=== PATIENT | female | born 1960 | race Caucasian/White ===

== ENCOUNTER → 2025-04-02 13:24 | Outpatient (BNVA) | payer BC, SELFPAY | PROVIDERS: PCP Physician Assistant Medical; Visit Provider Physician Assistant Surgical ==

== ENCOUNTER 2025-04-22 08:21 | Outpatient (AMB) | payer BC, SELFPAY ==
--- OUTSIDE RECORDS SUMMARY | 2025-04-22 08:26 | XMS_ITS | Patient Health Record ---
Author Organization [facility] Address [address] [facility] [address] [place] [address] Care Team Providers Care Lead Software Tester Name Role Phone Belkys Armando Primary Care Provider Unavailabl e Allergies Allergen (clinical drug ingredient) Drug/Non Drug Allergy documented on EMR Reaction Allergy Type Onset Date Status crab allergenic extract Crab (uncoded) Unknown Allergy Active Reason For Referral No Information Medications Medication SIG (Take, Route, Frequency, Duration) Notes Start Date End Date Status Irbesartan 300 MG 1 tablet Orally Once a day Active Vitamin D (Ergocalciferol) 5 0 MCG (1999) 1 capsule Orally Once a day Active Fish Oil 1000 MG 1 capsule Orally Onc e a day Active Pravastatin Sodium 20 MG 1 tablet Orally Once a day Active buPROPion HCl ER (XL) 150 MG 1 tablet in the morning Orally Once a day Active hydroCHLOROthiazide 25 MG 1 tablet in th e morning Orally Once a day Active metFORMIN HCl ER 500 MG 1 tablet with ev ening meal Orally Once a day Active Problems Problem Type SNOMED Code ICD Code Onset Dates Problem Status W/U Status Risk Notes Problem [id number] Hallux valgus (acquired), left foot (M20.12) Active confirmed Plan Of Treatment Pending Test Test Name Order Date X ray : Foot, left 3v 06/28/2021 Insurance Providers Payer Name Payer Address Payer Phone Subscriber Number Group Number Insured Name Patient Relationship to Insured Coverage Start Date Coverage End Date [employer] [facility] [address] [place] [phone] [id number] Lina Lynch Self - patient is the insured Medical (General) History Medical History History ICD Code Hyperlipidemia Hypertension Pre diabetes Vitamin D deficiency Morbid obesity Hyperlipidemia Essential (primary) hypertension Depression, unspecified depression type Abnormal LFT's Parasthesia Surgical History Surgery Date(Month/Year) Section meniscus repair (Left)
--- NOTE | 2025-04-22 12:42 | MHC.OFFVISWM ---
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 Allergies No Known Allergies Allergy (Verified 04/22/25 12:42) Medication List - Last Reconciled 04/22/25 by Melquiades Dewitt MD amlodipine 5 mg PO DAILY aspirin 81 mg PO DAILY irbesartan 300 mg PO DAILY metformin 1,000 mg PO DAILY metoprolol tartrate 50 mg PO BID pantoprazole 40 mg PO DAILY pravastatin 80 mg PO DAILY semaglutide (Ozempic) 1 mg subcut QWEEK HPI 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: Details: Start time: 12.31pm, End time: 1.31pm ?I spent 55 minutes speaking with the patient on the phone plus an additional 5 minutes reviewing and updating records for a total of 60 minutes HPI Comments Details: Previous weight loss efforts: Cindi Melton, Nutrisystem, WW, Hypnosis Wakes up: 6am, Sleeps: 9.30pm Breakfast: skips Lunch: 11.30am (left over from dinner) Dinner: 5pm (meat, vegetables, starch) Snacks: 3pm (popcorn), rarely at night Exercise: none Beverages: Coffee: none, tea: rarely, soda: none, juice: none, ETOH: 1/month PFSH Medical History (Updated 04/22/25 @ 13:12 by Melquiades Dewitt MD) Non-insulin dependent type 2 diabetes mellitus DJD (degenerative joint disease) GERD (gastroesophageal reflux disease) Hyperlipidemia Sleep apnea treated with continuous positive airway pressure (CPAP) Hypertension BMI 30.0-30.9,adult Obesity Surgical History (Updated 04/02/25 @ 15:04 by Skylar Diallo CMA) Hx of section History of lateral meniscus repair of right knee History of lateral meniscus repair of left knee Hx of colonoscopy Family History (Updated 04/02/25 @ 13:53 by Skylar Diallo CMA) Mother Breast cancer Diabetes Heart problem Hypertension Father Heart problem Melanoma Diabetes Hypertension Son Gout Daughter No problems noted. Daughter Thyroid condition Social History (Updated 04/02/25 @ 13:53 by ERICA Steward Alcohol intake: current Alcohol intake frequency: holidays/special occasions only Patient Tobacco Use Status: Never used Tobacco Telehealth Telehealth Telehealth Platform: Telephone Location of provider rendering services: practice address Location of patient: address on file Patient Identification confirmed using: Name, : Yes Telehealth method: voice only Patient verbally consented to treatment: Yes Patient verbally consented to billing insurance company: Yes Patient informed of any privacy concerns related to visit: Yes Minutes spent on Phone/Video with Pt.: 60 Assessment & Plan Assessment & Plan (1) Obesity: Code(s): E66.9 - Obesity, unspecified Category: Medical Qualifiers: Obesity type: due to excess calories Obesity classification: adult class 2 (BMI 35 - 39.9) Serious obesity comorbidity presence: with serious comorbidity Body mass index: BMI 38.0-38.9 Qualified Code(s): E66.812 - Obesity, class 2; E66.01 - Morbid (severe) obesity due to excess calories; Z68.38 - Body mass index [BMI] 38.0-38.9, adult Plan: 1.? Plan for lap sleeve gastrectomy. If diaphragmatic or ventral hernias are present at time of surgery, these will be repaired laparoscopically as well. I emphasized the importance of close follow-up, adherence to instructions and good communication. The surgery does not replace the need to change your lifestlyle which is the cause of the obesity problem. The surgery provides the motivation to try again to change your lifestyle, it reduces the appetite and make the transition to a better lifestyle easier and doubles the amount of weight you would lose compared to doing the lifestyle change without the surgery. You will need to be on a liquid diet with protein shakes for 2 weeks before surgery to maximize weight loss and boost your nutritional status to recover better from surgery and also for the first two weeks after surgery to let the stomach heal before we introduce other foods. After the first 2 weeks we will introduce protein bars and soft foods like scrambled eggs, cottage cheese and yogurt and after the 6th week will introduce meat, fish and cooked vegetables in small amounts. Over time you should be able to eat everything in small amounts. Side effects like nausea, vomiting, heartburn or abdominal pain are not common in the practice unless you are not following in the practice. This operation requires lifetime commitment to following in our practice and communication with me. You will much less weight and experience side effects if you don?t communicate or not following in the practice. Complications are rare and in our practice is about 1/10 of the national average. However, you can develop bleeding that may require transfusion (hasn?t happened for year in the practice), you may from complications (we did not have any deaths in the practice) and infections. Infections are usually a result of breakdown in communication or not understanding or following directions correctly. They are difficult to treat, they can happen during the first 6 weeks, they may require to be in the hospital for weeks or even months, not being able to eat by mouth and you may have drains and surgeries to try and correct the issue. Other risks and complications include possible conversion to an open procedure, leaks, small bowel obstruction, blood clots, cardiac, or pulmonary complications, as rn long term care complications such as ulcers, insufficient weight loss and vitamin deficiencies. 2. You will receive a link of our software charmaine to generate an individualized nutritional and exercise plan specific for you. Please send me a screenshot of the plans you will generate Meal to include lean meat (beef, fish, pork, turkey, chicken), or palestinian yogurt, or egg whites, or beans with a salad with olive oil and fruits (berries, pears, apples, kiwi). Avoid salt, breads, potatoes, rice, pasta, desserts. ?3. If you choose shakes, each shake would be drunk slowly, like coffee in a period of 2 hours. ?4. If you choose bars, cut each bar in 4 pieces and eat each piece in 30min ?to make each bar last 2 hours. ?5. I emphasized the importance of measuring accurately the food portion and measure it when serving the food in plate ?6. The meal portions include a specific number of forks of meat and salad. You always eat the meat portion but you can replace up to half of salad/vegetables portion with rice, potatoes or pasta, or a fruit ?if you like. The less you do it the better weight loss will be. ?7. One full-size fork is what it can be scooped on the fork without falling aside and not what can be bit with the fork. Use regular forks like those you find in a typical restaurant. ?8.? Please buy the body composition scale we discussed and send me weight measurements as soon as possible and then once a week. Always include your diet and exercise plan. 9. The best choice would be to purchase a stationary bike, elliptical or treadmill at home that can track calories. You can create and exercise plan with the [employer] charmaine. ?10. Goal is to lose at least 1.5-2lbs per week ?11. Goal to lose 10% of your weight before surgery, which is about 22lbs. Ultimate weight goal: 196lbs before surgery 12. Please follow the diet plan exactly without any change. If you don't like something about the plan or you feel hungry you need to communicate with me so I can help you revise the plan. You should not change the plan yourself. 13. To be scheduled for EGD due to the history of GERD. The possibility of biopsies was discussed. Patient needs to avoid use of NSAIDs and aspirin for 1 week prior to EGD. You must be on liquids only the day before your endoscopy. Risks of perforation and bleeding was discussed with the patient. This will be an outpatient procedure with IV sedation. Orders: Orders Insulin Today E11.9 - Type 2 diabetes mellitus without complications, E66.9 - Obesity, unspecified, E78.5 - Hyperlipidemia, unspecified, I10 - Essential (primary) hypertension, K21.9 - Gastro-esophageal reflux disease without esophagitis, Z68.30 - Body mass index [BMI] 30.0-30.9, adult Hemoglobin A1c Today E11.9 - Type 2 diabetes mellitus without complications, E66.9 - Obesity, unspecified, E78.5 - Hyperlipidemia, unspecified, I10 - Essential (primary) hypertension, K21.9 - Gastro-esophageal reflux disease without esophagitis, Z68.30 - Body mass index [BMI] 30.0-30.9, adult Complete Blood Count Auto Diff Today E11.9 - Type 2 diabetes mellitus without complications, E66.9 - Obesity, unspecified, E78.5 - Hyperlipidemia, unspecified, I10 - Essential (primary) hypertension, K21.9 - Gastro-esophageal reflux disease without esophagitis, Z68.30 - Body mass index [BMI] 30.0-30.9, adult Lipid Panel Today E11.9 - Type 2 diabetes mellitus without complications, E66.9 - Obesity, unspecified, E78.5 - Hyperlipidemia, unspecified, I10 - Essential (primary) hypertension, K21.9 - Gastro-esophageal reflux disease without esophagitis, Z68.30 - Body mass index [BMI] 30.0-30.9, adult Vitamin B12 and Folate Today E11.9 - Type 2 diabetes mellitus without complications, E66.9 - Obesity, unspecified, E78.5 - Hyperlipidemia, unspecified, I10 - Essential (primary) hypertension, K21.9 - Gastro-esophageal reflux disease without esophagitis, Z68.30 - Body mass index [BMI] 30.0-30.9, adult Zinc Today E11.9 - Type 2 diabetes mellitus without complications, E66.9 - Obesity, unspecified, E78.5 - Hyperlipidemia, unspecified, I10 - Essential (primary) hypertension, K21.9 - Gastro-esophageal reflux disease without esophagitis, Z68.30 - Body mass index [BMI] 30.0-30.9, adult C Reactive Protein Today E11.9 - Type 2 diabetes mellitus without complications, E66.9 - Obesity, unspecified, E78.5 - Hyperlipidemia, unspecified, I10 - Essential (primary) hypertension, K21.9 - Gastro-esophageal reflux disease without esophagitis, Z68.30 - Body mass index [BMI] 30.0-30.9, adult Vitamin B1 Today E11.9 - Type 2 diabetes mellitus without complications, E66.9 - Obesity, unspecified, E78.5 - Hyperlipidemia, unspecified, I10 - Essential (primary) hypertension, K21.9 - Gastro-esophageal reflux disease without esophagitis, Z68.30 - Body mass index [BMI] 30.0-30.9, adult Vitamin A Today E11.9 - Type 2 diabetes mellitus without complications, E66.9 - Obesity, unspecified, E78.5 - Hyperlipidemia, unspecified, I10 - Essential (primary) hypertension, K21.9 - Gastro-esophageal reflux disease without esophagitis, Z68.30 - Body mass index [BMI] 30.0-30.9, adult TSH reflex Free T4 Today E11.9 - Type 2 diabetes mellitus without complications, E66.9 - Obesity, unspecified, E78.5 - Hyperlipidemia, unspecified, I10 - Essential (primary) hypertension, K21.9 - Gastro-esophageal reflux disease without esophagitis, Z68.30 - Body mass index [BMI] 30.0-30.9, adult Vitamin D 25-OH Total Today E11.9 - Type 2 diabetes mellitus without complications, E66.9 - Obesity, unspecified, E78.5 - Hyperlipidemia, unspecified, I10 - Essential (primary) hypertension, K21.9 - Gastro-esophageal reflux disease without esophagitis, Z68.30 - Body mass index [BMI] 30.0-30.9, adult ECG 12 lead EKG Today E11.9 - Type 2 diabetes mellitus without complications, E66.9 - Obesity, unspecified, E78.5 - Hyperlipidemia, unspecified, I10 - Essential (primary) hypertension, K21.9 - Gastro-esophageal reflux disease without esophagitis, Z68.30 - Body mass index [BMI] 30.0-30.9, adult H Pylori Breath Test Today E11.9 - Type 2 diabetes mellitus without complications, E66.9 - Obesity, unspecified, E78.5 - Hyperlipidemia, unspecified, I10 - Essential (primary) hypertension, K21.9 - Gastro-esophageal reflux disease without esophagitis, Z68.30 - Body mass index [BMI] 30.0-30.9, adult IRON PROFILE Today E11.9 - Type 2 diabetes mellitus without complications, E66.9 - Obesity, unspecified, E78.5 - Hyperlipidemia, unspecified, I10 - Essential (primary) hypertension, K21.9 - Gastro-esophageal reflux disease without esophagitis, Z68.30 - Body mass index [BMI] 30.0-30.9, adult Comprehensive Met. Panel Today E11.9 - Type 2 diabetes mellitus without complications, E66.9 - Obesity, unspecified, E78.5 - Hyperlipidemia, unspecified, I10 - Essential (primary) hypertension, K21.9 - Gastro-esophageal reflux disease without esophagitis, Z68.30 - Body mass index [BMI] 30.0-30.9, adult Ferritin Today E11.9 - Type 2 diabetes mellitus without complications, E66.9 - Obesity, unspecified, E78.5 - Hyperlipidemia, unspecified, I10 - Essential (primary) hypertension, K21.9 - Gastro-esophageal reflux disease without esophagitis, Z68.30 - Body mass index [BMI] 30.0-30.9, adult US abdomen comp w elastography Today E11.9 - Type 2 diabetes mellitus without complications, E66.9 - Obesity, unspecified, E78.5 - Hyperlipidemia, unspecified, I10 - Essential (primary) hypertension, K21.9 - Gastro-esophageal reflux disease without esophagitis, Z68.30 - Body mass index [BMI] 30.0-30.9, adult XR chest 2V Today E11.9 - Type 2 diabetes mellitus without complications, E66.9 - Obesity, unspecified, E78.5 - Hyperlipidemia, unspecified, I10 - Essential (primary) hypertension, K21.9 - Gastro-esophageal reflux disease without esophagitis, Z68.30 - Body mass index [BMI] 30.0-30.9, adult FL upper GI w air Today E11.9 - Type 2 diabetes mellitus without complications, E66.9 - Obesity, unspecified, E78.5 - Hyperlipidemia, unspecified, I10 - Essential (primary) hypertension, K21.9 - Gastro-esophageal reflux disease without esophagitis, Z68.30 - Body mass index [BMI] 30.0-30.9, adult Referrals Behavioral Health Referral E11.9 - Type 2 diabetes mellitus without complications, E66.9 - Obesity, unspecified, E78.5 - Hyperlipidemia, unspecified, I10 - Essential (primary) hypertension, K21.9 - Gastro-esophageal reflux disease without esophagitis, Z68.30 - Body mass index [BMI] 30.0-30.9, adult Nutrition/Dietitian Referral E11.9 - Type 2 diabetes mellitus without complications, E66.9 - Obesity, unspecified, E78.5 - Hyperlipidemia, unspecified, I10 - Essential (primary) hypertension, K21.9 - Gastro-esophageal reflux disease without esophagitis, Z68.30 - Body mass index [BMI] 30.0-30.9, adult
[2025-04-22 12:50] VITALS: BMI 38.3
== END 2025-04-22 13:32 | disposition home or self-care (01) ==
LOC: HO.HBS 08:21
PROVIDERS: PCP Physician Assistant Medical; Visit Provider Surgery
DX: E66.812 Obesity, class 2 (principal); E66.01 Morbid (severe) obesity due to excess calories; Z68.38 Body mass index [BMI] 38.0-38.9, adult
CPT/HCPCS: 99205

== ENCOUNTER → 2025-04-22 08:21 | Outpatient (BNVA) | payer BC, SELFPAY | PROVIDERS: PCP Physician Assistant Medical; Visit Provider Surgery ==

== ENCOUNTER 2025-05-01 10:43 | Outpatient (REF) | payer BC, SELFPAY ==
--- NOTE | ~2025-05-01 | XR_ITS ---
EXAMINATION: XR CHEST CLINICAL INFORMATION: E66.9 - Obesity, unspecified COMPARISON: None available. TECHNIQUE: 2 views of the chest were obtained. FINDINGS: The cardiac, hilar, and mediastinal contours are normal. The lungs are clear bilaterally. There is no pneumothorax or pleural effusion. There is no focal osseous or soft tissue abnormality. XR/XR chest 2V IMPRESSION: No active pulmonary disease. Electronically signed by: Luca Cash MD 05/01/2025 12:03 PM EDT
--- NOTE | 2025-05-01 10:54 | ECG_ITS ---
Test Reason : obs Blood Pressure : */* mmHG Vent. Rate : 76 BPM Atrial Rate : 76 BPM P-R Int : 174 ms QRS Dur : 82 ms QT Int : 384 ms P-R-T Axes : 9 -19 -3 degrees QTcB Int : 432 ms Normal sinus rhythm Normal ECG No previous ECGs available Referred By: Melquiades Dewitt Electronically Signed By: BRAD TEE MD
[2025-05-01 11:04] LABS: MANUAL DIFF FLAG NO
--- OUTSIDE RECORDS SUMMARY | 2025-05-01 11:47 | XMS_ITS | Patient Health Record ---
Author Organization [facility] Address [address] [facility] [address] [place] [address] Care Team Providers Care Fisher Spear Name Role Phone Belkys Armando Primary Care [...] Problem Status W/U Status Risk Notes Problem [id number] Hallux valgus (acquired), left foot (M20.12) Active confirmed Plan Of Treatment Pending Test Test Name Order Date X ray : Foot, left 3v 06/28/2021 Insurance Providers Payer Name Payer Address Payer Phone Subscriber Number Group Number Insured Name Patient Relationship to Insured Coverage Start Date Coverage End Date [employer] [facility] [address] [place] [address] [phone] [id number] Lina Lynch Self - patient is the insured Medical (General) History Medical History History ICD Code Hyperlipidemia Hypertension Pre diabetes Vitamin D deficiency Morbid obesity Hyperlipidemia Essential (primary) hypertension Depression, unspecified depression type Abnormal LFT's Parasthesia Surgical History Surgery Date(Month/Year) Section meniscus repair (Left)
[2025-05-01 12:23] LABS: Basophils Absolute Auto 0.1 X10*3/uL (0.0-0.2); Basophils Percent Auto 1.7 % (0-2); Eosinophils Absolute Auto 0.3 X10*3/uL (0.0-0.4); Eosinophils Percent Auto 4.3 % (0-4); Hematocrit 45.8 % (37.0-47.0); Hemoglobin 14.6 g/dl (12.0-16.0); Imm Gran Abs Auto 0.01 X10*3/uL (0.00-0.03); Imm Gran Pct Auto 0.2 % (0.0-0.4); Lymphocytes Absolute Auto 2.5 X10*3/uL (1.2-4.9); Lymphocytes Percent Auto 38.6 % (20-40); Mean Corpuscular HGB Conc 31.9 g/dl (31.0-35.0); Mean Corpuscular Hemoglobin 27.5 pg (27.0-33.0); Mean Corpuscular Volume 86.3 fL (80.0-98.0); Mean Platelet Volume 10.3 fL (9.4-12.3); Monocytes Absolute Auto 0.6 X10*3/uL (0.1-1.2); Monocytes Percent Auto 9.7 % (2-11); Neutrophils Percent Auto 45.5 % (45-73); Platelet Count 278 X10*3/uL (160-400); Red Blood Count 5.31 X10*6/uL (4.20-5.50); Red Cell Distribution Width 13.9 % (11.0-16.0); White Blood Count 6.5 X10*3/uL (4.8-10.8)
[2025-05-01 12:27] LABS: Estimated Average Glucose 123 mg/dL; Hemoglobin A1c % 5.9 % (<6.0); Total Hemoglobin (HGBA1C) 3862.8168 umol/L
[2025-05-01 13:10] LABS: Alanine Aminotransferase 61 U/L (0-31); Albumin Level 4.6 g/dL (3.5-5.0); Alkaline Phosphatase 95 U/L (39-117); Anion Gap 14 (12-20); Aspartate Amino Transferase 37 U/L (5-31); Bilirubin Total 0.6 mg/dL (0.0-1.0); Blood Urea Nitrogen 15 mg/dL (9-16); C Reactive Protein 0.13 mg/dL (< or = 0.50); Calcium 10.7 mg/dL (8.4-10.2); Carbon Dioxide 26 mmol/L (22-29); Chloride 107 mmol/L (96-108); Cholesterol 191 mg/dL (<200); Estimated Glomerular Filt Rate > 60; Glucose Random 97 mg/dL (60-115); HDL Cholesterol 63 mg/dL (>40); Iron 64 mcg/dL (30-160); LDL Cholesterol Calculated 92 mg/dL (<100); Percent Iron Saturation 20 % (15-50); Potassium 4.5 mmol/L (3.3-5.1); Sodium 142 mmol/L (135-145); Total Iron Binding Capacity 326 mcg/dL (228-428); Total Protein 7.3 g/dL (6.5-8.0); Triglycerides 180 mg/dL (<150); Unsaturated Iron Binding 262 ug/dL
[2025-05-01 13:17] LABS: Ferritin 25 ng/mL (10-250); Insulin 26 uU/mL (2-29); TSH reflex Free T4 1.78 uIU/mL (0.32-4.0); Vitamin D 25-OH Total 48.3 ng/mL (>30)
[2025-05-01 13:25] LABS: Folate 7.3 ng/mL (> or = 4.0); Vitamin B12 483 pg/mL (200-900)
[2025-05-04 21:58] LABS: Zinc 81 mcg/dL (60-130)
[2025-05-06 16:29] LABS: Vitamin A 73 mcg/dL (38-98)
[2025-05-07 06:13] LABS: Vitamin B1 8 nmol/L (8-30)
== END 2025-05-01 10:44 | disposition home or self-care (01) ==
LOC: HO.XRAY 10:43
PROVIDERS: PCP Physician Assistant Medical; Visit Provider Surgery
DX: E66.9 Obesity, unspecified (principal); Z68.30 Body mass index [BMI] 30.0-30.9, adult; E11.9 Type 2 diabetes mellitus without complications; E78.5 Hyperlipidemia, unspecified; K21.9 Gastro-esophageal reflux disease without esophagitis; I10 Essential (primary) hypertension
CPT/HCPCS: 36415; 71046; 80053; 80061; 82306; 82607; 82728; 82746; 83036; 83525; 83540; 84425; 84443; 84590; 84630; 85025; 86140; 93005

== ENCOUNTER → 2025-05-01 10:54 | Outpatient (BNV) | payer BC, SELFPAY | PROVIDERS: PCP Physician Assistant Medical; Visit Provider Internal Medicine Cardiovascular Disease | DX: Z13.6 Encounter for screening for cardiovascular disorders (principal) | CPT/HCPCS: 93010 ==

== ENCOUNTER → 2025-05-01 11:08 | Outpatient (BNV) | payer BC, SELFPAY | PROVIDERS: PCP Physician Assistant Medical; Visit Provider Radiology Diagnostic Radiology | DX: E66.9 Obesity, unspecified (principal) | CPT/HCPCS: 71046 ==

== ENCOUNTER 2025-05-18 11:11 | Outpatient (AMB) | payer BC, SELFPAY ==
--- NOTE | 2025-05-18 11:00 | A.OFFWM_ITS ---
Intake Intake Visit Reasons: TV BH Intake Allergies No Known Allergies Allergy (Verified 04/22/25 12:42) PFSH Medical History (Updated 04/22/25 @ 13:12 by Melquiades Dewitt MD) Non-insulin dependent type 2 diabetes mellitus DJD (degenerative joint disease) GERD (gastroesophageal reflux disease) Hyperlipidemia Sleep apnea treated with continuous positive airway pressure (CPAP) Hypertension BMI 30.0-30.9,adult Obesity Surgical History (Updated 04/02/25 @ 15:04 by Skylar Diallo CMA) Hx of section History of lateral meniscus repair of right knee History of lateral meniscus repair of left knee Hx of colonoscopy Family History (Updated 04/02/25 @ 13:53 by Skylar Diallo CMA) Mother Breast cancer Diabetes Heart problem Hypertension Father Heart problem Melanoma Diabetes Hypertension Son Gout Daughter No problems noted. Daughter Thyroid condition Social History (Updated 04/02/25 @ 13:53 by Skylar Diallo CMA) Alcohol intake: current Alcohol intake frequency: holidays/special occasions only Patient Tobacco Use Status: Never used Tobacco Behavioral Health Assessment Weight Management Therapy Therapy Notes Details The patient is a 64-year-old self-referred female presenting for an initial visit to begin a behavioral health assessment as part of the pre- operative evaluation for a surgical weight loss program. Presenting Concerns Referral Source WMP Provider. PT meet with Dr. Clarke for the fist time on 04/22/25 Reason for referral Completion of behavioral health assessment as part of process for weight-loss surgery. Precipitating Event Obesity. Initial weight 216Lbs. Living Situation Current Living Situation Own At risk of losing current housing? No Satisfied with current living situation? Yes Comments PT lives alone with her cat. Food/Weight/Diet Expectations of change Initial goal to lose 10% of your weight before surgery, which is about 22lbs. Ultimate weight goal: 196lbs before surgery PT started the program on 04/22/2025 at 216Lbs, and most Patient goals are 140Lbs PT is implementing the following: Current meal plan: Exercise plan: History/Relationship with food Example of meals before starting the program: Breakfast: Lunch: Dinner: Snacks: Drinks/Liquids: History/Relationship with weight In the last 10 years, the patient's Lowest weight was and highest History/Relationship with dieting Doing Ozempic since November. Social History Family history and relationship PT is , for 27 years. She has 3 adult children and 2 grandkids. Parents . She has 2 older brothers and a youngest sister. PT reports good family dynamics. 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 Developmental history and status None, currently WNL. Social support Children, small group of friends. 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 Yazidism/Spirituality Mormonism. Cultural/Ethnic information White/. Legal Involvement and History Current or historical involvement with the legal system? None reported. Education Highest grade completed Masters degree in Education. Preferred learning style Written and Visual Currently enrolled in educational program? No Interested in further educational program? No Educational Interests/Skills Education. 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 ) Wants help to find employment? No Meaningful activities Read, audiobooks, get together with friends, TV, cook. Financial Situation Describe current financial situation Comfortable Financial assistance? None Service Service? No Mental Health and Addiction Treatment Current/Past substance abuse? No Comments Alcohol: 1x month. 1-2 drinks. Cigarettes/Tobacco: None. Cannabis/Edibles: None. Current/Past addictive behavior concerns? No Psychiatric history The patient has engaged in counseling intermittently since her divorce. She is currently seen on a monthly basis by therapist Jacki Jasen, with whom she has been working for approximately 8?9 years. Her treatment focus is on managing symptoms related to Unspecified Depressive Disorder. The patient reports experiencing occasional episodes of depressive symptoms lasting a few days, but describes them as manageable. She denies any history of psychiatric hospitalization or mental health crises. She also denies any current or past suicidal ideation (SI), suicide attempts (SA), self-harm behaviors, or risk of harm to others. Medical and Physical Health Summary Additional Medical History not covered in history Pre-diabetes. Sexual History concerns None reported. Physical exam in the last year? Yes (May 04/2025.) Pain Screening Current pain? No Pain in the last few months? Yes Comments Knee Medications Is the patient compliant with medications? Yes Does the patient have Kramer Guardian in place? No Does the patient use complimentary health approaches? Yes (Therapeutic massages every 6 weeks. ) Trauma/Abuse History History of trauma? No Questionnaires PHQ-9 Over the last 2 weeks, how often have you been bothered by any of the following problems? 1. Little interest or pleasure in doing things: not at all 2. Feeling down, depressed, or hopeless: not at all 3. Trouble falling or staying asleep, or sleeping too much: nearly every day 4. Feeling tired or having little energy: several days 5. Poor appetite or overeating: more than half the days 6. Feeling bad about yourself - or that you are a failure or have let yourself or your family down: several days 7. Trouble concentrating on things, such as reading the newspaper or watching television: not at all 8. Moving or speaking so slowly that other people could have noticed. Or the opposite - being so fidgety or restless that you have been moving around a lot more than usual: not at all 9. Thoughts that you would be better off or of hurting yourself in some way: not at all Total score: 7 Depression Screening Interpretation: Positive (From new PT pack. New one will be administered at next visit. ) Depression Screening Follow-up: Existing condition and In treatment Depression Screening Done: Yes Source: Developed by Drs. Ascencion Finney, Coby Antunez, Jay Landeros and colleagues, with an educational gissel from [employer]. Binge Eating Scale Group 1 A. I don't feel self-conscious about my wt. or body size when I'm with others. B. I feel concerned about how I look to others, but it normally does not make me fell disappointed with myself C. I do get self-conscious about my appearance and wt. which makes me feel disappointed in myself. D. I feel very self-conscious about my wt. and frequently I feel intense shame and disgust for myself. I try to avoid social contacts because of my self- consciousness. Response Group 1: C Group 2 A. I don't have any difficulty eating slowly in the proper manner. B. Although I seem to gobble down foods, I don't end up feeling stuffed because of eating to much. C. At times, I tend to eat quickly and then, I feel uncomfortably full afterwards. D. I have the habit of bolting down my food, without really chewing it. When this happens I usually feel uncomfortably stuffed because I've eaten to much. Response Group 2: A Group 3 A. I feel capable to control my eating urges when I want to. B. I feel like I have failed to control my eating more than the average person. C. I feel utterly helpless when it comes to feeling in control of my eating urges. D. Because I feel so helpless about controlling my eating I have become very desperate about trying to get control. Response Group 3: B Group 4 A. I don't have the habit of eating when I'm bored. B. I sometimes eat when I'm bored, but often I'm able to get busy and get my mind off food. C. I have a regular habit of eating when I'm bored, but occasionally, I can use some other activity to get my mind off eating. D. I have a strong habit of eating when I'm bored. Nothing seems to help me breath the habit. Response Group 4: C Group 5 A. I'm usually physically hungry when I eat something. B. Occasionally, I eat something on impulse even though I really am not hungry. C. I have the regular habit of eating foods, that I might not really enjoy, to satisfy a hungry feeling even though physically, I don't need the food. D. Although I'm not physically hungry, I get a hungry feeling in my mouth that only seems to be satisfied when I eat a food, like sandwich, that fills my mouth. Sometimes, when I eat the food to satisfy my mouth hunger, I then spit the food out so I won't gain weight. Response Group 5: B Group 6 A. I don't feel any guilt or self-hate after I overeat. B. After I overeat, occasionally I feel guilt or self-hate. C. Almost all the time I experience strong guilt or self-hate after I overeat. Response Group 6: C Group 7 A. I don't lose total control of my eating when dieting even after periods when I overeat. B. Sometimes when I eat a forbidden food on a diet, I feel like I blew it and eat even more. C. Frequently, I have the habit of saying to myself, I've blown it now, why not go all the way, when I overeat on a diet. When that happens I eat more. D. I have a regular habit of starting a strict diets for myself but I break the diets by going on an eating binge. My life seems to be either a feast or famine. Response Group 7: B Group 8 A. I rarely eat so much food that I feel uncomfortably stuffed afterwards. B. Usually about once a month, I each such a quantity of food, I end up feeling very stuffed. C. I have regular periods during the month when I eat large amounts of food, either at mealtime or at snacks. D. I eat so much food that I regularly feel quite uncomfortable after eating and sometimes a bit nauseous. Response Group 8: B Group 9 A. My level of calorie intake does not go up very high or go down very low on a regular basis. B. Sometimes after I overeat, I will try to reduce my caloric intake to almost nothing to compensate for the excess calories I've eaten. C. I have a regular habit of overeating during the night. It seems that my routine is not to be hungry in the morning but overeat in the evening. D. In my adult years, I have had week-long periods where I practically starve myself. This follows periods when I overeat. It seems I live a life of either feast or famine. Response Group 9: C Group 10 A. I usually am able to stop eating when I want to. I know when enough is enough. B. Every so often, I experience a compulsion to eat which I can't seem to control. C. Frequently, I experience strong urges to eat which I seem unable to control, but at other times I can control my eating urges. D. I feel incapable of controlling urges to eat. I have a fear of not being able to stop eating voluntarily. Response Group 10: C Group 11 A. I don't have any problem stopping eating when I feel full. B. I usually can stop eating when I feel full but occasionally overeat leaving me feeling uncomfortably stuffed. C. I have a problem stopping eating once I start and usually I feel uncomfortably stuffed after I eat a meal. D. Because I have a problem not being able to stop eating when I want, I sometimes have to induce vomiting to relieve my stuffed feeling. Response Group 11: B Group 12 A. I seem to eat just as much when I'm with others, Family social gatherings as when I'm by myself. B. Sometimes, when I'm with other persons, I don't eat as much as I want to eat because I'm self-conscious about my eating. C. Frequently, I eat only a small amount of food when others are present, because I'm very embarrassed about my eating. D. I feel so ashamed about overeating that I pick times to overeat when I know no one will see me. I feel like a closet eater. Response Group 12: D Group 13 A. I eat three meals a day with only an occasional between meal snack. B. I eat 3 meals a day, but I also normally snack between meals. C. When I am snacking heavily, I get in the habit of skipping regular meals. D. There are regular periods when I seem to be continually eating, with no planned meals. Response Group 13: C Group 14 A. I don't think much about trying to control unwanted eating urges. B. At least some of the time, I feel my thoughts are pre-occupied with trying to control my eating urges. C. I feel that frequently I spend much time thinking about how much I ate or about trying not to eat anymore. D. It seems to me that most of my waking hours are pre-occupied by thoughts about eating or not eating. I feel like I'm constantly struggling not to eat. Response Group 14: B Group 15 A. I don't think about food a great deal. B. I have strong craving for food but they last only for brief periods of time. C. I have days when I can't seem to think about anything else but food. D. Most of my days seem to be pre-occupied with thoughts about food. I feel like I live to eat. Response Group 15: B Group 16 A. I usually know whether or not I'm physically hungry. I take the right portion of food to satisfy me. B. Occasionally, I feel uncertain about knowing whether or not I'm physically hungry. A these times it's hard to know how much food I should take to satisfy me. C. Even though I might know how many calories I should eat, I don't have any idea what is a normal amount of food for me. Response Group 16: B Binge Eating Score: 23 Score less than 17 Minimal Risk Score between 18-26 Moderate Risk Score between 27-46 High Risk Assessment & Plan Assessment & Plan (1) Depression, unspecified: Code(s): F32.A - Depression, unspecified Qualifiers: Depression Type: unspecified Qualified Code(s): F32.A - Depression, unspecified (2) Pre-bariatric surgery psychological evaluation: Code(s): Z71.89 - Other specified counseling Plan The patient was not cleared today as the assessment was not completed. The patient will return in 2-4 weeks to continue the evaluation. Next appointment: 06/08/25 at 8am Telehealth. Telehealth Telehealth [facility] Location of provider rendering services: other (Home office. [place], [place]) Location of patient: address on file Patient Identification confirmed using: Name, : Yes Telehealth method: voice only Patient verbally consented to treatment: Yes Patient verbally consented to billing insurance company: Yes Patient informed of any privacy concerns related to visit: Yes Minutes spent on Phone/Video with Pt.: 55 Coding Level of Care Code New Pt Tele Psy Diag Gregg ([id number]) Patient Type New Diagnoses Depression, unspecified depression type F32.A Depression Type: unspecified Pre-bariatric surgery psychological evaluation Z71.89 Time Spent (min) 55
--- OUTSIDE RECORDS SUMMARY | 2025-05-18 12:03 | XMS_ITS | Patient Health Record ---
Author Organization [facility] Address [address] [place] [address] Care Team Providers Care Data Entry Specialist Name Role Phone Belkys Armando Primary Care [...] Problem Status W/U Status Risk Notes Problem [id number] Hallux valgus (acquired), left foot (M20.12) Active confirmed Plan Of Treatment Pending Test Test Name Order Date X ray : Foot, left 3v 06/28/2021 Insurance Providers Payer Name Payer Address Payer Phone Subscriber Number Group Number Insured Name Patient Relationship to Insured Coverage Start Date Coverage End Date [employer] [facility] [address] [place] [phone] [id number] Lina Lynch Self - patient is the insured Medical (General) History Medical History History ICD Code Hyperlipidemia Hypertension Pre diabetes Vitamin D deficiency Morbid obesity Hyperlipidemia Essential (primary) hypertension Depression, unspecified depression type Abnormal LFT's Parasthesia Surgical History Surgery Date(Month/Year) Section meniscus repair (Left)
== END 2025-05-18 12:08 | disposition home or self-care (01) ==
LOC: HO.HBST 11:11
PROVIDERS: PCP Physician Assistant Medical; Visit Provider Counselor Mental Health
DX: F32.A Depression, unspecified (principal); Z71.89 Other specified counseling
CPT/HCPCS: 90791

== ENCOUNTER 2025-05-19 08:20 | Outpatient (REF) | payer BC, SELFPAY ==
--- NOTE | ~2025-05-19 | US_ITS ---
EXAMINATION: US ABDOMEN COMPLETE WITH LIVER ELASTOGRAPHY HISTORY: E66.9 - Obesity, unspecified TECHNIQUE: Real-time grayscale ultrasound imaging of the abdomen was performed and images were reviewed. COMPARISON: There are no prior studies available for comparison. FINDINGS: Liver: The right lobe of the liver measures 16.0 cm in size. The left lobe of the liver measures 9.6 cm in size. The liver demonstrates increased echotexture, consistent with steatosis. No focal mass or intrahepatic biliary ductal dilatation is identified. There is normal hepatopedal flow in the portal vein. Ultrasound elastography of the liver was performed with 10 separate measurements of the liver parenchyma with the patient in the supine position. Measurements were obtained approximately 2 cm below Willem's capsule and perpendicular to the capsule. The median shear wave velocity is 1.31 m/s. The interquartile range/median (IQR/median) is 0.09. Gallbladder and biliary tree: The gallbladder is unremarkable, without evidence of calculi, wall thickening, or pericholecystic fluid. There is no sonographic Comer sign. The common bile duct is normal in caliber measuring 3 mm. Kidneys: The right kidney measures 10.4 cm in length. The left kidney measures 10.1 cm in length. The kidneys are unremarkable, without evidence of masses, hydronephrosis, or calculi. Pancreas: The pancreas is obscured by bowel gas. Spleen: The spleen is normal in size and contour, measuring 8.2 cm in length. Abdominal aorta and inferior vena cava: The visualized portions of the abdominal aorta and inferior vena cava are normal in caliber. There is no free fluid in the abdomen. US/US abdomen comp w elastography IMPRESSION: Hepatic steatosis. The pancreas is not well visualized. The median shear wave velocity in the liver is 1.31 m/s, corresponding to a median liver stiffness of 5.26 kPa. The IQR/median value is 0.09. This is indicative of a quality data set. Findings are indicative of a low elastography value which rules out advanced chronic liver disease in asymptomatic patients. REFERENCE: Society of [employer]iologists in Ultrasound Liver Stiffness Thresholds (2019): LIVER STIFFNESS THRESHOLDS: *Shear wave velocity less than 1.3 m/s (Liver Stiffness equal or less than 5 kPa): High probability of being normal. *Shear wave velocity less than 1.7 m/s (Liver Stiffness less than 9 kPa): In the absence of other known clinical signs, rules out compensated advanced chronic liver disease. *Shear wave velocity between 1.7-2.1 m/s (Liver Stiffness 9-13 kPa): Suggestive of compensated advanced chronic liver disease but need further test for confirmation. *Shear wave velocity between 2.1-2.4 m/s (Liver Stiffness 13-17 kPa): Rules in compensated advanced chronic liver disease. *Shear wave velocity greater than 2.4 m/s (Liver Stiffness over 17 kPa): Suggestive of clinically significant portal hypertension. QUALITY OF DATA SET: SIGNIFICANT CHANGE FROM PRIOR EXAM: Significant change if liver stiffness measurement is 10% or greater from prior exam. OTHER CONSIDERATIONS: The stage of liver fibrosis may be overestimated in the setting of acute hepatitis, liver inflammation, elevated liver function tests, hepatic vascular congestion, obstructive cholestasis, non-fasting state, and infiltrative diseases such as amyloidosis and lymphoma. In some patients with NAFLD, the liver stiffness thresholds for compensated advanced chronic liver disease may be lower. In causes other than viral hepatitis and NAFLD, liver stiffness thresholds are not well established. Electronically signed by: Ascencion Lee MD 05/19/2025 09:10 AM EDT
--- OUTSIDE RECORDS SUMMARY | 2025-05-19 08:24 | XMS_ITS | Clinical Summary ---
Author Organization [facility] Address [address] [place] [address] Care Team Providers Care Program Manufacturing Leader Name Role Phone Unavailable Primary Care Provider Unavailabl e Social History Tobacco Use Types Packs/Day Years Used Date Smoking Tobacco: Never Assessed Sex and Gender Information Value Date Recorded Sex Assigned at Not on file Gender Identity Not on file Sexual Orientation Not on file Job Start Date Occupation Industry Not on file Not on file Not on file Plan of Treatment Health Maintenance Due Date Last Done Comments Hepatitis C Screening 1961 COVID-19 Vaccine (#1) 05/08/1962 Depression Screening 1973 Preventative Health Evaluation 1979 DTap / Tdap / Td (1 - Tdap) 1980 Cervical Cancer Screening (P ap Smear) 1982 Colon Cancer Screening (Colonoscopy) 2006 Breast Cancer Screening (Mammogram) 2011 Shingrix-Zoster Vaccine (1 of 2) 2011 Influenza Vaccine (Season Ended) 2025 RSV Adult > 60+ Yrs or Pregn ant (1 - 1-dose 75+ series) 2036 Hepatitis B Vaccines Aged Out No long er eligible based on patient's age to complete this topic Pneumococcal Vaccine Aged Out No long er eligible based on patient's age to complete this topic RSV Ped < 20 months Aged Out No longe r eligible based on patient's age to complete this topic
--- OUTSIDE RECORDS SUMMARY | 2025-05-19 08:24 | XMS_ITS | Clinical Summary ---
Author Organization [facility] Address [address] [place] [address] Phone Care Team Providers Care Automotive Customer Experience Advisor Name Role Phone Belkys Armando MD Primary Care Provider [phone] Allergies Active Allergy Reactions Criticality Noted Date Comments Crab 10/10/2024 Lisinopril Cough High 11/17/2009 Other Reaction(s): UNKNOWN Moxifloxacin Nausea And Vomiting 01/04/2010 Shellfish Derived 06/21/2016 Other Reaction(s): Rash/Dermatitis Medications metFORMIN (GLUCOPHAGE) 500 mg tablet Take 2 tablets (1,000 mg total) by mouth 1 (one) time each day. 0 Active irbesartan (AVAPRO) 300 mg tablet Take 1 tablet (300 mg total) by mouth 1 (one) time each day. 9 Active omega 8-znj-pkv-fish oil (Fish OiL) 1,200 (144-216) mg capsule Take 1,200 mg by mouth daily. 9 Active cholecalcifero l (VITAMIN D-3) 50 mcg (2,000 unit) capsule Take 2,000 Units by mouth daily. 3 Active pravastatin (PRAVACHOL) 80 mg tablet TAKE 1 TABLET BY MOUTH EVERY DAY 90 tablet 3 5 Active metoprolol tartrate (LOPRESSOR) 50 mg tablet Take 1 tablet (50 mg total) by mouth 2 (two) times a day. Active aspirin 81 mg EC tabletIndicati ons:Other chest pain Take 1 tablet (81 mg total) by mouth 1 (one) time each day. 90 each 3 5 12/02/19 26 Active semaglutide (OZEMPIC) 0.25 mg or 0.5 mg(2 mg/1.5 mL) injection pen Inject 0.25 mg under the skin every 7 (seven) days. Active pantoprazole (PROTONIX) 40 mg EC tablet Take 1 tablet (40 mg total) by mouth 1 (one) time each day before breakfast. Do not crush, chew, or split. Active amLODIPine (NORVASC) 5 mg tablet TAKE 1 TABLET BY MOUTH EVERY DAY 90 tablet 3 5 Active amLODIPine (NORVASC) 5 mg tablet Take 1 tablet (5 mg total) by mouth 1 (one) time each day. 4 05/13/20 25 Discontinued Active Problems Problem Noted Date Diagnosed Date Aortic stenosis 12/22/2020 Overview (10/10/2024): Last Assessment & Plan: The patient has a history of aortic valve stenosis. Chronic, she is asymptomatic from a cardiac standpoint. Echocardiogram done in December 2022 showed normal LVEF and mild aortic valve stenosis. Will continue monitoring of her aortic valve stenosis with a new echocardiogram to be done in 3 years (or sooner if she develops any symptoms concerning for the worsening valvular disease). Assessment & Plan (12/02/2024 8:39 AM EST): The patient has a history of aortic valve stenosis. Her last echocardiogram in 2022 showed evidence of mild aortic valve stenosis. Nevertheless, on today's visit, the patient is complaining of symptoms of chest discomfort. Given that the patient is now reporting symptoms, we will need to proceed with a follow-up echocardiogram to rule out the presence of worsening aortic valve stenosis as the cause of the patient's symptoms. As such, we will order a transthoracic echocardiogram. Orders: Transthoracic echocardiogram (TTE) complete with PRN contrast, bubble, strain, and 3D order panel; Future perflutren lipid microsphere (DEFINITY) 1.3 mL in sodium chloride 0.9% 8.7 mL injection Other chest pain 12/22/2020 Overview (10/10/2024): Last Assessment & Plan: Patient was recently in the ER with chest pain. Ruled out for ACS. We will arrange for outpatient stress test. Assessment & Plan (12/02/2024 8:44 AM EST): The patient came for evaluation due to episodes of chest pain. The description of the symptoms is consistent with atypical chest pain. The patient has the following risk factors for coronary artery disease: Hypertension, hyperlipidemia, obesity, and prediabetes. Given the patient's age, gender, description of the symptoms, and risk factors for CAD, the patient has an intermediate risk for coronary artery disease. As such, will order a stress test for evaluation of the patient's chest pain. In the meantime, the patient will continue her current therapy with amlodipine and metoprolol. She will also continue her statin therapy with pravastatin. The patient will be started on aspirin 81 mg orally daily. I have instructed the patient to avoid any strenuous physical activities until we are able to complete the necessary testing. During today's visit, we reviewed the warning signs that should prompt an urgent medical evaluation. Specifically, we discussed that the patient should go to the hospital if she develops any chest discomfort at rest lasting for more than 20 minutes or worsening chest discomfort with exertion. Orders: aspirin 81 mg EC tablet; Take 1 tablet (81 mg total) by mouth 1 (one) time each day. Transthoracic echocardiogram (TTE) complete with PRN contrast, bubble, strain, and 3D order panel; Future perflutren lipid microsphere (DEFINITY) 1.3 mL in sodium chloride 0.9% 8.7 mL injection Stress echocardiogram (TTE) exercise with PRN contrast, bubble, strain, and 3D order panel; Future perflutren lipid microsphere (DEFINITY) 1.3 mL in sodium chloride 0.9% 8.7 mL injection Asthma 01/02/2019 Depression 01/02/2019 Hyperlipidemia 01/02/2019 Overview (10/10/2024): Last Assessment & Plan: The patient has a history of hyperlipidemia. The patient is currently on pravastatin 40 mg orally daily. Given her coronary artery calcifications noted on her coronary artery calcium scoring test done in 2019, her LDL target should be 70 or below. We will order a new lipid panel to evaluate the patient's current lipid control and determine if any adjustment are needed in the lipid lowering therapy. Assessment & Plan (12/02/2024 8:39 AM EST): The patient has a history of hyperlipidemia. The patient is currently on pravastatin 80 mg orally daily. Given her history of coronary artery calcifications, her LDL should be 70 or below. As such, we will order a new lipid panel to evaluate the patient's current lipid control and determine if any adjustment are needed in the lipid lowering therapy. Orders: Comprehensive metabolic panel; Future Lipid panel; Future Hypertension 06/25/2018 Overview (10/10/2024): Last Assessment & Plan: The patient has a history of arterial hypertension. The patient's blood pressure today was noted to be well controlled. We'll continue the current antihypertensive medication regimen. Assessment & Plan (12/02/2024 8:39 AM EST): The patient has a history of arterial hypertension. The patient's blood pressure today was noted to be well controlled. We'll continue the current antihypertensive medication regimen. Orders: ECG 12 lead Impaired fasting glucose 12/27/2017 Loss of memory 06/21/2015 Herpes simplex 10/15/2013 Encounters Date Type Department Care Team Description 03/06/2025 7:40 AM EDT Office Visit [facility] [address] [place] [address] Federica Saez NP Hyperlipidemia, unspecified hyperlipidemia type (Primary Dx) from Last 3 Months Immunizations Name Administration Dates Next Due Tdap Tetanus diptheria acell ular pertussis (Boostrix; Adacel) 7yo and older 05/13/2010 Surgical History Surgery Date Site/Laterality Comments OTHER SURGICAL HISTORY PROCEDURE: HISTORICAL D&C OTHER SURGICAL HISTORY PROCEDURE: AR PUNCTURE ASPIRATION CYST OF BREAST OTHER SURGICAL HISTORY PROCEDURE: AR ENDOMETRIAL BX W/WO ENDOCERVIX BX W/O DILAT SPX SECTION PROCEDURE: HISTORICAL DELIVERY KNEE ARTHROSCOPY Left PROCEDURE: AR ARTHROSCOPY AID TX SPINE&/FX KNEE W/O FIXJ; COMMENT: meniscal tear Medical History Medical History Date Comments Carotid bruit 05/30/2011 DX:Carotid bruit Herpes simplex 10/15/2013 DX:Herpes simple x Hypertension 06/25/2018 DX:Hypertension Impaired fasting glucose 12/27/2017 DX:Impa ired fasting glucose Loss of memory 06/21/2015 DX:Loss of memor y Family History Medical History Relation Name Comments Hypertension Brother 1 Dementia Father cad, DM, HTN Lung cancer Maternal Grandfather Colon cancer Maternal Grandmother Diabetes Mother breast cancer, spinal tumor Coronary artery disease Paternal Grandfather Relation Name Status Comments Brother 1 Alive Brother 2 Alive Father Maternal Grandfather Maternal Grandmother Mother Alive Paternal Grandfather Paternal Grandmother Sister Alive Social History Tobacco Use Types Packs/Day Years Used Date Smoking Tobacco: Never Smokeless Tobacco: Never Alcohol Use Standard Drinks/Week Comments Yes 0 (1 standard drink = 0.6 oz pur e alcohol) occ Comments Unknown Sex and Gender Information Value Date Recorded Sex Assigned at Female 10/09/2024 12:43 PM EST Legal Sex Female 7:10 AM EST Gender Identity Female 10/09/2024 12:43 PM EST Sexual Orientation Not on file Obstetrics History Last Filed Vital Signs Vital Sign Reading Time Taken Comments Blood Pressure 128/80 03/06/2025 7:45 AM EDT Pulse 74 03/06/2025 7:45 AM EDT Temperature - - Respiratory Rate - - Oxygen Saturation 96% 03/06/2025 7:45 AM EDT Inhaled Oxygen Concentration - - Weight 98.4 kg (217 lb) 03/06/2025 7:45 AM EDT Height 161.3 cm (5' 3.5 ) 03/06/2025 7:45 AM EDT Body Mass Index 37.84 03/06/2025 7:45 AM EDT Plan of Treatment Upcoming Encounters Date Type Department Care Team (Late st Contact Info) Description 06/09/2025 9:00 AM EDT Office Visit [facility] - [place] [address] [place] [address] Robbie Joyce MD [address] [place] [address] Health Maintenance Due Date Last Done Comments Breast Cancer Screening 1960 Pneumococcal Vaccine: 50+ Years (1 of 2 - PCV) 1980 Pneumococcal Vaccine: Pediatrics (0 to 5 Years) and At-Risk Patients (6 to 64 Years) (1 of 2 - PCV) 1980 Cervical Cancer Screening: P ap Smear 02/07/2020 02/06/2017 DTaP,Tdap,and Td Vaccines (2 - Td or Tdap) 05/13/2020 05/13/2010 RSV Immunization Adult Patients (1 - Risk 60-74 years 1-dose series) 2021 Depression Screening 10/28/2022 HIV Screening 10/28/2022 Hepatitis C Screening 10/28/2022 Social Influencers of Health Screening 10/28/2022 Colorectal Cancer Screening: Colonoscopy 05/14/2023 05/14/2013 COVID-19 Vaccine (3 - 2023-2 5 season) 2024 05/16/2022, 09/16/2021 Influenza Vaccine (#1) 2025 Hypertension/CHF/CAD Annual BMP Blood Test 01/26/2026 01/26/2025, 05/05/2019 Cholesterol Screening (Lipid Panel) 04/27/2030 04/27/2025, 01/26/2025, 07/03/2019 Zoster Vaccines Completed 06/07/2024, 04/04/2024 HIB Vaccines Aged Out No longer eligi ble based on patient's age to complete this topic HPV Vaccines Aged Out No longer eligi ble based on patient's age to complete this topic Hepatitis A Vaccines Aged Out No long er eligible based on patient's age to complete this topic Hepatitis B Vaccines Aged Out No long er eligible based on patient's age to complete this topic IPV Vaccines Aged Out No longer eligi ble based on patient's age to complete this topic MMR Vaccines Aged Out No longer eligi ble based on patient's age to complete this topic Meningococcal ACWY Vaccine Aged Out N o longer eligible based on patient's age to complete this topic Meningococcal B Vaccine Aged Out No l onger eligible based on patient's age to complete this topic RSV Immunization Patients Under 20 months Aged Out No longer eligible b ased on patient's age to complete this topic Varicella Vaccines Aged Out No longer eligible based on patient's age to complete this topic Procedures Procedure Name Priority Date/Time Associated Diagnosis Comments LIPID PANEL Routine 04/27/2025 7:41 AM EDT Hyperlipidemia, unspecified hyperlipidemia type COMPREHENSIVE METABOLIC PANEL Routine 01/26/2025 7:30 AM EDT Pure hypercholesterolemia HM PAP SMEAR Routine 02/06/2017 HM COLONOSCOPY Routine 05/14/2013 from Last 3 Months or Most Recently Relevant to Health Maintenance Results * (ABNORMAL) Lipid panel (04/27/2025 7:41 AM EDT) Cholesterol Total 175 100 - 199 mg/dL [facility] Triglycerides 170(H) 0 - 149 mg/dL [facility] HDL Cholesterol 66 >39 mg/dL [facility] VLDL Cholesterol Calculated 29 5 - 40 mg/dL [facility] LDL Chol Calc (NIH) 80 0 - 99 mg/dL [facility] 1 Blood Venous blood specimen / Unknown 04/27/2025 7:41 AM EDT 04/27/2025 Narrative [facility] 1 - 04/28/2025 1:06 AM EDT Performed at: 01 - [facility] [address] [id number] Metal Drill Operator: Kyung Butcher MD, Phone: [phone] us Federica Saez TRUCK RENTAL SERVICE ATTENDANT LAB BLOOD ORDERABLES Final Res ult [facility] * (ABNORMAL) Comprehensive metabolic panel (01/26/2025 7:30 AM EDT) Glucose 111(H) 70 - 99 mg/dL [facility] Blood Urea Nitrogen (BUN) 13 8 - 27 mg/dL [facility] Creatinine 0.83 0.57 - 1.00 mg/dL [facility] 1 eGFR 79 >59 mL/min/1. 73 [facility] 1 BUN/Creatinine Ratio 16 12 - 28 [facility] 1 Sodium 142 134 - 144 mmol/L [facility] 1 Potassium 4.2 3.5 - 5.2 mmol/L [facility] 1 Chloride 107(H) 96 - 106 mmol/L [facility] 1 Carbon Dioxide 23 20 - 29 mmol/L [facility] 1 Calcium 10.4(H) 8.7 - 10.3 mg/dL [facility] Protein Total 6.3 6.0 - 8.5 g/dL [facility] 1 Albumin 4.0 3.9 - 4.9 g/dL [facility] 1 Globulin Total 2.3 1.5 - 4.5 g/dL [facility] 1 Bilirubin Total <0.2 0.0 - 1.2 mg/dL [facility] 1 Alkaline Phosphatase 92 44 - 121 IU/L [facility] 1 Aspartate aminotransferase (AST) 21 0 - 40 IU/L [facility] 1 Alanine Aminotransferase (ALT) 33(H) 0 - 32 IU/L [facility] 1 Blood Venous blood specimen / Unknown 01/26/2025 7:30 AM EDT 01/26/2025 Narrative [facility] 1 - 01/27/2025 1:06 AM EDT Performed at: 01 - [facility] [address] [id number] Metal Drill Operator: Kyung Butcher MD, Phone: [phone] Nadeem Allred MD LAB BLOOD ORDERABLES F inal Result [facility] * Pap Smear (02/06/2017) Pap smear abstracted, no interpretation Historical Provider HEALTH MAINTENANCE Final Result * Colonoscopy (05/14/2013) Colonoscopy abstracted, no interpretation Anatomical Region Laterality Modality Other Historical Provider HEALTH MAINTENANCE Final Result from Last 3 Months or Most Recently Relevant to Health Maintenance Insurance [facility] Care Teams Automotive Customer Experience Advisor Relationship Specialty Start Date End Date Belkys Armando MD [address] [place] [address] PCP - General Internal Medicine 12/02/24
--- OUTSIDE RECORDS SUMMARY | 2025-05-19 08:24 | XMS_ITS | Patient Health Record ---
Author Organization [facility] Address [address] [place] [address] Care Team Providers Care Statistical Consultant Name Role Phone Belkys Armando Primary Care [...] Problem Status W/U Status Risk Notes Problem [id number] Hallux valgus (acquired), left foot (M20.12) Active confirmed Plan Of Treatment Pending Test Test Name Order Date X ray : Foot, left 3v 06/28/2021 Insurance Providers Payer Name Payer Address Payer Phone Subscriber Number Group Number Insured Name Patient Relationship to Insured Coverage Start Date Coverage End Date [employer] [facility] [address] [place] [address] [phone] [id number] Lina Lynch Self - patient is the insured Medical (General) History Medical History History ICD Code Hyperlipidemia Hypertension Pre diabetes Vitamin D deficiency Morbid obesity Hyperlipidemia Essential (primary) hypertension Depression, unspecified depression type Abnormal LFT's Parasthesia Surgical History Surgery Date(Month/Year) Section meniscus repair (Left)
--- OUTSIDE RECORDS SUMMARY | 2025-05-19 08:25 | XMS_ITS ---
Author Name [facility] Organization Unknown History of Medication Use Medication Directions Dispensed Refills Start Date End Date Status Ozempic 1 mg/dose (4 mg/3 mL) subcutaneous pen injector Inject 1 mg every week by subcutaneous route as directed. 5 active Ozempic 0.25 mg or 0.5 mg (2 mg/3 mL) subcutaneous pen injector Inject 0.25mg once weekly by subcutaneous route for the first 4 wks only, then increase to 0.5mg weekly and continue this dose until followup 5 active albuterol sulfate HFA 90 mcg/actuation aerosol inhaler INHALE 2 PUFFS EVERY 6 HOURS NEEDED 12/06/19 25 completed clonidine HCl 0.1 mg tablet TAKE 1 TABLET BY MOUTH EVERY DAY FOR 30 DAYS 12/06/19 25 completed hydrochlorothiazide 25 mg tablet TAKE 1 AND 1/2 TAB BY MOUTH ONCE A DAY 30 DAY(S) 12/06/19 25 completed Mounjaro 2.5 mg/0.5 mL subcutaneous pen injector INJECT 2.5 SUBCUTANEOUS WEEKLY 12/06/19 25 completed Ozempic 2 mg/dose (8 mg/3 mL) subcutaneous pen injector INJECT 2MG INTO SKIN ONCE A WEEK DIRECTED 12/06/19 25 completed Paxlovid 300 mg (150 mg x 2)-100 mg tablets in a dose pack TAKE 3 TABLETS BY MOUTH TWICE A DAY FOR 5 DAYS 12/06/19 25 completed tramadol 50 mg tablet TAKE 1 TABLET BY MOUTH THREE TIMES A DAY NEEDED FOR SEVERE PAIN FOR 8 DAYS 12/06/19 25 completed hydrochlorothiazide 12.5 mg tablet TAKE 1 TABLET BY MOUTH EVERY DAY WITH 25MG TAB 11/07/20 24 completed Ozempic 0.25 mg or 0.5 mg (2 mg/3 mL) subcutaneous pen injector active Ozempic 1 mg/dose (4 mg/3 mL) subcutaneous pen injector active acyclovir 400 mg tablet TAKE 1 TABLET BY MOUTH 3 TIMES A DAY FOR 7 DAYS active amlodipine 5 mg tablet TAKE 1 TABLET BY MOUTH EVERY DAY active aspirin 81 mg tablet,delayed release TAKE 1 TABLET BY MOUTH 1 TIME EACH DAY. active furosemide 20 mg tablet TAKE 1 TABLET ORALLY ONCE A DAY NEEDED EDEMA 30 DAYS active irbesartan 300 mg tablet TAKE 1 TABLET B Y MOUTH EVERY DAY active metformin ER 500 mg tablet,extended release 24 hr TAKE 2 TABLETS BY MOUTH EVERY DAY active metoprolol tartrate 50 mg tablet TAKE 1 TABLET BY MOUTH TWICE A DAY WITH FOOD FOR 30 DAYS active omeprazole 20 mg capsule,delayed release TAKE 1 CAPSULE BY MOUTH EVERY DAY 30 MINUTES BEFORE MORNING MEAL active pantoprazole 40 mg tablet,delayed release TAKE 1 TABLET 1/2 TO 1 HOUR BEFORE MORNING MEAL ORALLY ONCE A DAY 30 DAYS active pravastatin 80 mg tablet TAKE 1 TABLET B Y MOUTH EVERY DAY active Allergies Allergen Reaction Severity Comment Documented Date Source Statu s CRAB [facility] LISINOPRIL COUGH [facility] MOXIFLOXACIN NAUSEA [facility] Problems Problem Status Onset Date Problem Type Date of Resolution Source Obstructive sleep apnea of adult active 2024-12-06 ProblemAct [facility] Essential hypertension active 2024-12-06 ProblemAct [facility] Prediabetes active 2024-12-06 ProblemAct [facility] Obesity active 2024-11-01 ProblemAct [facility] Endocrine/metabolic screening active 2024-10-19 ProblemAct [facility] Abnormal renal function active 2024-12-06 ProblemAct [facility] Mixed hyperlipidemia active 2024-12-06 ProblemAct [facility] Heel pain active 2023-01-09 ProblemAct [facility] Plantar fasciitis active 2023-01-09 ProblemAct [facility] Tendinitis / enthesopathy LEFT FOOT, capsulitis, periostitis active 2024-06-17 EncounterDiagnosisAct E[facility] Plantar Flexed Metatarsal - Metatarsalgia, LEFT foot active 2024-06-17 EncounterDiagnosisAct [facility] Achilles tendinitis, left leg active 2023-06-28 ProblemAct [facility] Heel pain active 2023-06-28 ProblemAct [facility] Hammer toe active 2024-06-17 ProblemAct [facility] Achilles tendinitis, right leg active 2023-07-12 ProblemAct [facility] Equinus - Short Achilles tendon, LEFT active 2023-01-09 ProblemAct [facility] Hallux rigidus, left foot active 2024-06-17 EncounterDiagnosisAct [facility] Other hammer toe(s) (acquired), left foot active 2024-06-17 ProblemAct [facility] Hallux valgus, left foot active 2024-06-17 EncounterDiagnosisAct [facility] Calcaneal spur, right foot active 2023-06-28 ProblemAct [facility] Encounters Encounter Type Encounter Reason Primary Diagnosis Location Date Ambulatory [facility] 03/06/2025 Ambulatory [facility] 03/01/2025 Ambulatory [facility] 11/03/2024 Ambulatory [facility] 10/30/2024 Ambulatory [facility] 09/16/2024 Care Team Organization Name Specialty Phone Email Start Date End [facility] [id number] [facility]ica [facility] 10/31/2024 [facility] 10/31/2024 [facility] the [facility] Control Administrator ([facility] 10/03/2024 [facility]/20/2023 [facility]
--- OUTSIDE RECORDS SUMMARY | 2025-05-19 08:25 | XMS_ITS | Patient Health Record ---
Author Organization [facility] [address] Address [address] [place] [address] Care Team Providers Care Field Services Director Name Role Phone ROSS ARIAS Unavailable [phone] Allergies Allergen (clinical drug ingredient) Drug/Non Drug Allergy documented on EMR Reaction Allergy Type Onset Date Status crab allergenic extract crab (uncoded) Hypercalcemia Allergy Active hydrochlorothiazide Hydrochlorothiazide stomach upset Drug Allergy Active Results Component Value Reference Range Notes Urinalysis, Complete-[id number] Reviewed date:05/11/2025 08:05:49 AM Interpretation: Performing Lab:M[facility] Mendez[address], Phone - [phone], Director - Adam Notes/Report: Specific Benton 1.028 1.005-1.030 pH 5.5 5.0-7.5 Urine-Color Yellow Yellow Appearance Clear Clear WBC Esterase Negative Negative Protein Trace Negative/Trace Glucose Negative Negative Ketones Negative Negative Occult Blood Negative Negative Bilirubin Negative Negative Urobilinogen,Semi-Qn 1.0 0.2-1.0 mg/dL Nitrite, Urine Negative Negative Microscopic Examination Micr oscopic follows if indicated. Microscopic Examination See below: Micr oscopic was indicated and was performed. WBC 0-5 0 - 5 /hpf RBC 0-2 0 - 2 /hpf Epithelial Cells (non renal) 0-10 0 - 10 /hpf Casts None seen None seen /lpf Bacteria None seen None seen/Few CBC With Differential/Platel et-[id number] Reviewed date:05/11/2025 08:05:49 AM Interpretation: Performing Lab:[facility], [address] [facility], Phone - [phone], Director - Adam Notes/Report: WBC 5.3 3.4-10.8 x10E3/uL RBC 5.19 3.77-5.28 x10E6/uL Hemoglobin 14.7 11.1-15.9 g/dL Hematocrit 46.2 34.0-46.6 % MCV 89 79-97 fL MCH 28.3 26.6-33.0 pg MCHC 31.8 31.5-35.7 g/dL RDW 14.0 11.7-15.4 % Platelets 266 150-450 x10E3/uL Neutrophils 46 Not Estab. % Lymphs 39 Not Estab. % Monocytes 8 Not Estab. % Eos 5 Not Estab. % Basos 2 Not Estab. % Neutrophils (Absolute) 2.4 1.4-7.0 x10E3/uL Lymphs (Absolute) 2.1 0.7-3.1 x10E3/uL Monocytes(Absolute) 0.4 0.1-0.9 x10E3/uL Eos (Absolute) 0.3 0.0-0.4 x10E3/uL Baso (Absolute) 0.1 0.0-0.2 x10E3/uL Immature Granulocytes 0 Not Estab. % Immature Grans (Abs) 0.0 0.0-0.1 x10E3/uL Vitamin D, 68-[id number] Reviewed date:05/11/2025 08:05:49 AM Interpretation: Performing Lab:[facility], [address] [place] [address], [place], Phone - [phone], Director - Adam Notes/Report: Vitamin D, 25-Hydroxy 38.1 30.0-100.0 ng/mL Vitamin D deficiency has been defined by the [place] of Medicine and an Endocrine Society practice guideline as a level of serum 25-OH vitamin D less than 20 ng/mL (1,2). The Endocrine Society went on to further define vitamin D insufficiency as a level between 21 and 29 ng/mL (2). 1. IOM ([place] of Medicine). 2010. Dietary reference intakes for calcium and D. [place]: The National Academies Press. 2. Les MF, Romeo [place], Aranza FALLON, et al. Evaluation, treatment, and prevention of vitamin D deficiency: an Endocrine Society clinical practice guideline. JCEM. 2010; 96):1911-30. Lipid Panel-[id number] Reviewed date:05/11/2025 08:05:44 AM Interpretation: Performing Lab:M[facility] Mendez, [facility], Phone - [phone], Director - MDAuroradry Notes/Report: Cholesterol, Total 178 100-199 mg/dL Triglycerides 172 0-149 mg/dL HDL Cholesterol 63 >39 mg/dL VLDL Cholesterol Trino 29 5-40 mg/dL LDL Chol Calc (NIH) 86 0-99 mg/dL Comp. Metabolic Panel (14)-3 Reviewed date:05/11/2025 08:05:49 AM Interpretation: Performing Lab:Mak Mendez, [facility], Phone - [phone], Director - Adam Notes/Report: Glucose 105 70-99 mg/dL BUN 17 8-27 mg/dL Creatinine 0.99 0.57-1.00 mg/dL eGFR 64 >59 mL/min/1.73 BUN/Creatinine Ratio 17 12-28 Sodium 139 134-144 mmol/L Potassium 4.7 3.5-5.2 mmol/L Chloride 102 96-106 mmol/L Carbon Dioxide, Total 20 20-29 mmol/L Calcium 10.7 8.7-10.3 mg/dL Protein, Total 6.9 6.0-8.5 g/dL Albumin 4.2 3.9-4.9 g/dL Globulin, Total 2.7 1.5-4.5 g/dL Bilirubin, Total 0.3 0.0-1.2 mg/dL Alkaline Phosphatase 101 44-121 IU/L AST (SGOT) 33 0-40 IU/L ALT (SGPT) 44 0-32 IU/L TSH+T3+Free T4+T3 Free Reviewed date:05/11/2025 08:05:49 AM Interpretation: Performing Lab:Mak Mendez, [facility], [place], Phone - [phone], Director - Jeny Notes/Report: TSH-ICMA 2.9 Reference Range: Non- Adult 0.450-4.500 First Trimester 0.100-4.000 Second Trimester 0.200-4.000 Third Trimester 0.300-4.500 Triiodothyronine (T-3), Serum 97 Reference Range: Adults: 55 - 170 Free T-3 3.3 Reference Range: >=20y: 2.0 - 4.4 Free T4 by Dialysis/Frame Maker 1.2 This test was developed and its performance characteristics determined by [employer]. It has not been cleared or approved by the Food and Drug Administration. Reference Range: Pubertal Children and Adults: 0.8 - 1.7 Vitamin [id number] Reviewed date:05/11/2025 08:05:49 AM Interpretation: Performing Lab:[facility] [place], [address] [place] [address], Phone - [phone], Director - Jeny Notes/Report: Vitamin B12 612 532-6403 pg/mL Comp. Metabolic Panel (14)-3 [id number] Reviewed date:08/04/2024 07:54:35 AM Interpretation: Performing Lab:[facility] [place], [address] [place] [address], Phone - [phone], Director - Jeny Notes/Report: Glucose 115 70-99 mg/dL BUN 21 8-27 mg/dL Creatinine 0.91 0.57-1.00 mg/dL eGFR 71 >59 mL/min/1.73 BUN/Creatinine Ratio 23 12-28 Sodium 141 134-144 mmol/L Potassium 4.3 3.5-5.2 mmol/L Chloride 102 96-106 mmol/L Carbon Dioxide, Total 25 20-29 mmol/L Calcium 11.3 8.7-10.3 mg/dL Protein, Total 6.8 6.0-8.5 g/dL Albumin 4.2 3.9-4.9 g/dL Globulin, Total 2.6 1.5-4.5 g/dL Bilirubin, Total 0.3 0.0-1.2 mg/dL Alkaline Phosphatase 80 44-121 IU/L AST (SGOT) 21 0-40 IU/L ALT (SGPT) 28 0-32 IU/L CBC With Differential/Platel et-[id number] Reviewed date:08/04/2024 07:54:35 AM Interpretation: Performing Lab:[facility], [address] [facility], [place], Phone - [phone], Director - Jeny Notes/Report: WBC 6.4 3.4-10.8 x10E3/uL RBC 4.70 3.77-5.28 x10E6/uL Hemoglobin 13.9 11.1-15.9 g/dL Hematocrit 43.6 34.0-46.6 % MCV 93 79-97 fL MCH 29.6 26.6-33.0 pg MCHC 31.9 31.5-35.7 g/dL RDW 13.4 11.7-15.4 % Platelets 283 150-450 x10E3/uL Neutrophils 44 Not Estab. % Lymphs 40 Not Estab. % Monocytes 10 Not Estab. % Eos 4 Not Estab. % Basos 2 Not Estab. % Neutrophils (Absolute) 2.8 1.4-7.0 x10E3/uL Lymphs (Absolute) 2.6 0.7-3.1 x10E3/uL Monocytes(Absolute) 0.6 0.1-0.9 x10E3/uL Eos (Absolute) 0.3 0.0-0.4 x10E3/uL Baso (Absolute) 0.1 0.0-0.2 x10E3/uL Immature Granulocytes 0 Not Estab. % Immature Grans (Abs) 0.0 0.0-0.1 x10E3/uL Hemoglobin [id number] Reviewed date:08/04/2024 07:54:35 AM Interpretation: Performing Lab:[facility] Mendez, [address] [facility], Phone - [phone], Director - Adam Notes/Report: Hemoglobin A1c 6.2 4.8-5.6 % . Prediabetes: 5.7 - 6.4 Diabetes: >6.4 Glycemic control for adults with diabetes: <7.0 Comp. Metabolic Panel (14)-3 [id number] Reviewed date:09/19/2024 08:00:14 AM Interpretation: Performing Lab:[facility], [address] [facility], Phone - [phone], Director - MDJodry Notes/Report: Glucose 106 70-99 mg/dL BUN 25 8-27 mg/dL Creatinine 1.03 0.57-1.00 mg/dL eGFR 61 >59 mL/min/1.73 BUN/Creatinine Ratio 24 12-28 Sodium 138 134-144 mmol/L Potassium 4.3 3.5-5.2 mmol/L Chloride 96 96-106 mmol/L Carbon Dioxide, Total 20 20-29 mmol/L Calcium 10.8 8.7-10.3 mg/dL Verified by repeat analysis Protein, Total 7.2 6.0-8.5 g/dL Albumin 4.4 3.9-4.9 g/dL Globulin, Total 2.8 1.5-4.5 g/dL Bilirubin, Total 0.4 0.0-1.2 mg/dL Alkaline Phosphatase 83 44-121 IU/L AST (SGOT) 21 0-40 IU/L ALT (SGPT) 26 0-32 IU/L Comp. Metabolic Panel (14)-3 Reviewed date:01/27/2025 08:03:11 AM Interpretation: Performing Lab:[facility] Mendez, [address] [facility], Phone - [phone], Director - MDdry Notes/Report: Glucose 108 70-99 mg/dL BUN 14 8-27 mg/dL Creatinine 0.87 0.57-1.00 mg/dL eGFR 75 >59 mL/min/1.73 BUN/Creatinine Ratio 16 12-28 Sodium 141 134-144 mmol/L Potassium 4.1 3.5-5.2 mmol/L Chloride 106 96-106 mmol/L Carbon Dioxide, Total 22 20-29 mmol/L Calcium 10.3 8.7-10.3 mg/dL Protein, Total 6.6 6.0-8.5 g/dL Albumin 4.2 3.9-4.9 g/dL Globulin, Total 2.4 1.5-4.5 g/dL Bilirubin, Total <0.2 0.0-1.2 mg/dL Alkaline Phosphatase 92 44-121 IU/L AST (SGOT) 18 0-40 IU/L ALT (SGPT) 30 0-32 IU/L CBC With Differential/Platel et-[id number] Reviewed date:01/27/2025 08:03:11 AM Interpretation: Performing Lab:[facility] Mendez, [address] [facility], [place], Phone - [phone], Director - MDJodry Notes/Report: WBC 6.3 3.4-10.8 x10E3/uL RBC 4.89 3.77-5.28 x10E6/uL Hemoglobin 14.1 11.1-15.9 g/dL Hematocrit 42.6 34.0-46.6 % MCV 87 79-97 fL MCH 28.8 26.6-33.0 pg MCHC 33.1 31.5-35.7 g/dL RDW 13.0 11.7-15.4 % Platelets 295 150-450 x10E3/uL Neutrophils 46 Not Estab. % Lymphs 38 Not Estab. % Monocytes 8 Not Estab. % Eos 6 Not Estab. % Basos 2 Not Estab. % Neutrophils (Absolute) 2.9 1.4-7.0 x10E3/uL Lymphs (Absolute) 2.4 0.7-3.1 x10E3/uL Monocytes(Absolute) 0.5 0.1-0.9 x10E3/uL Eos (Absolute) 0.4 0.0-0.4 x10E3/uL Baso (Absolute) 0.1 0.0-0.2 x10E3/uL Immature Granulocytes 0 Not Estab. % Immature Grans (Abs) 0.0 0.0-0.1 x10E3/uL Hemoglobin [id number] Reviewed date:01/27/2025 08:01:53 AM Interpretation: Performing Lab:[facility] [place], [address] [place] [address], Phone - [phone], Director - Adam Notes/Report: Hemoglobin A1c 6.2 4.8-5.6 % . Prediabetes: 5.7 - 6.4 Diabetes: >6.4 Glycemic control for adults with diabetes: <7.0 Reason For Referral Diagnosis 1 Hypercalcemia (E83.5 2) Referral Organization [facility] [address] Referring Provider First Name ROSS Referring Provider Last Name JUANA Referring Provider Speciality Internal edicine Referred Provider Specialty Endocrinolog y General Notes Leann Ortega 2023 08:53:41 AM > [facility] out [facility] Redena 12/01/2024 04:12:27 PM > The patient was seen on 10/27/2024 Referral Priority Routine Reason partial tear in glut eus and rt hamstring and left hip labral tear Diagnosis 1 Hip pain, left (M25. 552) Diagnosis 2 Gluteal tendinitis, left hip (M76.02) Referral Organization [facility] [address] Referring Provider First Name ROSS Referring Provider Last Name JUANA Referring Provider Speciality Internal edicine Referred Provider Specialty Orthopedic S urgery Clinical Notes damon navarro 1 12/28/2023 09:59:37 AM >faxed mri's and paper to Alecia francis Earl Adam 10/28/2024 11:12:41 AM > [facility] [phone]. Refaxedmelanie krystal 11/04/2024 03:03:46 PM >seen 10/29/24 marco antonio tarango -notes scanned in Referral Priority Routine Reason evaluate and treat lars fair Diagnosis [address] [facility] (Z98.84) Referral Organization [facility] [address] Referring Provider First Name ROSS Referring Provider Last Name JUANA Referring Provider Speciality Internal M edicine Referred Provider Specialty General Surg sharri General Notes Morales Kenny 03/12 10:50:25 AM > referral sent to [facility] surgery, p. [phone], f. [phone] Clinical Notes Jose Uribe 12/2024 04:06:20 PM > [phone] Redena 04/20/2025 04:06:24 PM > Scheduled for 04/22 at 1 pm. Pt aware Referral Priority Routine Medications Medication SIG (Take, Route, Frequency, Duration) Notes Start Date End Date Status Metoprolol Tartrate 50 MG TAKE 1 TABLET BY MOUTH TWICE A DAY WITH FOOD FOR 30 DAYS; Duration: 90 Active Pravastatin Sodium 80 MG 1 tablet Orally Once a day Active Fish Oil 1000 MG 1 capsule Orally Onc e a day Active amLODIPine Besylate 5 MG 1 tablet Orally Once a day Active Vitamin D 50 MCG (1999 UT) 1 tablet Orally Once a day Active Irbesartan 300 MG TAKE 1 TABLET BY SAMANTHA TH EVERY DAY; Duration: 90 days Active Pantoprazole Sodium 40 MG TAKE 1 TABLET 1/2 TO 1 HOUR BEFORE MORNING MEAL ORALLY ONCE A DAY 30 DAYS; Duration: 90 Active Ozempic (1 MG/DOSE) 4 MG/3ML as directed Subcutaneous Act juan antonio Nystatin 227124 UNIT/GM 1 application Ex ternally Twice a day; Duration: 10 days 03/12/2025 Active Albuterol Sulfate HFA 108 (90 Base) MCG/ACT 2 puff as needed Inhalation every 6 hrs; Duration: 30 days Active Metoprolol Succinate ER 50 MG 1 tablet Orally Once a day; Duration: 90 days 05/04/2025 Active metFORMIN HCl ER 500 MG TAKE 2 TABLETS B Y MOUTH EVERY DAY; Duration: 90 Active Ozempic (2 MG/DOSE) 8 MG/3ML 2 mg Subcutaneous weekly; Duration: 30 days Active Immunizations Vaccine Route Administration Date Status Comme nts DTaP IM Intramuscular 04/10/2022 Administered Moderna Covid-19 Vaccine Unknown 09/16/2021 Administere d Zoster Unknown 06/07/2024 Administered Social History Tobacco Use: Social History Observation Description Date Details (start date - stop date) Never Smoker NA - NA Tobacco Use/Smoking Question Answer Notes Are you a 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 keyboarding teacher keyboarding teacher keyboarding teacher Tob: 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 Tob: nonsmoker 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 Tob: nonsmoker 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 Tob: nonsmoker 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 Tob: nonsmoker 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 Tob: nonsmoker 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 Tob: nonsmoker 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 keyboarding teacher Tob: 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 Tob: nonsmoker 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 Tob: nonsmoker 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 Tob: nonsmoker 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 Tob: nonsmoker 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 Problems Problem Type SNOMED Code ICD Code Onset Dates Problem Status W/U Status Risk Notes Problem Hypothyroidism (06259887) Hypothyroidism, unspecified (E03.9) Active confirmed Problem Vitamin D deficiency (68817131) Vitamin D deficiency, unspecified (E55.9) Active confirmed Problem Hyperlipidemia (86015250) Hyperlipidemia, unspecified (E78.5) Active confirmed Problem Hypercalcemia (35120789) Hypercalcemia (E83.52) Active confirmed Problem Nystagmus (038284) Other forms of nystagmus (H55.09) Active confirmed Problem Essential hypertension (39267471) Essential (primary) hypertension (I10) Active confirmed Problem Screening for malignant neoplasm of breast (059133748) Encounter for screening mammogram for malignant neoplasm of breast (Z12.31) Active confirmed Problem Screening for osteoporosis (732869953) Encounter for screening for osteoporosis (Z13.820) Active confirmed Problem History of bariatric surgical procedure (418375973) Bariatric surgery status (Z98.84) Active confirmed Problem Prediabetes (726725803) Prediabetes (R73.03) Active confirmed Problem Morbid obesity (345192761) Morbid obesity (E66.01) Active confirmed Problem Acquired hypothyroidism (856726817) Acquired hypothyroidism (E03.9) Active confirmed Problem Depressive disorder (disorder) (65431473) Depression, unspecified depression type (F32.9) Active confirmed Problem Annual health maintenance examination (97795397) Annual physical exam (Z00.00) Active confirmed Problem Vitamin D deficiency (13445659) Vitamin D deficiency (E55.9) Active confirmed Problem Body mass index 40+ - morbidly obese (270445453) Body mass index (BMI) 50.0-59.9, adult (Z68.43) Active confirmed Problem Hypertension (65612231) Uncontrolled hypertension (I10) Active confirmed Problem Type II diabetes mellitus without complication (884230728) Type 2 diabetes mellitus without complication, unspecified whether fdc insulin use (E11.9) Active confirmed Problem Vitamin B>12< deficiency anaemia (94861641) Anemia due to vitamin B12 deficiency, 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) Active confirmed Problem Essential hypertension (71806709) Elevated blood pressure reading in office with white coat syndrome, with diagnosis of hypertension (I10) Active confirmed Problem Frequent headache (finding) (965146034) Frequent headaches (R51.9) Active confirmed Problem Double vision (53188884) Double vision (H53.2) Active confirmed Problem Hyperlipidemia (21672935) 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) Active confirmed Problem Abnormal metabolic state due to diabetes mellitus (512708083) Abnormal metabolic state due to diabetes mellitus (E11.9) Active confirmed Problem Arthralgia of the pelvic region and thigh (031069469) Hip pain, unspecified laterality (M25.559) Active confirmed Vital Signs Heart Rate 79 /min 05/04/2025 Oximetry 96 % 05/04/2025 Blood pressure diastolic 86 mm Hg 05/04/2025 Height 52 in 05/04/2025 Blood pressure systolic 126 mm Hg 05/04/2025 Weight 213.6 lbs 05/04/2025 BMI 55.53 kg/m2 05/04/2025 Encounters Encounter Location Date Provider Diagnosis [facility] [address] [place] [address] 08/08/2024 ROSS ARIAS Morbid obesity E66.0 1 ; Type 2 diabetes mellitus without complication, unspecified whether fdc insulin use E11.9 ; Body mass index (BMI) 50.0-59.9, adult Z68.43 ; Essential (primary) hypertension I10 and Hypercalcemia E83.52 [facility] [address] [place] [address] 09/11/2024 ROSS ARIAS Type 2 diabetes claudette itus without complication, unspecified whether terminal carman insulin use E11.9 ; COVID-19 U07.1 ; Uncontrolled hypertension I10 ; Morbid obesity E66.01 ; Body mass index (BMI) 50.0-59.9, adult Z68.43 and Hypercalcemia E83.52 [facility] [address] [place] [address] 09/26/2024 ROSS ARIAS Type 2 diabetes claudette itus without complication, unspecified whether terminal carman insulin use E11.9 ; Hypercalcemia E83.52 ; Uncontrolled hypertension I10 ; Morbid obesity E66.01 ; Body mass index (BMI) 50.0-59.9, adult Z68.43 ; Right hip pain M25.551 ; Frequent headaches R51.9 and Other forms of nystagmus H55.09 [facility] [address] [place] [address] 10/13/2024 ROSS ARIAS Hip pain, left M25.5 52 ; Hip pain, right M25.551 ; Hypercalcemia E83.52 ; Type 2 diabetes mellitus without complication, unspecified whether terminal carman insulin use E11.9 ; Morbid obesity E66.01 ; Body mass index (BMI) 50.0-59.9, adult Z68.43 ; Essential (primary) hypertension I10 and Cough R05.9 [facility] [address] [place] [address] 12/11/2024 ROSS ARIAS Type 2 diabetes claudette itus without complication, unspecified whether terminal carman insulin use E11.9 ; Hypercalcemia E83.52 ; Uncontrolled hypertension I10 ; Morbid obesity E66.01 ; Body mass index (BMI) 50.0-59.9, adult Z68.43 ; Right hip pain M25.551 ; Frequent headaches R51.9 and Other forms of nystagmus H55.[address] [facility] [address] [place], [place] 03/12/2025 ROSS ARIAS Type 2 diabetes claudette itus without complication, unspecified whether fdc insulin use E11.9 ; Hypercalcemia E83.52 ; Uncontrolled hypertension I10 ; Morbid obesity E66.01 ; Body mass index (BMI) 50.0-59.9, adult Z68.43 ; Right hip pain M25.551 ; Frequent headaches R51.9 and Other forms of nystagmus H55.[address] [address] [place], [place] 05/04/2025 ROSS ARIAS Prediabetes R73.03 ; Annual physical exam Z00.00 ; Morbid obesity E66.01 ; Body mass index (BMI) 50.0-59.9, adult Z68.43 ; Essential (primary) hypertension I10 ; Type 2 diabetes mellitus without complication, unspecified whether fdc insulin use E11.9 and Hypercalcemia E83.[address] [address] [place], [place] 07/03/[address] ORSS JUANA [facility] [address] [place], [place] 09/08/2024 ROSS JUANA [facility] [address] [address] 09/11/20[address] ROSS JUANA [facility] [address] [place], [place] 09/11/2024 ROSS JUANA [facility] [address] 09/15/2024 ROSS JUANA [facility] [address] [place] [address] 10/03/2024 ROSS JUANA [facility] [address] [place], [place] 10/13/2024 ROSS JUANA Hip pain, unspecifie d laterality M25.559 [facility] [address] [place] [address] 10/24/2024 ROSS JUANA [facility] [address] [place] [address] 10/27/2024 ROSS JUANA [facility] [address] [place] [address] 10/27/20[address] ROSS JUANA [facility] [address] [place] [address] 10/27/2024 ROSS JUANA [facility] [address] [place] [address] 12/11/2024 ROSS JUANA [facility] [address] [place] [address] 02/20/[address] ROSS JUANA [facility] [address] [place] [address] 05/04/2025 ROSS JUANA [facility] [address] [place] [address] 06/17/2024 ROSS JUANA [facility] [address] [place] [address] 06/19/2024 ROSS JUANA [facility] [address] [place] [address] 07/24/2024 ROSS JUANA [facility] [address] [place] [address] 08/09/2024 ROSS JUANA [facility] [address] [place] [address] 09/02/2024 ROSS FLORESA Assessments Encounter Date Diagnosis (ICD Code) Assessment Notes Treatment Notes Treatment Clinical Notes Section Notes 08/08/2024 Morbid obesity (ICD-10 - E66.01) 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 # HTN: Currently on Irbesartan 300 mg (max dose), HCTZ . Was started on Amlodipine last visit, and increased from 5 to 10 mg. BP readings improved with SBP in 130's. Pt reports ankle edema. Will continue Irbesartan 300 mg po daily,. We will change hydrochlorothiazide from 37.5 mg down to 25 mg given her elevated calcium. Add Lasix 20 mg daily as needed leg swelling. Will keep amlodipine 5 mg p.o. daily #Morbid obesity: Highest weight 230 pounds, lose weight 130 pounds, goal weight for now is 150 pounds. - Will request for Balta #Dizziness: orthostatic blood pressures taken, patient advised to increase fluid intake. Will consider reducing thiazide if she continues to be symptomatic. #Urinary retention: patient advised to increase fluid intake and reassess in one month. Should she continue to be symptomatic, a post void bladder scan will be ordered. #Hyperglycemia: Metformin will be increased to 1000mg Qhs. # Hypercalcemia. Recheck PTH Patient seen and examined. Comprehensive discussion was done on the following. 1. Nutrition: It is important to follow a healthy diet based on lots of vegetables and legumes and good fat. Avoid processed food and processed carbohydrates. Learn to prepare your own meals. Learn to read labels and avoid high fructose corn syrup, processed chemicals added to increase shelf life and preprepared meals. Avoid fast foods. Learn to eat slowly and plan meals for a week. Try to count calories and be mindful off daily calorie intake. Get into the habit of keeping an eye on your weight by using an appropriate scale. Learn to log exercise and discussed fitness Apps like [facility] which can help keep log off calories taken versus calories burned. Local food should be preferred. Discussed Dirty Dozen Versus Clean Fifteen. Discussed healthy supplements like fish oil, Tumeric, Curcumin, Melatonin, Resveratrol, Probiotics, Vitamin-D, Alpha-Lipoic acid, Vitamin-D and coconut oil. 2. It is important to exercise regularly. Is a good habit to walk at least 30-45 minutes a day. Gentle weightlifting with standard precautions to protect the back. Finding activity like cycling or hiking and get into the habit of engaging in it. Stretching before and after the exercises important. It is also important to contact me if there are any problems like shortness of breath, chest pain, back pain and joint or muscle pain associated with the exercise. 3. Discussed age appropriate screening guidelines. Colonoscopy needs to start at age 50 with stool for occult blood as appropriate. There is a new test that can test for genetic abnormalities in the stool sample. This would not replace a colonoscopy but could be used as a screening tool for patients who do not want a colonoscopy. We discussed the importance of early detection of colon cancer. 4. Discussed current guidelines with respect to breast examination, mammogram and pap smear for early detection of breast and cervical cancer. Patient advised to follow up with these appointments. 5. Discussed safe driving and no use of smart phone while driving 6. Age-appropriate immunizations were discussed. A tetanus booster is needed every 10 years. Flu vaccine is recommended every year just before the start of the flu season. Shingles vaccine is recommended after age 50 but not all insurances cover it.Pneumonia vaccine is given after age 65 unless there are certain comorbidities for which it is started earlier. 7. Diagnostic labs were discussed. These could include CBC CMP and lipids with fasting blood glucose and insulin levels. Vitamin D and hemoglobin A1c testing might be appropriate. Case discussed with collaborating physician Gaye Armando who reviewed the assessment and plan. Chart, medications, labs, vital signs reviewed. Dictation was accomplished with the use of [employer] voice recognition software, prone to medical misidentifications and grammatical errors. This is unintentional and the practitioner does try to identify and correct these, but some could still be present. Please do not hesitate to contact practitioner for clarification. All quetsions answered to patients satisfaction. Patient verbalized understanding of diagnosis and treatments explained. To call sooner prior to next visit it any questions/concerns arise. Total time spent was 30 minutes with greater than 50% being face to face counselling. 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 # HTN: Currently on Irbesartan 300 mg (max dose), HCTZ . Was started on Amlodipine last visit, and increased from 5 to 10 mg. BP readings improved with SBP in 130's. Pt reports ankle edema. Will continue Irbesartan 300 mg po daily,. We will change hydrochlorothiazide from 37.5 mg down to 25 mg given her elevated calcium. Add Lasix 20 mg daily as needed leg swelling. Will keep amlodipine 5 mg p.o. daily #Morbid obesity: Highest weight 230 pounds, lose weight 130 pounds, goal weight for now is 150 pounds. - Will request for Mounmaninderro #Dizziness: orthostatic blood pressures taken, patient advised to increase fluid intake. Will consider reducing thiazide if she continues to be symptomatic. #Urinary retention: patient advised to increase fluid intake and reassess in one month. Should she continue to be symptomatic, a post void bladder scan will be ordered. #Hyperglycemia: Metformin will be increased to 1000mg Qhs. # Hypercalcemia. Recheck PTH Patient seen and examined. Comprehensive discussion was done on the following. 1. Nutrition: It is important to follow a healthy diet based on lots of vegetables and legumes and good fat. Avoid processed food and processed carbohydrates. Learn to prepare your own meals. Learn to read labels and avoid high fructose corn syrup, processed chemicals added to increase shelf life and preprepared meals. Avoid fast foods. Learn to eat slowly and plan meals for a week. Try to count calories and be mindful off daily calorie intake. Get into the habit of keeping an eye on your weight by using an appropriate scale. Learn to log exercise and discussed fitness Apps like [facility] which can help keep log off calories taken versus calories burned. Local food should be preferred. Discussed Dirty Dozen Versus Clean Fifteen. Discussed healthy supplements like fish oil, Tumeric, Curcumin, Melatonin, Resveratrol, Probiotics, Vitamin-D, Alpha-Lipoic acid, Vitamin-D and coconut oil. 2. It is important to exercise regularly. Is a good habit to walk at least 30-45 minutes a day. Gentle weightlifting with standard precautions to protect the back. Finding activity like cycling or hiking and get into the habit of engaging in it. Stretching before and after the exercises important. It is also important to contact me if there are any problems like shortness of breath, chest pain, back pain and joint or muscle pain associated with the exercise. 3. Discussed age appropriate screening guidelines. Colonoscopy needs to start at age 50 with stool for occult blood as appropriate. There is a new test that can test for genetic abnormalities in the stool sample. This would not replace a colonoscopy but could be used as a screening tool for patients who do not want a colonoscopy. We discussed the importance of early detection of colon cancer. 4. Discussed current guidelines with respect to breast examination, mammogram and pap smear for early detection of breast and cervical cancer. Patient advised to follow up with these appointments. 5. Discussed safe driving and no use of smart phone while driving 6. Age-appropriate immunizations were discussed. A tetanus booster is needed every 10 years. Flu vaccine is recommended every year just before the start of the flu season. Shingles vaccine is recommended after age 50 but not all insurances cover it.Pneumonia vaccine is given after age 65 unless there are certain comorbidities for which it is started earlier. 7. Diagnostic labs were discussed. These could include CBC CMP and lipids with fasting blood glucose and insulin levels. Vitamin D and hemoglobin A1c testing might be appropriate. Case discussed with collaborating physician Gyae Armando who reviewed the assessment and plan. Chart, medications, labs, vital signs reviewed. Dictation was accomplished with the use of [employer] voice recognition software, prone to medical misidentifications and grammatical errors. This is unintentional and the practitioner does try to identify and correct these, but some could still be present. Please do not hesitate to contact practitioner for clarification. All quetsions answered to patients satisfaction. Patient verbalized understanding of diagnosis and treatments explained. To call sooner prior to next visit it any questions/concerns arise. Total time spent was 30 minutes with greater than 50% being face to face counselling. 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 #COVID positive. Out of the window of Paxlovid. # HTN: Currently on Irbesartan 300 mg (max dose), HCTZ 25 mg po daily. Continue Amlodipine 10 mg po daily, will start Clonidine 0.1 mg daily. Likely due to COVID. Will continue Irbesartan 300 mg po daily,. We will change hydrochlorothiazide from 37.5 mg down to 25 mg given her elevated calcium. Add Lasix 20 mg daily as needed leg swelling. Will keep amlodipine 5 mg p.o. daily #Morbid obesity: Highest weight 230 pounds, lose weight 130 pounds, goal weight for now is 150 pounds. - Will request for Mounjaro #Dizziness: orthostatic blood pressures taken, patient advised to increase fluid intake. Will consider reducing thiazide if she continues to be symptomatic. #Urinary retention: patient advised to increase fluid intake and reassess in one month. Should she continue to be symptomatic, a post void bladder scan will be ordered. #Hyperglycemia: Metformin will be increased to 1000mg Qhs. # Hypercalcemia. Recheck PTH Case discussed with collaborating physician Gaye Armando who reviewed the assessment and plan. Chart, medications, labs, vital signs reviewed. Dictation was accomplished with the use of [employer] voice recognition software, prone to medical misidentifications and grammatical errors. This is unintentional and the practitioner does try to identify and correct these, but some could still be present. Please do not hesitate to contact practitioner for clarification. All quetsions answered to patients satisfaction. Patient verbalized understanding of diagnosis and treatments explained. To call sooner prior to next visit it any questions/concerns arise. Total time spent was 30 minutes with greater than 50% being face to face counselling. 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 #COVID positive. Out of the window of Paxlovid. # HTN: Currently on Irbesartan 300 mg (max dose), HCTZ 25 mg po daily. Continue Amlodipine 10 mg po daily, will start Clonidine 0.1 mg daily. Likely due to COVID. Will continue Irbesartan 300 mg po daily,. We will change hydrochlorothiazide from 37.5 mg down to 25 mg given her elevated calcium. Add Lasix 20 mg daily as needed leg swelling. Will keep amlodipine 5 mg p.o. daily #Morbid obesity: Highest weight 230 pounds, lose weight 130 pounds, goal weight for now is 150 pounds. - Will request for Mounjaro #Dizziness: orthostatic blood pressures taken, patient advised to increase fluid intake. Will consider reducing thiazide if she continues to be symptomatic. #Urinary retention: patient advised to increase fluid intake and reassess in one month. Should she continue to be symptomatic, a post void bladder scan will be ordered. #Hyperglycemia: Metformin will be increased to 1000mg Qhs. # Hypercalcemia. Recheck PTH Case discussed with collaborating physician Gaye Armando who reviewed the assessment and plan. Chart, medications, labs, vital signs reviewed. Dictation was accomplished with the use of [employer] voice recognition software, prone to medical misidentifications and grammatical errors. This is unintentional and the practitioner does try to identify and correct these, but some could still be present. Please do not hesitate to contact practitioner for clarification. All quetsions answered to patients satisfaction. Patient verbalized understanding of diagnosis and treatments explained. To call sooner prior to next visit it any questions/concerns arise. Total time spent was 30 minutes with greater than 50% being face to face counselling. 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 # HTN: Currently on Irbesartan 300 mg (max dose), HCTZ 37.55 mg po daily. Continue Amlodipine 5 mg po daily. # Hypercalcemia: Refer to endocrinology. Did not significantly improve with discontinuation of HCTZ. PTH WNL #Morbid obesity: Highest weight 230 pounds, lose weight 130 pounds, goal weight for now is 150 pounds. - Will request for Mounjaro # Nystagmus: Brain CT w/o contrast w/o intracranial pathology # R hip pain. R hip x-ray. PRN NSAIDs- encouraged to favor APAP due to elevated BP #Hyperglycemia: Metformin will be increased to 1000mg Qhs. Case discussed with collaborating physician Bharati Armando who reviewed the assessment and plan. Chart, medications, labs, vital signs reviewed. Dictation was accomplished with the use of [employer] voice recognition software, prone to medical misidentifications and grammatical errors. This is unintentional and the practitioner does try to identify and correct these, but some could still be present. Please do not hesitate to contact practitioner for clarification. All quetsions answered to patients satisfaction. Patient verbalized understanding of diagnosis and treatments explained. To call sooner prior to next visit it any questions/concerns arise. Total time spent was 30 minutes with greater than 50% being face to face counselling. 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 # HTN: Currently on Irbesartan 300 mg (max dose), HCTZ 37.55 mg po daily. Continue Amlodipine 5 mg po daily. # Hypercalcemia: Refer to endocrinology. Did not significantly improve with discontinuation of HCTZ. PTH WNL #Morbid obesity: Highest weight 230 pounds, lose weight 130 pounds, goal weight for now is 150 pounds. - Will request for Mounjaro # Nystagmus: Brain CT w/o contrast w/o intracranial pathology # R hip pain. R hip x-ray. PRN NSAIDs- encouraged to favor APAP due to elevated BP #Hyperglycemia: Metformin will be increased to 1000mg Qhs. Case discussed with collaborating physician Bharati Armando who reviewed the assessment and plan. Chart, medications, labs, vital signs reviewed. Dictation was accomplished with the use of [employer] voice recognition software, prone to medical misidentifications and grammatical errors. This is unintentional and the practitioner does try to identify and correct these, but some could still be present. Please do not hesitate to contact practitioner for clarification. All quetsions answered to patients satisfaction. Patient verbalized understanding of diagnosis and treatments explained. To call sooner prior to next visit it any questions/concerns arise. Total time spent was 30 minutes with greater than 50% being face to face counselling. 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 # HTN: Currently on Irbesartan 300 mg (max dose), HCTZ 37.55 mg po daily. Continue Amlodipine 5 mg po daily. # Hypercalcemia: Refer to endocrinology. Did not significantly improve with discontinuation of HCTZ. PTH WNL. Has appt Oct 27. #Morbid obesity: Highest weight 230 pounds, lose weight 130 pounds, goal weight for now is 150 pounds. - Will request for Mounjaro # Nystagmus: Brain CT w/o contrast w/o intracranial pathology- # R hip pain. R hip x-ray normal. Now complaining of L hip pain. will send to PT. MRI of bilateral hip w/o contrast willbe ordered #Hyperglycemia: Metformin will be increased to 1000mg Qhs. Total time spent with patient was 40 minutes with over half being face to face time. Case discussed with collaborating physician Gaye Armando who reviewed the assessment and plan. Chart, medications, labs, vital signs reviewed. Dictation was accomplished with the use of [employer] voice recognition software, prone to medical misidentifications and grammatical errors. This is unintentional and the practitioner does try to identify and correct these, but some could still be present. Please do not hesitate to contact practitioner for clarification. All quetsions answered to patients satisfaction. Patient verbalized understanding of diagnosis and treatments explained. To call sooner prior to next visit it any questions/concerns arise. Total time spent was 30 minutes with greater than 50% being face to face counselling. 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 # HTN: Currently on Irbesartan 300 mg (max dose), HCTZ 37.55 mg po daily. Continue Amlodipine 5 mg po daily. # Hypercalcemia: Refer to endocrinology. Did not significantly improve with discontinuation of HCTZ. PTH WNL. Has appt Oct 27. #Morbid obesity: Highest weight 230 pounds, lose weight 130 pounds, goal weight for now is 150 pounds. - Will request for Mounjaro # Nystagmus: Brain CT w/o contrast w/o intracranial pathology- # R hip pain. R hip x-ray normal. Now complaining of L hip pain. will send to PT. MRI of bilateral hip w/o contrast willbe ordered #Hyperglycemia: Metformin will be increased to 1000mg Qhs. Total time spent with patient was 40 minutes with over half being face to face time. Case discussed with collaborating physician Gaye Armando who reviewed the assessment and plan. Chart, medications, labs, vital signs reviewed. Dictation was accomplished with the use of [employer] voice recognition software, prone to medical misidentifications and grammatical errors. This is unintentional and the practitioner does try to identify and correct these, but some could still be present. Please do not hesitate to contact practitioner for clarification. All quetsions answered to patients satisfaction. Patient verbalized understanding of diagnosis and treatments explained. To call sooner prior to next visit it any questions/concerns arise. Total time spent was 30 minutes with greater than 50% being face to face counselling. 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 # HTN: Currently on Irbesartan 300 mg (max dose), HCTZ 37.55 mg po daily. Continue Amlodipine 5 mg po daily. # Hypercalcemia:Folowed by endocrinology. Doing 24 hour urine test #Morbid obesity: Highest weight 230 pounds, lose weight 130 pounds, goal weight for now is 150 pounds. - Will request for Mounjaro # Nystagmus: Brain CT w/o contrast w/o intracranial pathology # R hip pain. Followed by [facility] #Hyperglycemia: Metformin will be increased to 1000mg Qhs. Case discussed with collaborating physician Bharati Armando who reviewed the assessment and plan. Chart, medications, labs, vital signs reviewed. Dictation was accomplished with the use of [employer] voice recognition software, prone to medical misidentifications and grammatical errors. This is unintentional and the practitioner does try to identify and correct these, but some could still be present. Please do not hesitate to contact practitioner for clarification. All quetsions answered to patients satisfaction. Patient verbalized understanding of diagnosis and treatments explained. To call sooner prior to next visit it any questions/concerns arise. Total time spent was 30 minutes with greater than 50% being face to face counselling. 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 # HTN: Currently on Irbesartan 300 mg (max dose), HCTZ 37.55 mg po daily. Continue Amlodipine 5 mg po daily. # Hypercalcemia:Folowed by endocrinology. Doing 24 hour urine test #Morbid obesity: Highest weight 230 pounds, lose weight 130 pounds, goal weight for now is 150 pounds. - Will request for Mounjaro # Nystagmus: Brain CT w/o contrast w/o intracranial pathology # R hip pain. Followed by [facility] #Hyperglycemia: Metformin will be increased to 1000mg Qhs. Case discussed with collaborating physician Bharati Armando who reviewed the assessment and plan. Chart, medications, labs, vital signs reviewed. Dictation was accomplished with the use of [employer] voice recognition software, prone to medical misidentifications and grammatical errors. This is unintentional and the practitioner does try to identify and correct these, but some could still be present. Please do not hesitate to contact practitioner for clarification. All quetsions answered to patients satisfaction. Patient verbalized understanding of diagnosis and treatments explained. To call sooner prior to next visit it any questions/concerns arise. Total time spent was 30 minutes with greater than 50% being face to face counselling. 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 # HTN: Currently on Irbesartan 300 mg (max dose). Continue Amlodipine 5 mg po daily. # Hypercalcemia:Folowed by endocrinology. Doing 24 hour urine test, to be repeated. Calcium high normal. #Morbid obesity: Highest weight 230 pounds, lose weight 130 pounds, goal weight for now is 150 pounds. Refer to bariatric surgery # Nystagmus: Brain CT w/o contrast w/o intracranial pathology #Hyperglycemia: Metformin will be increased to 1000mg Qhs. Case discussed with collaborating physician Bharati Armando who reviewed the assessment and plan. Chart, medications, labs, vital signs reviewed. Dictation was accomplished with the use of [employer] voice recognition software, prone to medical misidentifications and grammatical errors. This is unintentional and the practitioner does try to identify and correct these, but some could still be present. Please do not hesitate to contact practitioner for clarification. All quetsions answered to patients satisfaction. Patient verbalized understanding of diagnosis and treatments explained. To call sooner prior to next visit it any questions/concerns arise. Total time spent was 30 minutes with greater than 50% being face to face counselling. 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 # HTN: Currently on Irbesartan 300 mg (max dose). Continue Amlodipine 5 mg po daily. # Hypercalcemia:Folowed by endocrinology. Doing 24 hour urine test, to be repeated. Calcium high normal. #Morbid obesity: Highest weight 230 pounds, lose weight 130 pounds, goal weight for now is 150 pounds. Refer to bariatric surgery # Nystagmus: Brain CT w/o contrast w/o intracranial pathology #Hyperglycemia: Metformin will be increased to 1000mg Qhs. Case discussed with collaborating physician Bharati Armando who reviewed the assessment and plan. Chart, medications, labs, vital signs reviewed. Dictation was accomplished with the use of [employer] voice recognition software, prone to medical misidentifications and grammatical errors. This is unintentional and the practitioner does try to identify and correct these, but some could still be present. Please do not hesitate to contact practitioner for clarification. All quetsions answered to patients satisfaction. Patient verbalized understanding of diagnosis and treatments explained. To call sooner prior to next visit it any questions/concerns arise. Total time spent was 30 minutes with greater than 50% being face to face counselling. 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 # HTN: Currently on Irbesartan 300 mg (max dose Was started on Amlodipine last visit, and increased from 5 to 10 mg. BP readings improved with SBP in 130's. Pt reports ankle edema. Will continue Irbesartan 300 mg po daily, Amloidpine 5 mg po daily. #Morbid obesity:Currently going through [facility] for weight loss medication. Patient is also undergoing bariatric surgery evaluation through [facility] # Hypercalcemia Followed by endocrinology Patient seen and examined. Comprehensive discussion was done on the following. 1. Nutrition: It is important to follow a healthy diet based on lots of vegetables and legumes and good fat. Avoid processed food and processed carbohydrates. Learn to prepare your own meals. Learn to read labels and avoid high fructose corn syrup, processed chemicals added to increase shelf life and preprepared meals. Avoid fast foods. Learn to eat slowly and plan meals for a week. Try to count calories and be mindful off daily calorie intake. Get into the habit of keeping an eye on your weight by using an appropriate scale. Learn to log exercise and discussed fitness Apps like [facility] which can help keep log off calories taken versus calories burned. Local food should be preferred. Discussed [employer]. Discussed healthy supplements like fish oil, Tumeric, Curcumin, Melatonin, Resveratrol, Probiotics, Vitamin-D, Alpha-Lipoic acid, Vitamin-D and coconut oil. 2. It is important to exercise regularly. Is a good habit to walk at least 30-45 minutes a day. Gentle weightlifting with standard precautions to protect the back. Finding activity like cycling or hiking and get into the habit of engaging in it. Stretching before and after the exercises important. It is also important to contact me if there are any problems like shortness of breath, chest pain, back pain and joint or muscle pain associated with the exercise. 3. Discussed age appropriate screening guidelines. Colonoscopy needs to start at age 50 with stool for occult blood as appropriate. There is a new test that can test for genetic abnormalities in the stool sample. This would not replace a colonoscopy but could be used as a screening tool for patients who do not want a colonoscopy. We discussed the importance of early detection of colon cancer. 4. Discussed current guidelines with respect to breast examination, mammogram and pap smear for early detection of breast and cervical cancer. Patient advised to follow up with these appointments. 5. Discussed safe driving and no use of smart phone while driving 6. Age-appropriate immunizations were discussed. A tetanus booster is needed every 10 years. Flu vaccine is recommended every year just before the start of the flu season. Shingles vaccine is recommended after age 50 but not all insurances cover it.Pneumonia vaccine is given after age 65 unless there are certain comorbidities for which it is started earlier. 7. Diagnostic labs were discussed. These could include CBC CMP and lipids with fasting blood glucose and insulin levels. Vitamin D and hemoglobin A1c testing might be appropriate. Case discussed with collaborating physician Bharati Armando who reviewed the assessment and plan. Chart, medications, labs, vital signs reviewed. Dictation was accomplished with the use of [employer] voice recognition software, prone to medical misidentifications and grammatical errors. This is unintentional and the practitioner does try to identify and correct these, but some could still be present. Please do not hesitate to contact practitioner for clarification. All quetsions answered to patients satisfaction. Patient verbalized understanding of diagnosis and treatments explained. To call sooner prior to next visit it any questions/concerns arise. Total time spent was 30 minutes with greater than 50% being face to face counselling. 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 # HTN: Currently on Irbesartan 300 mg (max dose Was started on Amlodipine last visit, and increased from 5 to 10 mg. BP readings improved with SBP in 130's. Pt reports ankle edema. Will continue Irbesartan 300 mg po daily, Amloidpine 5 mg po daily. #Morbid obesity:Currently going through [facility] for weight loss medication. Patient is also undergoing bariatric surgery evaluation through [facility] # Hypercalcemia Followed by endocrinology Patient seen and examined. Comprehensive discussion was done on the following. 1. Nutrition: It is important to follow a healthy diet based on lots of vegetables and legumes and good fat. Avoid processed food and processed carbohydrates. Learn to prepare your own meals. Learn to read labels and avoid high fructose corn syrup, processed chemicals added to increase shelf life and preprepared meals. Avoid fast foods. Learn to eat slowly and plan meals for a week. Try to count calories and be mindful off daily calorie intake. Get into the habit of keeping an eye on your weight by using an appropriate scale. Learn to log exercise and discussed fitness Apps like [facility] which can help keep log off calories taken versus calories burned. Local food should be preferred. Discussed Dirty Dozen Vers[employer] Clean Fifteen. Discussed healthy supplements like fish oil, Tumeric, Curcumin, Melatonin, Resveratrol, Probiotics, Vitamin-D, Alpha-Lipoic acid, Vitamin-D and coconut oil. 2. It is important to exercise regularly. Is a good habit to walk at least 30-45 minutes a day. Gentle weightlifting with standard precautions to protect the back. Finding activity like cycling or hiking and get into the habit of engaging in it. Stretching before and after the exercises important. It is also important to contact me if there are any problems like shortness of breath, chest pain, back pain and joint or muscle pain associated with the exercise. 3. Discussed age appropriate screening guidelines. Colonoscopy needs to start at age 50 with stool for occult blood as appropriate. There is a new test that can test for genetic abnormalities in the stool sample. This would not replace a colonoscopy but could be used as a screening tool for patients who do not want a colonoscopy. We discussed the importance of early detection of colon cancer. 4. Discussed current guidelines with respect to breast examination, mammogram and pap smear for early detection of breast and cervical cancer. Patient advised to follow up with these appointments. 5. Discussed safe driving and no use of smart phone while driving 6. Age-appropriate immunizations were discussed. A tetanus booster is needed every 10 years. Flu vaccine is recommended every year just before the start of the flu season. Shingles vaccine is recommended after age 50 but not all insurances cover it.Pneumonia vaccine is given after age 65 unless there are certain comorbidities for which it is started earlier. 7. Diagnostic labs were discussed. These could include CBC CMP and lipids with fasting blood glucose and insulin levels. Vitamin D and hemoglobin A1c testing might be appropriate. Case discussed with collaborating physician Bharati Armando who reviewed the assessment and plan. Chart, medications, labs, vital signs reviewed. Dictation was accomplished with the use of [employer] voice recognition software, prone to medical misidentifications and grammatical errors. This is unintentional and the practitioner does try to identify and correct these, but some could still be present. Please do not hesitate to contact practitioner for clarification. All quetsions answered to patients satisfaction. Patient verbalized understanding of diagnosis and treatments explained. To call sooner prior to next visit it any questions/concerns arise. Total time spent was 30 minutes with greater than 50% being face to face counselling. 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 # HTN: Currently on Irbesartan 300 mg (max dose Was started on Amlodipine last visit, and increased from 5 to 10 mg. BP readings improved with SBP in 130's. Pt reports ankle edema. Will continue Irbesartan 300 mg po daily, Amloidpine 5 mg po daily. #Morbid obesity:Currently going through [facility] for weight loss medication. Patient is also undergoing bariatric surgery evaluation through [facility] # Hypercalcemia Followed by endocrinology Patient seen and examined. Comprehensive discussion was done on the following. 1. Nutrition: It is important to follow a healthy diet based on lots of vegetables and legumes and good fat. Avoid processed food and processed carbohydrates. Learn to prepare your own meals. Learn to read labels and avoid high fructose corn syrup, processed chemicals added to increase shelf life and preprepared meals. Avoid fast foods. Learn to eat slowly and plan meals for a week. Try to count calories and be mindful off daily calorie intake. Get into the habit of keeping an eye on your weight by using an appropriate scale. Learn to log exercise and discussed fitness Apps like [employer] which can help keep log off calories taken versus calories burned. Local food should be preferred. Discussed Dirty Dozen Versus Clean Fifteen. Discussed healthy supplements like fish oil, Tumeric, Curcumin, Melatonin, Resveratrol, Probiotics, Vitamin-D, Alpha-Lipoic acid, Vitamin-D and coconut oil. 2. It is important to exercise regularly. Is a good habit to walk at least 30-45 minutes a day. Gentle weightlifting with standard precautions to protect the back. Finding activity like cycling or hiking and get into the habit of engaging in it. Stretching before and after the exercises important. It is also important to contact me if there are any problems like shortness of breath, chest pain, back pain and joint or muscle pain associated with the exercise. 3. Discussed age appropriate screening guidelines. Colonoscopy needs to start at age 50 with stool for occult blood as appropriate. There is a new test that can test for genetic abnormalities in the stool sample. This would not replace a colonoscopy but could be used as a screening tool for patients who do not want a colonoscopy. We discussed the importance of early detection of colon cancer. 4. Discussed current guidelines with respect to breast examination, mammogram and pap smear for early detection of breast and cervical cancer. Patient advised to follow up with these appointments. 5. Discussed safe driving and no use of smart phone while driving 6. Age-appropriate immunizations were discussed. A tetanus booster is needed every 10 years. Flu vaccine is recommended every year just before the start of the flu season. Shingles vaccine is recommended after age 50 but not all insurances cover it.Pneumonia vaccine is given after age 65 unless there are certain comorbidities for which it is started earlier. 7. Diagnostic labs were discussed. These could include CBC CMP and lipids with fasting blood glucose and insulin levels. Vitamin D and hemoglobin A1c testing might be appropriate. Case discussed with collaborating physician Bharati Armando who reviewed the assessment and plan. Chart, medications, labs, vital signs reviewed. Dictation was accomplished with the use of [employer] voice recognition software, prone to medical misidentifications and grammatical errors. This is unintentional and the practitioner does try to identify and correct these, but some could still be present. Please do not hesitate to contact practitioner for clarification. All quetsions answered to patients satisfaction. Patient verbalized understanding of diagnosis and treatments explained. To call sooner prior to next visit it any questions/concerns arise. Total time spent was 30 minutes with greater than 50% being face to face counselling. 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 # HTN: Currently on Irbesartan 300 mg (max dose). Continue Amlodipine 5 mg po daily. # Hypercalcemia:Folowed by endocrinology. Doing 24 hour urine test, to be repeated. Calcium high normal. #Morbid obesity: Highest weight 230 pounds, lose weight 130 pounds, goal weight for now is 150 pounds. Refer to bariatric surgery # Nystagmus: Brain CT w/o contrast w/o intracranial pathology #Hyperglycemia: Metformin will be increased to 1000mg Qhs. Case discussed with collaborating physician Bharati Armando who reviewed the assessment and plan. Chart, medications, labs, vital signs reviewed. Dictation was accomplished with the use of [employer] voice recognition software, prone to medical misidentifications and grammatical errors. This is unintentional and the practitioner does try to identify and correct these, but some could still be present. Please do not hesitate to contact practitioner for clarification. All quetsions answered to patients satisfaction. Patient verbalized understanding of diagnosis and treatments explained. To call sooner prior to next visit it any questions/concerns arise. Total time spent was 30 minutes with greater than 50% being face to face counselling. 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 # HTN: Currently on Irbesartan 300 mg (max dose), HCTZ 37.55 mg po daily. Continue Amlodipine 5 mg po daily. # Hypercalcemia:Folowed by endocrinology. Doing 24 hour urine test #Morbid obesity: Highest weight 230 pounds, lose weight 130 pounds, goal weight for now is 150 pounds. - Will request for Mounjaro # Nystagmus: Brain CT w/o contrast w/o intracranial pathology # R hip pain. Followed by [facility] #Hyperglycemia: Metformin will be increased to 1000mg Qhs. Case discussed with collaborating physician Bharati Armando who reviewed the assessment and plan. Chart, medications, labs, vital signs reviewed. Dictation was accomplished with the use of [employer] voice recognition software, prone to medical misidentifications and grammatical errors. This is unintentional and the practitioner does try to identify and correct these, but some could still be present. Please do not hesitate to contact practitioner for clarification. All quetsions answered to patients satisfaction. Patient verbalized understanding of diagnosis and treatments explained. To call sooner prior to next visit it any questions/concerns arise. Total time spent was 30 minutes with greater than 50% being face to face counselling. 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 # HTN: Currently on Irbesartan 300 mg (max dose), HCTZ 37.55 mg po daily. Continue Amlodipine 5 mg po daily. # Hypercalcemia: Refer to endocrinology. Did not significantly improve with discontinuation of HCTZ. PTH WNL. Has appt Oct 27. #Morbid obesity: Highest weight 230 pounds, lose weight 130 pounds, goal weight for now is 150 pounds. - Will request for Congro # Nystagmus: Brain CT w/o contrast w/o intracranial pathology- # R hip pain. R hip x-ray normal. Now complaining of L hip pain. will send to PT. MRI of bilateral hip w/o contrast willbe ordered #Hyperglycemia: Metformin will be increased to 1000mg Qhs. Total time spent with patient was 40 minutes with over half being face to face time. Case discussed with collaborating physician Gaye Armando who reviewed the assessment and plan. Chart, medications, labs, vital signs reviewed. Dictation was accomplished with the use of [employer] voice recognition software, prone to medical misidentifications and grammatical errors. This is unintentional and the practitioner does try to identify and correct these, but some could still be present. Please do not hesitate to contact practitioner for clarification. All quetsions answered to patients satisfaction. Patient verbalized understanding of diagnosis and treatments explained. To call sooner prior to next visit it any questions/concerns arise. Total time spent was 30 minutes with greater than 50% being face to face counselling. 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 # HTN: Currently on Irbesartan 300 mg (max dose), HCTZ 37.55 mg po daily. Continue Amlodipine 5 mg po daily. # Hypercalcemia: Refer to endocrinology. Did not significantly improve with discontinuation of HCTZ. PTH WNL #Morbid obesity: Highest weight 230 pounds, lose weight 130 pounds, goal weight for now is 150 pounds. - Will request for Mounjaro # Nystagmus: Brain CT w/o contrast w/o intracranial pathology # R hip pain. R hip x-ray. PRN NSAIDs- encouraged to favor APAP due to elevated BP #Hyperglycemia: Metformin will be increased to 1000mg Qhs. Case discussed with collaborating physician Bharati Armando who reviewed the assessment and plan. Chart, medications, labs, vital signs reviewed. Dictation was accomplished with the use of [employer] voice recognition software, prone to medical misidentifications and grammatical errors. This is unintentional and the practitioner does try to identify and correct these, but some could still be present. Please do not hesitate to contact practitioner for clarification. All quetsions answered to patients satisfaction. Patient verbalized understanding of diagnosis and treatments explained. To call sooner prior to next visit it any questions/concerns arise. Total time spent was 30 minutes with greater than 50% being face to face counselling. 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 # HTN: Currently on Irbesartan 300 mg (max dose), HCTZ . Was started on Amlodipine last visit, and increased from 5 to 10 mg. BP readings improved with SBP in 130's. Pt reports ankle edema. Will continue Irbesartan 300 mg po daily,. We will change hydrochlorothiazide from 37.5 mg down to 25 mg given her elevated calcium. Add Lasix 20 mg daily as needed leg swelling. Will keep amlodipine 5 mg p.o. daily #Morbid obesity: Highest weight 230 pounds, lose weight 130 pounds, goal weight for now is 150 pounds. - Will request for Mounjaro #Dizziness: orthostatic blood pressures taken, patient advised to increase fluid intake. Will consider reducing thiazide if she continues to be symptomatic. #Urinary retention: patient advised to increase fluid intake and reassess in one month. Should she continue to be symptomatic, a post void bladder scan will be ordered. #Hyperglycemia: Metformin will be increased to 1000mg Qhs. # Hypercalcemia. Recheck PTH Patient seen and examined. Comprehensive discussion was done on the following. 1. Nutrition: It is important to follow a healthy diet based on lots of vegetables and legumes and good fat. Avoid processed food and processed carbohydrates. Learn to prepare your own meals. Learn to read labels and avoid high fructose corn syrup, processed chemicals added to increase shelf life and preprepared meals. Avoid fast foods. Learn to eat slowly and plan meals for a week. Try to count calories and be mindful off daily calorie intake. Get into the habit of keeping an eye on your weight by using an appropriate scale. Learn to log exercise and discussed fitness Apps like [facility] which can help keep log off calories taken versus calories burned. Local food should be preferred. Discussed Dirty Dozen Versus Clean Fifteen. Discussed healthy supplements like fish oil, Tumeric, Curcumin, Melatonin, Resveratrol, Probiotics, Vitamin-D, Alpha-Lipoic acid, Vitamin-D and coconut oil. 2. It is important to exercise regularly. Is a good habit to walk at least 30-45 minutes a day. Gentle weightlifting with standard precautions to protect the back. Finding activity like cycling or hiking and get into the habit of engaging in it. Stretching before and after the exercises important. It is also important to contact me if there are any problems like shortness of breath, chest pain, back pain and joint or muscle pain associated with the exercise. 3. Discussed age appropriate screening guidelines. Colonoscopy needs to start at age 50 with stool for occult blood as appropriate. There is a new test that can test for genetic abnormalities in the stool sample. This would not replace a colonoscopy but could be used as a screening tool for patients who do not want a colonoscopy. We discussed the importance of early detection of colon cancer. 4. Discussed current guidelines with respect to breast examination, mammogram and pap smear for early detection of breast and cervical cancer. Patient advised to follow up with these appointments. 5. Discussed safe driving and no use of smart phone while driving 6. Age-appropriate immunizations were discussed. A tetanus booster is needed every 10 years. Flu vaccine is recommended every year just before the start of the flu season. Shingles vaccine is recommended after age 50 but not all insurances cover it.Pneumonia vaccine is given after age 65 unless there are certain comorbidities for which it is started earlier. 7. Diagnostic labs were discussed. These could include CBC CMP and lipids with fasting blood glucose and insulin levels. Vitamin D and hemoglobin A1c testing might be appropriate. Case discussed with collaborating physician Gaye Armando who reviewed the assessment and plan. Chart, medications, labs, vital signs reviewed. Dictation was accomplished with the use of [employer] voice recognition software, prone to medical misidentifications and grammatical errors. This is unintentional and the practitioner does try to identify and correct these, but some could still be present. Please do not hesitate to contact practitioner for clarification. All quetsions answered to patients satisfaction. Patient verbalized understanding of diagnosis and treatments explained. To call sooner prior to next visit it any questions/concerns arise. Total time spent was 30 minutes with greater than 50% being face to face counselling. 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 #COVID positive. Out of the window of Paxlovid. # HTN: Currently on Irbesartan 300 mg (max dose), HCTZ 25 mg po daily. Continue Amlodipine 10 mg po daily, will start Clonidine 0.1 mg daily. Likely due to COVID. Will continue Irbesartan 300 mg po daily,. We will change hydrochlorothiazide from 37.5 mg down to 25 mg given her elevated calcium. Add Lasix 20 mg daily as needed leg swelling. Will keep amlodipine 5 mg p.o. daily #Morbid obesity: Highest weight 230 pounds, lose weight 130 pounds, goal weight for now is 150 pounds. - Will request for Mounjaro #Dizziness: orthostatic blood pressures taken, patient advised to increase fluid intake. Will consider reducing thiazide if she continues to be symptomatic. #Urinary retention: patient advised to increase fluid intake and reassess in one month. Should she continue to be symptomatic, a post void bladder scan will be ordered. #Hyperglycemia: Metformin will be increased to 1000mg Qhs. # Hypercalcemia. Recheck PTH Case discussed with collaborating physician Gaye Armando who reviewed the assessment and plan. Chart, medications, labs, vital signs reviewed. Dictation was accomplished with the use of [employer] voice recognition software, prone to medical misidentifications and grammatical errors. This is unintentional and the practitioner does try to identify and correct these, but some could still be present. Please do not hesitate to contact practitioner for clarification. All quetsions answered to patients satisfaction. Patient verbalized understanding of diagnosis and treatments explained. To call sooner prior to next visit it any questions/concerns arise. Total time spent was 30 minutes with greater than 50% being face to face counselling. 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 # HTN: Currently on Irbesartan 300 mg (max dose), HCTZ . Was started on Amlodipine last visit, and increased from 5 to 10 mg. BP readings improved with SBP in 130's. Pt reports ankle edema. Will continue Irbesartan 300 mg po daily,. We will change hydrochlorothiazide from 37.5 mg down to 25 mg given her elevated calcium. Add Lasix 20 mg daily as needed leg swelling. Will keep amlodipine 5 mg p.o. daily #Morbid obesity: Highest weight 230 pounds, lose weight 130 pounds, goal weight for now is 150 pounds. - Will request for [employer]maninderro #Dizziness: orthostatic blood pressures taken, patient advised to increase fluid intake. Will consider reducing thiazide if she continues to be symptomatic. #Urinary retention: patient advised to increase fluid intake and reassess in one month. Should she continue to be symptomatic, a post void bladder scan will be ordered. #Hyperglycemia: Metformin will be increased to 1000mg Qhs. # Hypercalcemia. Recheck PTH Patient seen and examined. Comprehensive discussion was done on the following. 1. Nutrition: It is important to follow a healthy diet based on lots of vegetables and legumes and good fat. Avoid processed food and processed carbohydrates. Learn to prepare your own meals. Learn to read labels and avoid high fructose corn syrup, processed chemicals added to increase shelf life and preprepared meals. Avoid fast foods. Learn to eat slowly and plan meals for a week. Try to count calories and be mindful off daily calorie intake. Get into the habit of keeping an eye on your weight by using an appropriate scale. Learn to log exercise and discussed fitness Apps like [facility] which can help keep log off calories taken versus calories burned. Local food should be preferred. Discussed Dirty Dozen Versus Clean Fifteen. Discussed healthy supplements like fish oil, Tumeric, Curcumin, Melatonin, Resveratrol, Probiotics, Vitamin-D, Alpha-Lipoic acid, Vitamin-D and coconut oil. 2. It is important to exercise regularly. Is a good habit to walk at least 30-45 minutes a day. Gentle weightlifting with standard precautions to protect the back. Finding activity like cycling or hiking and get into the habit of engaging in it. Stretching before and after the exercises important. It is also important to contact me if there are any problems like shortness of breath, chest pain, back pain and joint or muscle pain associated with the exercise. 3. Discussed age appropriate screening guidelines. Colonoscopy needs to start at age 50 with stool for occult blood as appropriate. There is a new test that can test for genetic abnormalities in the stool sample. This would not replace a colonoscopy but could be used as a screening tool for patients who do not want a colonoscopy. We discussed the importance of early detection of colon cancer. 4. Discussed current guidelines with respect to breast examination, mammogram and pap smear for early detection of breast and cervical cancer. Patient advised to follow up with these appointments. 5. Discussed safe driving and no use of smart phone while driving 6. Age-appropriate immunizations were discussed. A tetanus booster is needed every 10 years. Flu vaccine is recommended every year just before the start of the flu season. Shingles vaccine is recommended after age 50 but not all insurances cover it.Pneumonia vaccine is given after age 65 unless there are certain comorbidities for which it is started earlier. 7. Diagnostic labs were discussed. These could include CBC CMP and lipids with fasting blood glucose and insulin levels. Vitamin D and hemoglobin A1c testing might be appropriate. Case discussed with collaborating physician Gaey Armando who reviewed the assessment and plan. Chart, medications, labs, vital signs reviewed. Dictation was accomplished with the use of [employer] voice recognition software, prone to medical misidentifications and grammatical errors. This is unintentional and the practitioner does try to identify and correct these, but some could still be present. Please do not hesitate to contact practitioner for clarification. All quetsions answered to patients satisfaction. Patient verbalized understanding of diagnosis and treatments explained. To call sooner prior to next visit it any questions/concerns arise. Total time spent was 30 minutes with greater than 50% being face to face counselling. 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 #COVID positive. Out of the window of Paxlovid. # HTN: Currently on Irbesartan 300 mg (max dose), HCTZ 25 mg po daily. Continue Amlodipine 10 mg po daily, will start Clonidine 0.1 mg daily. Likely due to COVID. Will continue Irbesartan 300 mg po daily,. We will change hydrochlorothiazide from 37.5 mg down to 25 mg given her elevated calcium. Add Lasix 20 mg daily as needed leg swelling. Will keep amlodipine 5 mg p.o. daily #Morbid obesity: Highest weight 230 pounds, lose weight 130 pounds, goal weight for now is 150 pounds. - Will request for Mounjaro #Dizziness: orthostatic blood pressures taken, patient advised to increase fluid intake. Will consider reducing thiazide if she continues to be symptomatic. #Urinary retention: patient advised to increase fluid intake and reassess in one month. Should she continue to be symptomatic, a post void bladder scan will be ordered. #Hyperglycemia: Metformin will be increased to 1000mg Qhs. # Hypercalcemia. Recheck PTH Case discussed with collaborating physician Gaye Armando who reviewed the assessment and plan. Chart, medications, labs, vital signs reviewed. Dictation was accomplished with the use of [employer] voice recognition software, prone to medical misidentifications and grammatical errors. This is unintentional and the practitioner does try to identify and correct these, but some could still be present. Please do not hesitate to contact practitioner for clarification. All quetsions answered to patients satisfaction. Patient verbalized understanding of diagnosis and treatments explained. To call sooner prior to next visit it any questions/concerns arise. Total time spent was 30 minutes with greater than 50% being face to face counselling. 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 # HTN: Currently on Irbesartan 300 mg (max dose), HCTZ 37.55 mg po daily. Continue Amlodipine 5 mg po daily. # Hypercalcemia: Refer to endocrinology. Did not significantly improve with discontinuation of HCTZ. PTH WNL #Morbid obesity: Highest weight 230 pounds, lose weight 130 pounds, goal weight for now is 150 pounds. - Will request for Mounjaro # Nystagmus: Brain CT w/o contrast w/o intracranial pathology # R hip pain. R hip x-ray. PRN NSAIDs- encouraged to favor APAP due to elevated BP #Hyperglycemia: Metformin will be increased to 1000mg Qhs. Case discussed with collaborating physician Bharati Armando who reviewed the assessment and plan. Chart, medications, labs, vital signs reviewed. Dictation was accomplished with the use of [employer] voice recognition software, prone to medical misidentifications and grammatical errors. This is unintentional and the practitioner does try to identify and correct these, but some could still be present. Please do not hesitate to contact practitioner for clarification. All quetsions answered to patients satisfaction. Patient verbalized understanding of diagnosis and treatments explained. To call sooner prior to next visit it any questions/concerns arise. Total time spent was 30 minutes with greater than 50% being face to face counselling. 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 # HTN: Currently on Irbesartan 300 mg (max dose), HCTZ 37.55 mg po daily. Continue Amlodipine 5 mg po daily. # Hypercalcemia: Refer to endocrinology. Did not significantly improve with discontinuation of HCTZ. PTH WNL. Has appt Oct 27. #Morbid obesity: Highest weight 230 pounds, lose weight 130 pounds, goal weight for now is 150 pounds. - Will request for Mounjaro # Nystagmus: Brain CT w/o contrast w/o intracranial pathology- # R hip pain. R hip x-ray normal. Now complaining of L hip pain. will send to PT. MRI of bilateral hip w/o contrast willbe ordered #Hyperglycemia: Metformin will be increased to 1000mg Qhs. Total time spent with patient was 40 minutes with over half being face to face time. Case discussed with collaborating physician Gaye Armando who reviewed the assessment and plan. Chart, medications, labs, vital signs reviewed. Dictation was accomplished with the use of [employer] voice recognition software, prone to medical misidentifications and grammatical errors. This is unintentional and the practitioner does try to identify and correct these, but some could still be present. Please do not hesitate to contact practitioner for clarification. All quetsions answered to patients satisfaction. Patient verbalized understanding of diagnosis and treatments explained. To call sooner prior to next visit it any questions/concerns arise. Total time spent was 30 minutes with greater than 50% being face to face counselling. 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 # HTN: Currently on Irbesartan 300 mg (max dose). Continue Amlodipine 5 mg po daily. # Hypercalcemia:Folowed by endocrinology. Doing 24 hour urine test, to be repeated. Calcium high normal. #Morbid obesity: Highest weight 230 pounds, lose weight 130 pounds, goal weight for now is 150 pounds. Refer to bariatric surgery # Nystagmus: Brain CT w/o contrast w/o intracranial pathology #Hyperglycemia: Metformin will be increased to 1000mg Qhs. Case discussed with collaborating physician Bharati Armando who reviewed the assessment and plan. Chart, medications, labs, vital signs reviewed. Dictation was accomplished with the use of [employer] voice recognition software, prone to medical misidentifications and grammatical errors. This is unintentional and the practitioner does try to identify and correct these, but some could still be present. Please do not hesitate to contact practitioner for clarification. All quetsions answered to patients satisfaction. Patient verbalized understanding of diagnosis and treatments explained. To call sooner prior to next visit it any questions/concerns arise. Total time spent was 30 minutes with greater than 50% being face to face counselling. 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 # HTN: Currently on Irbesartan 300 mg (max dose), HCTZ 37.55 mg po daily. Continue Amlodipine 5 mg po daily. # Hypercalcemia:Folowed by endocrinology. Doing 24 hour urine test #Morbid obesity: Highest weight 230 pounds, lose weight 130 pounds, goal weight for now is 150 pounds. - Will request for Balta # Nystagmus: Brain CT w/o contrast w/o intracranial pathology # R hip pain. Followed by [facility] #Hyperglycemia: Metformin will be increased to 1000mg Qhs. Case discussed with collaborating physician Bharati Armando who reviewed the assessment and plan. Chart, medications, labs, vital signs reviewed. Dictation was accomplished with the use of [employer] voice recognition software, prone to medical misidentifications and grammatical errors. This is unintentional and the practitioner does try to identify and correct these, but some could still be present. Please do not hesitate to contact practitioner for clarification. All quetsions answered to patients satisfaction. Patient verbalized understanding of diagnosis and treatments explained. To call sooner prior to next visit it any questions/concerns arise. Total time spent was 30 minutes with greater than 50% being face to face counselling. 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 # HTN: Currently on Irbesartan 300 mg (max dose Was started on Amlodipine last visit, and increased from 5 to 10 mg. BP readings improved with SBP in 130's. Pt reports ankle edema. Will continue Irbesartan 300 mg po daily, Amloidpine 5 mg po daily. #Morbid obesity:Currently going through [facility] for weight loss medication. Patient is also undergoing bariatric surgery evaluation through [facility] # Hypercalcemia Followed by endocrinology Patient seen and examined. Comprehensive discussion was done on the following. 1. Nutrition: It is important to follow a healthy diet based on lots of vegetables and legumes and good fat. Avoid processed food and processed carbohydrates. Learn to prepare your own meals. Learn to read labels and avoid high fructose corn syrup, processed chemicals added to increase shelf life and preprepared meals. Avoid fast foods. Learn to eat slowly and plan meals for a week. Try to count calories and be mindful off daily calorie intake. Get into the habit of keeping an eye on your weight by using an appropriate scale. Learn to log exercise and discussed fitness Apps like [employer] which can help keep log off calories taken versus calories burned. Local food should be preferred. Discussed Dirty Dozen Versus Clean Fifteen. Discussed healthy supplements like fish oil, Tumeric, Curcumin, Melatonin, Resveratrol, Probiotics, Vitamin-D, Alpha-Lipoic acid, Vitamin-D and coconut oil. 2. It is important to exercise regularly. Is a good habit to walk at least 30-45 minutes a day. Gentle weightlifting with standard precautions to protect the back. Finding activity like cycling or hiking and get into the habit of engaging in it. Stretching before and after the exercises important. It is also important to contact me if there are any problems like shortness of breath, chest pain, back pain and joint or muscle pain associated with the exercise. 3. Discussed age appropriate screening guidelines. Colonoscopy needs to start at age 50 with stool for occult blood as appropriate. There is a new test that can test for genetic abnormalities in the stool sample. This would not replace a colonoscopy but could be used as a screening tool for patients who do not want a colonoscopy. We discussed the importance of early detection of colon cancer. 4. Discussed current guidelines with respect to breast examination, mammogram and pap smear for early detection of breast and cervical cancer. Patient advised to follow up with these appointments. 5. Discussed safe driving and no use of smart phone while driving 6. Age-appropriate immunizations were discussed. A tetanus booster is needed every 10 years. Flu vaccine is recommended every year just before the start of the flu season. Shingles vaccine is recommended after age 50 but not all insurances cover it.Pneumonia vaccine is given after age 65 unless there are certain comorbidities for which it is started earlier. 7. Diagnostic labs were discussed. These could include CBC CMP and lipids with fasting blood glucose and insulin levels. Vitamin D and hemoglobin A1c testing might be appropriate. Case discussed with collaborating physician Bharati Armando who reviewed the assessment and plan. Chart, medications, labs, vital signs reviewed. Dictation was accomplished with the use of [employer] voice recognition software, prone to medical misidentifications and grammatical errors. This is unintentional and the practitioner does try to identify and correct these, but some could still be present. Please do not hesitate to contact practitioner for clarification. All quetsions answered to patients satisfaction. Patient verbalized understanding of diagnosis and treatments explained. To call sooner prior to next visit it any questions/concerns arise. Total time spent was 30 minutes with greater than 50% being face to face counselling. 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 # HTN: Currently on Irbesartan 300 mg (max dose Was started on Amlodipine last visit, and increased from 5 to 10 mg. BP readings improved with SBP in 130's. Pt reports ankle edema. Will continue Irbesartan 300 mg po daily, Amloidpine 5 mg po daily. #Morbid obesity:Currently going through [employer] for weight loss medication. Patient is also undergoing bariatric surgery evaluation through [facility] # Hypercalcemia Followed by endocrinology Patient seen and examined. Comprehensive discussion was done on the following. 1. Nutrition: It is important to follow a healthy diet based on lots of vegetables and legumes and good fat. Avoid processed food and processed carbohydrates. Learn to prepare your own meals. Learn to read labels and avoid high fructose corn syrup, processed chemicals added to increase shelf life and preprepared meals. Avoid fast foods. Learn to eat slowly and plan meals for a week. Try to count calories and be mindful off daily calorie intake. Get into the habit of keeping an eye on your weight by using an appropriate scale. Learn to log exercise and discussed fitness Apps like [facility] which can help keep log off calories taken versus calories burned. Local food should be preferred. Discussed Dirty Dozen Versus Clean Fifteen. Discussed healthy supplements like fish oil, Tumeric, Curcumin, Melatonin, Resveratrol, Probiotics, Vitamin-D, Alpha-Lipoic acid, Vitamin-D and coconut oil. 2. It is important to exercise regularly. Is a good habit to walk at least 30-45 minutes a day. Gentle weightlifting with standard precautions to protect the back. Finding activity like cycling or hiking and get into the habit of engaging in it. Stretching before and after the exercises important. It is also important to contact me if there are any problems like shortness of breath, chest pain, back pain and joint or muscle pain associated with the exercise. 3. Discussed age appropriate screening guidelines. Colonoscopy needs to start at age 50 with stool for occult blood as appropriate. There is a new test that can test for genetic abnormalities in the stool sample. This would not replace a colonoscopy but could be used as a screening tool for patients who do not want a colonoscopy. We discussed the importance of early detection of colon cancer. 4. Discussed current guidelines with respect to breast examination, mammogram and pap smear for early detection of breast and cervical cancer. Patient advised to follow up with these appointments. 5. Discussed safe driving and no use of smart phone while driving 6. Age-appropriate immunizations were discussed. A tetanus booster is needed every 10 years. Flu vaccine is recommended every year just before the start of the flu season. Shingles vaccine is recommended after age 50 but not all insurances cover it.Pneumonia vaccine is given after age 65 unless there are certain comorbidities for which it is started earlier. 7. Diagnostic labs were discussed. These could include CBC CMP and lipids with fasting blood glucose and insulin levels. Vitamin D and hemoglobin A1c testing might be appropriate. Case discussed with collaborating physician Bharati Armando who reviewed the assessment and plan. Chart, medications, labs, vital signs reviewed. Dictation was accomplished with the use of [employer] voice recognition software, prone to medical misidentifications and grammatical errors. This is unintentional and the practitioner does try to identify and correct these, but some could still be present. Please do not hesitate to contact practitioner for clarification. All quetsions answered to patients satisfaction. Patient verbalized understanding of diagnosis and treatments explained. To call sooner prior to next visit it any questions/concerns arise. Total time spent was 30 minutes with greater than 50% being face to face counselling. 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 # HTN: Currently on Irbesartan 300 mg (max dose), HCTZ 37.55 mg po daily. Continue Amlodipine 5 mg po daily. # Hypercalcemia: Refer to endocrinology. Did not significantly improve with discontinuation of HCTZ. PTH WNL. Has appt Oct 27. #Morbid obesity: Highest weight 230 pounds, lose weight 130 pounds, goal weight for now is 150 pounds. - Will request for Mounjaro # Nystagmus: Brain CT w/o contrast w/o intracranial pathology- # R hip pain. R hip x-ray normal. Now complaining of L hip pain. will send to PT. MRI of bilateral hip w/o contrast willbe ordered #Hyperglycemia: Metformin will be increased to 1000mg Qhs. Total time spent with patient was 40 minutes with over half being face to face time. Case discussed with collaborating physician Gaye Armando who reviewed the assessment and plan. Chart, medications, labs, vital signs reviewed. Dictation was accomplished with the use of [employer] voice recognition software, prone to medical misidentifications and grammatical errors. This is unintentional and the practitioner does try to identify and correct these, but some could still be present. Please do not hesitate to contact practitioner for clarification. All quetsions answered to patients satisfaction. Patient verbalized understanding of diagnosis and treatments explained. To call sooner prior to next visit it any questions/concerns arise. Total time spent was 30 minutes with greater than 50% being face to face counselling. 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 # HTN: Currently on Irbesartan 300 mg (max dose), HCTZ 37.55 mg po daily. Continue Amlodipine 5 mg po daily. # Hypercalcemia:Folowed by endocrinology. Doing 24 hour urine test #Morbid obesity: Highest weight 230 pounds, lose weight 130 pounds, goal weight for now is 150 pounds. - Will request for Mounjaro # Nystagmus: Brain CT w/o contrast w/o intracranial pathology # R hip pain. Followed by [facility] #Hyperglycemia: Metformin will be increased to 1000mg Qhs. Case discussed with collaborating physician Bharati Armando who reviewed the assessment and plan. Chart, medications, labs, vital signs reviewed. Dictation was accomplished with the use of [employer] voice recognition software, prone to medical misidentifications and grammatical errors. This is unintentional and the practitioner does try to identify and correct these, but some could still be present. Please do not hesitate to contact practitioner for clarification. All quetsions answered to patients satisfaction. Patient verbalized understanding of diagnosis and treatments explained. To call sooner prior to next visit it any questions/concerns arise. Total time spent was 30 minutes with greater than 50% being face to face counselling. 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 # HTN: Currently on Irbesartan 300 mg (max dose). Continue Amlodipine 5 mg po daily. # Hypercalcemia:Folowed by endocrinology. Doing 24 hour urine test, to be repeated. Calcium high normal. #Morbid obesity: Highest weight 230 pounds, lose weight 130 pounds, goal weight for now is 150 pounds. Refer to bariatric surgery # Nystagmus: Brain CT w/o contrast w/o intracranial pathology #Hyperglycemia: Metformin will be increased to 1000mg Qhs. Case discussed with collaborating physician Bharati Armando who reviewed the assessment and plan. Chart, medications, labs, vital signs reviewed. Dictation was accomplished with the use of [employer] voice recognition software, prone to medical misidentifications and grammatical errors. This is unintentional and the practitioner does try to identify and correct these, but some could still be present. Please do not hesitate to contact practitioner for clarification. All quetsions answered to patients satisfaction. Patient verbalized understanding of diagnosis and treatments explained. To call sooner prior to next visit it any questions/concerns arise. Total time spent was 30 minutes with greater than 50% being face to face counselling. 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 # HTN: Currently on Irbesartan 300 mg (max dose), HCTZ 37.55 mg po daily. Continue Amlodipine 5 mg po daily. # Hypercalcemia: Refer to endocrinology. Did not significantly improve with discontinuation of HCTZ. PTH WNL #Morbid obesity: Highest weight 230 pounds, lose weight 130 pounds, goal weight for now is 150 pounds. - Will request for Mounjaro # Nystagmus: Brain CT w/o contrast w/o intracranial pathology # R hip pain. R hip x-ray. PRN NSAIDs- encouraged to favor APAP due to elevated BP #Hyperglycemia: Metformin will be increased to 1000mg Qhs. Case discussed with collaborating physician Bharati Armando who reviewed the assessment and plan. Chart, medications, labs, vital signs reviewed. Dictation was accomplished with the use of [employer] voice recognition software, prone to medical misidentifications and grammatical errors. This is unintentional and the practitioner does try to identify and correct these, but some could still be present. Please do not hesitate to contact practitioner for clarification. All quetsions answered to patients satisfaction. Patient verbalized understanding of diagnosis and treatments explained. To call sooner prior to next visit it any questions/concerns arise. Total time spent was 30 minutes with greater than 50% being face to face counselling. 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 #COVID positive. Out of the window of Paxlovid. # HTN: Currently on Irbesartan 300 mg (max dose), HCTZ 25 mg po daily. Continue Amlodipine 10 mg po daily, will start Clonidine 0.1 mg daily. Likely due to COVID. Will continue Irbesartan 300 mg po daily,. We will change hydrochlorothiazide from 37.5 mg down to 25 mg given her elevated calcium. Add Lasix 20 mg daily as needed leg swelling. Will keep amlodipine 5 mg p.o. daily #Morbid obesity: Highest weight 230 pounds, lose weight 130 pounds, goal weight for now is 150 pounds. - Will request for Mounjaro #Dizziness: orthostatic blood pressures taken, patient advised to increase fluid intake. Will consider reducing thiazide if she continues to be symptomatic. #Urinary retention: patient advised to increase fluid intake and reassess in one month. Should she continue to be symptomatic, a post void bladder scan will be ordered. #Hyperglycemia: Metformin will be increased to 1000mg Qhs. # Hypercalcemia. Recheck PTH Case discussed with collaborating physician Gaye Armando who reviewed the assessment and plan. Chart, medications, labs, vital signs reviewed. Dictation was accomplished with the use of [employer] voice recognition software, prone to medical misidentifications and grammatical errors. This is unintentional and the practitioner does try to identify and correct these, but some could still be present. Please do not hesitate to contact practitioner for clarification. All quetsions answered to patients satisfaction. Patient verbalized understanding of diagnosis and treatments explained. To call sooner prior to next visit it any questions/concerns arise. Total time spent was 30 minutes with greater than 50% being face to face counselling. 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 # HTN: Currently on Irbesartan 300 mg (max dose), HCTZ . Was started on Amlodipine last visit, and increased from 5 to 10 mg. BP readings improved with SBP in 130's. Pt reports ankle edema. Will continue Irbesartan 300 mg po daily,. We will change hydrochlorothiazide from 37.5 mg down to 25 mg given her elevated calcium. Add Lasix 20 mg daily as needed leg swelling. Will keep amlodipine 5 mg p.o. daily #Morbid obesity: Highest weight 230 pounds, lose weight 130 pounds, goal weight for now is 150 pounds. - Will request for Mounjaro #Dizziness: orthostatic blood pressures taken, patient advised to increase fluid intake. Will consider reducing thiazide if she continues to be symptomatic. #Urinary retention: patient advised to increase fluid intake and reassess in one month. Should she continue to be symptomatic, a post void bladder scan will be ordered. #Hyperglycemia: Metformin will be increased to 1000mg Qhs. # Hypercalcemia. Recheck PTH Patient seen and examined. Comprehensive discussion was done on the following. 1. Nutrition: It is important to follow a healthy diet based on lots of vegetables and legumes and good fat. Avoid processed food and processed carbohydrates. Learn to prepare your own meals. Learn to read labels and avoid high fructose corn syrup, processed chemicals added to increase shelf life and preprepared meals. Avoid fast foods. Learn to eat slowly and plan meals for a week. Try to count calories and be mindful off daily calorie intake. Get into the habit of keeping an eye on your weight by using an appropriate scale. Learn to log exercise and discussed fitness Apps like [facility] which can help keep log off calories taken versus calories burned. Local food should be preferred. Discussed Dirty Dozen Versus Clean Fifteen. Discussed healthy supplements like fish oil, Tumeric, Curcumin, Melatonin, Resveratrol, Probiotics, Vitamin-D, Alpha-Lipoic acid, Vitamin-D and coconut oil. 2. It is important to exercise regularly. Is a good habit to walk at least 30-45 minutes a day. Gentle weightlifting with standard precautions to protect the back. Finding activity like cycling or hiking and get into the habit of engaging in it. Stretching before and after the exercises important. It is also important to contact me if there are any problems like shortness of breath, chest pain, back pain and joint or muscle pain associated with the exercise. 3. Discussed age appropriate screening guidelines. Colonoscopy needs to start at age 50 with stool for occult blood as appropriate. There is a new test that can test for genetic abnormalities in the stool sample. This would not replace a colonoscopy but could be used as a screening tool for patients who do not want a colonoscopy. We discussed the importance of early detection of colon cancer. 4. Discussed current guidelines with respect to breast examination, mammogram and pap smear for early detection of breast and cervical cancer. Patient advised to follow up with these appointments. 5. Discussed safe driving and no use of smart phone while driving 6. Age-appropriate immunizations were discussed. A tetanus booster is needed every 10 years. Flu vaccine is recommended every year just before the start of the flu season. Shingles vaccine is recommended after age 50 but not all insurances cover it.Pneumonia vaccine is given after age 65 unless there are certain comorbidities for which it is started earlier. 7. Diagnostic labs were discussed. These could include CBC CMP and lipids with fasting blood glucose and insulin levels. Vitamin D and hemoglobin A1c testing might be appropriate. Case discussed with collaborating physician Gaye Armando who reviewed the assessment and plan. Chart, medications, labs, vital signs reviewed. Dictation was accomplished with the use of [employer] voice recognition software, prone to medical misidentifications and grammatical errors. This is unintentional and the practitioner does try to identify and correct these, but some could still be present. Please do not hesitate to contact practitioner for clarification. All quetsions answered to patients satisfaction. Patient verbalized understanding of diagnosis and treatments explained. To call sooner prior to next visit it any questions/concerns arise. Total time spent was 30 minutes with greater than 50% being face to face counselling. 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 #COVID positive. Out of the window of Paxlovid. # HTN: Currently on Irbesartan 300 mg (max dose), HCTZ 25 mg po daily. Continue Amlodipine 10 mg po daily, will start Clonidine 0.1 mg daily. Likely due to COVID. Will continue Irbesartan 300 mg po daily,. We will change hydrochlorothiazide from 37.5 mg down to 25 mg given her elevated calcium. Add Lasix 20 mg daily as needed leg swelling. Will keep amlodipine 5 mg p.o. daily #Morbid obesity: Highest weight 230 pounds, lose weight 130 pounds, goal weight for now is 150 pounds. - Will request for Mounjaro #Dizziness: orthostatic blood pressures taken, patient advised to increase fluid intake. Will consider reducing thiazide if she continues to be symptomatic. #Urinary retention: patient advised to increase fluid intake and reassess in one month. Should she continue to be symptomatic, a post void bladder scan will be ordered. #Hyperglycemia: Metformin will be increased to 1000mg Qhs. # Hypercalcemia. Recheck PTH Case discussed with collaborating physician Gaye Armando who reviewed the assessment and plan. Chart, medications, labs, vital signs reviewed. Dictation was accomplished with the use of [employer] voice recognition software, prone to medical misidentifications and grammatical errors. This is unintentional and the practitioner does try to identify and correct these, but some could still be present. Please do not hesitate to contact practitioner for clarification. All quetsions answered to patients satisfaction. Patient verbalized understanding of diagnosis and treatments explained. To call sooner prior to next visit it any questions/concerns arise. Total time spent was 30 minutes with greater than 50% being face to face counselling. 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 # HTN: Currently on Irbesartan 300 mg (max dose), HCTZ 37.55 mg po daily. Continue Amlodipine 5 mg po daily. # Hypercalcemia: Refer to endocrinology. Did not significantly improve with discontinuation of HCTZ. PTH WNL #Morbid obesity: Highest weight 230 pounds, lose weight 130 pounds, goal weight for now is 150 pounds. - Will request for Mounjaro # Nystagmus: Brain CT w/o contrast w/o intracranial pathology # R hip pain. R hip x-ray. PRN NSAIDs- encouraged to favor APAP due to elevated BP #Hyperglycemia: Metformin will be increased to 1000mg Qhs. Case discussed with collaborating physician Bharati Armando who reviewed the assessment and plan. Chart, medications, labs, vital signs reviewed. Dictation was accomplished with the use of [employer] voice recognition software, prone to medical misidentifications and grammatical errors. This is unintentional and the practitioner does try to identify and correct these, but some could still be present. Please do not hesitate to contact practitioner for clarification. All quetsions answered to patients satisfaction. Patient verbalized understanding of diagnosis and treatments explained. To call sooner prior to next visit it any questions/concerns arise. Total time spent was 30 minutes with greater than 50% being face to face counselling. 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 # HTN: Currently on Irbesartan 300 mg (max dose), HCTZ 37.55 mg po daily. Continue Amlodipine 5 mg po daily. # Hypercalcemia: Refer to endocrinology. Did not significantly improve with discontinuation of HCTZ. PTH WNL. Has appt Oct 27. #Morbid obesity: Highest weight 230 pounds, lose weight 130 pounds, goal weight for now is 150 pounds. - Will request for Mounjaro # Nystagmus: Brain CT w/o contrast w/o intracranial pathology- # R hip pain. R hip x-ray normal. Now complaining of L hip pain. will send to PT. MRI of bilateral hip w/o contrast willbe ordered #Hyperglycemia: Metformin will be increased to 1000mg Qhs. Total time spent with patient was 40 minutes with over half being face to face time. Case discussed with collaborating physician Gaye Armando who reviewed the assessment and plan. Chart, medications, labs, vital signs reviewed. Dictation was accomplished with the use of [employer] voice recognition software, prone to medical misidentifications and grammatical errors. This is unintentional and the practitioner does try to identify and correct these, but some could still be present. Please do not hesitate to contact practitioner for clarification. All quetsions answered to patients satisfaction. Patient verbalized understanding of diagnosis and treatments explained. To call sooner prior to next visit it any questions/concerns arise. Total time spent was 30 minutes with greater than 50% being face to face counselling. 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 # HTN: Currently on Irbesartan 300 mg (max dose). Continue Amlodipine 5 mg po daily. # Hypercalcemia:Folowed by endocrinology. Doing 24 hour urine test, to be repeated. Calcium high normal. #Morbid obesity: Highest weight 230 pounds, lose weight 130 pounds, goal weight for now is 150 pounds. Refer to bariatric surgery # Nystagmus: Brain CT w/o contrast w/o intracranial pathology #Hyperglycemia: Metformin will be increased to 1000mg Qhs. Case discussed with collaborating physician Bharati Armando who reviewed the assessment and plan. Chart, medications, labs, vital signs reviewed. Dictation was accomplished with the use of [employer] voice recognition software, prone to medical misidentifications and grammatical errors. This is unintentional and the practitioner does try to identify and correct these, but some could still be present. Please do not hesitate to contact practitioner for clarification. All quetsions answered to patients satisfaction. Patient verbalized understanding of diagnosis and treatments explained. To call sooner prior to next visit it any questions/concerns arise. Total time spent was 30 minutes with greater than 50% being face to face counselling. 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 # HTN: Currently on Irbesartan 300 mg (max dose), HCTZ 37.55 mg po daily. Continue Amlodipine 5 mg po daily. # Hypercalcemia:Folowed by endocrinology. Doing 24 hour urine test #Morbid obesity: Highest weight 230 pounds, lose weight 130 pounds, goal weight for now is 150 pounds. - Will request for Mounjaro # Nystagmus: Brain CT w/o contrast w/o intracranial pathology # R hip pain. Followed by [facility] #Hyperglycemia: Metformin will be increased to 1000mg Qhs. Case discussed with collaborating physician Bharati Armando who reviewed the assessment and plan. Chart, medications, labs, vital signs reviewed. Dictation was accomplished with the use of [employer] voice recognition software, prone to medical misidentifications and grammatical errors. This is unintentional and the practitioner does try to identify and correct these, but some could still be present. Please do not hesitate to contact practitioner for clarification. All quetsions answered to patients satisfaction. Patient verbalized understanding of diagnosis and treatments explained. To call sooner prior to next visit it any questions/concerns arise. Total time spent was 30 minutes with greater than 50% being face to face counselling. 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 # HTN: Currently on Irbesartan 300 mg (max dose Was started on Amlodipine last visit, and increased from 5 to 10 mg. BP readings improved with SBP in 130's. Pt reports ankle edema. Will continue Irbesartan 300 mg po daily, Amloidpine 5 mg po daily. #Morbid obesity:Currently going through [facility] for weight loss medication. Patient is also undergoing bariatric surgery evaluation through [facility] # Hypercalcemia Followed by endocrinology Patient seen and examined. Comprehensive discussion was done on the following. 1. Nutrition: It is important to follow a healthy diet based on lots of vegetables and legumes and good fat. Avoid processed food and processed carbohydrates. Learn to prepare your own meals. Learn to read labels and avoid high fructose corn syrup, processed chemicals added to increase shelf life and preprepared meals. Avoid fast foods. Learn to eat slowly and plan meals for a week. Try to count calories and be mindful off daily calorie intake. Get into the habit of keeping an eye on your weight by using an appropriate scale. Learn to log exercise and discussed fitness Apps like [facility] which can help keep log off calories taken versus calories burned. Local food should be preferred. Discussed [employer]zen Versus [employer] Fifteen. Discussed healthy supplements like fish oil, Tumeric, Curcumin, Melatonin, Resveratrol, Probiotics, Vitamin-D, Alpha-Lipoic acid, Vitamin-D and coconut oil. 2. It is important to exercise regularly. Is a good habit to walk at least 30-45 minutes a day. Gentle weightlifting with standard precautions to protect the back. Finding activity like cycling or hiking and get into the habit of engaging in it. Stretching before and after the exercises important. It is also important to contact me if there are any problems like shortness of breath, chest pain, back pain and joint or muscle pain associated with the exercise. 3. Discussed age appropriate screening guidelines. Colonoscopy needs to start at age 50 with stool for occult blood as appropriate. There is a new test that can test for genetic abnormalities in the stool sample. This would not replace a colonoscopy but could be used as a screening tool for patients who do not want a colonoscopy. We discussed the importance of early detection of colon cancer. 4. Discussed current guidelines with respect to breast examination, mammogram and pap smear for early detection of breast and cervical cancer. Patient advised to follow up with these appointments. 5. Discussed safe driving and no use of smart phone while driving 6. Age-appropriate immunizations were discussed. A tetanus booster is needed every 10 years. Flu vaccine is recommended every year just before the start of the flu season. Shingles vaccine is recommended after age 50 but not all insurances cover it.Pneumonia vaccine is given after age 65 unless there are certain comorbidities for which it is started earlier. 7. Diagnostic labs were discussed. These could include CBC CMP and lipids with fasting blood glucose and insulin levels. Vitamin D and hemoglobin A1c testing might be appropriate. Case discussed with collaborating physician Bharati Armando who reviewed the assessment and plan. Chart, medications, labs, vital signs reviewed. Dictation was accomplished with the use of [employer] voice recognition software, prone to medical misidentifications and grammatical errors. This is unintentional and the practitioner does try to identify and correct these, but some could still be present. Please do not hesitate to contact practitioner for clarification. All quetsions answered to patients satisfaction. Patient verbalized understanding of diagnosis and treatments explained. To call sooner prior to next visit it any questions/concerns arise. Total time spent was 30 minutes with greater than 50% being face to face counselling. 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 # HTN: Currently on Irbesartan 300 mg (max dose), HCTZ 37.55 mg po daily. Continue Amlodipine 5 mg po daily. # Hypercalcemia:Folowed by endocrinology. Doing 24 hour urine test #Morbid obesity: Highest weight 230 pounds, lose weight 130 pounds, goal weight for now is 150 pounds. - Will request for Mounjaro # Nystagmus: Brain CT w/o contrast w/o intracranial pathology # R hip pain. Followed by [facility] #Hyperglycemia: Metformin will be increased to 1000mg Qhs. Case discussed with collaborating physician Bharati Armando who reviewed the assessment and plan. Chart, medications, labs, vital signs reviewed. Dictation was accomplished with the use of [employer] voice recognition software, prone to medical misidentifications and grammatical errors. This is unintentional and the practitioner does try to identify and correct these, but some could still be present. Please do not hesitate to contact practitioner for clarification. All quetsions answered to patients satisfaction. Patient verbalized understanding of diagnosis and treatments explained. To call sooner prior to next visit it any questions/concerns arise. Total time spent was 30 minutes with greater than 50% being face to face counselling. 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 # HTN: Currently on Irbesartan 300 mg (max dose). Continue Amlodipine 5 mg po daily. # Hypercalcemia:Folowed by endocrinology. Doing 24 hour urine test, to be repeated. Calcium high normal. #Morbid obesity: Highest weight 230 pounds, lose weight 130 pounds, goal weight for now is 150 pounds. Refer to bariatric surgery # Nystagmus: Brain CT w/o contrast w/o intracranial pathology #Hyperglycemia: Metformin will be increased to 1000mg Qhs. Case discussed with collaborating physician Bharati Armando who reviewed the assessment and plan. Chart, medications, labs, vital signs reviewed. Dictation was accomplished with the use of [employer] voice recognition software, prone to medical misidentifications and grammatical errors. This is unintentional and the practitioner does try to identify and correct these, but some could still be present. Please do not hesitate to contact practitioner for clarification. All quetsions answered to patients satisfaction. Patient verbalized understanding of diagnosis and treatments explained. To call sooner prior to next visit it any questions/concerns arise. Total time spent was 30 minutes with greater than 50% being face to face counselling. 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 # HTN: Currently on Irbesartan 300 mg (max dose Was started on Amlodipine last visit, and increased from 5 to 10 mg. BP readings improved with SBP in 130's. Pt reports ankle edema. Will continue Irbesartan 300 mg po daily, Amloidpine 5 mg po daily. #Morbid obesity:Currently going through [facility] for weight loss medication. Patient is also undergoing bariatric surgery evaluation through [facility] # Hypercalcemia Followed by endocrinology Patient seen and examined. Comprehensive discussion was done on the following. 1. Nutrition: It is important to follow a healthy diet based on lots of vegetables and legumes and good fat. Avoid processed food and processed carbohydrates. Learn to prepare your own meals. Learn to read labels and avoid high fructose corn syrup, processed chemicals added to increase shelf life and preprepared meals. Avoid fast foods. Learn to eat slowly and plan meals for a week. Try to count calories and be mindful off daily calorie intake. Get into the habit of keeping an eye on your weight by using an appropriate scale. Learn to log exercise and discussed fitness Apps like [facility] which can help keep log off calories taken versus calories burned. Local food should be preferred. Discussed [employer] Versus [employer]. Discussed healthy supplements like fish oil, Tumeric, Curcumin, Melatonin, Resveratrol, Probiotics, Vitamin-D, Alpha-Lipoic acid, Vitamin-D and coconut oil. 2. It is important to exercise regularly. Is a good habit to walk at least 30-45 minutes a day. Gentle weightlifting with standard precautions to protect the back. Finding activity like cycling or hiking and get into the habit of engaging in it. Stretching before and after the exercises important. It is also important to contact me if there are any problems like shortness of breath, chest pain, back pain and joint or muscle pain associated with the exercise. 3. Discussed age appropriate screening guidelines. Colonoscopy needs to start at age 50 with stool for occult blood as appropriate. There is a new test that can test for genetic abnormalities in the stool sample. This would not replace a colonoscopy but could be used as a screening tool for patients who do not want a colonoscopy. We discussed the importance of early detection of colon cancer. 4. Discussed current guidelines with respect to breast examination, mammogram and pap smear for early detection of breast and cervical cancer. Patient advised to follow up with these appointments. 5. Discussed safe driving and no use of smart phone while driving 6. Age-appropriate immunizations were discussed. A tetanus booster is needed every 10 years. Flu vaccine is recommended every year just before the start of the flu season. Shingles vaccine is recommended after age 50 but not all insurances cover it.Pneumonia vaccine is given after age 65 unless there are certain comorbidities for which it is started earlier. 7. Diagnostic labs were discussed. These could include CBC CMP and lipids with fasting blood glucose and insulin levels. Vitamin D and hemoglobin A1c testing might be appropriate. Case discussed with collaborating physician Bharati Armando who reviewed the assessment and plan. Chart, medications, labs, vital signs reviewed. Dictation was accomplished with the use of [employer] voice recognition software, prone to medical misidentifications and grammatical errors. This is unintentional and the practitioner does try to identify and correct these, but some could still be present. Please do not hesitate to contact practitioner for clarification. All quetsions answered to patients satisfaction. Patient verbalized understanding of diagnosis and treatments explained. To call sooner prior to next visit it any questions/concerns arise. Total time spent was 30 minutes with greater than 50% being face to face counselling. 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 # HTN: Currently on Irbesartan 300 mg (max dose), HCTZ 37.55 mg po daily. Continue Amlodipine 5 mg po daily. # Hypercalcemia: Refer to endocrinology. Did not significantly improve with discontinuation of HCTZ. PTH WNL. Has appt Oct 27. #Morbid obesity: Highest weight 230 pounds, lose weight 130 pounds, goal weight for now is 150 pounds. - Will request for Mounjaro # Nystagmus: Brain CT w/o contrast w/o intracranial pathology- # R hip pain. R hip x-ray normal. Now complaining of L hip pain. will send to PT. MRI of bilateral hip w/o contrast willbe ordered #Hyperglycemia: Metformin will be increased to 1000mg Qhs. Total time spent with patient was 40 minutes with over half being face to face time. Case discussed with collaborating physician Gaye Armando who reviewed the assessment and plan. Chart, medications, labs, vital signs reviewed. Dictation was accomplished with the use of [employer] voice recognition software, prone to medical misidentifications and grammatical errors. This is unintentional and the practitioner does try to identify and correct these, but some could still be present. Please do not hesitate to contact practitioner for clarification. All quetsions answered to patients satisfaction. Patient verbalized understanding of diagnosis and treatments explained. To call sooner prior to next visit it any questions/concerns arise. Total time spent was 30 minutes with greater than 50% being face to face counselling. 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 # HTN: Currently on Irbesartan 300 mg (max dose), HCTZ 37.55 mg po daily. Continue Amlodipine 5 mg po daily. # Hypercalcemia: Refer to endocrinology. Did not significantly improve with discontinuation of HCTZ. PTH WNL #Morbid obesity: Highest weight 230 pounds, lose weight 130 pounds, goal weight for now is 150 pounds. - Will request for Mounjaro # Nystagmus: Brain CT w/o contrast w/o intracranial pathology # R hip pain. R hip x-ray. PRN NSAIDs- encouraged to favor APAP due to elevated BP #Hyperglycemia: Metformin will be increased to 1000mg Qhs. Case discussed with collaborating physician Bharati Armando who reviewed the assessment and plan. Chart, medications, labs, vital signs reviewed. Dictation was accomplished with the use of [employer] voice recognition software, prone to medical misidentifications and grammatical errors. This is unintentional and the practitioner does try to identify and correct these, but some could still be present. Please do not hesitate to contact practitioner for clarification. All quetsions answered to patients satisfaction. Patient verbalized understanding of diagnosis and treatments explained. To call sooner prior to next visit it any questions/concerns arise. Total time spent was 30 minutes with greater than 50% being face to face counselling. 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 # HTN: Currently on Irbesartan 300 mg (max dose), HCTZ 37.55 mg po daily. Continue Amlodipine 5 mg po daily. # Hypercalcemia: Refer to endocrinology. Did not significantly improve with discontinuation of HCTZ. PTH WNL. Has appt Oct 27. #Morbid obesity: Highest weight 230 pounds, lose weight 130 pounds, goal weight for now is 150 pounds. - Will request for Mounjaro # Nystagmus: Brain CT w/o contrast w/o intracranial pathology- # R hip pain. R hip x-ray normal. Now complaining of L hip pain. will send to PT. MRI of bilateral hip w/o contrast willbe ordered #Hyperglycemia: Metformin will be increased to 1000mg Qhs. Total time spent with patient was 40 minutes with over half being face to face time. Case discussed with collaborating physician Gaye Armando who reviewed the assessment and plan. Chart, medications, labs, vital signs reviewed. Dictation was accomplished with the use of [employer] voice recognition software, prone to medical misidentifications and grammatical errors. This is unintentional and the practitioner does try to identify and correct these, but some could still be present. Please do not hesitate to contact practitioner for clarification. All quetsions answered to patients satisfaction. Patient verbalized understanding of diagnosis and treatments explained. To call sooner prior to next visit it any questions/concerns arise. Total time spent was 30 minutes with greater than 50% being face to face counselling. 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 # HTN: Currently on Irbesartan 300 mg (max dose), HCTZ 37.55 mg po daily. Continue Amlodipine 5 mg po daily. # Hypercalcemia: Refer to endocrinology. Did not significantly improve with discontinuation of HCTZ. PTH WNL #Morbid obesity: Highest weight 230 pounds, lose weight 130 pounds, goal weight for now is 150 pounds. - Will request for Mounjaro # Nystagmus: Brain CT w/o contrast w/o intracranial pathology # R hip pain. R hip x-ray. PRN NSAIDs- encouraged to favor APAP due to elevated BP #Hyperglycemia: Metformin will be increased to 1000mg Qhs. Case discussed with collaborating physician Bharati Armando who reviewed the assessment and plan. Chart, medications, labs, vital signs reviewed. Dictation was accomplished with the use of [employer] voice recognition software, prone to medical misidentifications and grammatical errors. This is unintentional and the practitioner does try to identify and correct these, but some could still be present. Please do not hesitate to contact practitioner for clarification. All quetsions answered to patients satisfaction. Patient verbalized understanding of diagnosis and treatments explained. To call sooner prior to next visit it any questions/concerns arise. Total time spent was 30 minutes with greater than 50% being face to face counselling. 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 # HTN: Currently on Irbesartan 300 mg (max dose). Continue Amlodipine 5 mg po daily. # Hypercalcemia:Folowed by endocrinology. Doing 24 hour urine test, to be repeated. Calcium high normal. #Morbid obesity: Highest weight 230 pounds, lose weight 130 pounds, goal weight for now is 150 pounds. Refer to bariatric surgery # Nystagmus: Brain CT w/o contrast w/o intracranial pathology #Hyperglycemia: Metformin will be increased to 1000mg Qhs. Case discussed with collaborating physician Bharati Armando who reviewed the assessment and plan. Chart, medications, labs, vital signs reviewed. Dictation was accomplished with the use of [employer] voice recognition software, prone to medical misidentifications and grammatical errors. This is unintentional and the practitioner does try to identify and correct these, but some could still be present. Please do not hesitate to contact practitioner for clarification. All quetsions answered to patients satisfaction. Patient verbalized understanding of diagnosis and treatments explained. To call sooner prior to next visit it any questions/concerns arise. Total time spent was 30 minutes with greater than 50% being face to face counselling. 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 # HTN: Currently on Irbesartan 300 mg (max dose), HCTZ 37.55 mg po daily. Continue Amlodipine 5 mg po daily. # Hypercalcemia:Folowed by endocrinology. Doing 24 hour urine test #Morbid obesity: Highest weight 230 pounds, lose weight 130 pounds, goal weight for now is 150 pounds. - Will request for Mounjaro # Nystagmus: Brain CT w/o contrast w/o intracranial pathology # R hip pain. Followed by [facility] #Hyperglycemia: Metformin will be increased to 1000mg Qhs. Case discussed with collaborating physician Bharati Armando who reviewed the assessment and plan. Chart, medications, labs, vital signs reviewed. Dictation was accomplished with the use of [employer] voice recognition software, prone to medical misidentifications and grammatical errors. This is unintentional and the practitioner does try to identify and correct these, but some could still be present. Please do not hesitate to contact practitioner for clarification. All quetsions answered to patients satisfaction. Patient verbalized understanding of diagnosis and treatments explained. To call sooner prior to next visit it any questions/concerns arise. Total time spent was 30 minutes with greater than 50% being face to face counselling. Plan Of Treatment Pending Test Test Name Order Date Mammogram 05/24/2023 X ray : Spines, lumbar 2 views 5 AST (SGOT) 02/16/2021 Hemoglobin A1c 02/16/2021 Vitamin B12 02/16/2021 Urine Cytology 11/01/2022 MAMMOGRAM, SCREENING 05/04/2023 Bone Density 05/04/2023 Bone Density 05/24/2023 EKG 11/01/2022 25OH VITAMIN D 09/14/2022 CBC (COMPLETE BLOOD COUNT) 09/14/2022 COMPREHENSIVE METABOLIC PANEL 09/14/2022 HEMOGLOBIN A1C 09/14/2022 LIPID PANEL 09/14/2022 T3, FREE 09/14/2022 T4, TOTAL 09/14/2022 TSH 09/14/2022 URINALYSIS, COMPLETE 09/14/2022 Parathyroid Hormone (PTH) Intact 023 MRI Hip w/o Contrast bilat 10/13/2024 XR Hip 2+ Views RT 09/26/2024 XR Hip 2+ Views bilat 06/28/2020 XR L-Spine 4+ Views 06/28/2020 LIPID PANEL, STANDARD 04/10/2022 LIPID PANEL, STANDARD 03/12/2025 LIPID PANEL, STANDARD 06/14/2023 LIPID PANEL, STANDARD 01/17/2022 COMPREHENSIVE METABOLIC PANEL 01/17/2022 COMPREHENSIVE METABOLIC PANEL 06/14/2023 COMPREHENSIVE METABOLIC PANEL 03/12/2025 COMPREHENSIVE METABOLIC PANEL 12/11/2024 COMPREHENSIVE METABOLIC PANEL 08/08/2024 COMPREHENSIVE METABOLIC PANEL 05/02/2024 COMPREHENSIVE METABOLIC PANEL 04/10/2022 COMPREHENSIVE METABOLIC PANEL 01/09/2023 ALT 02/16/2021 CBC (INCLUDES DIFF/PLT) 01/09/2023 CBC (INCLUDES DIFF/PLT) 05/02/2024 CBC (INCLUDES DIFF/PLT) 12/11/2024 CBC (INCLUDES DIFF/PLT) 03/12/2025 CBC (INCLUDES DIFF/PLT) 06/14/2023 CBC (INCLUDES DIFF/PLT) 01/17/2022 URINALYSIS, COMPLETE 06/14/2023 URINALYSIS, COMPLETE 03/12/2025 URINALYSIS, COMPLETE 01/09/2023 HEMOGLOBIN A1c 01/09/2023 HEMOGLOBIN A1c 05/02/2024 HEMOGLOBIN A1c 04/10/2022 HEMOGLOBIN A1c 01/17/2022 HEMOGLOBIN A1c 12/11/2024 HEMOGLOBIN A1c 06/14/2023 VITAMIN B12 03/12/2025 TSH 06/14/2023 VITAMIN D,25-OH,TOTAL,IA 06/14/2023 VITAMIN D,25-OH,TOTAL,IA 03/12/2025 VITAMIN D,25-OH,TOTAL,IA 01/17/2022 CT Brain WO 09/26/2024 TSH+T3+Free T4+T3 Free 03/12/2025 Next Appt Details Provider Name:ROSS JUANA, 08/04/2025 08:00:00 AM, [address], [place], [address], Insurance Providers Payer Name Payer Address Payer Phone Subscriber Number Group Number Insured Name Patient Relationship to Insured Coverage Start Date Coverage End Date [employer] [facility] [address] [place] [address] [phone] [id number] COURTNEY HILARIO Self - patient is the insured Medications Administered Medication Instructions Date of Administration Dosage Notes [facility] B12 INJECTION 07/11/2021 lot # [id number] Semaglutide 04/15/2024 1 Medical (General) History Medical History History ICD Code Essential (primary) hypertension I10 Hyperlipidemia, unspecified E78.5 Prediabetes R73.03 Vitamin D deficiency E55.9 Depression, unspecified F32.A Obesity (BMI 30-39.9) E66.9 Aortic valve disease I35.9 CRYSTAL (obstructive sleep apnea) G47.33 Aortic stenosis, moderate I35.0 Surgical History Surgery Date(Month/Year) section L knee meniscus surgery 09/26/2022
--- OUTSIDE RECORDS SUMMARY | 2025-05-19 08:25 | XMS_ITS | Data Portability ---
Author Organization [facility] Address [address] [place] [phone] Care Team Providers Care Clinical Lab Scientist Name Role Phone JUANAROSS Coleman Primary Care Provider Assessment Encounter Date Assessment Date Assessment LastModified by Organization Details LastModified Time 02/23/2025 02/23/2025 Assessment: Patient with history of class 3 Obesity, High blood pressure, High cholesterol, Sleep apnea, obstructive presents for nutritional counseling and weight management Nutrition Intervention: Patient was recommended a low glycemic, heart healthy, calorie controlled eating style focusing on minimally processed foods with adequate protein, fiber, and nutrient intake. Resources provided: [employer] Education and Counseling: Reviewed considerations for managing ozempic medication including appetite, meal structure, prioritizing protein and fiber, and side effect management. Continue to follow renal function per MD Continue to take precautions to avoid allergens Reviewed components of balanced meals Slow down eating, stop when full, chew food well Food order: eat protein first at meals low GI eating pattern: limit refined carbs/added sugars heart healthy eating pattern: limit saturated fats, excessive sodium Adequate hydration and fiber for GI function as tolerated Establish regular eating pattern, avoid skipping meals Mindful eating pattern to support positive behavior change Plan/Goals: 1. Use [employer] resources 2. Eat protein first at meals 3. Adequate hydration/fiber as tolerated 4. Establish consistent eating pattern, avoid skipping meals Follow up: SoCT makenzie Total Time Spent on the date of the encounter: 30 minutes which includes visit preparation time, time reviewing and independently interpreting results, aray-ip-azti time with the patient, counseling/educat ing the patient/family members/caregiver s,, care coordination, documenting clinical information in the electronic medical record, following up on referrals/results and communicating with related healthcare professionals as needed. elaine Not available 02/23/2025 17:29:22 Plan of Treatment Reminders Order Date Submit Date Provider Last Modified By Organization Details Last Modified Time Details Appointments None recorded. Lab BMP, serum or plasma 2024 [facility], [address], [place], [address], 00:04:45 Referral None recorded. Procedures None recorded. Surgeries None recorded. Imaging None recorded. Medication Orders Ozempic 1 mg/dose (4 mg/3 mL) subcutaneou s pen injector 2024 [id number], [address] [place] [address], [address], 19:41:49 Ozempic 0.25 mg or 0.5 mg (2 mg/3 mL) subcutaneou s pen injector 2024 025 [id number], [address] [place] [address], [address], 19:54:35 Patient TargetsNo targets recorded. Patient Instructions Encounter Date Encounter Id Patient Instructions Last Modified By Organization Details Last Modified Time 12/06/2024 [id number] Latrell Mills, [facility] . Here are some takeaways from our visit - --> Once you get the Ozempic, start by taking 0.25mg once weekly. And you may stay on that dose as long as you are losing 0.5-1lbs/wk but after 4 wks you may increase if needed to 0.5mg --> Remember to eat small portions, eat slowly, stop eating before you feel full, and avoid alcohol while taking Ozempic to prevent side effects. Visit [email or web address] to view the video on how to use the pen for your injections. Let's recheck your kidney function - lab order sent to [facility] -->check out Mer[employer] for anti-inflammatory diet info --> -->Consider starting each day with a high protein breakfast, drinking 64oz of water throughout your day, and eating the protein and veggies first in your meals and saving carbs/starches for last --> We recommend gradually increasing your activity as tolerated to 150mins/wk and focusing on strength based activity 2 days/wk. -->Please check your weight once weekly -->Message me here with any questions/concerns . Let's plan a video followup in [address] Saqib Nunez General information Diet: -RD referral - appointment scheduled -Low GI diet-Limit highly processed/sugary foods/improve quality of foods (whole foods) -Shift calories to earlier in the day -[employer] Patient Nathaniel dietary related learning courses and articles Exercise: -Exercise as tolerated -Resistance training - resistance bands are a great starting option -[employer] Patient Nathaniel exercise related learning courses and articles Sleep Hygiene: -Setting a goal for at least 7 to 8 hours of sleep time per day. -Avoid engaging in any activity that requires sustained mental alertness while in bed. -Maintaining a regular bedtime and wake-up time -Avoid excessive naps during the daytime -Minimizing environmental noise, bright lights (phones/TV/electro sukumar devices), and extremes temperatures -Avoid alcohol, caffeinated beverages, and nicotine products for at least 6 hours prior to bedtime. -Avoid strenuous exercise and large meals for at least 4 hours prior to bedtime. Follow up: -Weigh yourself at least once weekly and log in [employer] Patient Nathaniel -Check blood pressure and heart rate and log in [employer] Patient Nathaniel before your next provider visit [email or web address] Not available 12/06/2024 08:46:30 02/23/2025 [id number] Latrell Mills It was great to speak with you today! Here are some reminders from our session today: Education and Counseling: Reviewed considerations for managing ozempic medication including appetite, meal structure, prioritizing protein and fiber, and side effect management. Continue to follow renal function per MD Continue to take precautions to avoid allergens Reviewed components of balanced meals Slow down eating, stop when full, chew food well Food order: eat protein first at meals low GI eating pattern: limit refined carbs/added sugars heart healthy eating pattern: limit saturated fats, excessive sodium Adequate hydration and fiber for GI function as tolerated Establish regular eating pattern, avoid skipping meals Mindful eating pattern to support positive behavior change Plan/Goals: 1. Use [employer] 2. Eat protein first at meals 3. Adequate hydration/fiber as tolerated 4. Establish consistent eating pattern, avoid skipping meals Please feel free to reach out with any questions, Emmanuelle Childress MS RD [facility] elaine Not available 02/23/2025 17:30:21 03/13/2025 [id number] Latrell Mills, It was great seeing you again at [facility] . Here are some takeaways from our visit - --> increase Ozempic to 1 mg weekly. Please message me in 6 weeks with an update so we can change the dose if needed. --> Remember to eat small portions, eat slowly, stop eating before you feel full, and avoid alcohol while taking Ozempic to prevent side effects. continue the metformin -->check out Meridium for anti-inflammatory diet info --> -->Consider starting each day with a high protein breakfast, drinking 64oz of water throughout your day, and eating the protein and veggies first in your meals and saving carbs/starches for last --> We recommend gradually increasing your activity as tolerated to 150mins/wk and focusing on strength based activity 2 days/wk. -->Please check your weight once weekly -->Message me here with any questions/concerns . Let's plan a video followup in [address] Saqib Nunez General information Diet: -RD referral - appointment scheduled -Low GI diet-Limit highly processed/sugary foods/improve quality of foods (whole foods) -Shift calories to earlier in the day -[employer] Patient Nathaniel dietary related learning courses and articles Exercise: -Exercise as tolerated -Resistance training - resistance bands are a great starting option -[employer] Patient Nathaniel exercise related learning courses and articles Sleep Hygiene: -Setting a goal for at least 7 to 8 hours of sleep time per day. -Avoid engaging in any activity that requires sustained mental alertness while in bed. -Maintaining a regular bedtime and wake-up time -Avoid excessive naps during the daytime -Minimizing environmental noise, bright lights (phones/TV/electro sukumar devices), and extremes temperatures -Avoid alcohol, caffeinated beverages, and nicotine products for at least 6 hours prior to bedtime. -Avoid strenuous exercise and large meals for at least 4 hours prior to bedtime. Follow up: -Weigh yourself at least once weekly and log in [employer] Patient Nathaniel -Check blood pressure and heart rate and log in [employer] Patient Nathaniel before your next provider visit [email or web address] Not available 03/13/2025 19:54:28 Reason for Referral None Reported. Results Created Date Observation Date Name Description Value Unit Range Abnormal Flag Note LastModifiedBy Organization Detail LastModifiedTime 01/02/2001/03/2025 BASIC METAB OLIC PANEL glucose 88 mg/dL 65-99 normal Fasti ng refer ence inter jose Not Available [facility] [address], [place], [address], 01/03/2025 00:04:45 01/02/2001/03/2025 BASIC METAB OLIC PANEL urea nitrogen (BUN) 20 mg/dL 7-25 normal Not Available [facility] [address], [place], [address], 01/03/2025 00:04:45 01/02/2001/03/2025 BASIC METAB OLIC PANEL creatinine 0.76 mg/dL 0.50-1 .05 normal Not Available [facility] [address], [place], [address], 01/03/2025 00:04:45 01/02/2001/03/2025 BASIC METAB OLIC PANEL eGFR 88 mL/mi n/1.7 3m2 > or = 60 normal Not Available [facility] [address], [place], [address], 01/03/2025 00:04:45 01/02/2001/03/2025 BASIC METAB OLIC PANEL BUN/creatini ne ratio SEE NOTE: (calc ) 6-22 Not Repor duane: BUN and Creat inine are withi n refer ence range . Not Available [facility] [address], [place], [address], 01/03/2025 00:04:45 01/02/20 25 01/03/2025 BASIC METAB OLIC PANEL sodium 140 mmol/ L 135-14 [address] [facility] [address], [address], 01/03/2025 00:04:45 01/02/2001/03/2025 BASIC METAB OLIC PANEL potassium 4.5 mmol/ L 3.5-5. 3 normal Not Available [facility] [address], [place], [address], 01/03/2025 00:04:45 01/02/2001/03/2025 BASIC METAB OLIC PANEL chloride 104 mmol/ L 98-110 normal Not Available [facility] [address], [place], [address], 01/03/2025 00:04:45 01/02/2001/03/2025 BASIC METAB OLIC PANEL carbon dioxide 30 mmol/ L 20-32 normal Not Available [facility] [address], [place], [address], 01/03/2025 00:04:45 01/02/2001/03/2025 BASIC METAB OLIC PANEL calcium 10.2 mg/dL 8.6-10 .4 normal Not Available [facility] [address], [address], 01/03/2025 00:04:45 Result Notes None recorded. Problems Name Problem SNOMED Code Status Onset Date Resolution Date Notes Provider Name and Address Organization Details Recorded Time Endocrine/m etabolic screening Active 2023 Lissette mendosa [facility] - [facility] 4 15:00:33 Obesity 347333367 Active 2023 Ifeoma mendosa [facility] - [facility] 4 14:26:13 Prediabetes 443841224 Active 2024 PREETI ALCALA MD [address] [facility],[address], [place], [address], [facility] [employer] [facility]. - [facility] 08:30:51 Abnormal renal function 59390486 Active 2024 PREETI ALCALA MD [address] [facility],[address], [place], [address], [facility] [employer] [facility]. - [facility] 08:35:27 Essential hypertensio n 97860337 Active 2024 PREETI ALCALA MD [address] [facility],[address], [place], [address], [facility] [employer] [facility] [facility]. - [facility] 08:46:52 Mixed hyperlipide minerva 781348767 Active 2024 PREETI ALCALA MD [address] [place] [address],[address], [place], [address], [facility] [employer] [facility]. - [facility] 08:46:57 Obstructive sleep apnea of adult 2659672796973 Active 2024 PREETI ALCALA MD [address] [place] [address],[address], [place], [address], [facility] [employer] [facility]. - [facility] 08:47:03 Problem Notes None recorded. Procedures Surgical History Date Name Laterality Status Provider Name and Address Organization Details Recorded Time section completed [facility] - [facility] 11/28/2024 15:56:37 Knee arthroscopy/snyder rgery completed [facility] 11/28/2024 15:56:49 Imaging Results None recorded. Procedure Notes None recorded. Medical Equipment None Reported. Allergies Allergen ID Allergen Name Allergen Category Reaction Reaction Severity Criticality Documentation Date Start Date Code Code System Note Provider Name and Address Organization Details Recorded Time 9772 crab allergeni c extract food Not available Not available Not available 11/28/2024 76601 0 RxNorm [facility] [employer]. - [facility] 15:55:57 9773 lisinopri l medicatio n cough Not available high 11/28/2024 48178 RxNorm Kris Randall [facility]. - [facility] 15:56:04 9774 moxifloxa italo medicatio n nausea Not available Not available 11/28/2024 81312 2 RxNorm Kris Randall [facility]. - [facility] 15:56:13 9775 shellfish derived food,medi cation Not available Not available Not available 11/28/2024 [id number] UNK Kris Randall [facility]. - [facility] 15:56:22 Medications Name Sig Start Date Stop Date Status Note LastModified by Organization Details LastModified Time clonidine HCl 0.1 mg tablet TAKE 1 TABLET BY MOUTH EVERY DAY FOR 30 DAYS 12/06 completed Not Available Not Available Not Available amlodipine 5 mg tablet TAKE 1 TABLET BY MOUTH EVERY DAY active Not Available Not Available No t Available acyclovir 400 mg tablet TAKE 1 TABLET BY MOUTH 3 TIMES A DAY FOR 7 DAYS active Not Available Not Available No t Available aspirin 81 mg tablet,chance yed release TAKE 1 TABLET BY MOUTH 1 TIME EACH DAY. active Not Available Not Available No t Available tramadol 50 mg tablet TAKE 1 TABLET BY MOUTH THREE TIMES A DAY NEEDED FOR SEVERE PAIN FOR 8 DAYS 12/06 completed Not Available Not Available Not Available pravastatin 80 mg tablet TAKE 1 TABLET BY MOUTH EVERY DAY active Not Available Not Available No t Available pantoprazol e 40 mg tablet,chance yed release TAKE 1 TABLET 1/2 TO 1 HOUR BEFORE MORNING MEAL ORALLY ONCE A DAY 30 DAYS 90 active Not Available Not Available No t Available metoprolol tartrate 50 mg tablet TAKE 1 TABLET BY MOUTH TWICE A DAY WITH FOOD FOR 30 DAYS active Not Available Not Available No t Available omeprazole 20 mg capsule,del ayed release TAKE 1 CAPSULE BY MOUTH EVERY DAY 30 MINUTES BEFORE MORNING MEAL active Not Available Not Available No t Available hydrochloro thiazide 25 mg tablet TAKE 1 AND 1/2 TAB BY MOUTH ONCE A DAY 30 DAY(S) 12/06 completed Not Available Not Available Not Available furosemide 20 mg tablet TAKE 1 TABLET ORALLY ONCE A DAY NEEDED EDEMA 30 DAYS active Not Available Not Available No t Available nystatin 100,000 unit/gram topical powder APPLY 1 APPLICATI ON EXTERNALL Y TWICE A DAY FOR 10 DAYS active Not Available Not Available No t Available albuterol sulfate HFA 90 mcg/actuati on aerosol inhaler INHALE 2 PUFFS EVERY 6 HOURS NEEDED 12/06 completed Not Available Not Available Not Available metformin ER 500 mg tablet,exte nded release 24 hr TAKE 2 TABLETS BY MOUTH EVERY DAY active Not Available Not Available No t Available irbesartan 300 mg tablet TAKE 1 TABLET BY MOUTH EVERY DAY active Not Available Not Available No t Available hydrochloro thiazide 12.5 mg tablet TAKE 1 TABLET BY MOUTH EVERY DAY WITH 25MG TAB 11/07 completed Not Available Not Available Not Available Ozempic 1 mg/dose (4 mg/3 mL) subcutaneou s pen injector INJECT 1 MG SUBCUTANE OUSLY WEEKLY DIRECTED active Not Available Not Available No t Available Paxlovid 300 mg (150 mg x 2)-100 mg tablets in a dose pack TAKE 3 TABLETS BY MOUTH TWICE A DAY FOR 5 DAYS 12/06 completed Not Available Not Available Not Available Ozempic 2 mg/dose (8 mg/3 mL) subcutaneou s pen injector INJECT 2MG INTO SKIN ONCE A WEEK DIRECTED 12/06 completed Not Available Not Available Not Available Mounjaro 2.5 mg/0.5 mL subcutaneou s pen injector INJECT 2.5 SUBCUTANE OUS WEEKLY 12/06 completed Not Available Not Available Not Available Ozempic 0.25 mg or 0.5 mg (2 mg/3 mL) subcutaneou s pen injector PLEASE SEE ATTACHED FOR DETAILED DIRECTION S 03/13 completed Not Available Not Available Not Available Vitals Date Recorded Body height Body mass index (BMI) Body weight Provider Name and Address Organization Details Last Updated DateTime 12/06/2024 160.02 cm 36.3 kg/m2 54747.44 g PREETI ALCALA MD [address] [place] [address],[address], [place], [address], [facility]. - [facility] 12/06/2024 08:02:19 Date Recorded Heart rate Body height Systolic blood pressure Diastolic blood pressure Provider Name and Address Organization Details Last Updated DateTime 12/14/2024 72 /min 162.56 cm 111 mm[Hg] 62 mm[Hg] Not Available [facility] 12/14/2024 11:03:22 Date Recorded Body weight Body height Provider Name and Address Organization Details Last Updated DateTime 12/15/2024 68481.624035 4 g 162.56 cm Not Available [facility] 12/15/2024 06:58:24 Date Recorded Heart rate Body height Heart rate Body height Systolic blood pressure Diastolic blood pressure Systolic blood pressure Diastolic blood pressure Provider Name and Address Organization Details Last Updated DateTime 73 /min 162.56 cm 73 /min 162.56 cm 156 mm[Hg] 82 mm[Hg] 142 mm[Hg] 88 mm[Hg] Not Available [facility] 14:53:21 Date Recorded Body weight Body height Body weight Body height Provider Name and Address Organization Details Last Updated DateTime 12/22/2024 61308.965 1314 g 162.56 cm 97385.749 5892 g 162.56 cm Not Available [facility] 12/22/2024 08:08:24 Date Recorded Heart rate Body height Systolic blood pressure Diastolic blood pressure Provider Name and Address Organization Details Last Updated DateTime 12/28/2024 82 /min 162.56 cm 149 mm[Hg] 81 mm[Hg] Not Available [facility] 12/28/2024 17:18:19 Date Recorded Body weight Body height Provider Name and Address Organization Details Last Updated DateTime 12/29/2024 81019.987882 3 g 162.56 cm Not Available [facility] 12/29/2024 06:48:23 Date Recorded Body weight Body height Provider Name and Address Organization Details Last Updated DateTime 01/07/2025 60417.925352 1 g 162.56 cm Not Available [facility] 01/07/2025 06:28:31 Date Recorded Body weight Body height Provider Name and Address Organization Details Last Updated DateTime 01/26/2025 96721.820206 1 g 162.56 cm Not Available [facility] 01/26/2025 06:58:29 Date Recorded Body weight Body height Provider Name and Address Organization Details Last Updated DateTime 02/02/2025 83311.335215 g 162.56 cm Not Available [facility] 02/02/2025 07:08:21 Date Recorded Body weight Body height Provider Name and Address Organization Details Last Updated DateTime 02/05/2025 18869.482719 2 g 162.56 cm Not Available [facility] 02/05/2025 07:38:24 Date Recorded Body weight Body height Provider Name and Address Organization Details Last Updated DateTime 02/09/2025 46736.737581 1 g 162.56 cm Not Available [facility] 02/09/2025 06:54:00 Date Recorded Body weight Body height Provider Name and Address Organization Details Last Updated DateTime 02/17/2025 98598.416725 1 g 162.56 cm Not Available [facility] 02/17/2025 06:28:29 Date Recorded Body height Body mass index (BMI) Body weight Provider Name and Address Organization Details Last Updated DateTime 02/23/2025 162.56 cm 36.8 kg/m2 [address]99.[address] [place] [address], [address], [facility] [place] [facility] 02/23/2025 17:03:02 Date Recorded Body weight Body height Provider Name and Address Organization Details Last Updated DateTime 02/23/2025 43016.555800 9 g 162.56 cm Not Available [facility] 02/23/2025 06:33:20 Date Recorded Body weight Provider Name an d Address Organization Details Last Updated DateTime 03/01/2025 13290.47652 g Not Available [facility] 03/01/2025 08:06:50 Date Recorded Body weight Provider Name an d Address Organization Details Last Updated DateTime 03/10/2025 36465.02534 g Not Available [facility] 03/10/2025 06:28:14 Date Recorded Body height Body mass index (BMI) Body weight Provider Name and Address Organization Details Last Updated DateTime 03/13/2025 162.56 cm 37.2 kg/m2 84533.19 g PREETI ALCALA MD [address] [place] [address],[address] [place] [address], [place], [address], [place] [facility] [place] [facility] 03/13/2025 19:26:39 Date Recorded Body weight Provider Name an d Address Organization Details Last Updated DateTime 03/13/2025 68376.096 g Not Available [facility] 03/13/2025 19:26:14 Date Recorded Body weight Provider Name an d Address Organization Details Last Updated DateTime 03/16/2025 09896.3476 g Not Available [facility] 03/16/2025 06:47:40 Date Recorded Body weight Provider Name an d Address Organization Details Last Updated DateTime 03/23/2025 15112.90491 g Not Available [facility] 03/23/2025 06:51:15 Date Recorded Body weight Provider Name an d Address Organization Details Last Updated DateTime 03/31/2025 13596.83625 g Not Available [facility] 03/31/2025 06:22:26 Date Recorded Body weight Provider Name an d Address Organization Details Last Updated DateTime 04/06/2025 45204.76144 g Not Available [facility] 04/06/2025 06:26:28 Date Recorded Body weight Provider Name an d Address Organization Details Last Updated DateTime 04/13/2025 25207.70556 g Not Available [facility] 04/13/2025 08:33:17 Date Recorded Body weight Provider Name an d Address Organization Details Last Updated DateTime 04/20/2025 56629.87506 g Not Available [facility] 04/20/2025 06:52:58 Date Recorded Body weight Provider Name an d Address Organization Details Last Updated DateTime 04/27/2025 26980.6104 g Not Available [facility] 04/27/2025 06:27:20 Date Recorded Body weight Provider Name an d Address Organization Details Last Updated DateTime 05/01/2025 06924.29 g Not Available [facility] 05/01/2025 09:21:19 Date Recorded Body weight Provider Name an d Address Organization Details Last Updated DateTime 05/04/2025 18288.3776 g Not Available [facility] 05/04/2025 09:42:31 Date Recorded Body weight Provider Name an d Address Organization Details Last Updated DateTime 05/17/2025 29107.3588 g Not Available [facility] 05/17/2025 08:18:18 Date Recorded Body weight Provider Name an d Address Organization Details Last Updated DateTime 05/18/2025 84299.21358 g Not Available [facility] 05/18/2025 05:32:18 Social History Question Answer Notes LastModified by Organizat ion Details LastModified Time Tobacco Smoking Status Never Smoker Kris Randall [facility] [facility] [place] [facility] 11/28/2024 15:57:31 What Is Your Relationship Status? Information not available 11/28/2024 Sex: Female Functional Status None recorded. Mental Status None recorded. Family History Relationship Description Onset Age of this Age Resolved Age Notes LastModified by Organization Details LastModified Time Brother Hypertensive disorder 1 [email or web address] Not available 2024 15:57:05 Father Dementia Not availabl e 11/28/2024 15:57:12 Mother Diabetes mellitus [email or web address] Not available 2024 15:57:19 Medical History Condition Response Other Y Metabolic Syndrome/Insulin Resistance Y Obstructive Sleep Apnea Y High Cholesterol Y Hypertension Y Gynecological HistoryNo gynecological history recorded. Obstetrics History GPAL:G 0 P 0 0 0 0 Past Encounters Encounter ID Performer Location Encounter Start Date Encounter Closed Date Diagnosis/Indication Diagnosis SNOMED-CT Code Diagnosis ICD10 Code Diagnosis Note [id number] PREETI ALCALA MD [address] [address] 12/06/2024 08:01:43 12/12/2024 04:03:52 Prediabetes 832474880 R73.03 candidate for Ozempic given BMI and other dxs. Was successful with Ozempic previously . GLP1 approved Abnormal r enal function 49655166 R94.4 BUN creat elevated on previous labs. ? better now off HCTZ - will recheck BMP Obesity 993935156 Z68.41 Class III now II Obesity: medically complex with the following comorbidit ies (preDM, CRYSTAL, HTN, HLD, ) --Reviewed basic physiology of weight regulation --Low GI diet, protein breakfast, food order --Exercise as tolerated CV and resistance training --Utilize Evolve --RD referral --Support groups --Track weight weekly online --Shift calories to earlier in the day --Reviewed medication s associated with weight gain, counseled on alternativ es to be discussed with matti g provide --AOM selection discussed dosing and common side effects --Future: increasing dose of AOM/altern ative AOMs --previous ly tried AOMs and reason for discontinu ation Total time spent on the date of the encounter = 60 minutes, which includes visit preparatio n time, time reviewing and independen tly interpreti ng results, face-to-fa ce time with the patient, counseling /educating patient/fa bassam members/ca regivers, ordering medication s/tests/pr ocedures, care coordinati on, sheryl ashley clinical informatio n in the electronic medical record, following up on referrals/ results and communicat ing with related healthcare profession als as needed. Essential hypertension 62305209 I10 continue followup with pcp and cardio Mixed hyperlipidemia 267 404649 E78.2 on pravastati n. continue followup with pcp and cardio Obstructiv e sleep apnea of adult [id number] 103 G47.33 continues with cpap [id number] Emmanuelle Childress RD [address] [address] 02/23/2025 15:59:05 02/26/2025 04:01:09 Prediabetes 363304774 R73.03 Mixed hyperlipidemia 267 409006 E78.2 Essential hypertension 19446497 I10 Obesity 231104520 E66.9 Abnormal r enal function 79425283 R94.4 [id number] PREETI ALCALA MD [address]. [address] [address] 03/13/2025 19:24:04 03/19/2025 03:59:50 Prediabetes 856370281 R73.03 on Ozempic and metformin. Plan to increase Ozempic to 1 mg . continue metformin 500mg 2 tabs daily. Abnormal r enal function 08588410 R94.4 BUN creat elevated on previous labs. improved in Dec off HCTZ Obesity 857119503 Z68.41 E66.9 Class III now II Obesity: medically complex with the following comorbidit ies (preDM, CRYSTAL, HTN, HLD, )--Reviewe d basic physiology of weight regulation --Low GI diet, protein breakfast, food order--Exe rcise as tolerated CV and resistance training-- Utilize Evolve--RD referral-- Support groups--Tr ack weight weekly online--Sh ift calories to earlier in the day--Revie wed medication s associated with weight gain, counseled on alternativ es to be discussed with matti ashley provide--A OM selection discussed dosing and common side effects--F uture: increasing dose of AOM/altern ative AOMs--prev iously tried AOMs and reason for discontinu ation Total time spent on the date of the encounter = 30 minutes, which includes visit preparatio n time, time reviewing and independen tly interpreti ng results, face-to-fa ce time with the patient, counseling /educating patient/fa bassam members/ca regivers, ordering medication s/tests/pr ocedures, care coordinati on, sheryl ashley clinical informatio n in the electronic medical record, following up on referrals/ results and communicat ing with related healthcare profession als as needed. Essential hypertension 50100775 I10 continue followup with pcp and cardio Mixed hyperlipidemia 267 533217 E78.2 on pravastati n. continue followup with pcp and cardio Obstructiv e sleep apnea of adult 1297578210 103 G47.33 continues with cpap Health Concerns Section Related Observation LastModified by Organization Detai ls LastModified Time None Recorded Concern Status LastModified by Organization Details LastModified Time None Recorded Advance Directives Directive None Recorded Payers Insurance Date Sequence Insurance Name Policy Number Policy Chao Covered Member ID Chao Member ID Guarantor Name 03/06/2025 [facility] [id number] Lina Lynch [id number] Lina Lynch Notes Date Note Type Note Provider Name and Address Organization Details Recorded Time 2024 text/h tml 64 yr old Female with class 3 Obesity, High blood pressure, High cholesterol, Sleep apnea, obstructive presents for evaluation. I have confirmed that the patient is physically located in the [facility] Synchronous telemedicine service rendered via a real-time interactive audio and video communications system Referred By coworkerPCP:SUBSPECIALIST(S): chain builder loom control, patient access for CRYSTAL , line servicer for high calciumVITALSHeight: 5'4 Weight:Highest weight/BMI: 236.0 lbs, BMI 40.5, 2020Baseline weight/BMI: 205.0 lbs, BMI 35.2Lowest adult weight/BMI: 130.0 lbs, BMI 22.3, 1985Last weight/BMI: 205.0 lbs, BMI 35.2Total weight loss (Highest - Last): -31.0 lbs / -13.1%Total weight loss (Baseline - Last): 0.0 lbs / 0.0%Last Blood Pressure: Insufficient Number of ReadingsAverage Blood pressure: Insufficient Number of ReadingsLast Pulse: Insufficient Number of ReadingsAverage Pulse: Insufficient Number of ReadingsWEIGHT HISTORYWeight gain coincided with: Children, depressedCurrent lifestyle factors: StressfulMotivation for weight loss: Improve health, Recommended by a health professional, Increase mobility, To look or feel betterChallenges: Always regain lost weightPrevious diets:Previous anti-obesity medications: Ozempic 2 mg x 1 year 2022 - 2023 then insurance stopped covering 218 to 186 . also tried Mounjaro not effective 2.5 mg . On metformin currentlyPrevious bariatric surgeries/procedures/devices: none DIETARY RECALL (Last 3 logs)--Food Logged on -- Beverages:water - around 60 ozAlcohol: rareDrinks with Sugar:Drinks with Artificial sweeteners:Other calorie-containing drinks:EATING BEHAVIORHistory of Eating Disorder: NoBinge Eating: SometimesExcessive appetite: SometimesGrazing: SometimesCravings: SometimesTrigger for Overeating: Yes - Depression, Stress, Boredom, Happiness, AnxietyPercentage of Daily Calories consumed after dinnertime: 0-25%Weekly Restaurant/Take out Meals: too many 4-5 local restaurantsDietary Strategies that are appealing: Low carbohydrateFood sensitivities/restrictions: crab - red rash, vomiting , diarrhea. OK with other shellfishFoods/Drinks consumed regularly: Candy, Sweets, Processed/packaged foodMiddle of the night eating: noPHYSICAL ACTIVITYAverage daily steps: 2-5,000Activity Level: Lightly active (e.g., some light activity in daily life)Type of Activity:Duration and frequency/week:TRACKER INFO:SLEEPHours of sleep per night: 6OSA Dx: Yes x 5-6 yearsIs it adequately treated?: uses cpapSnoring:Witnessed Apnea:Treating sleep apnea adequately: YesDaytime Sleepiness:Medications to help with sleep:STOP-BANG score:Insomnia: YesPSYCHDepression: NoAnxiety: No PAST MEDICAL/SURGICAL HISTORYWeight Classification: class 3 obesityConfirmed insulin resistance diagnosis: Yes; preDM x 5-6 years No history of kidney stones, pancreatitis or active gallbladder disease or seizures Cancer types: no Other diagnoses:High blood pressure,High cholesterol,Sleep apnea, obstructive Surgeries: Csecs, meniscus x 2 , lumpectomySOCIAL HISTORYOccupation: kindergarten teacherMarital Status: single3 children - live nearbys a catAlcohol: NoNicotine/Tobacco: No FAMILY HISTORYOverweight/Obesity: all do including children T2DM, prediabetes, insulin resistance, PCOS: Yes Mom DM, CHF, breast CADad DM ,3 siblings - obesity MEN2 or MTC: noMEDICATIONSMedications:- Irbesartan- Metformin HClmetoprolol 50 mg bid- amlodipine besylate- PRAVASTATIN SODIUMfurosemide prnomeprazole daily Supplements: fish oil, vit D , probioticALLERGIES crab, lisinopril, moxifloxacin LABS/IMAGINGLabs Reviewed (date) Oct. 6.2BUN 34, Creat 1.06 eGFR 59. (stable from previous labs)Trig 180 PREETI ALCALA MD [address] [place] [address],[address], [place], [address] , [facility] [place] [place] [facility] 21:48:45 2024 text/h tml 4.7.25 Nutrition [id number] min NPV Patient presents for weight management nutritional counseling as part of [place] HIPAA compliant synchronous video visit I have confirmed that the patient is physically located in the [facility] [place] Synchronous telemedicine service rendered via a real-time interactive audio and video communications system VitalsHeight: 5'4 Weight: 214.67Highest weight/BMI: 236.0 lbs, BMI 40.5, 2019Baseline weight/BMI: 205.0 lbs, BMI 35.2Lowest adult weight/BMI: 130.0 lbs, BMI 22.3, 1985Last weight/BMI: 215.3 lbs, BMI 37.0Total weight loss (Highest - Last): -20.7 lbs / -8.8%Total weight loss (Baseline - Last): +10.3 lbs / +5%Last Blood Pressure: 135/80; Recorded on 01/05; DeviceAverage Blood pressure: 146/82; Range: 111-170/62-93; Dates: 12/12 - 01/05Last Pulse: 76; Recorded on 01/05; DeviceAverage Pulse: 75; Range: 72-82; Dates: 12/12 - 01/05 WEIGHT HISTORYWeight gain coincided with: Children, depressedCurrent lifestyle factors: StressfulMotivation for weight loss: Improve health, Recommended by a health professional, Increase mobility, To look or feel betterChallenges: Always regain lost weightPrevious diets:Previous anti-obesity medications: UnavailablePrevious bariatric surgeries/procedures/devices:Procedure:Yea r:High weight before:Low weight after:History of Eating Disorder: no goal: 150 Medical History:abnormal renal function --> reports monitoring per MD,endocrine/metabolic screeningessential hypertensionmixed hyperlipidemiaobesityobstructive sleep apnea of adultprediabetes Surgeries: Csecs, meniscus x 2 , lumpectomy Confirm AOM and dose:ozempic 0.5mg weeklyConfirm Frequency/Consistency: taking as prescribedS/e: tolerated well Appetite: managedCravings: managed Other Medications/Supplements:acycloviramlodipin easpirinfurosemideirbesartanmetformin --> (through PCP)metoprolol tartrateomeprazolepantoprazolepravastatin Labs:12.13.24 labsgluc 104BUN 34crea 1.06EGFR 59na/k wnlinsulin 27.9A1c 6.2 2.14.25 labsgluc 88, egfr 88, na/k wnl, BUN 20 GI:regular BMChewing/Swallowing: normal Allergies:allergy to shellfish/crab (vomiting, rash)Sensitivities: nonePreferences: none Lifestyle:Stress: -Sleep: -Cooking/restaurants/food access: varies Behavior ChangeSuccesses: looks for protein at mealsAreas needing improvement: consistency with eating patternBarriers: - Nutrition Intake b: skips or protein shake +pb or radha wrapl: leftovers (protein, veg, carb)d: protein, veggie, rice or homemade pizza usually eats 2x per day Water: 60-90ozCaffeine: randall teaAlcohol: rarely Physical Activity:none Emmanuelle Childress, RD [address] [place] [address],[address], [place], [address] [place] [address] [facility] [place] [facility] 17:32:01 2024 text/h tml 64 yr old Female with Class III now II Obesity: medically complex with the following comorbidities (preDM, CRYSTAL, HTN, HLD, ) Follow up visit 03/13/2025 I have confirmed that the [facility] rendered via a real-time interactive audio and video communications system Highest:236.0 [id number]:213.0 [id number]:216.9 lbs, Source:Current BMI:37.2 kg/m2Last BP:135 / 80Weight Change:+3.9lbs / 1.82 % on Ozempic 0.5mg weekly without much changemetformin 500mg 2 tabs at suppertimeInitial visit:Referred By coworkerPCP:SUBSPECIALIST(S): chain builder loom control, patient access for CRYSTAL , line servicer for high calciumVITALSHeight: 5'4 Weight:Highest weight/BMI: 236.0 lbs, BMI 40.5, 2020Baseline weight/BMI: 205.0 lbs, BMI 35.2Lowest adult weight/BMI: 130.0 lbs, BMI 22.3, 1985Last weight/BMI: 205.0 lbs, BMI 35.2Total weight loss (Highest - Last): -31.0 lbs / -13.1%Total weight loss (Baseline - Last): 0.0 lbs / 0.0%Last Blood Pressure: Insufficient Number of ReadingsAverage Blood pressure: Insufficient Number of ReadingsLast Pulse: Insufficient Number of ReadingsAverage Pulse: Insufficient Number of ReadingsWEIGHT HISTORYWeight gain coincided with: Children, depressedCurrent lifestyle factors: StressfulMotivation for weight loss: Improve health, Recommended by a health professional, Increase mobility, To look or feel betterChallenges: Always regain lost weight Previous anti-obesity medications: Ozempic 2 mg x 1 year 2022 - 2023 then insurance stopped covering 218 to 186 . also tried Mounjaro not effective 2.5 mg . On metformin currently Previous bariatric surgeries/procedures/devices: none DIETARY RECALL (Last 3 logs)--Food Logged on -- Beverages:water - around 60 ozAlcohol: rareDrinks with Sugar:Drinks with Artificial sweeteners:Other calorie-containing drinks:EATING BEHAVIORHistory of Eating Disorder: NoBinge Eating: SometimesExcessive appetite: SometimesGrazing: SometimesCravings: SometimesTrigger for Overeating: Yes - Depression, Stress, Boredom, Happiness, AnxietyPercentage of Daily Calories consumed after dinnertime: 0-25%Weekly Restaurant/Take out Meals: too many 4-5 local restaurantsDietary Strategies that are appealing: Low carbohydrateFood sensitivities/restrictions: crab - red rash, vomiting , diarrhea. OK with other shellfishFoods/Drinks consumed regularly: Candy, Sweets, Processed/packaged foodMiddle of the night eating: noPHYSICAL ACTIVITYAverage daily steps: 2-5,000Activity Level: Lightly active (e.g., some light activity in daily life)Type of Activity:Duration and frequency/week:TRACKER INFO:SLEEPHours of sleep per night: 6OSA Dx: Yes x 5-6 yearsIs it adequately treated?: uses cpapSnoring:Witnessed Apnea:Treating sleep apnea adequately: YesDaytime Sleepiness:Medications to help with sleep:STOP-BANG score:Insomnia: YesPSYCHDepression: NoAnxiety: No PAST MEDICAL/SURGICAL HISTORYWeight Classification: class 3 obesityConfirmed insulin resistance diagnosis: Yes; preDM x 5-6 years No history of kidney stones, pancreatitis or active gallbladder disease or seizures Cancer types: no Other diagnoses:High blood pressure,High cholesterol,Sleep apnea, obstructive Surgeries: Csecs, meniscus x 2 , lumpectomySOCIAL HISTORYOccupation: kindergarten teacherMarital Status: single3 [facility] a catAlcohol: NoNicotine/Tobacco: No FAMILY HISTORYOverweight/Obesity: all do including children T2DM, prediabetes, insulin resistance, PCOS: Yes Mom DM, CHF, breast CADad DM ,3 siblings - obesity MEN2 or MTC: noMEDICATIONSMedications:- Irbesartan- Metformin HClmetoprolol 50 mg bid- amlodipine besylate- PRAVASTATIN SODIUMfurosemide prnomeprazole daily Supplements: fish oil, vit D , probioticALLERGIES crab, lisinopril, moxifloxacin LABS/IMAGINGLabs Reviewed (date) Oct. 6.2BUN 34, Creat 1.06 eGFR 59. (stable from previous labs)Trig 180 PREETI ALCALA MD [address] [place] [address],[address] [facility], [place], [address] , [facility]. [facility] [place] [facility] 5 19:55:31 OBGyn Episode No OBEpisode recorded.
== END 2025-05-19 08:21 | disposition home or self-care (01) ==
LOC: HO.US 08:20
PROVIDERS: PCP Physician Assistant Medical; Visit Provider Surgery
DX: E66.9 Obesity, unspecified (principal); Z68.30 Body mass index [BMI] 30.0-30.9, adult; E11.9 Type 2 diabetes mellitus without complications; E78.5 Hyperlipidemia, unspecified; I10 Essential (primary) hypertension; K21.9 Gastro-esophageal reflux disease without esophagitis
CPT/HCPCS: 76700; 76981

== ENCOUNTER → 2025-05-19 08:22 | Outpatient (BNV) | payer BC, SELFPAY | PROVIDERS: PCP Physician Assistant Medical; Visit Provider Radiology Diagnostic Radiology | DX: K76.0 Fatty (change of) liver, not elsewhere classified (principal) | CPT/HCPCS: 76700; 76981 ==

== ENCOUNTER 2025-05-19 13:22 | Day surgery (SDC) | payer BC, SELFPAY ==
--- OUTSIDE RECORDS SUMMARY | 2025-05-07 15:31 | XMS_ITS | Patient Health Record ---
Author Organization [facility] Address [address] [facility] [address] [place] [address] Care Team Providers Care Feed Adviser Name Role Phone Belkys Armando Primary Care [...] Problem Status W/U Status Risk Notes Problem [id number] Hallux valgus (acquired), left foot (M20.12) Active confirmed Plan Of Treatment Pending Test Test Name Order Date X ray : Foot, left 3v 06/28/2021 Insurance Providers Payer Name Payer Address Payer Phone Subscriber Number Group Number Insured Name Patient Relationship to Insured Coverage Start Date Coverage End Date [employer] and [employer] [facility] [address] [place] [address] [phone] [id number] Lina Lynch Self - patient is the insured Medical (General) History Medical History History ICD Code Hyperlipidemia Hypertension Pre diabetes Vitamin D deficiency Morbid obesity Hyperlipidemia Essential (primary) hypertension Depression, unspecified depression type Abnormal LFT's Parasthesia Surgical History Surgery Date(Month/Year) Section meniscus repair (Left)
[2025-05-19 13:39] VITALS: BP 139/84; PULSE 74; RESP 14; TEMP 36.7; O2SAT 95; BMI 36.1
[2025-05-19] MEDS: Lactated Ringers 1,000 ML 100 ML IVCONT (13:42)
--- NOTE | 2025-05-19 14:12 | HO.ANESPROP2 ---
Documented by User: Elba Morgan NP 05/18/25 10:32 HPI - Anesthesia Eval Consult details Narrative: 64yo F for Upper Endoscopy Anesthesia Pre-Procedure Meds Is the patient on any of the following meds?: GLP1/DPP4 PMFSH Active Problems Active Problems: All Active Problems Non-insulin dependent type 2 diabetes mellitus (Acute) DJD (degenerative joint disease) (Acute) GERD (gastroesophageal reflux disease) (Acute) Hyperlipidemia (Acute) Sleep apnea treated with continuous positive airway pressure (CPAP) (Acute) Hypertension (Acute) BMI 30.0-30.9,adult (Acute) Obesity (Acute) Past Medical History Medical History Non-insulin dependent type 2 diabetes mellitus DJD (degenerative joint disease) GERD (gastroesophageal reflux disease) Hyperlipidemia Sleep apnea treated with continuous positive airway pressure (CPAP) Hypertension BMI 30.0-30.9,adult Obesity Family History Family History (Updated 04/02/25 @ 13:53 by Skylar Diallo CMA) Mother Breast cancer Diabetes Heart problem Hypertension Father Heart problem Melanoma Diabetes Hypertension Son Gout Daughter No problems noted. Daughter Thyroid condition Surgical History Surgical History Hx of section History of lateral meniscus repair of right knee History of lateral meniscus repair of left knee Hx of colonoscopy Social History Social History (Updated 04/02/25 @ 13:53 by Skylar Diallo CMA) Are you a primary career resource technician to a significant other at home: No Do you presently have visiting nurse or other home services: No Alcohol intake: current Alcohol intake frequency: does not drink Patient Tobacco Use Status: Never used Tobacco Use of substances other than those prescribed or required for medical reasons: No Have you been hit, kicked, punched, or otherwise hurt by someone within the past year? If so, by whom?: No Are you DNR?: No Advance Directives: No Advance Directives Information Provided: Yes Patient : No Poor oral hygiene: No Meds Allergies Allergy/AdvReac Type Severity Reaction Status Date / Time No Known Allergies Allergy Verified 04/22/25 12:42 Home Medications ?Medication ?Instructions ?Recorded ?Confirmed ?Last Taken ?Type amlodipine 5 mg tablet 5 mg PO DAILY 04/02/25 05/19/25 05/19/25 History aspirin 81 mg tablet,delayed 81 mg PO DAILY 04/02/25 05/19/25 05/11/25 History release irbesartan 300 mg tablet 300 mg PO DAILY 04/02/25 05/19/25 05/19/25 History metformin 1,000 mg tablet 1,000 mg PO DAILY 04/02/25 04/22/25 Unknown History metoprolol tartrate 50 mg tablet 50 mg PO BID 04/02/25 05/19/25 05/19/25 History pantoprazole 40 mg tablet,delayed 40 mg PO DAILY 04/02/25 04/22/25 Unknown History release pravastatin 80 mg tablet 80 mg PO DAILY 04/02/25 04/22/25 Unknown History semaglutide 1 mg/dose (4 mg/3 mL) 1 mg subcut QWEEK 04/22/25 05/19/25 05/11/25 History subcutaneous pen injector (Ozempic) Exam Narrative Narrative: EKG 04/2025 Vent. Rate : 76 BPM Atrial Rate : 76 BPM P-R Int : 174 ms QRS Dur : 82 ms QT Int : 384 ms P-R-T Axes : 9 -19 -3 degrees QTcB Int : 432 ms Normal sinus rhythm Normal ECG No previous ECGs available Documented by User: Chhaya Caban DO 05/19/25 14:15 HPI - Anesthesia Eval Anesthesia Pre-Procedure Meds Is the patient on any of the following meds?: GLP1/DPP4 [facility] Past Medical History Medical History Non-insulin dependent type 2 diabetes mellitus DJD (degenerative joint disease) GERD (gastroesophageal reflux disease) Hyperlipidemia Sleep apnea treated with continuous positive airway pressure (CPAP) Hypertension BMI 30.0-30.9,adult Obesity Family History Family History (Updated 04/02/25 @ 13:53 by Skylar Diallo CMA) Mother Breast cancer Diabetes Heart problem Hypertension Father Heart problem Melanoma Diabetes Hypertension Son Gout Daughter No problems noted. Daughter Thyroid condition Family history of problems with anesthesia: No Surgical History Surgical History Hx of section History of lateral meniscus repair of right knee History of lateral meniscus repair of left knee Hx of colonoscopy History of Problems with Anesthesia: No Social History Social History (Updated 04/02/25 @ 13:53 by Skylar Diallo CMA) Are you a primary career resource technician to a significant other at home: No Do you presently have visiting nurse or other home services: No Alcohol intake: current Alcohol intake frequency: does not drink Patient Tobacco Use Status: Never used Tobacco Use of substances other than those prescribed or required for medical reasons: No Have you been hit, kicked, punched, or otherwise hurt by someone within the past year? If so, by whom?: No Are you DNR?: No Advance Directives: No Advance Directives Information Provided: Yes Patient : No Poor oral hygiene: No Meds Allergies Allergy/AdvReac Type Severity Reaction Status Date / Time No Known Allergies Allergy Verified 04/22/25 12:42 Home Medications ?Medication ?Instructions ?Recorded ?Confirmed ?Last Taken ?Type amlodipine 5 mg tablet 5 mg PO DAILY 04/02/25 05/19/25 05/19/25 History aspirin 81 mg tablet,delayed 81 mg PO DAILY 04/02/25 05/19/25 05/11/25 History release irbesartan 300 mg tablet 300 mg PO DAILY 04/02/25 05/19/25 05/19/25 History metformin 1,000 mg tablet 1,000 mg PO DAILY 04/02/25 04/22/25 Unknown History metoprolol tartrate 50 mg tablet 50 mg PO BID 04/02/25 05/19/25 05/19/25 History pantoprazole 40 mg tablet,delayed 40 mg PO DAILY 04/02/25 04/22/25 Unknown History release pravastatin 80 mg tablet 80 mg PO DAILY 04/02/25 04/22/25 Unknown History semaglutide 1 mg/dose (4 mg/3 mL) 1 mg subcut QWEEK 04/22/25 05/19/25 05/11/25 History subcutaneous pen injector (Ozempic) Exam Exam Date and Time: 05/19/25 1400 Height,Weight and Vital Signs: Height 5 ft 3.5 in Weight 94 kg Vital Signs Temperature 98.0 F 05/19/25 13:39 Pulse Rate 74 05/19/25 13:39 Respiratory Rate 14 05/19/25 13:39 Blood Pressure 139/84 05/19/25 13:39 Pulse Oximetry 95 05/19/25 13:39 Oxygen Delivery Method Room Air 05/19/25 13:39 Temperature 98.0 F 05/19/25 13:39 Pulse Rate 74 05/19/25 13:39 Respiratory Rate 14 05/19/25 13:39 Blood Pressure 139/84 05/19/25 13:39 Pulse Oximetry 95 05/19/25 13:39 Oxygen Delivery Method Room Air 05/19/25 13:39 Airway Mallampati Class: I TM Dist: <=3cm Neck ROM: Full Loose/Missing/Broken Teeth: No (patient denies any loose or broken teeth) Heart: S1S2 Lungs: CTAB Assessment and Plan Assessment Anesthesia Assessment: Anesthesia Plan Discussed and Chart Reviewed Final Anesthetic Review Family History of Problems with Anesthesia: No History of Problems with Anesthesia: No NPO: Yes ASA Class: II Final Preanesthetic Review: No Changes in Pt Med Stat, Meds/Allgs Chart Reviewed, Consent Obtained/Reviewed and Anes Risks/Benef Reviewed Patient Risk: Low Procedure Risk: Low Anesthetic Plan Anesthetic Plan: MAC: and Agree w/ Assess. and Plan Disposition: Standard PACU
--- NOTE | 2025-05-19 14:26 | MHC.SHP ---
Pre-Procedural Eval Section A - 24 Hr Update-Section A only Date of Service: 05/19/25 The patient is an INPATIENT: No The patient has been examined within 24 hours of the surgical procedure. The History & Physical has been completed within 30 days and I have reviewed it.: No Section B - Complete if H&P > 30 days Chief Complaint: Morbid (severe) obesity due to excess calories Details of Present Illness: GERD Relevant Family History (Specify if Yes): No Relevant Social History: None Present Medications: None Medical History: No relevant PMH History of Previous Operations: No relevant previous surgery Allergies: Allergies Allergy/AdvReac Type Severity Reaction Status Date / Time No Known Allergies Allergy Verified 04/22/25 12:42 Review of Systems Sugical H&P ROS: Negative: Constitution, Cardiovascular, Respiratory, Neurological, Psychiatric, Hem-Onc, Allergic/Immunologic, Gastrointestinal, Genitourinary, Musculoskeletal, Integumentary, Endocrine and Eyes/Ears/Nose/Throat Exam Surgical H&P Exam: Normal: HEENT, Normal: Heart, Normal: Lungs, Normal: Extremities, Normal: Abdomen, Normal: Skin and Normal: Neurological Plan Diagnosis/Plan: Unchanged (EGD to assess the etiology of GERD. Risks of bleeding and perforation were discussed wiht the patient.) I have reviewed the history and physical and performed a pertinent physical examination on my patient. No changes have occurred unless specified. Time Spent With Patient Time: Total time managing care of this patient today ____ minutes.
--- NOTE | 2025-05-19 14:30 | PM.OP ---
Brief Operative Note Date of Service: 05/19/25 Pre-op diagnosis: GERD Procedure: PROCEDURE DATE: 05/19/2025 PREOPERATIVE DIAGNOSIS: GERD POSTOPERATIVE DIAGNOSIS: ?Same as above. Normal endoscopy PROCEDURE: Ecsxpbir-qfgjxg-myjafshyjthh with biopsies Surgeon: Enrique Dewitt M.D.. Ph.D. Lodging House Keeper: None ? Anesthesia: IV sedation Estimated blood loss: ?Minimal FINDINGS AND PROCEDURE: ? OPERATIVE INDICATIONS: ?The patient is a 64 year old female known to me who is interested in bariatric surgery. The patient has GERD. Based on this information I recommended an upper endoscopy to evaluate the patient's symptoms. Risks and complications of the surgery were discussed with the patient in advance particularly the possibility of perforation or bleeding that may require surgical intervention. The patient understood the risks and was in agreement with the plan. ? PROCEDURE: After informed consent was obtained by the patient, the patient was ?transferred to the Operating Room and was placed in the supine position.? After successful induction of IV sedation, a mouth block was inserted and the patient was placed in the left lateral decubitus position. An upper endoscopy was performed next, the oropharynx and esophagus appeared within the normal limits. There was no hiatal hernia. The z-line was smooth. Two biopsies were obtained from the distal esophagus 2-3 cm proximal to the GE junction and two additional biopsies from the GE junction. The stomach was entered and it appeared to be of normal size. There was no gastritis. There was no stricture or ulcer. A biopsy was obtained from the gastric fundus and the antrum. No significant bleeding was noted from any of the biopsy sites. Retroflection of the scope confirmed a normal GE junction. The scope was then advanced into the duodenum which appeared to be normal as well. At that point the duodenum ?and the stomach were decompressed and the scope was withdrawn from the patient's mouth. The patient extubated and was transferred in stable condition to the Recovery Room for further care. I was present and performed all steps of the procedure. There were no residents to assist with this case. Carlos Dewitt M.D., Ph.D. Surgeon: Melquiades Dewitt MD Anesthesia: MAC Was an Lodging House Keeper used for this Procedure?: No Estimated blood loss (mL): 0 IV fluids (mL): 400 Urine output (mL): 0 (No Silva to record output) Pathology: other (1) antrum x1, 2) fundus x1, 3) GE junction x2, 4) distal esophagus x2) Condition: stable Disposition: PACU
[2025-05-19 14:50] VITALS: BP 105/61; PULSE 80; RESP 12; TEMP 36.8; O2SAT 95
[2025-05-19 15:05] VITALS: BP 132/80; PULSE 76; RESP 14; O2SAT 96
[2025-05-20 06:31] LABS: Glucose, Whole Blood 79 mg/dL (60-115)
== END 2025-05-19 16:27 | disposition home or self-care (01) ==
PROVIDERS: PCP Physician Assistant Medical; Visit Provider Surgery
PROC: 0DJ08ZZ Inspection of Upper Intestinal Tract, Via Natural or Artificial Opening Endoscopic (ICD-10-PCS; CPT 43235; principal; 2025-05-19 16:00)
DX: K21.9 Gastro-esophageal reflux disease without esophagitis (principal); E66.01 Morbid (severe) obesity due to excess calories; Z68.38 Body mass index [BMI] 38.0-38.9, adult; I10 Essential (primary) hypertension; E11.9 Type 2 diabetes mellitus without complications; E78.5 Hyperlipidemia, unspecified; G47.30 Sleep apnea, unspecified; Z79.82 Long term (current) use of aspirin; Z79.84 Long term (current) use of oral hypoglycemic drugs; Z79.85 Long-term (current) use of injectable non-insulin antidiabetic drugs; Z79.899 Other long term (current) drug therapy; Z99.89 Dependence on other enabling machines and devices; Z98.890 Other specified postprocedural states
CPT/HCPCS: 43239; 82947; 88305; 88313; 88342; J2003; J2704

== ENCOUNTER → 2025-05-19 13:22 | Outpatient (BNV) | payer BC, SELFPAY | PROVIDERS: PCP Physician Assistant Medical; Visit Provider Surgery | DX: K21.9 Gastro-esophageal reflux disease without esophagitis (principal) | CPT/HCPCS: 43239 ==

== ENCOUNTER 2025-06-08 08:14 | Outpatient (AMB) | payer BC, SELFPAY ==
--- NOTE | 2025-06-08 08:00 | MHC.WMTHER ---
Intake Intake Visit Reasons: TV BH F/U Allergies No Known Allergies Allergy (Verified 04/22/25 12:42) [facility] Medical History Non-insulin dependent type 2 diabetes mellitus DJD (degenerative joint disease) GERD (gastroesophageal reflux disease) Hyperlipidemia Sleep apnea treated with continuous positive airway pressure (CPAP) Hypertension BMI 30.0-30.9,adult Obesity Surgical History Hx of section History of lateral meniscus repair of right knee History of lateral meniscus repair of left knee Hx of colonoscopy Family History (Updated 04/02/25 @ 13:53 by Skylar Diallo CMA) Mother Breast cancer Diabetes Heart problem Hypertension Father Heart problem Melanoma Diabetes Hypertension Son Gout Daughter No problems noted. Daughter Thyroid condition Social History (Updated 04/02/25 @ 13:53 by Skylar Diallo CMA) Are you a primary pet care technician to a significant other at home: No Do you presently have visiting nurse or other home services: No Alcohol intake: current Alcohol intake frequency: does not drink Patient Tobacco Use Status: Never used Tobacco Behavioral Health Assessment Weight Management Therapy Therapy Notes Details The patient is a 64-year-old self-referred female presenting for a second behavioral health assessment as part of the pre-operative evaluation for a surgical weight loss program. She has participated in intermittent counseling since her divorce and is currently engaged in monthly therapy sessions with Jacki Aggarwal, a therapist she has been working with for approximately 8?9 years. The primary focus of treatment is symptom management related to Unspecified Depressive Disorder. The patient is not currently prescribed or taking any psychiatric medications. She reports experiencing occasional, short-lived episodes of depressive symptoms, typically lasting a few days, which she describes as manageable. She denies any history of psychiatric hospitalization, mental health crises, suicidal ideation (SI), suicide attempts (SA), self-injurious behavior, or risk of harm to herself or others. She also reports no history of substance use. There is no indication of stress-related or emotional eating behaviors at this time. Results from the Binge Eating Scale (BES) suggest a rkiznzdi-nq-tes risk for binge eating. PHQ-9 scores indicate no current depressive symptoms or concerns. Additionally, the mental status examination is within normal limits, with no evidence of impaired functioning. Impression: From a behavioral health perspective, the patient is considered psychiatrically stable and is cleared to proceed with the surgical weight loss program. Presenting Concerns Referral Source P Provider. PT meet with Dr. Clarke for the fist time on 04/22/25 Reason for referral Completion of behavioral health assessment as part of process for weight-loss surgery. Precipitating Event Obesity. Initial weight 216Lbs. Living Situation Current Living Situation Own At risk of losing current housing? No Satisfied with current living situation? Yes Comments PT lives alone with her cat. Food/Weight/Diet Expectations of change Initial goal to lose 10% of your weight before surgery, which is about 22lbs. Ultimate weight goal: 196lbs before surgery PT started the program on 04/22/2025 at 216Lbs, and most recent weight was 199Lbs as of 06/02/2025. Patient goals are 140Lbs PT is implementing the following: Current meal plan: Combination of shakes/bars, and 1 meal at day. Exercise plan: outdoor walks. Just got a stationary bike. scale: yes. Communication w/ provider: Tuesdays. History/Relationship with food PT reports food is her comfort place. Most activities are food centered. She was not as consistent with her eating, at times skipping meals. Not a late night eater, but would have big ortiongs or eat large amounts at dinner. Example of meals before starting the program: Breakfast: Skip Lunch: 11.30am (left over from dinner) Dinner: 5pm (meat, vegetables, starch) or takeout Snacks: 3pm (popcorn), candy rarely at night. Beverages: Coffee: none, tea: rarely, soda: none, juice: none, ETOH: 1/month. water: 60oz in a good week. History/Relationship with weight In she was around 113Lbs, but at some point she was close to 160Lbs, when she was battling with her weight. In the last 10 years, the patient's Lowest weight was 160Lbs. and highest 232Lbs History/Relationship with dieting Hypnosis -2011. went down to 150Lbs. Cindi Melton, Nutrisystem, WW. Doing Ozempic since November. Binge Eating Do you frequently eat large amounts of food in short periods of time, not feeling physically hungry? Yes Do you feel out of control when you eat a large amount of food in a short period of time? Yes Do you eat large amounts of food rapidly and typically alone? No Night Eating Do you wake up at least once during the night to eat? No If you wake up in the night, do you find that it is necessary to eat something in order to fall back asleep? No Do you have little or no appetite in the morning and feel very hungry in the evening, often overeating between dinner and when you go to bed? No Social History Family history and relationship PT is , for 27 years. She has 3 adult children and 2 grandkids. Parents . She has 2 older brothers and a youngest sister. PT reports good family dynamics. Parental/Familial coal unloader obligations None. Developmental history and status None, currently WNL. Social support Children, small group of friends. 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 Mu-Ism/Spirituality Jain. Cultural/Ethnic information White/. Legal Involvement and History Current or historical involvement with the legal system? None reported. Education Highest grade completed Masters degree in Education. Preferred learning style Written and Visual Currently enrolled in educational program? No Interested in further educational program? No Educational Interests/Skills Education. 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 ) Wants help to find employment? No Meaningful activities Read, audiobooks, get together with friends, TV, cook. Financial Situation Describe current financial situation Comfortable Financial assistance? None Service Service? No Mental Health and Addiction Treatment Current/Past substance abuse? No Comments Alcohol: 1x month. 1-2 drinks. Cigarettes/Tobacco: None. Cannabis/Edibles: None. Current/Past addictive behavior concerns? No Psychiatric history The patient has engaged in counseling intermittently since her divorce. She is currently seen on a monthly basis by therapist May Jasen, with whom she has been working for approximately 8?9 years. Her treatment focus is on managing symptoms related to Unspecified Depressive Disorder. The patient reports experiencing occasional episodes of depressive symptoms lasting a few days, but describes them as manageable. She denies any history of psychiatric hospitalization or mental health crises. She also denies any current or past suicidal ideation (SI), suicide attempts (SA), self-harm behaviors, or risk of harm to others. Medical and Physical Health Summary Additional Medical History not covered in history Pre-diabetes. Sexual History concerns None reported. Physical exam in the last year? Yes (May 04/2025.) Pain Screening Current pain? No Pain in the last few months? Yes Comments Knee pain Medications Is the patient compliant with medications? Yes Does the patient have Kramer Guardian in place? No Does the patient use complimentary health approaches? Yes (Therapeutic massages every 6 weeks. ) Trauma/Abuse History History of trauma? No Questionnaires PHQ-9 Over the last 2 weeks, how often have you been bothered by any of the following problems? 1. Little interest or pleasure in doing things: not at all 2. Feeling down, depressed, or hopeless: not at all 3. Trouble falling or staying asleep, or sleeping too much: several days (staying asleep) 4. Feeling tired or having little energy: several days (Due to dehydration and low blow pressure.) 5. Poor appetite or overeating: several days (Poor appetite) 6. Feeling bad about yourself - or that you are a failure or have let yourself or your family down: not at all 7. Trouble concentrating on things, such as reading the newspaper or watching television: not at all 8. Moving or speaking so slowly that other people could have noticed. Or the opposite - being so fidgety or restless that you have been moving around a lot more than usual: not at all 9. Thoughts that you would be better off or of hurting yourself in some way: not at all Total score: 3 Depression Screening Interpretation: Negative Depression Screening Done: Yes 96765 - PHQ-9 Billing: Yes Source: Developed by Drs. Ascencion Finney, Coby Antunez, Jay Landeros and colleagues, with an educational gissel from [employer]. Binge Eating Scale Group 1 A. I don't feel self-conscious about my wt. or body size when I'm with others. B. I feel concerned about how I look to others, but it normally does not make me fell disappointed with myself C. I do get self-conscious about my appearance and wt. which makes me feel disappointed in myself. D. I feel very self-conscious about my wt. and frequently I feel intense shame and disgust for myself. I try to avoid social contacts because of my self-consciousness. Response Group 1: C Group 2 A. I don't have any difficulty eating slowly in the proper manner. B. Although I seem to gobble down foods, I don't end up feeling stuffed because of eating to much. C. At times, I tend to eat quickly and then, I feel uncomfortably full afterwards. D. I have the habit of bolting down my food, without really chewing it. When this happens I usually feel uncomfortably stuffed because I've eaten to much. Response Group 2: A Group 3 A. I feel capable to control my eating urges when I want to. B. I feel like I have failed to control my eating more than the average person. C. I feel utterly helpless when it comes to feeling in control of my eating urges. D. Because I feel so helpless about controlling my eating I have become very desperate about trying to get control. Response Group 3: B Group 4 A. I don't have the habit of eating when I'm bored. B. I sometimes eat when I'm bored, but often I'm able to get busy and get my mind off food. C. I have a regular habit of eating when I'm bored, but occasionally, I can use some other activity to get my mind off eating. D. I have a strong habit of eating when I'm bored. Nothing seems to help me breath the habit. Response Group 4: C Group 5 A. I'm usually physically hungry when I eat something. B. Occasionally, I eat something on impulse even though I really am not hungry. C. I have the regular habit of eating foods, that I might not really enjoy, to satisfy a hungry feeling even though physically, I don't need the food. D. Although I'm not physically hungry, I get a hungry feeling in my mouth that only seems to be satisfied when I eat a food, like sandwich, that fills my mouth. Sometimes, when I eat the food to satisfy my mouth hunger, I then spit the food out so I won't gain weight. Response Group 5: B Group 6 A. I don't feel any guilt or self-hate after I overeat. B. After I overeat, occasionally I feel guilt or self-hate. C. Almost all the time I experience strong guilt or self-hate after I overeat. Response Group 6: C Group 7 A. I don't lose total control of my eating when dieting even after periods when I overeat. B. Sometimes when I eat a forbidden food on a diet, I feel like I blew it and eat even more. C. Frequently, I have the habit of saying to myself, I've blown it now, why not go all the way, when I overeat on a diet. When that happens I eat more. D. I have a regular habit of starting a strict diets for myself but I break the diets by going on an eating binge. My life seems to be either a feast or famine. Response Group 7: B Group 8 A. I rarely eat so much food that I feel uncomfortably stuffed afterwards. B. Usually about once a month, I each such a quantity of food, I end up feeling very stuffed. C. I have regular periods during the month when I eat large amounts of food, either at mealtime or at snacks. D. I eat so much food that I regularly feel quite uncomfortable after eating and sometimes a bit nauseous. Response Group 8: B Group 9 A. My level of calorie intake does not go up very high or go down very low on a regular basis. B. Sometimes after I overeat, I will try to reduce my caloric intake to almost nothing to compensate for the excess calories I've eaten. C. I have a regular habit of overeating during the night. It seems that my routine is not to be hungry in the morning but overeat in the evening. D. In my adult years, I have had week-long periods where I practically starve myself. This follows periods when I overeat. It seems I live a life of either feast or famine. Response Group 9: C Group 10 A. I usually am able to stop eating when I want to. I know when enough is enough. B. Every so often, I experience a compulsion to eat which I can't seem to control. C. Frequently, I experience strong urges to eat which I seem unable to control, but at other times I can control my eating urges. D. I feel incapable of controlling urges to eat. I have a fear of not being able to stop eating voluntarily. Response Group 10: C Group 11 A. I don't have any problem stopping eating when I feel full. B. I usually can stop eating when I feel full but occasionally overeat leaving me feeling uncomfortably stuffed. C. I have a problem stopping eating once I start and usually I feel uncomfortably stuffed after I eat a meal. D. Because I have a problem not being able to stop eating when I want, I sometimes have to induce vomiting to relieve my stuffed feeling. Response Group 11: B Group 12 A. I seem to eat just as much when I'm with others, Family social gatherings as when I'm by myself. B. Sometimes, when I'm with other persons, I don't eat as much as I want to eat because I'm self-conscious about my eating. C. Frequently, I eat only a small amount of food when others are present, because I'm very embarrassed about my eating. D. I feel so ashamed about overeating that I pick times to overeat when I know no one will see me. I feel like a closet eater. Response Group 12: D Group 13 A. I eat three meals a day with only an occasional between meal snack. B. I eat 3 meals a day, but I also normally snack between meals. C. When I am snacking heavily, I get in the habit of skipping regular meals. D. There are regular periods when I seem to be continually eating, with no planned meals. Response Group 13: C Group 14 A. I don't think much about trying to control unwanted eating urges. B. At least some of the time, I feel my thoughts are pre-occupied with trying to control my eating urges. C. I feel that frequently I spend much time thinking about how much I ate or about trying not to eat anymore. D. It seems to me that most of my waking hours are pre-occupied by thoughts about eating or not eating. I feel like I'm constantly struggling not to eat. Response Group 14: B Group 15 A. I don't think about food a great deal. B. I have strong craving for food but they last only for brief periods of time. C. I have days when I can't seem to think about anything else but food. D. Most of my days seem to be pre-occupied with thoughts about food. I feel like I live to eat. Response Group 15: B Group 16 A. I usually know whether or not I'm physically hungry. I take the right portion of food to satisfy me. B. Occasionally, I feel uncertain about knowing whether or not I'm physically hungry. A these times it's hard to know how much food I should take to satisfy me. C. Even though I might know how many calories I should eat, I don't have any idea what is a normal amount of food for me. Response Group 16: B Binge Eating Score: 23 Score less than 17 Minimal Risk Score between 18-26 Moderate Risk Score between 27-46 High Risk Assessment & Plan Assessment & Plan (1) Depression, unspecified: Code(s): F32.A - Depression, unspecified (2) Pre-bariatric surgery psychological evaluation: Code(s): Z71.89 - Other specified counseling Plan The patient has been cleared from a behavioral health standpoint and can be submitted for insurance approval when ready. A follow-up behavioral health visit will be scheduled 1?4 weeks postoperatively to assess psychological adjustment and screen for any concerns. Next appointment: 1-4 Weeks Post-op. Telehealth Telehealth Telehealth Platform: [facility] Location of provider rendering services: other (Home office. [place], [place]) Location of patient: address on file Patient Identification confirmed using: Name, : Yes Telehealth method: video Patient verbally consented to treatment: Yes Patient verbally consented to billing insurance company: Yes Patient informed of any privacy concerns related to visit: Yes Minutes spent on Phone/Video with Pt.: 55 Coding Level of Care Code Established Pt Tele Psytx >53 mins (51988) Patient Type Established Diagnoses Depression, unspecified F32.A Pre-bariatric surgery psychological evaluation Z71.89 Additional Codes PHQ-9 - 11669 - PHQ-9 Billing: Yes ([id number]) Time Spent (min) 55
--- OUTSIDE RECORDS SUMMARY | 2025-06-08 08:18 | XMS_ITS | Patient Health Record ---
Author Organization [facility] Address [address] [place] [address] Care Team Providers Care Lead Java Programmer Name Role Phone Belkys Armando Primary Care [...] Problem Status W/U Status Risk Notes Problem [id number] Hallux valgus (acquired), left foot (M20.12) Active confirmed Plan Of Treatment Pending Test Test Name Order Date X ray : Foot, left 3v 06/28/2021 Insurance Providers Payer Name Payer Address Payer Phone Subscriber Number Group Number Insured Name Patient Relationship to Insured Coverage Start Date Coverage End Date Social Media Simplified and [facility] [address] [place] [phone] [id number] Lina Lynch Self - patient is the insured Medical (General) History Medical History History ICD Code Hyperlipidemia Hypertension Pre diabetes Vitamin D deficiency Morbid obesity Hyperlipidemia Essential (primary) hypertension Depression, unspecified depression type Abnormal LFT's Parasthesia Surgical History Surgery Date(Month/Year) Section meniscus repair (Left)
--- OUTSIDE RECORDS SUMMARY | 2025-06-08 08:18 | XMS_ITS | Data Portability ---
Author Organization [facility] [employer] [facility], [facility] Address [address] [place] [id number] Care Team Providers Care Wash Driller Name Role Phone JUANAROSS Coleman Primary Care [...] protein, fiber, and nutrient intake. Resources provided: [employer] [facility] Education and Counseling: Reviewed considerations for [...] support positive behavior change Plan/Goals: 1. Use [employer] resources 2. Eat protein first at meals 3. Adequate hydration/fiber as tolerated 4. Establish consistent eating pattern, avoid skipping meals Follow up: SoCT makenzie Total Time Spent on the date of the encounter: 30 minutes which includes visit preparation time, time reviewing and independently interpreting results, ibzr-id-oxwy time with the patient, counseling/educat ing the [...] recorded. Lab BMP, serum or plasma 2024 [facility] [employer] [facility], [address], [place], [address], 00:04:45 Referral None recorded. Procedures None recorded. Surgeries None recorded. Imaging None recorded. Medication Orders Ozempic 1 mg/dose (4 mg/3 mL) subcutaneou s pen injector 2024 [id number], [address] [place] [address], [id number], 19:41:49 Ozempic 0.25 mg or 0.5 mg (2 mg/3 mL) subcutaneou s pen injector 2024 025 [id number], [address] [place] [address], [id number], 19:54:35 Patient TargetsNo targets recorded. Patient Instructions Encounter Date Encounter Id Patient Instructions Last Modified By Organization Details Last Modified Time 12/06/2024 [id number] Latrell Mills, [facility] . Here are some takeaways from our [...] taking Ozempic to prevent side effects. Visit [email or web address] to view the video on how to use the pen for your injections. Let's recheck your kidney function - lab order sent to [facility] -->check out Sympoz for anti-inflammatory diet info --> -->Consider starting [...] -Shift calories to earlier in the day -[employer] Patient Nathaniel dietary related learning courses and articles Exercise: -Exercise as tolerated -Resistance training - resistance bands are a great starting option -[employer] Patient Nathaniel exercise related learning courses and [...] at least once weekly and log in [employer] Patient Nathaniel -Check blood pressure and heart rate and log in [employer] Patient Nathaniel before your next provider visit [email or web address] Not available 12/06/2024 08:46:30 02/23/2025 [id number] Latrell Mills It was great to speak [...] support positive behavior change Plan/Goals: 1. Use [employer]Cable TV 2. Eat protein first at meals 3. Adequate hydration/fiber as tolerated 4. Establish consistent eating pattern, avoid skipping meals Please feel free to reach out with any questions, Emmanuelle Childress MS RD INVESTIGATIONS DIRECTOR [facility] elaine Not available 02/23/2025 17:30:21 03/13/2025 [id number] Latrell Mills, It was great seeing you again at [facility] . Here are some takeaways from our visit - --> increase Ozempic to 1 mg weekly. Please message me in 6 weeks with an update so we can change the dose if needed. --> Remember to eat small portions, eat slowly, stop eating before you feel full, and avoid alcohol while taking Ozempic to prevent side effects. continue the metformin -->check out Sympoz for anti-inflammatory diet info --> -->Consider starting [...] -Shift calories to earlier in the day -[employer] Patient Nathaniel dietary related learning courses and articles Exercise: -Exercise as tolerated -Resistance training - resistance bands are a great starting option -[employer] Patient Nathaniel exercise related learning courses and [...] at least once weekly and log in [employer] Patient Nathaniel -Check blood pressure and heart rate and log in [employer] Patient Nathaniel before your next provider visit [email or web address] Not available 03/13/2025 19:54:28 Reason for Referral None Reported. Results Created Date Observation Date Name Description Value Unit Range Abnormal Flag Note LastModifiedBy Organization Detail LastModifiedTime 01/02/2001/03/2025 BASIC METAB OLIC PANEL glucose 88 mg/dL 65-99 normal Fasti ng refer ence inter jose Not Available [employer] [facility] [address], [place], [address], 01/03/2025 00:04:45 01/02/2001/03/2025 BASIC METAB OLIC PANEL urea nitrogen (BUN) 20 mg/dL 7-25 normal Not Available [employer] ([employer] [address], [place], [address], 01/03/2025 00:04:45 01/02/2001/03/2025 BASIC METAB OLIC PANEL creatinine 0.76 mg/dL 0.50-1 .05 normal Not Available [employer] ([employer] [address], [place], [address], 01/03/2025 00:04:45 01/02/2001/03/2025 BASIC METAB OLIC PANEL eGFR 88 mL/mi n/1.7 3m2 > or = 60 normal Not Available [employer] ([employer] [address], [place], [address], 01/03/2025 00:04:45 01/02/2001/03/2025 BASIC METAB OLIC PANEL BUN/creatini ne ratio SEE NOTE: (calc ) 6-22 Not Repor duane: BUN and Creat inine are withi n refer ence range . Not Available [employer] ([employer] [address], [place], [address], 01/03/2025 00:04:45 0201/03/2025 BASIC METAB OLIC PANEL sodium 140 mmol/ L 135-14 6 normal Not Available [facility] [address], [address], 01/03/2025 00:04:45 01/02/2001/03/2025 BASIC METAB OLIC PANEL potassium 4.5 mmol/ L 3.5-5. 3 normal Not Available [facility] [address], [place], [address], 01/03/2025 00:04:45 01/02/2001/03/2025 BASIC METAB OLIC PANEL chloride 104 mmol/ L 98-110 normal Not Available [facility] [address], [place], [address], 01/03/2025 00:04:45 01/02/2001/03/2025 BASIC METAB OLIC PANEL carbon dioxide 30 mmol/ L 20-32 normal Not Available [facility] [address], [place], [address], 01/03/2025 00:04:45 01/02/2001/03/2025 BASIC METAB OLIC PANEL calcium 10.2 mg/dL 8.6-10 .4 normal Not Available [facility] [address], [address], 01/03/2025 00:04:45 Result Notes None recorded. Problems Name Problem SNOMED Code Status Onset Date Resolution Date Notes Provider Name and Address Organization Details Recorded Time Endocrine/m etabolic screening Active 2023 Lissette mendosa [facility] - [facility] 4 15:00:33 Obesity 445621974 Active 2023 Ifeoma mendosa [email or web address] - [facility] 4 14:26:13 Prediabetes 596267982 Active 2024 Meera [place]osa, [place] - [facility] - [facility] 5 08:30:51 Abnormal renal function 31623729 Active 2024 Meera Alcala [facility]. - [facility] 08:35:27 Essential hypertensio n 48691368 Active 2024 Meera Alcala [facility]. - [facility] 08:46:52 Mixed hyperlipide minerva 739538231 Active 2024 Meera Alcala [facility]. - [facility] 08:46:57 Obstructive sleep apnea of adult 6269899851571 Active 2024 Meera Alcala [facility]. - [facility] 08:47:03 Problem Notes None recorded. Procedures Surgical History Date Name Laterality Status Provider Name and Address Organization Details Recorded Time section completed [facility]. - [facility] 11/28/2024 15:56:37 Knee arthroscopy/snyder [facility]gery [facility] 11/28/2024 15:56:49 Imaging Results None recorded. Procedure Notes None recorded. Medical Equipment None Reported. Allergies Allergen ID Allergen Name Allergen Category Reaction Reaction Severity Criticality Documentation Date Start Date Code Code System Note Provider Name and Address Organization Details Recorded Time 9772 crab allergeni c extract food Not available Not available Not available 11/28/2024 88574 0 RxNorm Jabiereisha Hoskins [facility]. - [facility] 15:55:57 9773 lisinopri l medicatio n cough Not available high 11/28/2024 56938 RxNorm Jabiereisha Hoskins [place], [place] [facility] - [facility] 15:56:04 9774 moxifloxa italo medicatio n nausea Not available Not available 11/28/2024 14678 2 RxNorm Jabiereisha Tonia [place], [place] [facility] - [facility] 15:56:13 9775 shellfish derived food,medi cation Not available Not available Not available 11/28/2024 12640 UNK Kris Randall [facility]. [facility] 5 15:56:22 Medications Name Sig Start Date Stop [...] Updated DateTime 12/06/2024 160.02 cm 36.3 kg/m2 37777.44 g Meera Alcala [email or web address] - [facility] 12/06/2024 08:02:19 Date Recorded Heart rate Body height Systolic And Diastolic Provider Name and Address Organization Details Last Updated DateTime 12/14/2024 72 /min 162.56 cm 111/62 mm[Hg] Not Available [employer] [facility] [employer] 12/14/2024 11:03:22 Date Recorded Body weight Body height Provider Name and Address Organization Details Last Updated DateTime 12/15/2024 36073.184062 4 g 162.56 cm Not Available [employer] [facility] 12/15/2024 06:58:24 Date Recorded Heart rate Body height Heart rate Body height Systolic And Diastolic Systolic And Diastolic Provider Name and Address Organization Details Last Updated DateTime 73 /min 162.56 cm 73 /min 162.56 cm 156/82 mm[Hg] 142/88 mm[Hg] Not Available [employer] [facility] [employer] 14:53:21 Date Recorded Body weight Body height Body weight Body height Provider Name and Address Organization Details Last Updated DateTime 12/22/2024 99339.965 1314 g 162.56 cm 36803.749 5892 g 162.56 cm Not Available [employer] [facility] [employer] 12/22/2024 08:08:24 Date Recorded Heart rate Body height Systolic And Diastolic Provider Name and Address Organization Details Last Updated DateTime 12/28/2024 82 /min 162.56 cm 149/81 mm[Hg] Not Available [employer] [facility] [employer] 12/28/2024 17:18:19 Date Recorded Body weight Body height Provider Name and Address Organization Details Last Updated DateTime 12/29/2024 32487.861320 3 g 162.56 cm Not Available [employer] [facility] [employer] 12/29/2024 06:48:23 Date Recorded Body weight Body height Provider Name and Address Organization Details Last Updated DateTime 01/07/2025 75567.980636 1 g 162.56 cm Not Available [employer] [facility] [employer] 01/07/2025 06:28:31 Date Recorded Body weight Body height Provider Name and Address Organization Details Last Updated DateTime 01/26/2025 43240.018472 1 g 162.56 cm Not Available [employer] [facility] [employer] 01/26/2025 06:58:29 Date Recorded Body weight Body height Provider Name and Address Organization Details Last Updated DateTime 02/02/2025 71624.507034 g 162.56 cm Not Available [employer] [facility] [employer] 02/02/2025 07:08:21 Date Recorded Body weight Body height Provider Name and Address Organization Details Last Updated DateTime 02/05/2025 57744.664454 2 g 162.56 cm Not Available [employer] [facility] [employer] 02/05/2025 07:38:24 Date Recorded Body weight Body height Provider Name and Address Organization Details Last Updated DateTime 02/09/2025 38513.805413 1 g 162.56 cm Not Available [employer] [facility] [employer] 02/09/2025 06:54:00 Date Recorded Body weight Body height Provider Name and Address Organization Details Last Updated DateTime 02/17/2025 03791.256920 1 g 162.56 cm Not Available [employer] [facility] [employer] 02/17/2025 06:28:29 Date Recorded Body height Body mass index (BMI) Body weight Provider Name and Address Organization Details Last Updated DateTime 02/23/2025 162.56 cm 36.8 kg/m2 41776.67 g Emmanuelle Childress, [address], [place], [address], [facility] 02/23/2025 17:03:02 Date Recorded Body weight Body height Provider Name and Address Organization Details Last Updated DateTime 02/23/2025 74222.723781 9 g 162.56 cm Not Available [employer] [facility] [employer] 02/23/2025 06:33:20 Date Recorded Body weight Provider Name an d Address Organization Details Last Updated DateTime 03/01/2025 75049.06484 g Not Available [employer] 03/01/2025 08:06:50 Date Recorded Body weight Provider Name an d Address Organization Details Last Updated DateTime 03/10/2025 82973.31082 g Not Available [employer] 03/10/2025 06:28:14 Date Recorded Body height Body mass index (BMI) Body weight Provider Name and Address Organization Details Last Updated DateTime 03/13/2025 162.56 cm 37.2 kg/m2 34963.19 g Meear Alcala [facility] 03/13/2025 19:26:39 Date Recorded Body weight Provider Name an d Address Organization Details Last Updated DateTime 03/13/2025 11349.096 g Not Available [employer] 03/13/2025 19:26:14 Date Recorded Body weight Provider Name an d Address Organization Details Last Updated DateTime 03/16/2025 94741.3476 g Not Available [employer] 03/16/2025 06:47:40 Date Recorded Body weight Provider Name an d Address Organization Details Last Updated DateTime 03/23/2025 48556.12934 g Not Available [employer] 03/23/2025 06:51:15 Date Recorded Body weight Provider Name an d Address Organization Details Last Updated DateTime 03/31/2025 29012.38234 g Not Available [employer] 03/31/2025 06:22:26 Date Recorded Body weight Provider Name an d Address Organization Details Last Updated DateTime 04/06/2025 63228.45580 g Not Available [employer] 04/06/2025 06:26:28 Date Recorded Body weight Provider Name an d Address Organization Details Last Updated DateTime 04/13/2025 00525.86064 g Not Available [employer] 04/13/2025 08:33:17 Date Recorded Body weight Provider Name an d Address Organization Details Last Updated DateTime 04/20/2025 53679.80733 g Not Available [employer] 04/20/2025 06:52:58 Date Recorded Body weight Provider Name an d Address Organization Details Last Updated DateTime 04/27/2025 26517.6104 g Not Available [employer] 04/27/2025 06:27:20 Date Recorded Body weight Provider Name an d Address Organization Details Last Updated DateTime 05/01/2025 54508.29 g Not Available [employer] 05/01/2025 09:21:19 Date Recorded Body weight Provider Name an d Address Organization Details Last Updated DateTime 05/04/2025 26681.3776 g Not Available [employer] 05/04/2025 09:42:31 Date Recorded Body weight Provider Name an d Address Organization Details Last Updated DateTime 05/17/2025 28910.3588 g Not Available [employer] 05/17/2025 08:18:18 Date Recorded Body weight Provider Name an d Address Organization Details Last Updated DateTime 05/18/2025 11721.43007 g Not Available [employer] 05/18/2025 05:32:18 Date Recorded Body weight Provider Name an d Address Organization Details Last Updated DateTime 05/26/2025 65356.32677 g Not Available [employer] 05/26/2025 07:59:22 Date Recorded Heart rate Heart rate Heart rate Systolic And Diastolic Systolic And Diastolic Systolic And Diastolic Provider Name and Address Organization Details Last Updated DateTime 79 /min 77 /min 77 /min 98/67 mm[Hg] 92/62 mm[Hg] 132/79 mm[Hg] Not Available [employer] 15:49:16 Date Recorded Heart rate Systolic And Diastolic Provider Name and Address Organization Details Last Updated DateTime 05/28/2025 78 /min 105/78 mm[Hg] Not Available [employer] 05/28/2025 10:57:15 Date Recorded Heart rate Heart rate Systolic And Diastolic Systolic And Diastolic Provider Name and Address Organization Details Last Updated DateTime 05/31/2025 78 /min 77 /min 88/61 mm[Hg] 87/48 mm[Hg] Not Available [employer] 05/31/2025 10:43:22 Date Recorded Body weight Heart rate Heart rate Systolic And Diastolic Systolic And Diastolic Provider Name and Address Organization Details Last Updated DateTime 06/01/2025 95120.57 096 g 74 /min 75 /min 91/57 mm[Hg] 99/68 mm[Hg] Not Available [employer] 17:31:21 Date Recorded Heart rate Heart rate Systolic And Diastolic Systolic And Diastolic Provider Name and Address Organization Details Last Updated DateTime 06/02/2025 80 /min 86 /min 130/73 mm[Hg] 101/76 mm[Hg] Not Available [employer] 06/02/2025 14:22:04 Date Recorded Heart rate Heart rate Heart rate Systolic And Diastolic Systolic And Diastolic Systolic And Diastolic Provider Name and Address Organization Details Last Updated DateTime 77 /min 80 /min 81 /min 76/56 mm[Hg] 80/58 mm[Hg] 82/46 mm[Hg] Not Available [employer] 16:13:23 Date Recorded Heart rate Systolic And Diastolic Provider Name and Address Organization Details Last Updated DateTime 06/04/2025 74 /min 99/63 mm[Hg] Not Available [employer] 06/04/2025 19:23:15 Date Recorded Heart rate Systolic And Diastolic Provider Name and Address Organization Details Last Updated DateTime 06/05/2025 79 /min 106/71 mm[Hg] Not Available [employer] 06/05/2025 14:14:17 Date Recorded Heart rate Systolic And Diastolic Provider Name and Address Organization Details Last Updated DateTime 06/07/2025 74 /min 111/74 mm[Hg] Not Available [employer] 06/07/2025 10:57:14 Social History Question Answer Notes LastModified by Organizat ion Details LastModified Time Tobacco Smoking Status Never Smoker Kris Randall [facility] 11/28/2024 15:57:31 What Is Your Relationship [...] Response Other Y Metabolic Syndrome/Insulin Resistance Y Hypertension Y Obstructive Sleep Apnea Y High Cholesterol Y Gynecological HistoryNo gynecological history recorded. Obstetrics History GPAL:G 0 P 0 0 0 0 Past Encounters Encounter ID Performer Location Encounter Start Date Encounter Closed Date Diagnosis/Indication Diagnosis SNOMED-CT Code Diagnosis ICD10 Code Diagnosis Note [id number] MEERA ALCALA MD [address] [address] 12/06/2024 08:01:43 12/12/2024 04:03:52 Prediabetes 360921659 R73.03 candidate for Ozempic given BMI and other dxs. Was successful with Ozempic previously . GLP1 approved Abnormal r enal function 37101496 R94.4 BUN creat elevated on previous labs. ? better now off HCTZ - will recheck BMP Obesity 062839716 Z68.41 Class III now II Obesity: medically [...] es to be discussed with matti ashley provide --AOM selection discussed dosing and common [...] ordering medication s/tests/pr ocedures, care coordinati on, documentin g clinical informatio n in the electronic medical record, following up on referrals/ results and communicat ing with related healthcare profession als as needed. Essential hypertension 68350654 I10 continue followup with pcp and cardio Mixed hyperlipidemia 267 585281 E78.2 on pravastati n. continue followup with pcp and cardio Obstructiv e sleep apnea of adult 1298893459 103 G47.33 continues with cpap [id number] Emmanuelle Childress RD [address] [address] 02/23/2025 15:59:05 02/26/2025 04:01:09 Prediabetes 498044840 R73.03 Mixed hyperlipidemia 267 854602 E78.2 Essential hypertension 74492787 I10 Obesity 806932339 E66.9 Abnormal r enal function 20825726 R94.4 [id number] MEERA ALCALA MD [address]. [address] [address] 03/13/2025 19:24:04 03/19/2025 03:59:50 Prediabetes 540395221 R73.03 on Ozempic and metformin. Plan to increase Ozempic to 1 mg . continue metformin 500mg 2 tabs daily. Abnormal r enal function 43653683 R94.4 BUN creat elevated on previous labs. improved in Dec off HCTZ Obesity 138274490 Z68.41 E66.9 Class III now II Obesity: [...] medication s/tests/pr ocedures, care coordinati on, sheryl g clinical informatio n in the electronic medical record, following up on referrals/ results and communicat ing with related healthcare profession als as needed. Essential hypertension 52509497 I10 continue followup with pcp and cardio Mixed hyperlipidemia 267 890265 E78.2 on pravastati n. continue followup with pcp and cardio Obstructiv e sleep apnea of adult 1285446607 103 G47.33 continues with cpap Health Concerns Section Related Observation LastModified by Organization Detai ls LastModified Time None Recorded Concern Status LastModified by Organization Details LastModified Time None Recorded Advance Directives Directive None Recorded Payers Insurance Date Sequence Insurance Name Policy Number Policy Chao Covered Member ID Chao Member ID Guarantor Name 03/06/2025 [facility] [id number] H Lina Lynch [id number] Lina Lynch Notes Date Note Type Note Provider Name and Address Organization Details Recorded Time 2024 text/h tml 64 yr old Female with class 3 Obesity, High blood pressure, High cholesterol, Sleep apnea, obstructive presents for evaluation. I have confirmed that the patient is physically located in the 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 (stable from previous labs)Trig 180 Meera Alcala [facility] [place] 21:48:45 2024 text/h tml 4.7.25 Nutrition Pdjoopm81 min NPV Patient presents for weight management nutritional counseling as part of [email or web address] HIPAA compliant synchronous video visit I have confirmed that the patient is physically located in the [facility] [place] Synchronous telemedicine service rendered via a real-time [...] teaAlcohol: rarely Physical Activity:none Emmanuelle Childress, RD [address] [facility],[address], [place], [address], [facility] [place] 17:32:01 2024 text/h tml 64 yr old Female with Class III now II Obesity: medically complex with the following comorbidities (preDM, [employer], HTN, HLD, ) Follow up visit 03/13/2025 I have confirmed that the 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 (stable from previous labs)Trig [address] [facility], [facility] [place]. - [facility] 5 19:55:31 OBGyn Episode No OBEpisode recorded.
--- OUTSIDE RECORDS SUMMARY | 2025-06-08 08:18 | XMS_ITS | Clinical Summary ---
Author Organization [facility] Address [address] [place] [address] Care Team Providers Care Banjo Repair Person Name Role Phone Unavailable Primary Care Provider [...] Vaccine (1 of 2) 2011 Influenza Vaccine (#1) 2025 RSV Adult > 60+ Yrs or [...]
--- OUTSIDE RECORDS SUMMARY | 2025-06-08 08:19 | XMS_ITS | Patient Health Record ---
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 Metabolic Panel (14)-3 96010 Reviewed date:08/04/2024 07:54:35 AM Interpretation: Performing Lab:[facility], [address] [place] [address], [place], Phone - [phone], Director - Adam Notes/Report: Glucose 115 70-99 mg/dL BUN 21 [...] (SGPT) 28 0-32 IU/L CBC With Differential/Platel et-[id number] Reviewed date:08/04/2024 07:54:35 AM Interpretation: Performing Lab:[facility] Mendez, [address] [place] [address], Phone - [phone], Director - Jeny Notes/Report: WBC 6.4 3.4-10.8 [...] Immature Grans (Abs) 0.0 0.0-0.1 x10E3/uL Vitamin [id number] Reviewed date:05/11/2025 08:05:49 AM Interpretation: Performing Lab:[facility] [address] [place] [address], Phone - [phone], Director - Jodry Notes/Report: Vitamin B12 320 783-2294 pg/mL Hemoglobin [id number] Reviewed date:08/04/2024 07:54:35 AM Interpretation: Performing Lab:[facility] Mendez [address] [place] [address], Phone - [phone], Director - Jeny Notes/Report: Hemoglobin A1c 6.2 4.8-5.6 % . Prediabetes: 5.7 - 6.4 Diabetes: >6.4 Glycemic control for adults with diabetes: <7.0 Comp. Metabolic Panel (14)-3 17512 Reviewed date:01/27/2025 08:03:11 AM Interpretation: Performing Lab:Mak Mendez, [address] [facility], Phone - [phone], Director - Adam Notes/Report: Glucose 108 70-99 mg/dL BUN 14 [...] (SGPT) 30 0-32 IU/L CBC With Differential/Platel et-[id number] Reviewed date:01/27/2025 08:03:11 AM Interpretation: Performing Lab:Mak Mendez, [address] [facility], [place], Phone - [phone], Director - Adam Notes/Report: WBC 6.3 3.4-10.8 x10E3/uL RBC 4.89 [...] Immature Grans (Abs) 0.0 0.0-0.1 x10E3/uL Hemoglobin [id number] Reviewed date:01/27/2025 08:01:53 AM Interpretation: Performing Lab:[facility], [address] [place] [address], Phone - [phone], Director - Adam Notes/Report: Hemoglobin A1c 6.2 4.8-5.6 % . Prediabetes: 5.7 - 6.4 Diabetes: >6.4 Glycemic control for adults with diabetes: <7.0 TSH+T3+Free T4+T3 Free Reviewed date:05/11/2025 08:05:49 AM Interpretation: Performing Lab:[facility], [address] [place] [address], Phone - [phone], Director - Adam Notes/Report: TSH-ICMA 2.9 Reference Range: Non- Adult 0.450-4.500 First Trimester 0.100-4.000 Second Trimester 0.200-4.000 Third Trimester 0.300-4.500 Triiodothyronine (T-3), Serum 97 Reference Range: Adults: 55 - 170 Free T-3 3.3 Reference Range: >=20y: 2.0 - 4.4 Free T4 by Dialysis/Photo Retoucher 1.2 This test was developed and its performance characteristics determined by [facility]. It has not been cleared or approved by the Food and Drug Administration. Reference Range: Pubertal Children and Adults: 0.8 - 1.7 Comp. Metabolic Panel (14)-3 68231 Reviewed date:09/19/2024 08:00:14 AM Interpretation: Performing Lab:[facility], [address] [place] [address], [place], Phone - [phone], Director - Adam Notes/Report: Glucose 106 70-99 mg/dL BUN 25 [...] 0-32 IU/L Comp. Metabolic Panel (14)-3 Reviewed date:05/11/2025 08:05:49 AM Interpretation: Performing Lab:[facility], [facility] [employer] [facility], Phone - [phone], Director - Adam Notes/Report: Glucose 105 70-99 [...] 0-40 IU/L ALT (SGPT) 44 0-32 IU/L Lipid Panel-[id number] Reviewed date:05/11/2025 08:05:44 AM Interpretation: Performing Lab:[facility], [place], [place], Phone - [phone], Director - Adam Notes/Report: Cholesterol, Total 178 100-199 mg/dL Triglycerides 172 0-149 mg/dL HDL Cholesterol 63 >39 mg/dL VLDL Cholesterol Trino 29 5-40 mg/dL LDL Chol Calc ([facility]) 86 0-99 mg/dL Vitamin D, 25-Uzrfvqt-[id number] Reviewed date:05/11/2025 08:05:49 AM Interpretation: Performing Lab:[facility], [address] [facility], Phone - [phone], Director - Adam Notes/Report: Vitamin D, 25-Hydroxy 38.1 30.0-100.0 ng/mL Vitamin D deficiency has been defined by the [place] [employer] and an Endocrine Society practice guideline as a level of serum 25-OH vitamin D less than 20 ng/mL (1,2). The Endocrine Society went on to further define vitamin D insufficiency as a level between 21 and 29 ng/mL (2). 1. IOM ([place] [employer]). 2010. Dietary reference intakes for calcium and D. [place]: The National Academies Press. 2. Les MF, Romeo [place], Aranza FALLON, et al. Evaluation, treatment, and prevention of vitamin D deficiency: an Endocrine Society clinical practice guideline. JCEM. 2010; 96(7):1911-30. CBC With Differential/Platel et-[id number] Reviewed date:05/11/2025 08:05:49 AM Interpretation: Performing Lab:[facility] [place], [address] [facility], [place], Phone - [phone], Director - Adam Notes/Report: WBC 5.3 3.4-10.8 [...] % Immature Grans (Abs) 0.0 0.0-0.1 x10E3/uL Urinalysis, Complete-[id number] Reviewed date:05/11/2025 08:05:49 AM Interpretation: Performing Lab:[facility] [place], [address] [place] [address], [place], Phone - [phone], Director - Adam Notes/Report: Specific [place] 1.028 1.005-1.030 pH 5.5 5.0-7.5 Urine-Color Yellow [...] seen /lpf Bacteria None seen None seen/Few Reason For Referral Diagnosis 1 Hypercalcemia (E83.5 2) Referral Organization [facility] Referring Provider First Name ROSS Referring Provider Last Name JUANA Referring Provider Speciality Internal edicine Referred Provider Specialty Endocrinolog y General Notes Leann Ortega 2023 08:53:41 AM > filled out form and [facility] Redena 12/01/2024 04:12:27 PM > The patient was seen on 10/27/2024 Referral Priority Routine Reason partial tear in glut eus and rt hamstring and left hip labral tear Diagnosis 1 Hip pain, left (M25. 552) Diagnosis 2 Gluteal tendinitis, left hip (M76.02) Referral Organization [facility] Referring Provider First Name ROSS Referring Provider Last Name JUANA Referring Provider Speciality Internal edicine Referred Provider Specialty Orthopedic S urgery Clinical Notes damon navarro 1 12/28/2023 09:59:37 AM >faxed mri's and paper to Alecia francis Earl Adam 10/28/2024 11:12:41 AM > [facility] [phone]. Refaxedmelanie krystal 11/04/2024 03:03:46 PM >seen 10/29/24 marco antonio tarango -notes scanned in Referral Priority Routine Reason evaluate and treat lars fair Diagnosis [address] at (Z98.84) Referral Organization [facility] [address] Referring Provider First Name ROSS Referring Provider Last Name JUANA Referring Provider Speciality Internal M edicine Referred Provider Specialty General Surg sharri General Notes Morales Kenny 03/12 10:50:25 AM > referral sent to [facility], p. [phone], f. [phone] Clinical Notes Jose Uribe 12/2024 04:06:20 PM > [phone] Redena 04/20/2025 04:06:24 PM > Scheduled for 04/22 at 1 pm. Pt aware Referral Priority Routine Medications Medication SIG (Take, Route, Frequency, Duration) Notes Start Date End Date Status Fish Oil 1000 MG 1 capsule Orally Onc e a day Active Albuterol Sulfate HFA 108 (90 Base) MCG/ACT 2 puff as needed Inhalation every 6 hrs; Duration: 30 days Active amLODIPine Besylate 5 MG 1 tablet Orally Once a day Active Nystatin 281255 UNIT/GM 1 application Ex ternally Twice a day; Duration: 10 days 03/12/2025 Active Pantoprazole Sodium 40 MG TAKE 1 TABLET 1/2 TO 1 HOUR BEFORE MORNING MEAL ORALLY ONCE A DAY 30 DAYS; Duration: 90 Active metFORMIN HCl ER 500 MG TAKE 2 TABLETS B Y MOUTH EVERY DAY; Duration: 90 Active Metoprolol Succinate ER 50 MG 1 tablet Orally Once a day; Duration: 90 days 05/04/2025 Active Pravastatin Sodium 80 MG 1 tablet Orally Once a day Active Potassium Chloride Nova ER 20 MEQ Oral; Duration: 7 Days Activ e Ozempic (1 MG/DOSE) 4 MG/3ML as directed Subcutaneous Act juan antonio Magnesium Oxide 400 MG Oral; Duration: 7 Days Active Irbesartan 300 MG TAKE 1 TABLET BY SAMANTHA TH EVERY DAY; Duration: 90 days Active Vitamin D 50 MCG (1999) 1 tablet Orally Once a day Active Immunizations Vaccine Route Administration Date Status Comme nts DTaP IM Intramuscular 04/10/2022 Administered Moderna Covid-19 Vaccine Unknown 09/16/2021 Administere d Zoster Unknown 06/07/2024 Administered Social History Tobacco Use: Social History Observation Description Date Details (start date - stop date) Never Smoker NA - NA Tobacco Use/Smoking Question Answer Notes Are you a 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: nonsmoker 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: 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 Tob: 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 ETOH: 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 Tob: nonsmoker ETOH: 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 Tob: nonsmoker ETOH: 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 Tob: nonsmoker ETOH: 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 Tob: nonsmoker ETOH: 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 Tob: 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 ETOH: 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 Tob: nonsmoker ETOH: 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 Tob: nonsmoker ETOH: 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 Tob: nonsmoker ETOH: 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 Tob: nonsmoker ETOH: 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 Tob: nonsmoker ETOH: 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 Tob: 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 ETOH: 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 Tob: nonsmoker ETOH: 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 Problems Problem Type SNOMED Code ICD Code Onset Dates Problem Status W/U Status Risk Notes Problem Hypothyroidism (12002628) Hypothyroidism, unspecified (E03.9) Active confirmed Problem Vitamin D deficiency (41591682) Vitamin D deficiency, unspecified (E55.9) Active confirmed Problem Hyperlipidemia (03838098) Hyperlipidemia, unspecified (E78.5) Active confirmed Problem Hypomagnesemia (312568484) Hypomagnesemia (E83.42) Active confirmed Problem Hypercalcemia (54638814) Hypercalcemia (E83.52) Active confirmed Problem Nystagmus (385294) Other forms of nystagmus (H55.09) Active confirmed Problem Essential hypertension (42986899) Essential (primary) hypertension (I10) Active confirmed Problem Abnormal blood pressure (41980809) Encounter for examination of blood pressure with abnormal findings (Z01.31) Active confirmed Problem Screening for malignant neoplasm of breast (243197685) Encounter for screening mammogram for malignant neoplasm of breast (Z12.31) Active confirmed Problem Screening for osteoporosis (166786860) Encounter for screening for osteoporosis (Z13.820) Active confirmed Problem History of bariatric surgical procedure (343016086) Bariatric surgery status (Z98.84) Active confirmed Problem Prediabetes (778696057) Prediabetes (R73.03) Active confirmed Problem Morbid obesity (602319371) Morbid obesity (E66.01) Active confirmed Problem Acquired hypothyroidism (712134632) Acquired hypothyroidism (E03.9) Active confirmed Problem Depressive disorder (disorder) (68912521) Depression, unspecified depression type (F32.9) Active confirmed Problem Annual health maintenance examination (06090655) Annual physical exam (Z00.00) Active confirmed Problem Vitamin D deficiency (00811153) Vitamin D deficiency (E55.9) Active confirmed Problem Body mass index 40+ - morbidly obese (342431221) Body mass index (BMI) 50.0-59.9, adult (Z68.43) Active confirmed Problem Hypertension (39713419) Uncontrolled hypertension (I10) Active confirmed Problem Type II diabetes mellitus without complication (025224212) Type 2 diabetes mellitus without complication, unspecified whether intermediate insulin use (E11.9) Active confirmed Problem Vitamin B>12< deficiency anaemia (63963005) Anemia due to vitamin B12 deficiency, 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) Active confirmed Problem Essential hypertension (30100859) Elevated blood pressure reading in office with white coat syndrome, with diagnosis of hypertension (I10) Active confirmed Problem Frequent headache (finding) (215216669) Frequent headaches (R51.9) Active confirmed Problem Double vision (80137718) Double vision (H53.2) Active confirmed Problem Hyperlipidemia (78802129) 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) Active confirmed Problem Abnormal metabolic state due to diabetes mellitus (771603700) Abnormal metabolic state due to diabetes mellitus (E11.9) Active confirmed Problem Arthralgia of the pelvic region and thigh (895710185) Hip pain, unspecified laterality (M25.559) Active confirmed Problem Protein malnutrition (14444226) Protein malnutrition (E46) Active confirmed Vital Signs Heart Rate 70 /min 06/04/2025 Blood pressure diastolic 66 mm Hg 06/04/2025 Oximetry 96 % 06/04/2025 Height 52 in 06/04/2025 Blood pressure systolic 94 mm Hg 06/04/2025 Weight 199.6 lbs 06/04/2025 BMI 51.89 kg/m2 06/04/2025 Encounters Encounter Location Date Provider Diagnosis [facility] [address] [place] [address] 07/03/2024 ROSS JUANA [facility] [address] [place] [address] 09/08/2024 ROSS JUANA [facility] [address] [place], [place] 09/11/2024 ROSS JUANA [facility] [address] [place] [address] 09/11/2024 ROSS JUANA [facility] [address] [place], [place] 09/15/2024 ROSS JUANA [facility] [address] [place] [address] 10/03/2024 ROSS JUANA [facility] [place] [address] 10/13/2024 ROSS JUANA Hip pain, unspecifie d laterality M25.559 [facility] [address] [place], [place] 10/24/2024 ROSS JUANA [facility] [address] [place], [place] 10/27/2024 ROSS JUANA [facility] [address] [place] [address] 10/27/2024 ROSS JUANA [facility] [address] [place] [address] 10/27/2024 ROSS JUANA [facility] [address] [place] [address] 12/11/2024 ROSS JUANA [facility] [address] [place] [address] 02/20/20[address] ROSS JUANA [facility] [address] [place] [address] 05/04/2025 ROSS JUANA [facility] [address] [place] [address] 05/27/2025 ROSS JUANA [facility] [address] [place] [address] 06/03/2025 ROSS JUANA [facility] [address] [place] [address] 06/03/2025 ROSS JUANA [facility] [address] [place], [place] 06/17/2024 ROSS JUANA [facility] [address] [place], [place] 06/19/2024 RSOS JUANA [facility] [address] [place] [address] 07/24/2024 ROSS JUANA [facility] [address] [place] [address] 08/09/2024 ROSS JUANA [facility] [address] [place], [place] 09/02/2024 ROSS JUANA [facility] [address] [place] [address] 09/11/2024 ROSS JUANA Type 2 diabetes claudette itus without complication, unspecified whether terminal block assembler insulin use E11.9 ; COVID-19 U07.1 ; Uncontrolled hypertension I10 ; Morbid obesity E66.01 ; Body mass index (BMI) 50.0-59.9, adult Z68.43 and Hypercalcemia E83.[address] [facility] [address] [place] [address] 09/26/2024 ROSS JUANA Type 2 diabetes caludette itus without complication, unspecified whether intermediate insulin use E11.9 ; Hypercalcemia E83.52 ; Uncontrolled hypertension I10 ; Morbid obesity E66.01 ; Body mass index (BMI) 50.0-59.9, adult Z68.43 ; Right hip pain M25.551 ; Frequent headaches R51.9 and Other forms of nystagmus H55.[address] [facility] [address] [place] [address] 10/13/2024 ROSS JUANA Hip pain, left M25.5 52 ; Hip pain, right M25.551 ; Hypercalcemia E83.52 ; Type 2 diabetes mellitus without complication, unspecified whether intermediate insulin use E11.9 ; Morbid obesity E66.01 ; Body mass index (BMI) 50.0-59.9, adult Z68.43 ; Essential (primary) hypertension I10 and Cough R05.[address] [facility] [address] [place] [address] 12/11/2024 ROSS ARIAS Type 2 diabetes claudette itus without complication, unspecified whether terminal block assembler insulin use E11.9 ; Hypercalcemia E83.52 ; Uncontrolled hypertension I10 ; Morbid obesity E66.01 ; Body mass index (BMI) 50.0-59.9, adult Z68.43 ; Right hip pain M25.551 ; Frequent headaches R51.9 and Other forms of nystagmus H55.[address] [facility] [address] [place] [address] 03/12/2025 ROSS ARIAS Type 2 diabetes claudette itus without complication, unspecified whether terminal block assembler insulin use E11.9 ; Hypercalcemia E83.52 ; Uncontrolled hypertension I10 ; Morbid obesity E66.01 ; Body mass index (BMI) 50.0-59.9, adult Z68.43 ; Right hip pain M25.551 ; Frequent headaches R51.9 and Other forms of nystagmus H55.[address] [facility] [address] [place] [address] 08/08/2024 ROSS ARIAS Morbid obesity E66.0 1 ; Type 2 diabetes mellitus without complication, unspecified whether intermediate insulin use E11.9 ; Body mass index (BMI) 50.0-59.9, adult Z68.43 ; Essential (primary) hypertension I10 and Hypercalcemia E83.[address] [facility] [address] [place] [address] 06/04/2025 ROSS ARIAS SHEILA (acute kidney in [place]) N17.9 ; Volume depletion, unspecified E86.9 ; Hypomagnesemia E83.42 ; Hypokalemia E87.6 ; Acute hyponatremia E87.1 ; Protein malnutrition E46 ; Abnormal weight loss R63.4 ; Encounter for examination of blood pressure with abnormal findings Z01.31 and Nausea R11.[address] [facility] [address] [place] [address] 05/04/2025 ROSS ARIAS Prediabetes R73.03 ; Annual physical exam Z00.00 ; Morbid obesity E66.01 ; Body mass index (BMI) 50.0-59.9, adult Z68.43 ; Essential (primary) hypertension I10 ; Type 2 diabetes mellitus without complication, unspecified whether intermediate insulin use E11.9 and Hypercalcemia E83.52 Assessments Encounter Date Diagnosis (ICD Code) Assessment Notes Treatment Notes Treatment Clinical Notes Section Notes 08/08/2024 Morbid obesity (ICD-10 - E66.01) 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 # HTN: Currently on Irbesartan 300 mg (max dose), HCTZ 37.55 mg po daily. Continue Amlodipine 5 mg po daily. # Hypercalcemia: Refer to endocrinology. Did not significantly improve with discontinuation of HCTZ. PTH WNL #Morbid obesity: Highest weight 230 pounds, lose weight 130 pounds, goal weight for now is 150 pounds. - Will request for Mounmaninderro # Nystagmus: Brain CT w/o contrast w/o intracranial pathology # R hip pain. R hip x-ray. PRN NSAIDs- encouraged to favor APAP due to elevated BP #Hyperglycemia: Metformin will be increased to 1000mg Qhs. Case discussed with collaborating physician Bharati Armando who reviewed the assessment and plan. Chart, medications, labs, vital signs reviewed. 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 [...] is 150 pounds. 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 [...] Dictation was accomplished with the use of [employer] voice recognition software, prone to medical misidentifications [...] 50% being face to face counselling. 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 # [...] is also undergoing bariatric surgery evaluation through [facility] # Hypercalcemia Followed by endocrinology Patient [...] log exercise and discussed fitness Apps like [employer] which can help keep log off calories [...] Dictation was accomplished with the use of [employer] voice recognition software, prone to medical misidentifications [...] than 50% being face to face counselling. 06/04/2025 SHEILA (acute kidney injury) (ICD-10 - N17.9) Courtney is a pleasant 64 year old female who presents today for an ER follow up. #Acute kidney injury: Patients creatinine is 0.8 to 1.44. An elevated BUN/ creatinine ratio of 25.0, a decreased sodium of 134, a decreased potassium of 3.3, and a decreased magnessium of 1.5. At this time the patient is going to be getting 1 liter of NS 0.9% in office today. Patient also nauseous so Zofran 4mg IVx 1. At this time the patient was also told that once she gets home she needs to really increase fluid intake and take the potassium and magnesium medication that she was prescribed the normalize these levels. Will reasses CBC, CMP, Mag in 1 week. #Suspected malnutrition: At this time the patient was advised that she really needs to eat something even if it is a few bites due to a 17 lb weight loss in 1 months. Patient was also educated on how a decrease in nutritional intake can be causing her fatigue and muscle cramping at this time. # Hypotension: Instructed to hold ARB due to renal insufficnecy for now. Patient's chart was reviewed, as well as ER record was obtained. IV was inserted by Peggy Laguna RN. Patient was given 4 mg of IV push Zofran, as well as administered 1 L normal saline as above noted. Total time spent with patient including ER charting and history taking was over 45 minutes, in conjunction with administration of IV fluids which is an additional hour and a half. Patient tolerated procedure well, and felt improved. Patient will follow up in 1 week after having fasting blood work. Patient is to call the office with any further questions or concerns. Case discussed with collaborating physician Shahrzad Armando who reviewed the assessment and plan. Chart, medications, labs, vital signs reviewed. Dictation was accomplished with the use of [employer] voice recognition software, prone to medical misidentifications and grammatical errors. This is unintentional and the practitioner does try to identify and correct these, but some could still be present. Please do not hesitate to contact practitioner for clarification. All questions answered to patients satisfaction. Patient verbalized understanding of diagnosis and treatments explained. To call sooner prior to next visit it any questions/concerns arise. 06/04/2025 Volume depletion, unspecified (ICD-10 - E86.9) Courtney is a pleasant 64 year old female who presents today for an ER follow up. #Acute kidney injury: Patients creatinine is 0.8 to 1.44. An elevated BUN/ creatinine ratio of 25.0, a decreased sodium of 134, a decreased potassium of 3.3, and a decreased magnessium of 1.5. At this time the patient is going to be getting 1 liter of NS 0.9% in office today. Patient also nauseous so Zofran 4mg IVx 1. At this time the patient was also told that once she gets home she needs to really increase fluid intake and take the potassium and magnesium medication that she was prescribed the normalize these levels. Will reasses CBC, CMP, Mag in 1 week. #Suspected malnutrition: At this time the patient was advised that she really needs to eat something even if it is a few bites due to a 17 lb weight loss in 1 months. Patient was also educated on how a decrease in nutritional intake can be causing her fatigue and muscle cramping at this time. # Hypotension: Instructed to hold ARB due to renal insufficnecy for now. Patient's chart was reviewed, as well as ER record was obtained. IV was inserted by Peggy Laguna RN. Patient was given 4 mg of IV push Zofran, as well as administered 1 L normal saline as above noted. Total time spent with patient including ER charting and history taking was over 45 minutes, in conjunction with administration of IV fluids which is an additional hour and a half. Patient tolerated procedure well, and felt improved. Patient will follow up in 1 week after having fasting blood work. Patient is to call the office with any further questions or concerns. Case discussed with collaborating physician Shahrzad Armando who reviewed the assessment and plan. Chart, medications, labs, vital signs reviewed. Dictation was accomplished with the use of [employer] voice recognition software, prone to medical misidentifications and grammatical errors. This is unintentional and the practitioner does try to identify and correct these, but some could still be present. Please do not hesitate to contact practitioner for clarification. All questions answered to patients satisfaction. Patient verbalized understanding of diagnosis and treatments explained. To call sooner prior to next visit it any questions/concerns arise. 06/04/2025 Hypomagnesemia (ICD-10 - E83.42) Courtney is a pleasant 64 year old female who presents today for an ER follow up. #Acute kidney injury: Patients creatinine is 0.8 to 1.44. An elevated BUN/ creatinine ratio of 25.0, a decreased sodium of 134, a decreased potassium of 3.3, and a decreased magnessium of 1.5. At this time the patient is going to be getting 1 liter of NS 0.9% in office today. Patient also nauseous so Zofran 4mg IVx 1. At this time the patient was also told that once she gets home she needs to really increase fluid intake and take the potassium and magnesium medication that she was prescribed the normalize these levels. Will reasses CBC, CMP, Mag in 1 week. #Suspected malnutrition: At this time the patient was advised that she really needs to eat something even if it is a few bites due to a 17 lb weight loss in 1 months. Patient was also educated on how a decrease in nutritional intake can be causing her fatigue and muscle cramping at this time. # Hypotension: Instructed to hold ARB due to renal insufficnecy for now. Patient's chart was reviewed, as well as ER record was obtained. IV was inserted by Peggy Laguna RN. Patient was given 4 mg of IV push Zofran, as well as administered 1 L normal saline as above noted. Total time spent with patient including ER charting and history taking was over 45 minutes, in conjunction with administration of IV fluids which is an additional hour and a half. Patient tolerated procedure well, and felt improved. Patient will follow up in 1 week after having fasting blood work. Patient is to call the office with any further questions or concerns. Case discussed with collaborating physician Shahrzad Armando who reviewed the assessment and plan. Chart, medications, labs, vital signs reviewed. Dictation was accomplished with the use of [employer] voice recognition software, prone to medical misidentifications and grammatical errors. This is unintentional and the practitioner does try to identify and correct these, but some could still be present. Please do not hesitate to contact practitioner for clarification. All questions answered to patients satisfaction. Patient verbalized understanding of diagnosis and treatments explained. To call sooner prior to next visit it any questions/concerns arise. 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 [...] pathology # R hip pain. Followed by [facility] #Hyperglycemia: Metformin will be increased to 1000mg Qhs. Case discussed with collaborating physician Bharati Armando who reviewed the assessment and plan. Chart, medications, labs, vital signs reviewed. 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 # HTN: Currently on Irbesartan 300 mg (max dose Was started on Amlodipine last visit, and increased from 5 to 10 mg. BP readings improved with SBP in 130's. Pt reports ankle edema. Will continue Irbesartan 300 mg po daily, Amloidpine 5 mg po daily. #Morbid obesity:Currently going through [facility] for weight loss medication. Patient is also undergoing bariatric surgery evaluation through [facility] # Hypercalcemia Followed by endocrinology Patient [...] log exercise and discussed fitness Apps like [employer] which can help keep log off calories [...] Dictation was accomplished with the use of [employer] voice recognition software, prone to medical misidentifications [...] than 50% being face to face counselling. 06/04/2025 Hypokalemia (ICD-10 - E87.6) Courtney is a pleasant 64 year old female who presents today for an ER follow up. #Acute kidney injury: Patients creatinine is 0.8 to 1.44. An elevated BUN/ creatinine ratio of 25.0, a decreased sodium of 134, a decreased potassium of 3.3, and a decreased magnessium of 1.5. At this time the patient is going to be getting 1 liter of NS 0.9% in office today. Patient also nauseous so Zofran 4mg IVx 1. At this time the patient was also told that once she gets home she needs to really increase fluid intake and take the potassium and magnesium medication that she was prescribed the normalize these levels. Will reasses CBC, CMP, Mag in 1 week. #Suspected malnutrition: At this time the patient was advised that she really needs to eat something even if it is a few bites due to a 17 lb weight loss in 1 months. Patient was also educated on how a decrease in nutritional intake can be causing her fatigue and muscle cramping at this time. # Hypotension: Instructed to hold ARB due to renal insufficnecy for now. Patient's chart was reviewed, as well as ER record was obtained. IV was inserted by Peggy Laguna RN. Patient was given 4 mg of IV push Zofran, as well as administered 1 L normal saline as above noted. Total time spent with patient including ER charting and history taking was over 45 minutes, in conjunction with administration of IV fluids which is an additional hour and a half. Patient tolerated procedure well, and felt improved. Patient will follow up in 1 week after having fasting blood work. Patient is to call the office with any further questions or concerns. Case discussed with collaborating physician Shharzad Armando who reviewed the assessment and plan. Chart, medications, labs, vital signs reviewed. Dictation was accomplished with the use of [employer] voice recognition software, prone to medical misidentifications and grammatical errors. This is unintentional and the practitioner does try to identify and correct these, but some could still be present. Please do not hesitate to contact practitioner for clarification. All questions answered to patients satisfaction. Patient verbalized understanding of diagnosis and treatments explained. To call sooner prior to next visit it any questions/concerns arise. 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 [...] Dictation was accomplished with the use of [employer] voice recognition software, prone to medical misidentifications [...] than 50% being face to face counselling. 06/04/2025 Acute hyponatremia (ICD-10 - E87.1) Courtney is a pleasant 64 year old female who presents today for an ER follow up. #Acute kidney injury: Patients creatinine is 0.8 to 1.44. An elevated BUN/ creatinine ratio of 25.0, a decreased sodium of 134, a decreased potassium of 3.3, and a decreased magnessium of 1.5. At this time the patient is going to be getting 1 liter of NS 0.9% in office today. Patient also nauseous so Zofran 4mg IVx 1. At this time the patient was also told that once she gets home she needs to really increase fluid intake and take the potassium and magnesium medication that she was prescribed the normalize these levels. Will reasses CBC, CMP, Mag in 1 week. #Suspected malnutrition: At this time the patient was advised that she really needs to eat something even if it is a few bites due to a 17 lb weight loss in 1 months. Patient was also educated on how a decrease in nutritional intake can be causing her fatigue and muscle cramping at this time. # Hypotension: Instructed to hold ARB due to renal insufficnecy for now. Patient's chart was reviewed, as well as ER record was obtained. IV was inserted by Peggy Laguna RN. Patient was given 4 mg of IV push Zofran, as well as administered 1 L normal saline as above noted. Total time spent with patient including ER charting and history taking was over 45 minutes, in conjunction with administration of IV fluids which is an additional hour and a half. Patient tolerated procedure well, and felt improved. Patient will follow up in 1 week after having fasting blood work. Patient is to call the office with any further questions or concerns. Case discussed with collaborating physician Shahrzad Armando who reviewed the assessment and plan. Chart, medications, labs, vital signs reviewed. Dictation was accomplished with the use of [employer] voice recognition software, prone to medical misidentifications and grammatical errors. This is unintentional and the practitioner does try to identify and correct these, but some could still be present. Please do not hesitate to contact practitioner for clarification. All questions answered to patients satisfaction. Patient verbalized understanding of diagnosis and treatments explained. To call sooner prior to next visit it any questions/concerns arise. 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 # HTN: Currently on Irbesartan 300 mg (max dose Was started on Amlodipine last visit, and increased from 5 to 10 mg. BP readings improved with SBP in 130's. Pt reports ankle edema. Will continue Irbesartan 300 mg po daily, Amloidpine 5 mg po daily. #Morbid obesity:Currently going through [facility] for weight loss medication. 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 # [...] pathology # R hip pain. Followed by [facility] #Hyperglycemia: Metformin will be increased to 1000mg Qhs. Case discussed with collaborating physician Bharati Armando who reviewed the assessment and plan. Chart, medications, labs, vital signs reviewed. 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 # HTN: Currently on Irbesartan 300 mg (max dose Was started on Amlodipine last visit, and increased from 5 to 10 mg. BP readings improved with SBP in 130's. Pt reports ankle edema. Will continue Irbesartan 300 mg po daily, Amloidpine 5 mg po daily. #Morbid obesity:Currently going through [facility] for weight loss medication. 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 [...] Dictation was accomplished with the use of [employer] voice recognition software, prone to medical misidentifications [...] than 50% being face to face counselling. 06/04/2025 Protein malnutrition (ICD-10 - E46) Courtney is a pleasant 64 year old female who presents today for an ER follow up. #Acute kidney injury: Patients creatinine is 0.8 to 1.44. An elevated BUN/ creatinine ratio of 25.0, a decreased sodium of 134, a decreased potassium of 3.3, and a decreased magnessium of 1.5. At this time the patient is going to be getting 1 liter of NS 0.9% in office today. Patient also nauseous so Zofran 4mg IVx 1. At this time the patient was also told that once she gets home she needs to really increase fluid intake and take the potassium and magnesium medication that she was prescribed the normalize these levels. Will reasses CBC, CMP, Mag in 1 week. #Suspected malnutrition: At this time the patient was advised that she really needs to eat something even if it is a few bites due to a 17 lb weight loss in 1 months. Patient was also educated on how a decrease in nutritional intake can be causing her fatigue and muscle cramping at this time. # Hypotension: Instructed to hold ARB due to renal insufficnecy for now. Patient's chart was reviewed, as well as ER record was obtained. IV was inserted by Peggy Laguna RN. Patient was given 4 mg of IV push Zofran, as well as administered 1 L normal saline as above noted. Total time spent with patient including ER charting and history taking was over 45 minutes, in conjunction with administration of IV fluids which is an additional hour and a half. Patient tolerated procedure well, and felt improved. Patient will follow up in 1 week after having fasting blood work. Patient is to call the office with any further questions or concerns. Case discussed with collaborating physician \Bharati Armando who reviewed the assessment and plan. Chart, medications, labs, vital signs reviewed. Dictation was accomplished with the use of [employer] voice recognition software, prone to medical misidentifications and grammatical errors. This is unintentional and the practitioner does try to identify and correct these, but some could still be present. Please do not hesitate to contact practitioner for clarification. All questions answered to patients satisfaction. Patient verbalized understanding of diagnosis and treatments explained. To call sooner prior to next visit it any questions/concerns arise. 06/04/2025 Abnormal weight loss (ICD-10 - R63.4) Courtney is a pleasant 64 year old female who presents today for an ER follow up. #Acute kidney injury: Patients creatinine is 0.8 to 1.44. An elevated BUN/ creatinine ratio of 25.0, a decreased sodium of 134, a decreased potassium of 3.3, and a decreased magnessium of 1.5. At this time the patient is going to be getting 1 liter of NS 0.9% in office today. Patient also nauseous so Zofran 4mg IVx 1. At this time the patient was also told that once she gets home she needs to really increase fluid intake and take the potassium and magnesium medication that she was prescribed the normalize these levels. Will reasses CBC, CMP, Mag in 1 week. #Suspected malnutrition: At this time the patient was advised that she really needs to eat something even if it is a few bites due to a 17 lb weight loss in 1 months. Patient was also educated on how a decrease in nutritional intake can be causing her fatigue and muscle cramping at this time. # Hypotension: Instructed to hold ARB due to renal insufficnecy for now. Patient's chart was reviewed, as well as ER record was obtained. IV was inserted by Peggy Laguna RN. Patient was given 4 mg of IV push Zofran, as well as administered 1 L normal saline as above noted. Total time spent with patient including ER charting and history taking was over 45 minutes, in conjunction with administration of IV fluids which is an additional hour and a half. Patient tolerated procedure well, and felt improved. Patient will follow up in 1 week after having fasting blood work. Patient is to call the office with any further questions or concerns. Case discussed with collaborating physician \Bharati Armando who reviewed the assessment and plan. Chart, medications, labs, vital signs reviewed. Dictation was accomplished with the use of [employer] voice recognition software, prone to medical misidentifications and grammatical errors. This is unintentional and the practitioner does try to identify and correct these, but some could still be present. Please do not hesitate to contact practitioner for clarification. All questions answered to patients satisfaction. Patient verbalized understanding of diagnosis and treatments explained. To call sooner prior to next visit it any questions/concerns arise. 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 # HTN: Currently on Irbesartan 300 mg (max dose Was started on Amlodipine last visit, and increased from 5 to 10 mg. BP readings improved with SBP in 130's. Pt reports ankle edema. Will continue Irbesartan 300 mg po daily, Amloidpine 5 mg po daily. #Morbid obesity:Currently going through [facility] for [facility] loss medication. 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 # [...] Dictation was accomplished with the use of [employer] voice recognition software, prone to medical misidentifications [...] than 50% being face to face counselling. 06/04/2025 Encounter for examination of blood pressure with abnormal findings (ICD-10 - Z01.31) Courtney is a pleasant 64 year old female who presents today for an ER follow up. #Acute kidney injury: Patients creatinine is 0.8 to 1.44. An elevated BUN/ creatinine ratio of 25.0, a decreased sodium of 134, a decreased potassium of 3.3, and a decreased magnessium of 1.5. At this time the patient is going to be getting 1 liter of NS 0.9% in office today. Patient also nauseous so Zofran 4mg IVx 1. At this time the patient was also told that once she gets home she needs to really increase fluid intake and take the potassium and magnesium medication that she was prescribed the normalize these levels. Will reasses CBC, CMP, Mag in 1 week. #Suspected malnutrition: At this time the patient was advised that she really needs to eat something even if it is a few bites due to a 17 lb weight loss in 1 months. Patient was also educated on how a decrease in nutritional intake can be causing her fatigue and muscle cramping at this time. # Hypotension: Instructed to hold ARB due to renal insufficnecy for now. Patient's chart was reviewed, as well as ER record was obtained. IV was inserted by Peggy Laguna RN. Patient was given 4 mg of IV push Zofran, as well as administered 1 L normal saline as above noted. Total time spent with patient including ER charting and history taking was over 45 minutes, in conjunction with administration of IV fluids which is an additional hour and a half. Patient tolerated procedure well, and felt improved. Patient will follow up in 1 week after having fasting blood work. Patient is to call the office with any further questions or concerns. Case discussed with collaborating physician Shahrzad Armando who reviewed the assessment and plan. Chart, medications, labs, vital signs reviewed. Dictation was accomplished with the use of [employer] voice recognition software, prone to medical misidentifications and grammatical errors. This is unintentional and the practitioner does try to identify and correct these, but some could still be present. Please do not hesitate to contact practitioner for clarification. All questions answered to patients satisfaction. Patient verbalized understanding of diagnosis and treatments explained. To call sooner prior to next visit it any questions/concerns arise. 06/04/2025 Nausea (ICD-10 - R11.0) Courtney is a pleasant 64 year old female who presents today for an ER follow up. #Acute kidney injury: Patients creatinine is 0.8 to 1.44. An elevated BUN/ creatinine ratio of 25.0, a decreased sodium of 134, a decreased potassium of 3.3, and a decreased magnessium of 1.5. At this time the patient is going to be getting 1 liter of NS 0.9% in office today. Patient also nauseous so Zofran 4mg IVx 1. At this time the patient was also told that once she gets home she needs to really increase fluid intake and take the potassium and magnesium medication that she was prescribed the normalize these levels. Will reasses CBC, CMP, Mag in 1 week. #Suspected malnutrition: At this time the patient was advised that she really needs to eat something even if it is a few bites due to a 17 lb weight loss in 1 months. Patient was also educated on how a decrease in nutritional intake can be causing her fatigue and muscle cramping at this time. # Hypotension: Instructed to hold ARB due to renal insufficnecy for now. Patient's chart was reviewed, as well as ER record was obtained. IV was inserted by Peggy Laguna RN. Patient was given 4 mg of IV push Zofran, as well as administered 1 L normal saline as above noted. Total time spent with patient including ER charting and history taking was over 45 minutes, in conjunction with administration of IV fluids which is an additional hour and a half. Patient tolerated procedure well, and felt improved. Patient will follow up in 1 week after having fasting blood work. Patient is to call the office with any further questions or concerns. Case discussed with collaborating physician Shahrzad Armando who reviewed the assessment and plan. Chart, medications, labs, vital signs reviewed. Dictation was accomplished with the use of [employer] voice recognition software, prone to medical misidentifications and grammatical errors. This is unintentional and the practitioner does try to identify and correct these, but some could still be present. Please do not hesitate to contact practitioner for clarification. All questions answered to patients satisfaction. Patient verbalized understanding of diagnosis and treatments explained. To call sooner prior to next visit it any questions/concerns arise. Plan Of Treatment Pending Test Test Name [...] COMPREHENSIVE METABOLIC PANEL 01/17/2022 COMPREHENSIVE METABOLIC PANEL 06/04/2025 COMPREHENSIVE METABOLIC PANEL 06/14/2023 COMPREHENSIVE METABOLIC PANEL 03/12/2025 COMPREHENSIVE METABOLIC PANEL 12/11/2024 COMPREHENSIVE METABOLIC PANEL 08/08/2024 COMPREHENSIVE METABOLIC PANEL 05/02/2024 COMPREHENSIVE METABOLIC PANEL 04/10/2022 COMPREHENSIVE METABOLIC PANEL 01/09/2023 MAGNESIUM 06/04/2025 ALT 02/16/2021 CBC (INCLUDES DIFF/PLT) 01/09/2023 CBC (INCLUDES DIFF/PLT) 03/12/2025 CBC (INCLUDES DIFF/PLT) 05/02/2024 CBC (INCLUDES DIFF/PLT) 12/11/2024 CBC (INCLUDES DIFF/PLT) 06/14/2023 CBC (INCLUDES DIFF/PLT) 06/04/2025 CBC (INCLUDES DIFF/PLT) 01/17/2022 URINALYSIS, COMPLETE 06/14/2023 URINALYSIS, COMPLETE 03/12/2025 URINALYSIS, COMPLETE 01/09/2023 HEMOGLOBIN A1c 01/09/2023 HEMOGLOBIN A1c 05/02/2024 HEMOGLOBIN A1c 04/10/2022 HEMOGLOBIN A1c 12/11/2024 HEMOGLOBIN A1c 01/17/2022 HEMOGLOBIN A1c 06/14/2023 VITAMIN B12 03/12/2025 TSH 06/14/2023 VITAMIN D,25-OH,TOTAL,IA 06/14/2023 VITAMIN D,25-OH,TOTAL,IA 01/17/2022 VITAMIN D,25-OH,TOTAL,IA 03/12/2025 CT Brain WO 09/26/2024 TSH+T3+Free T4+T3 Free 03/12/2025 Next Appt Details Provider Name:ROSS ARIAS, 06/15/2025 08:00:00 AM, [address], [place], [address], Provider Name:ROSS ARIAS, 08/04/2025 08:00:00 AM, [address], [place], [address], Insurance Providers Payer Name Payer Address Payer Phone Subscriber Number Group Number Insured Name Patient Relationship to Insured Coverage Start Date Coverage End Date [facility] [address] [place] [address] [id number] COURTNEY HILARIO Self - patient is the insured Medications Administered Medication Instructions Date of Administration Dosage Notes [facility] B12 INJECTION 07/11/2021 lot # [id number] Semaglutide 04/15/2024 1 Medical (General) History Medical History History ICD Code Essential (primary) hypertension I10 Hyperlipidemia, unspecified E78.5 Prediabetes R73.03 Vitamin D deficiency E55.9 Depression, unspecified F32.A Obesity (BMI 30-39.9) E66.9 Aortic valve disease I35.9 CRYSTAL (obstructive sleep apnea) G47.33 Aortic stenosis, moderate I35.0 Surgical History Surgery Date(Month/Year) section L knee meniscus surgery 09/26/2022
== END 2025-06-08 08:58 | disposition home or self-care (01) ==
LOC: HO.HBST 08:14
PROVIDERS: PCP Physician Assistant Medical; Visit Provider Counselor Mental Health
DX: F32.1 Major depressive disorder, single episode, moderate (principal); Z71.89 Other specified counseling
CPT/HCPCS: 90837

== ENCOUNTER 2025-06-23 10:27 | Outpatient (REF) | payer BC, SELFPAY ==
[2025-06-23 10:47] LABS: MANUAL DIFF FLAG NO
--- OUTSIDE RECORDS SUMMARY | 2025-06-23 11:09 | XMS_ITS | Clinical Summary ---
Author Organization [facility] [employer] [facility] Address [address] [place] [address] Phone Care Team Providers Care Deicer Tester Name Role Phone Belkys Armando MD Primary Care Provider [phone] Allergies Active Allergy Reactions Criticality Noted Date [...] (one) time each day. 9 Active omega 1-zpa-vfe-fish oil (Fish OiL) 1,200 (144-216) mg capsule Take 1,200 mg by mouth daily. 9 Active cholecalciferol (VITAMIN D-3) 50 mcg (2,000 unit) capsule Take 2,000 Units by mouth daily. 3 Active pravastatin (PRAVACHOL) 80 mg tablet TAKE 1 TABLET BY MOUTH EVERY DAY 90 tablet 3 5 Active metoprolol tartrate (LOPRESSOR) 50 mg tablet Take 1 tablet (50 mg total) by mouth 2 (two) times a day. Active aspirin 81 mg EC tabletIndicatio ns:Other chest pain Take 1 tablet (81 mg [...] EVERY DAY 90 tablet 3 5 Active albuterol HFA (PROAIR HFA ; PROVENTIL HFA ; VENTOLIN HFA) 90 mcg/actuation inhaler every 6 hours. Activ e celecoxib (CeleBREX) 200 mg capsule Take 1 capsule (200 mg total) by mouth 1 (one) time each day. 5 Active metoprolol succinate (TOPROL-XL) 50 mg 24 hr tablet 1 tablet (50 mg total) 1 (one) time each day at the same time. 5 Active nystatin (MYCOSTATIN) 100,000 unit/gram powder 1 Application every 12 hours. 5 Active potassium chloride (KLOR-CON M20) 20 mEq CR tablet Take 1 tablet (20 mEq total) by mouth 2 (two) times a day for 7 days. Tablet may be swallowed whole (do not crush/chew/suck on) OR broken in half and each half swallowed separately OR dissolved (whole tablet) in ~4 ounces of water (allow ~2 minutes to dissolve, stir well and administer immediately). 14 tablet 5 06/10/20 25 magnesium oxide (MAG-OX) 400 mg magnesium tablet Take 1 tablet (400 mg total) by mouth 1 (one) time each day for 7 days. 7 tablet 5 06/10/20 25 Active Problems Problem Noted Date Diagnosed Date [...] coronary artery calcium scoring test done in 2018, her LDL target should be 70 or [...] Encounters Date Type Department Care Team Description 06/10/2025 10:30 AM EDT Office Visit Pulmonolgy - [place] [address] [facility] [address] [place] [phone] Robbie Joyce MD Obstructive sleep apnea (Primary Dx); Obesity (BMI 30.0-34.9); Gastroesophageal reflux disease without esophagitis 06/03/2025 6:50 PM EDT - 06/03/2025 8:19 PM EDT Emergency [facility] [address] [place] [address] Osmel Kebede MD Dizziness (Primary Dx); Hypotension, unspecified hypotension type; Medication side effect; Hyponatremia; Hypokalemia; Hypomagnesemia; Dehydration Discharge Disposition: Home or Self Care from Last 3 Months Immunizations Name Administration Dates Next Due Tdap Tetanus diptheria acell ular pertussis (Boostrix; Adacel) 7yo and older 05/13/2010 Surgical History Surgery Date Site/Laterality Comments OTHER SURGICAL HISTORY PROCEDURE: HISTORICAL D&C OTHER SURGICAL HISTORY PROCEDURE: [facility] PUNCTURE ASPIRATION CYST OF BREAST OTHER SURGICAL HISTORY PROCEDURE: [facility] ENDOMETRIAL BX W/WO ENDOCERVIX BX W/O DILAT SPX SECTION PROCEDURE: HISTORICAL DELIVERY KNEE ARTHROSCOPY Left PROCEDURE: VA ARTHROSCOPY AID TX SPINE&/FX KNEE W/O FIXJ; [...] Date Smoking Tobacco: Never Smokeless Tobacco: Never Tobacco Cessation:Counseling Given: Not Answered Alcohol Use Standard Drinks/Week Comments Yes 0 [...] Sign Reading Time Taken Comments Blood Pressure 132/82 06/10/2025 10:46 AM EDT Pulse 79 06/10/2025 10:46 AM EDT Temperature 36.4 C (97.6 F) 06/10/2025 10:46 AM EDT Respiratory Rate 20 06/10/2025 10:46 AM EDT Oxygen Saturation 98% 06/10/2025 10:46 AM EDT Inhaled Oxygen Concentration - - Weight 89.4 kg (197 lb) 06/10/2025 10:46 AM EDT Height 161.3 cm (5' 3.5 ) 06/10/2025 10:46 AM ED T Body Mass Index 34.35 06/10/2025 10:46 AM EDT Plan of Treatment Upcoming Encounters Date Type Department Care Team (Late st Contact Info) Description 06/10/2026 9:45 AM EDT Office Visit Pulmonolgy - [place] [address] [phone] Robbie Joyce MD [address] [address] Health Maintenance Due Date Last Done Comments Breast Cancer Screening 1961 Diabetes: Annual Foot Exam 1971 Diabetes: Annual Retina Eye Exam 1971 Pneumococcal Vaccine: 50+ Years (1 of 2 - PCV) 1980 Cervical Cancer Screening: Pap Smear 02/07/2020 02/06/2017 RSV Immunization Adult Patients (1 - Risk 60-74 years 1-dose series) 2021 HIV Screening 10/28/2022 Hepatitis C Screening 10/28/2022 Social Influencers of Health Screening 10/28/2022 Colorectal Cancer Screening: Colonoscopy 05/14/2023 05/14/2013 COVID-19 Vaccine ( season) 2024 05/16/2022, 09/16/2021, 02/22/2021, Additional history exists Depression Screening 11/19/2024 Diabetes: Annual Urine Albumin-Creatinine Ratio (uACR) 06/04/2025 Diabetes: Blood Sugar Control Test (HGBA1C) 06/04/2025 05/05/2019 Influenza Vaccine (#1) 2025 Diabetes: Annual GFR (Glomerular Filtration Rate) 06/03/2026 06/03/2025, 01/26/2025, 05/05/2019 Hypertension/CHF/CAD Annual BMP Blood Test 06/03/2026 06/03/2025, 01/26/2025, 05/05/2019 Cholesterol Screening (Lipid Panel) 04/27/2030 04/27/2025, 01/26/2025, 07/03/2019 DTaP,Tdap,and Td Vaccines (3 - Td or Tdap) 04/10/2032 04/10/2022, 05/13/2010 Zoster Vaccines Completed 06/07/2024, 04/04/2024 HIB Vaccines [...] 20 months Aged Out No longer eligible based on patient's age to complete this topic Varicella Vaccines Aged Out No longer eligible based on patient's age to complete this topic Procedures Procedure Name Priority Date/Time Associated Diagnosis Comments COMPLETE BLOOD COUNT STAT 06/03/2025 8:15 PM EDT MAGNESIUM STAT 06/03/2025 8:15 PM EDT COMPREHENSIVE METABOLIC PANEL STAT 06/03/2025 8:15 PM EDT LIPID PANEL Routine 04/27/2025 7:41 AM EDT Hyperlipidemia, unspecified hyperlipidemia type HEMOGLOBIN A1C Routine 05/05/2019 HM PAP SMEAR Routine 02/06/2017 HM COLONOSCOPY Routine 05/14/2013 from Last 3 Months or Most Recently Relevant to Health Maintenance Results * (ABNORMAL) CBC (06/03/2025 8:15 PM EDT) WBC 8.0 4.0 - 10.5 K/mcL LAB HEMETOLOGY METHOD 06/03/2025 8:29 PM EDT [facility] RBC 5.24 4.20 - 5.40 M/mcL LAB HEMETOLOGY METHOD 06/03/2025 8:29 PM EDT [facility] Hemoglobin 15.0 12.5 - 16.0 g/dL LAB HEMETOLOGY METHOD 06/03/2025 8:29 PM EDT [facility] Hematocrit 44.5 37.0 - 47.0 % LAB HEMETOLOGY METHOD 06/03/2025 8:29 PM EDT [facility] MCV 84.9 78.0 - 100.0 FL LAB HEMETOLOGY METHOD 06/03/2025 8:29 PM EDT [facility] MCH 28.6 25.0 - 33.0 pcg LAB HEMETOLOGY METHOD 06/03/2025 8:29 PM EDT [facility] MCHC 33.7 32.0 - 36.0 g/dL LAB HEMETOLOGY METHOD 06/03/2025 8:29 PM EDT [facility] RDW 14.3 12.1 - 16.2 % LAB HEMETOLOGY METHOD 06/03/2025 8:29 PM EDT [facility] Platelets 235 150 - 450 K/mcL LAB HEMETOLOGY METHOD 06/03/2025 8:29 PM EDT [facility] MPV 11.5(H) 7.4 - 11.4 FL LAB HEMETOLOGY METHOD 06/03/2025 8:29 PM EDT [facility] Blood Venous blood specimen / Unknown Venipuncture / Unknown 06/03/2025 8:15 PM EDT 06/03/2025 8:26 PM EDT Osmel Kebede MD LAB BLOOD ORDERABLES Final Res ult [facility] [address] [place] [address], [place] [phone] * (ABNORMAL) Magnesium (06/03/2025 8:15 PM EDT) Magnesium 1.5(L) 1.7 - 2.8 mg/dL LAB CHEMISTRY METHOD 06/03/2025 8:46 PM EDT [facility] Blood Venous blood specimen / Unknown Venipuncture / Unknown 06/03/2025 8:15 PM EDT 06/03/2025 8:26 PM EDT Osmel Kebede MD LAB BLOOD ORDERABLES Final Res ult [facility] [address] [place] [address], [place] [phone] * (ABNORMAL) Comprehensive Metabolic Panel (CMP) (06/03/2025 8:15 PM EDT) [facility] Signature Sodium 134(L) 135 - 145 mmol/L LAB CHEMISTRY METHOD 06/03/2025 8:46 PM [facility] Potassium 3.3(L) 3.5 - 5.1 mmol/L LAB CHEMISTR[facility]03[facility]25 [facility] Chloride 98 98 - 107 mmol/L LAB CHEMISTRY METHOD 06/03/2025 8:46 PM [facility] CO2 27 24 - 32 mmol/L LAB CHEMISTRY METHOD 06/03/2025 8:46 PM [facility] Anion Gap 9 5 - 14 LAB CHEMISTRY METHOD 06/03/2025 8:46 PM [facility] Glucose 121 70 - 199 mg/dL LAB CHEMISTRY METHOD 06/03/2025 8:46 PM [facility] BUN 36(H) 7 - 17 mg/dL LAB CHEMISTRY METHOD 06/03/2025 8:46 PM [facility] Creatinine 1.44(H) 0.50 - 1.00 mg/dL LAB CHEMISTRY METHOD 06/03/2025 8:46 PM [facility] eGFR 41(L) >=60 mL/min/1. 73m2 LAB CHEMISTRY METHOD 06/03/2025 8:46 PM [facility] Comment:Calculation based on the Chronic Kidney Disease Epidemiology Collaboration (CKD-EPI) equation refit without adjustment for race. BUN/Creatinine Ratio 25.0(H) 12.0 - 20.0 LAB CHEMISTRY METHOD 06/03/2025 8:46 PM [facility] Calcium 11.1(H) 8.4 - 10.2 mg/dL LAB CHEMISTRY METHOD 06/03/2025 8:46 PM EDT [facility] AST (SGOT) 24 5 - 40 unit/L LAB CHEMISTRY METHOD 06/03/2025 8:46 PM EDT [facility] ALT (SGPT) 31 7 - 52 unit/L LAB CHEMISTRY METHOD 06/03/2025 8:46 PM EDT [facility] Alkaline Phosphatase 77 34 - 104 unit/L LAB CHEMISTRY METHOD 06/03/2025 8:46 PM EDT [facility] Total Protein 7.6 6.4 - 8.5 g/dL LAB CHEMISTRY METHOD 06/03/2025 8:46 PM EDT [facility] Albumin 5.0 3.5 - 5.0 g/dL LAB CHEMISTRY METHOD 06/03/2025 8:46 PM EDT [facility] Total Bilirubin 0.6 0.3 - 1.0 mg/dL LAB CHEMISTRY METHOD 06/03/2025 8:46 PM EDT [facility] Blood Venous blood specimen / Unknown Venipuncture / Unknown 06/03/2025 8:15 PM EDT 06/03/2025 8:26 PM EDT us Osmel Kebede MD LAB BLOOD ORDERABLES Final Res ult [facility] [address] [place] [address], * (ABNORMAL) Lipid panel (04/27/2025 7:41 AM [...] - 04/28/2025 1:06 AM EDT Performed at: - [facility] [address] [id number] Captain Airline Pilot: Kyung Butcher MD, Phone: [phone] Federica Saez NP LAB BLOOD ORDERABLES Final Res ult [facility] 1 * Hemoglobin A1c (05/05/2019) Hemoglobin A1C 6.0 <=6.5 % Blood Venous blood specimen / Unknown Result [facility] Historical Provider LAB BLOOD ORDERABLES Lu l Result * Pap Smear (02/06/2017) Pap smear abstracted, no interpretation Historical Provider HEALTH MAINTENANCE Final Result * Colonoscopy (05/14/2013) Colonoscopy abstracted, no interpretation Anatomical Region Laterality Modality Other Historical Provider HEALTH MAINTENANCE Final Result from Last 3 Months or Most Recently Relevant to Health Maintenance Insurance [facility] Care Teams Deicer Tester Relationship Specialty Start Date End Date Belkys Armando MD [address] [place] [address] PCP - General Internal Medicine 12/02/24
--- OUTSIDE RECORDS SUMMARY | 2025-06-23 11:09 | XMS_ITS | Clinical Summary ---
Author Organization [facility] Address [address] [place] [address] Care Team Providers Care Genetic Supervisor Name Role Phone Unavailable Primary Care Provider [...]
--- OUTSIDE RECORDS SUMMARY | 2025-06-23 11:09 | XMS_ITS | Patient Health Record ---
Author Organization [facility] [address] Address [address] [place] [address] Care Team Providers Care Cotton Broker Name Role Phone ROSS ARIAS Unavailable [phone] Allergies Allergen (clinical drug ingredient) Drug/Non Drug Allergy documented on EMR Reaction Allergy Type Onset Date Status crab allergenic extract crab (uncoded) Hypercalcemia Allergy Active hydrochlorothiazide Hydrochlorothiazide stomach upset Drug Allergy Active Results Component Value Reference Range Notes Comp. Metabolic Panel (14)-3 63744 Reviewed date:06/10/2025 10:36:47 AM Interpretation: Performing Lab:[facility], [address] [place] [address], [place], Phone - [phone], Director - Adam Notes/Report: Glucose 87 70-99 mg/dL BUN 16 8-27 mg/dL Creatinine 0.94 0.57-1.00 mg/dL eGFR 68 >59 mL/min/1.73 BUN/Creatinine Ratio 17 12-28 Sodium 142 134-144 mmol/L Potassium 4.7 3.5-5.2 mmol/L Chloride 104 96-106 mmol/L Carbon Dioxide, Total 19 20-29 mmol/L Calcium 11.0 8.7-10.3 mg/dL Verified by repeat analysis Protein, Total 7.0 6.0-8.5 g/dL Albumin 4.4 3.9-4.9 g/dL Globulin, Total 2.6 1.5-4.5 g/dL Bilirubin, Total 0.4 0.0-1.2 mg/dL Alkaline Phosphatase 85 44-121 IU/L AST (SGOT) 27 0-40 IU/L ALT (SGPT) 32 0-32 IU/L CBC With Differential/Platel et-[id number] Reviewed date:06/10/2025 05:17:38 PM Interpretation: Performing Lab:[facility] [place], [address] [place] [address], Phone - [phone], Director - Adam Notes/Report: WBC 5.9 3.4-10.8 x10E3/uL RBC 4.99 3.77-5.28 x10E6/uL Hemoglobin 14.5 11.1-15.9 g/dL Hematocrit 44.6 34.0-46.6 % MCV 89 79-97 fL MCH 29.1 26.6-33.0 pg MCHC 32.5 31.5-35.7 g/dL RDW 14.6 11.7-15.4 % Platelets 220 150-450 x10E3/uL Neutrophils 51 Not Estab. % Lymphs 34 Not Estab. % Monocytes 10 Not Estab. % Eos 3 Not Estab. % Basos 2 Not Estab. % Neutrophils (Absolute) 3.1 1.4-7.0 x10E3/uL Lymphs (Absolute) 2.0 0.7-3.1 x10E3/uL Monocytes(Absolute) 0.6 0.1-0.9 x10E3/uL Eos (Absolute) 0.2 0.0-0.4 x10E3/uL Baso (Absolute) 0.1 0.0-0.2 x10E3/uL Immature Granulocytes 0 Not Estab. % Immature Grans (Abs) 0.0 0.0-0.1 x10E3/uL Magnesium-[id number] Reviewed date:06/10/2025 10:36:52 AM Interpretation: Performing Lab:[facility] [place], [address] [place] [address], Phone - [phone], Director - Jeny Notes/Report: Magnesium 1.6 1.6-2.3 mg/dL Comp. Metabolic Panel (14)-3 Reviewed date:08/04/2024 07:54:35 AM Interpretation: Performing Lab:[facility] [place], [address] [place] [address], Phone - [phone], Director - Jeny Notes/Report: Glucose 115 70-99 [...] (SGPT) 28 0-32 IU/L CBC With Differential/Platel et-[id number] Reviewed date:08/04/2024 07:54:35 AM Interpretation: Performing Lab:[facility] [place], [address], [place], Phone - [phone], Director - Adam Notes/Report: WBC 6.4 3.4-10.8 x10E3/uL RBC 4.70 [...] Immature Grans (Abs) 0.0 0.0-0.1 x10E3/uL Hemoglobin [id number] Reviewed date:08/04/2024 07:54:35 AM Interpretation: Performing Lab:[facility] [place], Phone - [phone], Director - MDIselay Notes/Report: Hemoglobin A1c 6.2 4.8-5.6 % . Prediabetes: 5.7 - 6.4 Diabetes: >6.4 Glycemic control for adults with diabetes: <7.0 TSH+T3+Free T4+T3 Free Reviewed date:05/11/2025 08:05:49 AM Interpretation: Performing Lab:[facility], [place], Phone - [phone], Director - Adam Notes/Report: TSH-ICMA 2.9 Reference Range: Non- Adult 0.450-4.500 First Trimester 0.100-4.000 Second Trimester 0.200-4.000 Third Trimester 0.300-4.500 Triiodothyronine (T-3), Serum 97 Reference Range: Adults: 55 - 170 Free T-3 3.3 Reference Range: >=20y: 2.0 - 4.4 Free T4 by Dialysis/Hedis Coordinator 1.2 This test was developed and its performance characteristics determined by [facility]. It has not been cleared or approved by the Food and Drug Administration. Reference Range: Pubertal Children and Adults: 0.8 - 1.7 Comp. Metabolic Panel (14)-3 13871 Reviewed date:05/11/2025 08:05:49 AM Interpretation: Performing Lab:[facility], [facility], [place], Phone - [phone], Director - Jeny Notes/Report: Glucose 105 70-99 mg/dL BUN 17 [...] IU/L ALT (SGPT) 44 0-32 IU/L Lipid Panel-[id number] Reviewed date:05/11/2025 08:05:44 AM Interpretation: Performing Lab:[facility] [place], [address] [place] [address], Phone - [phone], Director - MDAuroradry Notes/Report: Cholesterol, Total 178 100-199 mg/dL Triglycerides 172 0-149 mg/dL HDL Cholesterol 63 >39 mg/dL VLDL Cholesterol Trino 29 5-40 mg/dL LDL Chol Calc (NIH) 86 0-99 mg/dL Vitamin D, 64-Qdcbiiq-[id number] Reviewed date:05/11/2025 08:05:49 AM Interpretation: Performing Lab:[facility] [place], [address] [place] [address], Phone - [phone], Director - Jeny Notes/Report: Vitamin D, 25-Hydroxy 38.1 30.0-100.0 ng/mL Vitamin D deficiency has been defined by the [employer] of Medicine and an Endocrine Society practice guideline as a level of serum 25-OH vitamin D less than 20 ng/mL (1,2). The Endocrine Society went on to further define vitamin D insufficiency as a level between 21 and 29 ng/mL (2). 1. IOM ([place] of Medicine). 2010. Dietary reference intakes for calcium and D. [place]: The National Academies Press. 2. Les MF, Romeo [place], Aranza FALL[place], et al. Evaluation, treatment, and prevention of vitamin D deficiency: an Endocrine Society clinical practice guideline. JCEM. 2010; 96(7):1911-30. CBC With Differential/Platel et-[id number] Reviewed date:05/11/2025 08:05:49 AM Interpretation: Performing Lab:[facility] [place], [address] [facility], [place], Phone - [phone], Director - Adam Notes/Report: WBC 5.3 3.4-10.8 [...] Immature Grans (Abs) 0.0 0.0-0.1 x10E3/uL Urinalysis, Complete-[id number] Reviewed date:05/11/2025 08:05:49 AM Interpretation: Performing Lab:[facility] [place], [facility], Phone - [phone], Director - Adam Notes/Report: Specific [place] 1.028 1.005-1.030 pH 5.5 5.0-7.5 Urine-Color Yellow [...] seen /lpf Bacteria None seen None seen/Few Vitamin [id number] Reviewed date:05/11/2025 08:05:49 AM Interpretation: Performing Lab:[facility] [place], [facility], [place], Phone - [phone], Director - [facility] Notes/Report: Vitamin B12 877 190-2942 pg/mL Comp. Metabolic Panel (14)-3 44718 Reviewed date:01/27/2025 08:03:11 AM Interpretation: Performing Lab:[facility] [place], [address] [facility], Phone - [phone], Director - [facility] Notes/Report: Glucose 108 70-99 mg/dL BUN 14 [...] (SGPT) 30 0-32 IU/L CBC With Differential/Platel et-[id number] Reviewed date:01/27/2025 08:03:11 AM Interpretation: Performing Lab:[facility], [address] [facility], Phone - [phone], Director - AKHadley Notes/Report: WBC 6.3 3.4-10.8 x10E3/uL RBC 4.89 [...] Immature Grans (Abs) 0.0 0.0-0.1 x10E3/uL Hemoglobin [id number] Reviewed date:01/27/2025 08:01:53 AM Interpretation: Performing Lab:[facility] [place], [address] [facility], [place], Phone - [phone], Director - MDHadley Notes/Report: Hemoglobin A1c 6.2 4.8-5.6 % . Prediabetes: 5.7 - 6.4 Diabetes: >6.4 Glycemic control for adults with diabetes: <7.0 Comp. Metabolic Panel (14)-3 69461 Reviewed date:09/19/2024 08:00:14 AM Interpretation: Performing Lab:[facility] [place], [address] [facility], [place], Phone - [phone], Director - MDIselay Notes/Report: Glucose 106 70-99 mg/dL BUN 25 [...] 0-40 IU/L ALT (SGPT) 26 0-32 IU/L Reason For Referral Diagnosis 1 Hypercalcemia (E83.5 2) Referral Organization [facility] [address] Referring Provider First Name ROSS Referring Provider Last Name JUANA Referring Provider Speciality Internal edicine Referred Provider Specialty Endocrinolog y General Notes Leann Ortega 2023 08:53:41 AM > filled out form and sent to referral to [facility], Jose Uribe 12/01/2024 04:12:27 PM > The patient was seen on 10/27/2024 Referral Priority Routine Reason partial tear in glut eus and rt hamstring and left hip labral tear Diagnosis 1 Hip pain, left (M25. 552) Diagnosis 2 Gluteal tendinitis, left hip (M76.02) Referral Organization [facility] Referring Provider First Name ROSS Referring Provider Last Name JUANA Referring Provider Speciality [facility] edformerly [facility] Referred Provider Specialty Orthopedic S urgery Clinical Notes damon navarro 1 12/28/2023 09:59:37 AM >faxed mri's and paper to Alecia francis Earl [place] 10/28/2024 11:12:41 AM > [facility] [phone]. Refaxedmelanie krystal 11/04/2024 03:03:46 PM >seen 10/29/24 marco antonio tarango -notes scanned in Referral Priority Routine Reason evaluate and treat rafto polus Diagnosis [address] at (Z98.84) Referral Organization [facility] Referring Provider First Name ROSS Referring Provider Last Name JUANA Referring Provider Speciality Internal edformerly [facility] Referred Provider Specialty General Surg sharri General Notes Morales Kenny 03/12 10:50:25 AM > referral sent to [facility], p. [phone], f. [phone] Clinical Notes Jose Uribe 12/2024 04:06:20 PM > [phone] Redena 04/20/2025 04:06:24 PM > Scheduled for 04/22 at 1 pm. Pt aware Referral Priority Routine Medications Medication SIG (Take, Route, Frequency, Duration) Notes Start Date End Date Status Metoprolol Succinate ER 50 MG 1 tablet Orally Once a day; Duration: 90 days 05/04/2025 Active Pantoprazole Sodium 40 MG TAKE 1 TABLET 1/2 TO 1 HOUR BEFORE MORNING MEAL ORALLY ONCE A DAY 30 DAYS; Duration: 90 Active Albuterol Sulfate HFA 108 (90 Base) MCG/ACT 2 puff as needed Inhalation every 6 hrs; Duration: 30 days Active Fish Oil 1000 MG 1 capsule Orally Onc e a day Active Pravastatin Sodium 80 MG 1 tablet Orally Once a day Active Ozempic (1 MG/DOSE) 4 MG/3ML as directed Subcutaneous Act juan antonio metFORMIN HCl ER 500 MG TAKE 2 TABLETS B Y MOUTH EVERY DAY; Duration: 90 Active Vitamin D 50 MCG (2000 UT) 1 tablet Orally Once a day Active Immunizations Vaccine Route Administration Date Status Comme nts DTaP IM Intramuscular 04/10/2022 Administered Moderna Covid-19 Vaccine Unknown 09/16/2021 Administere d Zoster Unknown 06/07/2024 Administered Social History Tobacco Use: Social History Observation Description Date Details (start date - stop date) Never Smoker NA - NA Tobacco Use/Smoking Question Answer Notes Are you a nonsmoker Section Notes: Tob: nonsmoker 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: nonsmoker 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 Tob: 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 Problems Problem Type SNOMED Code ICD Code Onset Dates Problem Status W/U Status Risk Notes Problem Hypothyroidism (32477572) Hypothyroidism, unspecified (E03.9) Active confirmed Problem Vitamin D deficiency (47831592) Vitamin D deficiency, unspecified (E55.9) Active confirmed Problem Hyperlipidemia (48406508) Hyperlipidemia, unspecified (E78.5) Active confirmed Problem Hypomagnesemia (043810883) Hypomagnesemia (E83.42) Active confirmed Problem Hypercalcemia (09132360) Hypercalcemia (E83.52) Active confirmed Problem Nystagmus (872775) Other forms of nystagmus (H55.09) Active confirmed Problem Essential hypertension (27107583) Essential (primary) hypertension (I10) Active confirmed Problem Abnormal blood pressure (20163445) Encounter for examination of blood pressure with abnormal findings (Z01.31) Active confirmed Problem Screening for malignant neoplasm of breast (531975789) Encounter for screening mammogram for malignant neoplasm of breast (Z12.31) Active confirmed Problem Screening for osteoporosis (435140289) Encounter for screening for osteoporosis (Z13.820) Active confirmed Problem History of bariatric surgical procedure (096753095) Bariatric surgery status (Z98.84) Active confirmed Problem Prediabetes (916251953) Prediabetes (R73.03) Active confirmed Problem Essential hypertension (80697758) Essential hypertension (I10) Active confirmed Problem Morbid obesity (638286978) Morbid obesity (E66.01) Active confirmed Problem Acquired hypothyroidism (697213986) Acquired hypothyroidism (E03.9) Active confirmed Problem Depressive disorder (disorder) (27392950) Depression, unspecified depression type (F32.9) Active confirmed Problem Annual health maintenance examination (19035444) Annual physical exam (Z00.00) Active confirmed Problem Vitamin D deficiency (65373628) Vitamin D deficiency (E55.9) Active confirmed Problem Body mass index 40+ - morbidly obese (812657700) Body mass index (BMI) 50.0-59.9, adult (Z68.43) Active confirmed Problem Hypertension (44618307) Uncontrolled hypertension (I10) Active confirmed Problem Type II diabetes mellitus without complication (231640008) Type 2 diabetes mellitus without complication, unspecified whether equipment operator intermodal yard insulin use (E11.9) Active confirmed Problem Vitamin B>12< deficiency anaemia (91770273) Anemia due to vitamin B12 deficiency, 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) Active confirmed Problem Essential hypertension (92390809) Elevated blood pressure reading in office with white coat syndrome, with diagnosis of hypertension (I10) Active confirmed Problem Frequent headache (finding) (073845446) Frequent headaches (R51.9) Active confirmed Problem Double vision (03835104) Double vision (H53.2) Active confirmed Problem Hyperlipidemia (65908578) 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) Active confirmed Problem Abnormal metabolic state due to diabetes mellitus (354255913) Abnormal metabolic state due to diabetes mellitus (E11.9) Active confirmed Problem Arthralgia of the pelvic region and thigh (945911768) Hip pain, unspecified laterality (M25.559) Active confirmed Problem Protein malnutrition (25274742) Protein malnutrition (E46) Active confirmed Vital Signs Heart Rate 81 /min 06/15/2025 Oximetry 94 % 06/15/2025 Blood pressure diastolic 84 mm Hg 06/15/2025 Height 52 in 06/15/2025 Blood pressure systolic 118 mm Hg 06/15/2025 Weight 196.8 lbs 06/15/2025 BMI 51.17 kg/m2 06/15/2025 Encounters Encounter Location Date Provider Diagnosis [address] [address] 08/08/2024 ROSS ARIAS Morbid obesity E66.0 1 ; Type 2 diabetes mellitus without complication, unspecified whether equipment operator intermodal yard insulin use E11.9 ; Body mass index (BMI) 50.0-59.9, adult Z68.43 ; Essential (primary) hypertension I10 and Hypercalcemia E83.[address] [address] 09/11/2024 ROSS ARIAS Type 2 diabetes claudette itus without complication, unspecified whether chcf insulin use E11.9 ; COVID-19 U07.1 ; Uncontrolled hypertension I10 ; Morbid obesity E66.01 ; Body mass index (BMI) 50.0-59.9, adult Z68.43 and Hypercalcemia E83.[address] [address] 09/26/2024 ROSS ARIAS Type 2 diabetes claudette itus without complication, unspecified whether equipment operator intermodal yard insulin use E11.9 ; Hypercalcemia E83.52 ; Uncontrolled hypertension I10 ; Morbid obesity E66.01 ; Body mass index (BMI) 50.0-59.9, adult Z68.43 ; Right hip pain M25.551 ; Frequent headaches R51.9 and Other forms of nystagmus H55.[address] [place] [address] 10/13/2024 ROSS ARIAS Hip pain, left M25.5 52 ; Hip pain, right M25.551 ; Hypercalcemia E83.52 ; Type 2 diabetes mellitus without complication, unspecified whether chcf insulin use E11.9 ; Morbid obesity E66.01 ; Body mass index (BMI) 50.0-59.9, adult Z68.43 ; Essential (primary) hypertension I10 and Cough R05.[address] [place] [address] 12/11/2024 ROSS ARIAS Type 2 diabetes claudette itus without complication, unspecified whether chcf insulin use E11.9 ; Hypercalcemia E83.52 ; Uncontrolled hypertension I10 ; Morbid obesity E66.01 ; Body mass index (BMI) 50.0-59.9, adult Z68.43 ; Right hip pain M25.551 ; Frequent headaches R51.9 and Other forms of nystagmus H55.[address] [place] [address] 03/12/2025 ROSS ARIAS Type 2 diabetes claudette itus without complication, unspecified whether chcf insulin use E11.9 ; Hypercalcemia E83.52 ; Uncontrolled hypertension I10 ; Morbid obesity E66.01 ; Body mass index (BMI) 50.0-59.9, adult Z68.43 ; Right hip pain M25.551 ; Frequent headaches R51.9 and Other forms of nystagmus H55.09 [facility] [address] [place] [address] 05/04/2025 ROSS ARIAS Prediabetes R73.03 ; Annual physical exam Z00.00 ; Morbid obesity E66.01 ; Body mass index (BMI) 50.0-59.9, adult Z68.43 ; Essential (primary) hypertension I10 ; Type 2 diabetes mellitus without complication, unspecified whether equipment operator intermodal yard insulin use E11.9 and Hypercalcemia E83.52 [facility] [address] [place] [address] 06/04/2025 ROSS ARIAS SHEILA (acute kidney in jury) N17.9 ; Volume depletion, unspecified E86.9 ; Hypomagnesemia E83.42 ; Hypokalemia E87.6 ; Acute hyponatremia E87.1 ; Protein malnutrition E46 ; Abnormal weight loss R63.4 ; Encounter for examination of blood pressure with abnormal findings Z01.31 and Nausea R11.[address] [facility] [address] [place] [address] 06/15/2025 ROSS JUANA Volume depletion, unspecified E86.9 ; Hypercalcemia E83.52 ; Protein malnutrition E46 ; Abnormal weight loss R63.4 ; Encounter for examination of blood pressure with abnormal findings Z01.31 and Essential hypertension I10 [facility] [address] [place] [address] 07/03/20[address] ROSS JUANA [facility] [address] [place] [address] 09/08/2024 ROSS JUANA [facility] [address] [place], [place] 09/11/2024 ROSS JUANA [facility] [address] [place] [address] 09/11/2024 ROSS JUANA [facility] [address] [place], [place] 09/15/2024 ROSS JUANA [facility] [address] [place] [address] 10/03/2024 ROSS JUANA [facility] [address] [place] [address] 10/13/2024 ROSS JUANA Hip pain, unspecifie d laterality M25.559 [facility] [address] [place], [place] 10/24/2024 ROSS JUANA [facility] [address] [place], [place] 10/27/2024 ROSS JUANA [facility] [address] [place], [place] 10/27/2024 ROSS JUANA [facility] [address] [place] [address] 10/27/2024 ROSS JUANA [facility] [address] [place], [place] 23/2025 ROSS JUANA [facility] [address] [place] [address] 02/20/[address]JANA [facility] [address] [place] [address] 05/04/2025 ROSS JUANA [facility] [address] [place] [address] 05/27/2025 ROSS JUANA [facility] [address] [place] [address] 06/03/2025 ROSS JUANA [facility] [address] [place] [address] 06/03/2025 ROSS JUANA [facility] [address] [place] [address] 07/24/2024 ROSS JUANA [facility] [address] [place] [address] 08/09/2024 ROSS JUANA [facility] [address] [place] [address] 09/02/2024 ROSS FLORESA Assessments Encounter Date Diagnosis (ICD Code) Assessment Notes Treatment Notes Treatment Clinical Notes Section Notes 08/08/2024 Morbid obesity (ICD-10 - E66.01) 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 #COVID positive. 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 # HTN: [...] Qhs. Case discussed with collaborating physician Bharati Armnado who reviewed the assessment and plan. Chart, medications, labs, vital signs reviewed. 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 # HTN: Currently on Irbesartan 300 mg (max dose Was started on Amlodipine last visit, and increased from 5 to 10 mg. BP readings improved with SBP in 130's. Pt reports ankle edema. Will continue Irbesartan 300 mg po daily, Amloidpine 5 mg po daily. #Morbid obesity:Currently going through [facility] for weight loss medication. 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 # HTN: [...] is also undergoing bariatric surgery evaluation through [facility] # Hypercalcemia Followed by endocrinology Patient seen [...] log exercise and discussed fitness Apps like [employer] which can help keep log off calories [...] Dictation was accomplished with the use of [employer] voice recognition software, prone to medical misidentifications [...] 50% being face to face counselling. 06/04/2025 Volume depletion, unspecified (ICD-10 - E86.9) [...] Dictation was accomplished with the use of [employer] voice recognition software, prone to medical misidentifications and grammatical errors. This is unintentional and the practitioner does try to identify and correct these, but some could still be present. Please do not hesitate to contact practitioner for clarification. All questions answered to patients satisfaction. Patient verbalized understanding of diagnosis and treatments explained. To call sooner prior to next visit it any questions/concerns arise. 06/15/2025 Hypercalcemia (ICD-10 - E83.52) Courtney is a pleasant 64 year old female who presents today for follow up #Acute kidney injury: Resolved. Patient's SHEILA on labs has completely resolved. Patient is to encouraged to continue adequate hydration. # Hypercalcemia: Followed by endocrine. Slightly high at this visit. Patient denies any exogenous calcium intake. Likely multifactorial. Corrected serum calcium is noted to be 11.1. #Hypertension. Overall well-controlled on metoprolol only. We will continue to hold amlodipine and irbesartan. Patient's chart was reviewed, as well as [...] Dictation was accomplished with the use of [employer] voice recognition software, prone to medical misidentifications and grammatical errors. This is unintentional and the practitioner does try to identify and correct these, but some could still be present. Please do not hesitate to contact practitioner for clarification. All questions answered to patients satisfaction. Patient verbalized understanding of diagnosis and treatments explained. To call sooner prior to next visit it any questions/concerns arise. 06/15/2025 Volume depletion, unspecified (ICD-10 - E86.9) Courtney is a pleasant 64 year old female who presents today for follow up #Acute kidney injury: Resolved. Patient's SHEILA on labs has completely resolved. Patient is to encouraged to continue adequate hydration. # Hypercalcemia: Followed by endocrine. Slightly high at this visit. Patient denies any exogenous calcium intake. Likely multifactorial. Corrected serum calcium is noted to be 11.1. #Hypertension. Overall well-controlled on metoprolol only. We will continue to hold amlodipine and irbesartan. Patient's chart was reviewed, as well as [...] Dictation was accomplished with the use of [employer] voice recognition software, prone to medical misidentifications [...] next visit it any questions/concerns arise. 06/04/2025 SHEILA (acute kidney injury) (ICD-10 - [...] Dictation was accomplished with the use of [employer] voice recognition software, prone to medical misidentifications and grammatical errors. This is unintentional and the practitioner does try to identify and correct these, but some could still be present. Please do not hesitate to contact practitioner for clarification. All questions answered to patients satisfaction. Patient verbalized understanding of diagnosis and treatments explained. To call sooner prior to next visit it any questions/concerns arise. 06/15/2025 Protein malnutrition (ICD-10 - E46) Courtney is a pleasant 64 year old female who presents today for follow up #Acute kidney injury: Resolved. Patient's SHEILA on labs has completely resolved. Patient is to encouraged to continue adequate hydration. # Hypercalcemia: Followed by endocrine. Slightly high at this visit. Patient denies any exogenous calcium intake. Likely multifactorial. Corrected serum calcium is noted to be 11.1. #Hypertension. Overall well-controlled on metoprolol only. We will continue to hold amlodipine and irbesartan. 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 # HTN: Currently on Irbesartan 300 mg (max dose Was started on Amlodipine last visit, and increased from 5 to 10 mg. BP readings improved with SBP in 130's. Pt reports ankle edema. Will continue Irbesartan 300 mg po daily, Amloidpine 5 mg po daily. #Morbid obesity:Currently going through [facility] for weight loss medication. 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 # HTN: [...] time. Case discussed with collaborating physician Gaye Armnado who reviewed the assessment and plan. Chart, medications, labs, vital signs reviewed. 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 #COVID positive. 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 # HTN: [...] is 150 pounds. 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 #COVID positive. 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 # HTN: Currently on Irbesartan 300 mg (max dose Was started on Amlodipine last visit, and increased from 5 to 10 mg. BP readings improved with SBP in 130's. Pt reports ankle edema. Will continue Irbesartan 300 mg po daily, Amloidpine 5 mg po daily. #Morbid obesity:Currently going through [facility] for weight loss medication. Patient is also undergoing bariatric surgery evaluation through [facility] # Hypercalcemia Followed by endocrinology Patient seen [...] log exercise and discussed fitness Apps like [employer] which can help keep log off calories [...] Dictation was accomplished with the use of [employer] voice recognition software, prone to medical misidentifications [...] than 50% being face to face counselling. 06/15/2025 Abnormal weight loss (ICD-10 - R63.4) Courtney is a pleasant 64 year old female who presents today for follow up #Acute kidney injury: Resolved. Patient's SHEILA on labs has completely resolved. Patient is to encouraged to continue adequate hydration. # Hypercalcemia: Followed by endocrine. Slightly high at this visit. Patient denies any exogenous calcium intake. Likely multifactorial. Corrected serum calcium is noted to be 11.1. #Hypertension. Overall well-controlled on metoprolol only. We will continue to hold amlodipine and irbesartan. Patient's chart was reviewed, as well as [...] Dictation was accomplished with the use of [employer] voice recognition software, prone to medical misidentifications [...] next visit it any questions/concerns arise. 06/04/2025 Hypokalemia (ICD-10 - E87.6) Courtney is [...] Dictation was accomplished with the use of [employer] voice recognition software, prone to medical misidentifications and grammatical errors. This is unintentional and the practitioner does try to identify and correct these, but some could still be present. Please do not hesitate to contact practitioner for clarification. All questions answered to patients satisfaction. Patient verbalized understanding of diagnosis and treatments explained. To call sooner prior to next visit it any questions/concerns arise. 06/15/2025 Encounter for examination of blood pressure with abnormal findings (ICD-10 - Z01.31) Courtney is a pleasant 64 year old female who presents today for follow up #Acute kidney injury: Resolved. Patient's SHEILA on labs has completely resolved. Patient is to encouraged to continue adequate hydration. # Hypercalcemia: Followed by endocrine. Slightly high at this visit. Patient denies any exogenous calcium intake. Likely multifactorial. Corrected serum calcium is noted to be 11.1. #Hypertension. Overall well-controlled on metoprolol only. We will continue to hold amlodipine and irbesartan. 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 # HTN: Currently on Irbesartan 300 mg (max dose Was started on Amlodipine last visit, and increased from 5 to 10 mg. BP readings improved with SBP in 130's. Pt reports ankle edema. Will continue Irbesartan 300 mg po daily, Amloidpine 5 mg po daily. #Morbid obesity:Currently going through [facility] for weight loss medication. Patient is also undergoing bariatric surgery evaluation through [facility] # Hypercalcemia Followed by endocrinology Patient seen [...] log exercise and discussed fitness Apps like [employer] which can help keep log off calories [...] Dictation was accomplished with the use of [employer] voice recognition software, prone to medical misidentifications [...] Dictation was accomplished with the use of [employer] voice recognition software, prone to medical misidentifications and grammatical errors. This is unintentional and the practitioner does try to identify and correct these, but some could still be present. Please do not hesitate to contact practitioner for clarification. All questions answered to patients satisfaction. Patient verbalized understanding of diagnosis and treatments explained. To call sooner prior to next visit it any questions/concerns arise. 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 #COVID positive. 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 #COVID positive. 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 # [...] Dictation was accomplished with the use of [employer] voice recognition software, prone to medical misidentifications [...] Dictation was accomplished with the use of [employer] voice recognition software, prone to medical misidentifications [...] next visit it any questions/concerns arise. 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 # HTN: Currently on Irbesartan 300 mg (max dose Was started on Amlodipine last visit, and increased from 5 to 10 mg. BP readings improved with SBP in 130's. Pt reports ankle edema. Will continue Irbesartan 300 mg po daily, Amloidpine 5 mg po daily. #Morbid obesity:Currently going through [facility] for weight loss medication. Patient is also undergoing bariatric surgery evaluation through [facility] # Hypercalcemia Followed by endocrinology Patient seen [...] log exercise and discussed fitness Apps like [employer] which can help keep log off calories [...] Dictation was accomplished with the use of [employer] voice recognition software, prone to medical misidentifications [...] than 50% being face to face counselling. 06/15/2025 Essential hypertension (ICD-10 - I10) Courtney is a pleasant 64 year old female who presents today for follow up #Acute kidney injury: Resolved. Patient's SHEILA on labs has completely resolved. Patient is to encouraged to continue adequate hydration. # Hypercalcemia: Followed by endocrine. Slightly high at this visit. Patient denies any exogenous calcium intake. Likely multifactorial. Corrected serum calcium is noted to be 11.1. #Hypertension. Overall well-controlled on metoprolol only. We will continue to hold amlodipine and irbesartan. Patient's chart was reviewed, as well as [...] Dictation was accomplished with the use of [employer] voice recognition software, prone to medical misidentifications [...] Dictation was accomplished with the use of [employer] voice recognition software, prone to medical misidentifications and grammatical errors. This is unintentional and the practitioner does try to identify and correct these, but some could still be present. Please do not hesitate to contact practitioner for clarification. All questions answered to patients satisfaction. Patient verbalized understanding of diagnosis and treatments explained. To call sooner prior to next visit it any questions/concerns arise. 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 # HTN: Currently on Irbesartan 300 mg (max dose Was started on Amlodipine last visit, and increased from 5 to 10 mg. BP readings improved with SBP in 130's. Pt reports ankle edema. Will continue Irbesartan 300 mg po daily, Amloidpine 5 mg po daily. #Morbid obesity:Currently going through [facility] for weight loss medication. 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 # [...] Dictation was accomplished with the use of [employer] voice recognition software, prone to medical misidentifications [...] Dictation was accomplished with the use of [employer] voice recognition software, prone to medical misidentifications [...] Dictation was accomplished with the use of [employer] voice recognition software, prone to medical misidentifications [...] X ray : Spines, lumbar 2 views AST (SGOT) 02/16/2021 Hemoglobin A1c 02/16/2021 Vitamin [...] L-Spine 4+ Views 06/28/2020 LIPID PANEL, STANDARD 03/12/2025 LIPID PANEL, STANDARD 06/14/2023 LIPID PANEL, STANDARD 01/17/2022 LIPID PANEL, STANDARD 04/10/2022 COMPREHENSIVE METABOLIC PANEL 04/10/2022 COMPREHENSIVE METABOLIC PANEL 01/17/2022 COMPREHENSIVE METABOLIC PANEL 05/02/2024 COMPREHENSIVE METABOLIC PANEL 06/14/2023 COMPREHENSIVE METABOLIC PANEL 03/12/2025 COMPREHENSIVE METABOLIC PANEL 01/09/2023 COMPREHENSIVE METABOLIC PANEL 08/08/2024 COMPREHENSIVE METABOLIC PANEL 12/11/2024 COMPREHENSIVE METABOLIC PANEL 06/04/2025 MAGNESIUM 06/04/2025 ALT 02/16/2021 CBC (INCLUDES DIFF/PLT) 05/02/2024 CBC (INCLUDES DIFF/PLT) 01/17/2022 CBC (INCLUDES DIFF/PLT) 06/04/2025 CBC (INCLUDES DIFF/PLT) 12/11/2024 CBC (INCLUDES DIFF/PLT) 01/09/2023 CBC (INCLUDES DIFF/PLT) 03/12/2025 CBC (INCLUDES DIFF/PLT) 06/14/2023 URINALYSIS, COMPLETE 06/14/2023 URINALYSIS, COMPLETE 03/12/2025 URINALYSIS, COMPLETE 01/09/2023 HEMOGLOBIN A1c 01/09/2023 HEMOGLOBIN A1c 12/11/2024 HEMOGLOBIN A1c 06/14/2023 HEMOGLOBIN A1c 01/17/2022 HEMOGLOBIN A1c 05/02/2024 HEMOGLOBIN A1c 04/10/2022 VITAMIN B12 03/12/2025 TSH 06/14/2023 VITAMIN D,25-OH,TOTAL,IA 06/14/2023 VITAMIN D,25-OH,TOTAL,IA 03/12/2025 VITAMIN D,25-OH,TOTAL,IA 01/17/2022 CT Brain WO 09/26/2024 TSH+T3+Free T4+T3 Free 03/12/2025 Next Appt Details Provider Name:ROSS ARIAS, 08/04/2025 08:00:00 AM, [address], [place], [address], Provider Name:ROSS ARIAS, 08/11/2025 08:00:00 AM, [address], [place], [address], Insurance Providers Payer Name Payer Address Payer Phone Subscriber Number Group Number Insured Name Patient Relationship to Insured Coverage Start Date Coverage End Date [facility] [address] [place] [address] [id number] 00H COURTNEY HILARIO Self - patient is the insured Medications Administered Medication Instructions Date of Administration Dosage Notes [facility] B12 INJECTION 07/11/2021 lot # [id number] Semaglutide 04/15/2024 1 Medical (General) History Medical History History ICD Code Essential (primary) hypertension I10 Hyperlipidemia, unspecified E78.5 Prediabetes R73.03 Vitamin D deficiency E55.9 Depression, unspecified F32.A Obesity (BMI 30-39.9) E66.9 Aortic valve disease I35.9 CRYSTAL (obstructive sleep apnea) G47.33 Aortic stenosis, moderate I35.0 Surgical History Surgery Date(Month/Year) section L knee meniscus surgery 09/26/2022
--- OUTSIDE RECORDS SUMMARY | 2025-06-23 11:09 | XMS_ITS | Patient Health Record ---
Author Organization [facility] Address [address] [place] [address] Care Team Providers Care Paperhanger And Painter Name Role Phone Belkys Armando Primary Care [...] Problem Status W/U Status Risk Notes Problem Acquired hallux valgus (31191819) Hallux valgus (acquired), left foot (M20.12) Active confirmed Plan Of Treatment Pending Test Test Name Order Date X ray : Foot, left 3v 06/28/2021 Insurance Providers Payer Name Payer Address Payer Phone Subscriber Number Group Number Insured Name Patient Relationship to Insured Coverage Start Date Coverage End Date [employer] [facility] [address] [place] [phone] [id number] Lina Lynch Self - patient is the insured Medical (General) History Medical History History ICD Code Hyperlipidemia Hypertension Pre diabetes Vitamin D deficiency Morbid obesity Hyperlipidemia Essential (primary) hypertension Depression, unspecified depression type Abnormal LFT's Parasthesia Surgical History Surgery Date(Month/Year) Section meniscus repair (Left)
[2025-06-23 11:11] LABS: Hematocrit 44.2 % (37.0-47.0); Hemoglobin 15.0 g/dl (12.0-16.0); Imm Gran Abs Auto 0.00 X10*3/uL (0.00-0.03); Imm Gran Pct Auto 0.0 % (0.0-0.4); Lymphocytes Absolute Auto 2.1 X10*3/uL (1.2-4.9); Mean Corpuscular HGB Conc 33.9 g/dl (31.0-35.0); Mean Corpuscular Hemoglobin 28.7 pg (27.0-33.0); Mean Corpuscular Volume 84.7 fL (80.0-98.0); NRBC Abs Auto 0.000 X10*3/uL (0.0-0.012); NRBC Pct Auto 0.0 /100WBC (0.0-0.2); Platelet Count 227 X10*3/uL (160-400); Red Blood Count 5.22 X10*6/uL (4.20-5.50); White Blood Count 5.3 X10*3/uL (4.8-10.8)
[2025-06-23 11:16] LABS: INTERNATIONAL NORM RATIO 1.0 (0.9-1.1); Prothrombin Time 11.6 SEC (10.9-12.4)
[2025-06-23 11:18] LABS: Partial Thromboplastin Time 29.1 SEC (26.7-34.1)
[2025-06-23 11:26] LABS: Hemoglobin A1C 148.2093 umol/L; Total Hemoglobin (HGBA1C) 3972.3859 umol/L
[2025-06-23 12:03] LABS: Alanine Aminotransferase 54 U/L (0-31); Albumin Level 4.5 g/dL (3.5-5.0); Alkaline Phosphatase 82 U/L (39-117); Anion Gap 12 (12-20); Aspartate Amino Transferase 34 U/L (5-31); Blood Urea Nitrogen 11 mg/dL (9-16); Calcium 10.5 mg/dL (8.4-10.2); Carbon Dioxide 26 mmol/L (22-29); Chloride 110 mmol/L (96-108); Cholesterol 147 mg/dL (<200); Estimated Glomerular Filt Rate > 60; HDL Cholesterol 46 mg/dL (>40); Potassium 3.7 mmol/L (3.3-5.1); Sodium 144 mmol/L (135-145); Total Protein 7.4 g/dL (6.5-8.0); Triglycerides 117 mg/dL (<150)
== END 2025-06-23 10:28 | disposition home or self-care (01) ==
LOC: HO.LAB 10:27
PROVIDERS: Visit Provider Surgery
DX: Z01.818 Encounter for other preprocedural examination (principal); E66.812 Obesity, class 2; Z68.38 Body mass index [BMI] 38.0-38.9, adult; Z79.899 Other long term (current) drug therapy; Z79.84 Long term (current) use of oral hypoglycemic drugs
CPT/HCPCS: 36415; 80053; 80061; 83036; 83525; 84443; 85025; 85610; 85730; 86140; 86850; 86900; 86901

== ENCOUNTER 2025-06-23 11:21 | Outpatient (AMB) | payer BC, SELFPAY ==
[2025-06-23 21:29] VITALS: BMI 34.4
--- NOTE | 2025-06-23 21:29 | A.OFFVIS_ITS ---
VS Expanded 06/23/25 21:29 Height 5 ft 3 in Weight 194 lb 6 oz BMI 34.4 Body Fat % 45.7 Body Fat Mass 88.9 Fat Free Mass 105.6 Visceral Fat Rating 16 Body Water % 37.2 Body Water Mass 72.3 Basal Metabolic Rate/Score 1,405 Intake Visit Reasons: TV Pre Op LSG 06/26/25 Allergies No Known Allergies Allergy (Verified 06/23/25 21:32) Medication List - Last Reconciled 06/23/25 by Melquiades Dewitt MD aspirin 81 mg PO DAILY metformin 1,000 mg PO DAILY metoprolol tartrate 50 mg PO BID ondansetron 4 mg PO Q12H pantoprazole 40 mg PO DAILY pantoprazole 40 mg PO DAILY polyethylene glycol 3350 17 grams PO DAILY pravastatin 80 mg PO DAILY semaglutide (Ozempic) 1 mg subcut QWEEK sucralfate 10 mL PO BID HPI HPI TV Pre Op LSG 06/26/25: Details: Start time: 5pm, End time: 5.30pm I spent 15 minutes speaking with the patient on the phone plus an additional 5 minutes reviewing and updating records for a total of 20 minutes HPI Comments Details: Overall weight loss: 21.4lbs or 9.91% TBWL Is doing ? bottle of premade Premier shake, 4 tablespoons of Scottish yogurt, two Fit Crunch protein bars and one meal (6 forks of meat and 6 forks of salad) Exercise: walking outside and using a treadmill [facility] Medical History Non-insulin dependent type 2 diabetes mellitus DJD (degenerative joint disease) GERD (gastroesophageal reflux disease) Hyperlipidemia Sleep apnea treated with continuous positive airway pressure (CPAP) Hypertension BMI 30.0-30.9,adult Obesity Surgical History (Updated 06/23/25 @ 13:43 by Karma Rosenthal RN) History of esophagogastroduodenoscopy (EGD) Hx of section History of lateral meniscus repair of right knee History of lateral meniscus repair of left knee Hx of colonoscopy Family History (Updated 04/02/25 @ 13:53 by Skylar Diallo CMA) Mother Breast cancer Diabetes Heart problem Hypertension Father Heart problem Melanoma Diabetes Hypertension Son Gout Daughter No problems noted. Daughter Thyroid condition Social History (Updated 04/02/25 @ 13:53 by ERICA Steward Are you a primary professional healthcare representative to a significant other at home: No Do you presently have visiting nurse or other home services: No Alcohol intake: current Alcohol intake frequency: does not drink Patient Tobacco Use Status: Never used Tobacco Telehealth Telehealth Telehealth Platform: Telephone Location of provider rendering services: practice address Location of patient: address on file Patient Identification confirmed using: Name, : Yes Telehealth method: voice only Patient verbally consented to treatment: Yes Patient verbally consented to billing insurance company: Yes Patient informed of any privacy concerns related to visit: Yes Minutes spent on Phone/Video with Pt.: 30 Assessment & Plan Assessment & Plan (1) Obesity: Code(s): E66.9 - Obesity, unspecified Category: Medical Qualifiers: Obesity type: due to excess calories Obesity classification: adult class 2 (BMI 35 - 39.9) Serious obesity comorbidity presence: with serious comorbidity Body mass index: BMI 38.0-38.9 Qualified Code(s): E66.812 - Obesity, class 2; E66.01 - Morbid (severe) obesity due to excess calories; Z68.38 - Body mass index [BMI] 38.0-38.9, adult Plan: 1. Plan for lap sleeve gastrectomy including upper GI endoscopy. All tests has been completed and reviewed and the patient is cleared for the surgery. If diaphragmatic or ventral hernias are present at time of surgery, these will be repaired laparoscopically as well. The surgery does not replace the need to change your lifestlyle which is the cause of the obesity problem. The surgery provides the motivation to try again to change your lifestyle, it reduces the appetite and make the transition to a better lifestyle easier and doubles the amount of weight you would lose compared to doing the lifestyle change without the surgery. You will need to be on a liquid diet with protein shakes for 2 weeks before surgery to maximize weight loss and boost your nutritional status to recover better from surgery and also for the first two weeks after surgery to let the stomach heal before we introduce other foods. After the first 2 weeks we will introduce protein bars and soft foods like scrambled eggs, cottage cheese and yogurt and after the 6th week will introduce meat, fish and cooked vegetables in small amounts. Over time you should be able to eat everything in small amounts. Side effects like nausea, vomiting, heartburn or abdominal pain are not common in the practice unless you are not following in the practice. This operation requires lifetime commitment to following in our practice and communication with me. You will much less weight and experience side effects if you don?t communicate or not following in the practice. Complications are rare and in our practice is about 1/10 of the national average. However, you can develop bleeding that may require transfusion (hasn?t happened for year in the practice), you may from complications (we did not have any deaths in the practice) and infections. Infections are usually a result of breakdown in communication or not understanding or following directions correctly. They are difficult to treat, they can happen during the first 6 weeks, they may require to be in the hospital for weeks or even months, not being able to eat by mouth and you may have drains and surgeries to try and correct the issue. Other risks and complications include possible conversion to an open procedure, leaks, small bowel obstruction, blood clots, cardiac, or pulmonary complications, as [facility] complications such as ulcers, insufficient weight loss and vitamin deficiencies. So far she has proven to be an excellent communicator and very compliant with all our directions accomplishing a great weight loss. I believe that she is an excellent candidate and she is ready. 2. Preop prescriptions were provided and explained the purpose of each one. Need to be purchased preop. Start Pantoprazole now as you get it from the pharmacy, 1 pill per day. Sucralfate and Zofran are for after surgery as needed. 3. Bowel prep: please do 7 packets of Miralax mixing each one with a an 8oz glass of water, crystal light, gatorade zero, or propel on 06/24/25 and the same amount on 06/25/25. The Miralax you begin with one packet at a time in 8oz water or crystal light, gatorade zero, or propel as early in the day as you can and you do them back to back until you finish them. Continue the protein shakes during the bowel prep. 4. Needs to purchase 1oz medicine cups . 5. Needs to purchase Children's liquid Tylenol for postop pain control. 6. She needs to stop the aspirin, Metformin and the Ozempic as of today 06/22/25. Avoid aspirin, motrin, Advil, Aleve, Ibuprofen, Naproxyn. Tylenol is OK. 7. She needs to purchase the Celebrate multivitamins from the hospital's gift shop. 8. Will do basic preop blood work-up TOMORROW 06/23/25 fasting for 12 hours and is scheduled to see the Anesthesiologist prior to the day of surgery. 8. Importance of adherence to postop folllow-up and recommendations was underscored and she understands that. 9. Stop food and bars as of tomorrow 06/23/25 and continue with 3 premade PREMIER protein shakes (MIX 4oz of Premier and 4oz almond milk) at 7am-9am, 10am-12pm and 1pm-3pm, and TWO more Premier protein shakes (8oz of Premier shakes, NOT whole bottle) at 4pm-6pm and 7pm-9pm 10. No soups, broths or V8 11. The patient's medical history has been reviewed and they are considered low risk for post op DVT and therefore DVT prophylaxis is not considered necessary. Travel after surgery was reviewed. The patient has not disclosed any travel plans during the first 30 days after surgery and they have been advised that within the first 30 days after surgery any bus, plane, train or car travel over 2 hours in duration is contraindicated due to the possibility of developing blood clots from immobility. Any travel, needs to include periods of ambulation of 10 minutes in duration every 2 hours. Patient was instructed to discuss any plans for travel during this period with their bariatric surgeon. 12. Use your CPAP daily and bring it to the hospital with your mask 13. As of tomorrow, please check your blood pressure daily in the morning. If your blood pressure is: Below 120/70: do not take the Metoprolol, Amlodipine or Irbesatran 121/71 to 130/80: take only HALF Metoprolol 131/81 to 140/90: take HALF Metoprolol and HALF Amlodipine Over 141/91: take the whole Metoprolol, HALF Amlodipine and HALF Irbesartan 14. Please take at the day of surgery the following medications: ONLY the blood ressure medications IF the blood pressure reading that morning is high enough to justify it according to the parameters above. 15. Stop any control pills and don't use them for one month after surgery 16. Absolutely no smoking or vaping, or marijuana until the surgery and for at least the first 4 weeks. Only nicotine patches are allowed. 17. Send me weight measurements on Sunday06/26/25, the day of surgery before you go to the hospital. 18. Avoid any steroids by mouth for any reason. Let me know if someone prescribes them to you 19. These instructions supersede anything else you read in the handbook, anything you watched in videos or classes or you were told by any other provider. If there is any conflict, you follow the above instructions and nothing else.
== END 2025-06-23 21:38 | disposition home or self-care (01) ==
LOC: HO.HBS 11:21
PROVIDERS: Visit Provider Surgery
DX: E66.812 Obesity, class 2 (principal); E66.01 Morbid (severe) obesity due to excess calories; Z68.38 Body mass index [BMI] 38.0-38.9, adult
CPT/HCPCS: 99214

== ENCOUNTER 2025-06-26 11:05 | Inpatient (IN) | payer BC, SELFPAY ==
[2025-06-24 14:01] VITALS: BMI 33.5
--- NOTE | 2025-06-24 14:37 | HO.ANESPROP2 ---
Documented by User: Elba Morgan NP 06/24/25 14:38 HPI - Anesthesia Eval Consult details Narrative: 64yo F for Gastrectomy Sleeve,EGD,possible Diaphragmatic Hernia,possible Ventral Hernia,possible Open Anesthesia Pre-Procedure Meds Is the patient on any of the following meds?: GLP1/DPP4 PMFSH Active Problems Active Problems: All Active Problems Non-insulin dependent type 2 diabetes mellitus (Acute) DJD (degenerative joint disease) (Acute) GERD (gastroesophageal reflux disease) (Acute) Hyperlipidemia (Acute) Sleep apnea treated with continuous positive airway pressure (CPAP) (Acute) Hypertension (Acute) BMI 30.0-30.9,adult (Acute) Obesity (Acute) Past Medical History Medical History Non-insulin dependent type 2 diabetes mellitus DJD (degenerative joint disease) GERD (gastroesophageal reflux disease) Hyperlipidemia Sleep apnea treated with continuous positive airway pressure (CPAP) Hypertension BMI 30.0-30.9,adult Obesity Family History Family History Mother Breast cancer Diabetes Heart problem Hypertension Father Heart problem Melanoma Diabetes Hypertension Son Gout Daughter No problems noted. Daughter Thyroid condition Family history of problems with anesthesia: No Surgical History Surgical History History of esophagogastroduodenoscopy (EGD) Hx of section History of lateral meniscus repair of right knee History of lateral meniscus repair of left knee Hx of colonoscopy History of Problems with Anesthesia: No Social History Social History Are you a primary lawn care technician to a significant other at home: No Do you presently have visiting nurse or other home services: No Alcohol intake: current Alcohol intake frequency: does not drink Patient Tobacco Use Status: Never used Tobacco Use of substances other than those prescribed or required for medical reasons: No Have you been hit, kicked, punched, or otherwise hurt by someone within the past year? If so, by whom?: No Spiritual Healthcare Practices: no Zoroastrian Healthcare Practices: no Cultural Healthcare Practices: no Are you DNR?: No Advance Directives on File: No FDLMP: n/a Meds Allergies Allergy/AdvReac Type Severity Reaction Status Date / Time No Known Allergies Allergy Verified 06/23/25 21:32 Home Medications ?Medication ?Instructions ?Recorded ?Confirmed ?Last Taken ?Type aspirin 81 mg tablet,delayed 81 mg PO DAILY 04/02/25 06/23/25 05/11/25 History release metformin 1,000 mg tablet 1,000 mg PO DAILY 04/02/25 06/23/25 Unknown History metoprolol tartrate 50 mg tablet 50 mg PO BID 04/02/25 06/23/25 05/19/25 History pantoprazole 40 mg tablet,delayed 40 mg PO DAILY 04/02/25 06/23/25 Unknown History release pravastatin 80 mg tablet 80 mg PO DAILY 04/02/25 06/23/25 Unknown History semaglutide 1 mg/dose (4 mg/3 mL) 1 mg subcut QWEEK 04/22/25 06/23/25 05/11/25 History subcutaneous pen injector (Ozempic) Exam Height,Weight and Vital Signs: Height 5 ft 3.5 in Weight 87.09 kg Pertinent Lab Results Pertinent Lab Results: Laboratory Tests 06/23/25 10:35 Blood Type A Positive Antibody Screen NEGATIVE Laboratory Tests 06/23/25 10:45 WBC 5.3 RBC 5.22 Hgb 15.0 Hct 44.2 Plt Count 227 Sodium 144 Potassium 3.7 Chloride 110 H Carbon Dioxide 26 BUN 11 Creatinine 0.81 Narrative Narrative: EKG 04/2025 Vent. Rate : 76 BPM Atrial Rate : 76 BPM P-R Int : 174 ms QRS Dur : 82 ms QT Int : 384 ms P-R-T Axes : 9 -19 -3 degrees QTcB Int : 432 ms Normal sinus rhythm Normal ECG No previous ECGs available Assessment and Plan Assessment Anesthesia Assessment: Chart Reviewed Final Anesthetic Review Family History of Problems with Anesthesia: No History of Problems with Anesthesia: No Documented by User: Fransisca Miller MD 06/26/25 12:56 [facility] Past Medical History Medical History Non-insulin dependent type 2 diabetes mellitus DJD (degenerative joint disease) GERD (gastroesophageal reflux disease) Hyperlipidemia Sleep apnea treated with continuous positive airway pressure (CPAP) Hypertension BMI 30.0-30.9,adult Obesity Family History Family History Mother Breast cancer Diabetes Heart problem Hypertension Father Heart problem Melanoma Diabetes Hypertension Son Gout Daughter No problems noted. Daughter Thyroid condition Surgical History Surgical History History of esophagogastroduodenoscopy (EGD) Hx of section History of lateral meniscus repair of right knee History of lateral meniscus repair of left knee Hx of colonoscopy Social History Social History Are you a primary lawn care technician to a significant other at home: No Do you presently have visiting nurse or other home services: No Alcohol intake: current Alcohol intake frequency: does not drink Patient Tobacco Use Status: Never used Tobacco Use of substances other than those prescribed or required for medical reasons: No Have you been hit, kicked, punched, or otherwise hurt by someone within the past year? If so, by whom?: No Spiritual Healthcare Practices: no Zoroastrian Healthcare Practices: no Cultural Healthcare Practices: no Are you DNR?: No Advance Directives on File: No FDLMP: n/a Meds Allergies Allergy/AdvReac Type Severity Reaction Status Date / Time No Known Allergies Allergy Verified 06/23/25 21:32 Home Medications ?Medication ?Instructions ?Recorded ?Confirmed ?Last Taken ?Type aspirin 81 mg tablet,delayed 81 mg PO DAILY 04/02/25 06/23/25 05/11/25 History release metformin 1,000 mg tablet 1,000 mg PO DAILY 04/02/25 06/23/25 Unknown History metoprolol tartrate 50 mg tablet 50 mg PO BID 04/02/25 06/23/25 05/19/25 History pantoprazole 40 mg tablet,delayed 40 mg PO DAILY 04/02/25 06/23/25 Unknown History release pravastatin 80 mg tablet 80 mg PO DAILY 04/02/25 06/23/25 Unknown History semaglutide 1 mg/dose (4 mg/3 mL) 1 mg subcut QWEEK 04/22/25 06/23/25 05/11/25 History subcutaneous pen injector (Ozempic) Exam Airway Mallampati Class: II TM Dist: >3cm Neck ROM: Full Loose/Missing/Broken Teeth: No Heart: RRR Lungs: CTA Assessment and Plan Final Anesthetic Review NPO: Yes ASA Class: III Final Preanesthetic Review: Meds/Allgs Chart Reviewed, Consent Obtained/Reviewed and Anes Risks/Benef Reviewed Patient Risk: Intermediate Procedure Risk: Intermediate Anesthetic Plan Anesthetic Plan: GA Disposition: Standard PACU
[2025-06-26] VITALS (14 sets, daily range): BP systolic 124–168; BP diastolic 66–92; PULSE 80–105; RESP 14–18; TEMP 36.1–37; O2SAT 92–98; BMI 33.6; BMI 36.9
--- OUTSIDE RECORDS SUMMARY | 2025-06-26 11:11 | XMS_ITS | Patient Health Record ---
Author Organization [facility] Address [address] [facility] [address] [facility] [address] [place] [address] Care Team Providers Care Director Medicare Sales Name Role Phone Belkys Armando Primary Care [...] Status Risk Notes Problem Acquired hallux valgus ([id number]) Hallux valgus (acquired), left foot (M20.12) Active confirmed Plan Of Treatment Pending Test Test Name Order Date X ray : Foot, left 3v 06/28/2021 Insurance Providers Payer Name Payer Address Payer Phone Subscriber Number Group Number Insured Name Patient Relationship to Insured Coverage Start Date Coverage End Date [employer] [facility] [address] [place] [phone] [id number] Lina Lynch Self - patient is the insured Medical (General) History Medical History History ICD Code Hyperlipidemia Hypertension Pre diabetes Vitamin D deficiency Morbid obesity Hyperlipidemia Essential (primary) hypertension Depression, unspecified depression type Abnormal LFT's Parasthesia Surgical History Surgery Date(Month/Year) Section meniscus repair (Left)
--- OUTSIDE RECORDS SUMMARY | 2025-06-26 11:11 | XMS_ITS | Clinical Summary ---
Author Organization [facility] Address [address] [place] [address] Care Team Providers Care Leather Parts Matcher Name Role Phone Unavailable Primary Care Provider [...]
--- OUTSIDE RECORDS SUMMARY | 2025-06-26 11:11 | XMS_ITS | Patient Health Record ---
Author Organization [facility] [address] Address [address] [place] [address] Care Team Providers Care Car Servicer Name Role Phone ROSS ARIAS Unavailable [phone] Allergies Allergen (clinical drug ingredient) Drug/Non Drug Allergy documented on EMR Reaction Allergy Type Onset Date Status crab allergenic extract crab (uncoded) Hypercalcemia Allergy Active hydrochlorothiazide Hydrochlorothiazide stomach upset Drug Allergy Active Results Component Value Reference Range Notes Comp. Metabolic Panel (14)-3 80605 Reviewed date:08/04/2024 07:54:35 AM Interpretation: Performing Lab:[facility], [address] [place] [address], [place], Phone - [phone], Director - Adam Notes/Report: Glucose 115 70-99 [...] (SGPT) 28 0-32 IU/L CBC With Differential/Platel et-830753 Reviewed date:08/04/2024 07:54:35 AM Interpretation: Performing Lab:[facility], [address] [place] [address], Phone - [phone], Director - Adam Notes/Report: WBC 6.4 3.4-10.8 [...] Immature Grans (Abs) 0.0 0.0-0.1 x10E3/uL Hemoglobin Q1c-161770 Reviewed date:08/04/2024 07:54:35 AM Interpretation: Performing Lab:[facility] [address] [place] [address], Phone - [phone], Director - Adam Notes/Report: Hemoglobin A1c 6.2 4.8-5.6 % . Prediabetes: 5.7 - 6.4 Diabetes: >6.4 Glycemic control for adults with diabetes: <7.0 Comp. Metabolic Panel (14)-3 98971 Reviewed date:06/10/2025 10:36:47 AM Interpretation: Performing Lab:[facility] [address] [place] [address], Phone - [phone], Director - Adam Notes/Report: Glucose 87 70-99 [...] (SGPT) 32 0-32 IU/L CBC With Differential/Platel et-621258 Reviewed date:06/10/2025 05:17:38 PM Interpretation: Performing Lab:[facility], [address] [place] [address], [place], Phone - [phone], Director - Adam Notes/Report: WBC 5.9 3.4-10.8 [...] % Immature Grans (Abs) 0.0 0.0-0.1 x10E3/uL Magnesium-882589 Reviewed date:06/10/2025 10:36:52 AM Interpretation: Performing Lab:[facility], [address] [place] [address], Phone - [phone], Director - [facility] Notes/Report: Magnesium 1.6 1.6-2.3 mg/dL TSH+T3+Free T4+T3 Free Reviewed date:05/11/2025 08:05:49 AM Interpretation: Performing Lab:[facility], [address] [place] [address], Phone - [phone], [facility] Notes/Report: TSH-ICMA 2.9 Reference Range: Non- Adult 0.450-4.500 First Trimester 0.100-4.000 Second Trimester 0.200-4.000 Third Trimester 0.300-4.500 Triiodothyronine (T-3), Serum 97 Reference Range: Adults: 55 - 170 Free T-3 3.3 Reference Range: >=20y: 2.0 - 4.4 Free T4 by Dialysis/Can Marker 1.2 This test was developed and its performance characteristics determined by [employer]. It has not been cleared or approved by the Food and Drug Administration. Reference Range: Pubertal Children and Adults: 0.8 - 1.7 Comp. Metabolic Panel (14)-3 62446 Reviewed date:05/11/2025 08:05:49 AM Interpretation: Performing Lab:[facility], [address] [place] [address], Phone - [phone], Director - [facility] Notes/Report: Glucose 105 70-99 mg/dL BUN 17 [...] IU/L ALT (SGPT) 44 0-32 IU/L Lipid Panel-[id number] Reviewed date:05/11/2025 08:05:44 AM Interpretation: Performing Lab:[facility] [place], [address] [place] [address], Phone - [phone], Director - MDAuroradry Notes/Report: Cholesterol, Total 178 100-199 mg/dL Triglycerides 172 0-149 mg/dL HDL Cholesterol 63 >39 mg/dL VLDL Cholesterol Trino 29 5-40 mg/dL LDL Chol Calc (NIH) 86 0-99 mg/dL Vitamin D, 63-Wbinlsu-901258 Reviewed date:05/11/2025 08:05:49 AM Interpretation: Performing Lab:[facility] [place], [address] [place] [address], Phone - [phone], Director - Jeny Notes/Report: Vitamin D, 25-Hydroxy 38.1 30.0-100.0 ng/mL Vitamin D deficiency has been defined by the [employer] and an Endocrine Society practice guideline as a level of serum 25-OH vitamin D less than 20 ng/mL (1,2). The Endocrine Society went on to further define vitamin D insufficiency as a level between 21 and 29 ng/mL (2). 1. IOM ([employer]). 2010. Dietary reference intakes for calcium and D. [place]: The National Academies Press. 2. Les MF, [place], Aranza FALLON, et al. Evaluation, treatment, and prevention of vitamin D deficiency: an Endocrine Society clinical practice guideline. JCEM. 2010; 96(7):1911-30. CBC With Differential/Platel et-416878 Reviewed date:05/11/2025 08:05:49 AM Interpretation: Performing Lab:[facility] [place], [address] [facility], [place], Phone - [phone], Director - Adam Notes/Report: WBC 5.3 3.4-10.8 [...] Immature Grans (Abs) 0.0 0.0-0.1 x10E3/uL Urinalysis, Complete-118304 Reviewed date:05/11/2025 08:05:49 AM Interpretation: Performing Lab:[facility], [facility], Phone - [phone], Director - Adam Notes/Report: Specific [place] 1.028 1.005-1.030 pH 5.5 5.0-7.5 Urine-Color Yellow [...] /lpf Bacteria None seen None seen/Few Vitamin [id number] Reviewed date:05/11/2025 08:05:49 AM Interpretation: Performing Lab:[facility], [place] [facility], [place], Phone - [phone], Director - [facility] Notes/Report: Vitamin B12 799 835-0601 pg/mL Comp. Metabolic Panel (14)-3 89193 Reviewed date:01/27/2025 08:03:11 AM Interpretation: Performing Lab:[facility] [place], [address] [facility], Phone - [phone], Director - [facility] Notes/Report: Glucose 108 70-99 mg/dL BUN [...] (SGPT) 30 0-32 IU/L CBC With Differential/Platel et-682917 Reviewed date:01/27/2025 08:03:11 AM Interpretation: Performing Lab:[facility] Mendez, [address] [facility], Phone - [phone], Director - NDHadley Notes/Report: WBC 6.3 3.4-10.8 x10E3/uL RBC 4.89 [...] Immature Grans (Abs) 0.0 0.0-0.1 x10E3/uL Hemoglobin Q2p-370949 Reviewed date:01/27/2025 08:01:53 AM Interpretation: Performing Lab:[facility] [place], [address] [facility], [place], Phone - [phone], Director - MDHadley Notes/Report: Hemoglobin A1c 6.2 4.8-5.6 % . Prediabetes: 5.7 - 6.4 Diabetes: >6.4 Glycemic control for adults with diabetes: <7.0 Comp. Metabolic Panel (14)-3 94205 Reviewed date:09/19/2024 08:00:14 AM Interpretation: Performing Lab:[facility] [place], [address] [facility], [place], Phone - [phone], Director - MDIselay Notes/Report: Glucose 106 70-99 [...] out form and sent to referral to [facility] endocrinology, Jose Uribe 12/01/2024 04:12:27 PM > The patient was seen on 10/27/2024 Referral Priority Routine Reason partial tear in glut eus and rt hamstring and left hip labral tear Diagnosis 1 Hip pain, left (M25. 552) Diagnosis 2 Gluteal tendinitis, left hip (M76.02) Referral Organization [facility]ET [facility] Referring Provider First Name ROSS Referring Provider Last Name JUANA Referring Provider Speciality [facility] Referred Provider Specialty Orthopedic S urgery Clinical Notes damon navarro 1 12/28/2023 09:59:37 AM >faxed mri's and paper to Alecia francis Earl Adam 10/28/2024 11:12:41 AM > [facility] [phone]. Refaxedmelanie krystal 11/04/2024 03:03:46 PM >seen 10/29/24 marco antonio tarango -notes scanned in Referral Priority Routine Reason evaluate and treat rafto polus Diagnosis [address] at (Z98.84) Referral Organization [facility] Referring Provider First Name ROSS Referring Provider Last Name JUANA Referring Provider Speciality [facility] Referred Provider Specialty General Surg sharri General Notes Morales Kenny 03/12 10:50:25 AM > referral sent to [facility] surgery, p. [phone], f. 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: Social/rare religion teacher Tob: nonsmoker ETOH: Social/rare religion teacher Tob: nonsmoker ETOH: Social/rare religion teacher Tob: nonsmoker ETOH: Social/rare religion teacher Tob: nonsmoker ETOH: Social/rare religion teacher religion teacher religion teacher Tob: nonsmoker ETOH: Social/rare religion teacher Tob: nonsmoker ETOH: Social/rare religion teacher Tob: nonsmoker ETOH: Social/rare religion teacher Tob: nonsmoker ETOH: Social/rare religion teacher Tob: nonsmoker ETOH: Social/rare religion teacher Tob: nonsmoker ETOH: Social/rare religion teacher religion teacher religion teacher Tob: nonsmoker ETOH: Social/rare religion teacher religion teacher religion teacher religion teacher Tob: nonsmoker ETOH: Social/rare religion teacher Tob: nonsmoker ETOH: Social/rare religion teacher Tob: nonsmoker 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: Social/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 religion teacher Problems Problem Type SNOMED Code ICD Code Onset Dates Problem Status W/U Status Risk Notes Problem Hypothyroidism (77589163) Hypothyroidism, unspecified (E03.9) Active confirmed Problem Vitamin D deficiency (45263616) Vitamin D deficiency, unspecified (E55.9) Active confirmed Problem Hyperlipidemia (08835241) Hyperlipidemia, unspecified (E78.5) Active confirmed Problem Hypomagnesemia (513111650) Hypomagnesemia (E83.42) Active confirmed Problem Hypercalcemia (85059670) Hypercalcemia (E83.52) Active confirmed Problem Nystagmus (408746) Other forms of nystagmus (H55.09) Active confirmed Problem Essential hypertension (89233486) Essential (primary) hypertension (I10) Active confirmed Problem Abnormal blood pressure (23075793) Encounter for examination of blood pressure with abnormal findings (Z01.31) Active confirmed Problem Screening for malignant neoplasm of breast (657285722) Encounter for screening mammogram for malignant neoplasm of breast (Z12.31) Active confirmed Problem Screening for osteoporosis (129755511) Encounter for screening for osteoporosis (Z13.820) Active confirmed Problem History of bariatric surgical procedure (566959199) Bariatric surgery status (Z98.84) Active confirmed Problem Prediabetes (453359586) Prediabetes (R73.03) Active confirmed Problem Essential hypertension (51527443) Essential hypertension (I10) Active confirmed Problem Morbid obesity (981672876) Morbid obesity (E66.01) Active confirmed Problem Acquired hypothyroidism (128576924) Acquired hypothyroidism (E03.9) Active confirmed Problem Depressive disorder (disorder) (75367201) Depression, unspecified depression type (F32.9) Active confirmed Problem Annual health maintenance examination (55504605) Annual physical exam (Z00.00) Active confirmed Problem Vitamin D deficiency (53876106) Vitamin D deficiency (E55.9) Active confirmed Problem Body mass index 40+ - morbidly obese (441347851) Body mass index (BMI) 50.0-59.9, adult (Z68.43) Active confirmed Problem Hypertension (49818540) Uncontrolled hypertension (I10) Active confirmed Problem Type II diabetes mellitus without complication (831523794) Type 2 diabetes mellitus without complication, unspecified whether extermination supervisor insulin use (E11.9) Active confirmed Problem Vitamin B>12< deficiency anaemia (71361820) Anemia due to vitamin B12 deficiency, 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) Active confirmed Problem Essential hypertension (15434800) Elevated blood pressure reading in office with white coat syndrome, with diagnosis of hypertension (I10) Active confirmed Problem Frequent headache (finding) (095458380) Frequent headaches (R51.9) Active confirmed Problem Double vision (95015184) Double vision (H53.2) Active confirmed Problem Hyperlipidemia (83712680) 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) Active confirmed Problem Abnormal metabolic state due to diabetes mellitus (555201257) Abnormal metabolic state due to diabetes mellitus (E11.9) Active confirmed Problem Arthralgia of the pelvic region and thigh (889057677) Hip pain, unspecified laterality (M25.559) Active confirmed Problem Protein malnutrition (82036236) Protein malnutrition (E46) Active confirmed Vital Signs Heart Rate 81 /min 06/15/2025 Oximetry 94 % 06/15/2025 Blood pressure diastolic 84 mm Hg 06/15/2025 Height 52 in 06/15/2025 Blood pressure systolic 118 mm Hg 06/15/2025 Weight 196.8 lbs 06/15/2025 BMI 51.17 kg/m2 06/15/2025 Encounters Encounter Location Date Provider Diagnosis [address] [address] 08/08/2024 ROSS ARIAS Morbid obesity E66.0 1 ; Type 2 diabetes mellitus without complication, unspecified whether extermination supervisor insulin use E11.9 ; Body mass index (BMI) 50.0-59.9, adult Z68.43 ; Essential (primary) hypertension I10 and Hypercalcemia E83.[address] [address] 09/11/2024 ROSS ARIAS Type 2 diabetes claudette itus without complication, unspecified whether alf insulin use E11.9 ; COVID-19 U07.1 ; Uncontrolled hypertension I10 ; Morbid obesity E66.01 ; Body mass index (BMI) 50.0-59.9, adult Z68.43 and Hypercalcemia E83.[address] [address] 09/26/2024 ROSS ARIAS Type 2 diabetes claudette itus without complication, unspecified whether extermination supervisor insulin use E11.9 ; Hypercalcemia E83.52 ; Uncontrolled hypertension I10 ; Morbid obesity E66.01 ; Body mass index (BMI) 50.0-59.9, adult Z68.43 ; Right hip pain M25.551 ; Frequent headaches R51.9 and Other forms of nystagmus H55.[address] [place] [address] 10/13/2024 ROSS ARIAS Hip pain, left M25.5 52 ; Hip pain, right M25.551 ; Hypercalcemia E83.52 ; Type 2 diabetes mellitus without complication, unspecified whether alf insulin use E11.9 ; Morbid obesity E66.01 ; Body mass index (BMI) 50.0-59.9, adult Z68.43 ; Essential (primary) hypertension I10 and Cough R05.[address] [place] [address] 12/11/2024 ROSS ARIAS Type 2 diabetes claudette itus without complication, unspecified whether alf insulin use E11.9 ; Hypercalcemia E83.52 ; Uncontrolled hypertension I10 ; Morbid obesity E66.01 ; Body mass index (BMI) 50.0-59.9, adult Z68.43 ; Right hip pain M25.551 ; Frequent headaches R51.9 and Other forms of nystagmus H55.[address] [place] [address] 03/12/2025 ROSS ARIAS Type 2 diabetes claudette itus without complication, unspecified whether alf insulin use E11.9 ; Hypercalcemia E83.52 ; Uncontrolled hypertension I10 ; Morbid obesity E66.01 ; Body mass index (BMI) 50.0-59.9, adult Z68.43 ; Right hip pain M25.551 ; Frequent headaches R51.9 and Other forms of nystagmus H55.09 [address] [address] [place] [address] 05/04/2025 ROSS ARIAS Prediabetes R73.03 ; Annual physical exam Z00.00 ; Morbid obesity E66.01 ; Body mass index (BMI) 50.0-59.9, adult Z68.43 ; Essential (primary) hypertension I10 ; Type 2 diabetes mellitus without complication, unspecified whether extermination supervisor insulin use E11.9 and Hypercalcemia E83.52 [address] [place] [address] 06/04/2025 ROSS ARIAS SHEILA (acute kidney in [place]) N17.9 ; Volume depletion, unspecified E86.9 ; Hypomagnesemia E83.42 ; Hypokalemia E87.6 ; Acute hyponatremia E87.1 ; Protein malnutrition E46 ; Abnormal weight loss R63.4 ; Encounter for examination of blood pressure with abnormal findings Z01.31 and Nausea R11.[address] [place] [address] 06/15/2025 ROSS JUANA Volume depletion, unspecified E86.9 ; Hypercalcemia E83.52 ; Protein malnutrition E46 ; Abnormal weight loss R63.4 ; Encounter for examination of blood pressure with abnormal findings Z01.31 and Essential hypertension I10 [facility] [place] [address] 07/03/2024 ROSS JUANA [facility] [place] [address] 09/08/2024 RSOS JUANA [facility] [address] [place], [place] 09/11/2024 ROSS JUANA [facility] [place] [address] 09/11/2024 ROSS JUANA [facility] [address] [place], [place] 09/15/2024 ROSS JUANA [facility] [place] [address] 10/03/2024 ROSS JUANA [facility] [place] [address] 10/13/2024 ROSS JUANA Hip pain, unspecifie d laterality M25.559 [facility] [address] [place], [place] 10/24/2024 ROSS JUANA [facility] [address] [place], [place] 10/27/2024 ROSS JUANA [facility] [address] [place], [place] 10/27/2024 ROSS JUANA [facility] [place] [address] 10/27/2024 RSOS JUANA [facility] [address] [place], [place] 23/2025 ROSS JUANA [facility] [address] [place] [address] 02/20/2025 ROSS JUANA [facility] [place] [address] 05/04/2025 ROSS JUANA [facility] [address] [place] [address] 05/27/2025 ROSS JUANA [facility] [address] [place] [address] 06/03/2025 ROSS JUANA [facility] [place] [address] 06/03/2025 ROSS JUANA [facility] [place] [address] 07/24/2024 ROSS JUANA [facility] [address] [place] [address] 08/09/2024 ROSS JUANA [facility] [address] [place] [address] 09/02/2024 ROSS FLORESA Assessments Encounter Date Diagnosis (ICD Code) Assessment Notes Treatment Notes Treatment Clinical Notes Section Notes 08/08/2024 Morbid obesity (ICD-10 - E66.01) 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 # HTN: Currently on Irbesartan 300 mg (max dose Was started on Amlodipine last visit, and increased from 5 to 10 mg. BP readings improved with SBP in 130's. Pt reports ankle edema. Will continue Irbesartan 300 mg po daily, Amloidpine 5 mg po daily. #Morbid obesity:Currently going through [facility] for weight loss medication. 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 # [...] is also undergoing bariatric surgery evaluation through [facility] # Hypercalcemia Followed by endocrinology Patient seen [...] log exercise and discussed fitness Apps like [employer] which can help keep log off calories [...] Dictation was accomplished with the use of [employer] voice recognition software, prone to medical misidentifications [...] Dictation was accomplished with the use of [employer] voice recognition software, prone to medical misidentifications [...] Dictation was accomplished with the use of [employer] voice recognition software, prone to medical misidentifications [...] Dictation was accomplished with the use of [employer] voice recognition software, prone to medical misidentifications [...] Dictation was accomplished with the use of [employer] voice recognition software, prone to medical misidentifications [...] Dictation was accomplished with the use of [employer] voice recognition software, prone to medical misidentifications [...] Dictation was accomplished with the use of [employer] voice recognition software, prone to medical misidentifications [...] E66.01) 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 # HTN: Currently on Irbesartan 300 mg (max dose Was started on Amlodipine last visit, and increased from 5 to 10 mg. BP readings improved with SBP in 130's. Pt reports ankle edema. Will continue Irbesartan 300 mg po daily, Amloidpine 5 mg po daily. #Morbid obesity:Currently going through [facility] for weight loss medication. 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 # HTN: Currently on Irbesartan 300 mg (max dose Was started on Amlodipine last visit, and increased from 5 to 10 mg. BP readings improved with SBP in 130's. Pt reports ankle edema. Will continue Irbesartan 300 mg po daily, Amloidpine 5 mg po daily. #Morbid obesity:Currently going through [facility] for weight loss medication. Patient is also undergoing bariatric surgery evaluation through [facility] # Hypercalcemia Followed by endocrinology Patient seen [...] log exercise and discussed fitness Apps like [employer] which can help keep log off calories [...] Dictation was accomplished with the use of [employer] voice recognition software, prone to medical misidentifications [...] Dictation was accomplished with the use of [employer] voice recognition software, prone to medical misidentifications [...] next visit it any questions/concerns arise. 06/15/2025 Abnormal weight loss (ICD-10 - R63.4) [...] Dictation was accomplished with the use of [employer] voice recognition software, prone to medical misidentifications [...] Dictation was accomplished with the use of [employer] voice recognition software, prone to medical misidentifications [...] next visit it any questions/concerns arise. 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 # HTN: Currently on Irbesartan 300 mg (max dose Was started on Amlodipine last visit, and increased from 5 to 10 mg. BP readings improved with SBP in 130's. Pt reports ankle edema. Will continue Irbesartan 300 mg po daily, Amloidpine 5 mg po daily. #Morbid obesity:Currently going through [facility] for weight loss medication. 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 # HTN: Currently on Irbesartan 300 mg (max dose), HCTZ 37.55 mg po daily. Continue Amlodipine 5 mg po daily. # Hypercalcemia: Refer to endocrinology. Did not significantly improve with discontinuation of HCTZ. PTH WNL #Morbid obesity: Highest weight 230 pounds, lose weight 130 pounds, goal weight for now is 150 pounds. - Will request for Moolegario # Nystagmus: Brain CT w/o contrast w/o intracranial pathology # R hip pain. R hip x-ray. PRN NSAIDs- encouraged to favor APAP due to elevated BP #Hyperglycemia: Metformin will be increased to 1000mg Qhs. Case discussed with collaborating physician Bharati Armando who reviewed the assessment and plan. Chart, medications, labs, vital signs reviewed. 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 # [...] is also undergoing bariatric surgery evaluation through [facility] # Hypercalcemia Followed by endocrinology Patient seen [...] log exercise and discussed fitness Apps like [employer] which can help keep log off calories [...] Dictation was accomplished with the use of [employer] voice recognition software, prone to medical misidentifications [...] Dictation was accomplished with the use of [employer] voice recognition software, prone to medical misidentifications [...] next visit it any questions/concerns arise. 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 # HTN: Currently on Irbesartan 300 mg (max dose Was started on Amlodipine last visit, and increased from 5 to 10 mg. BP readings improved with SBP in 130's. Pt reports ankle edema. Will continue Irbesartan 300 mg po daily, Amloidpine 5 mg po daily. #Morbid obesity:Currently going through [facility] for weight loss medication. 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 # [...] Qhs. Case discussed with collaborating physician Bharati Armanod who reviewed the assessment and plan. Chart, medications, labs, vital signs reviewed. 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 # [...] Dictation was accomplished with the use of [employer] voice recognition software, prone to medical misidentifications [...] Dictation was accomplished with the use of [employer] voice recognition software, prone to medical misidentifications [...] Dictation was accomplished with the use of [employer] voice recognition software, prone to medical misidentifications [...] COMPREHENSIVE METABOLIC PANEL 06/14/2023 COMPREHENSIVE METABOLIC PANEL 06/04/2025 COMPREHENSIVE METABOLIC PANEL 03/12/2025 COMPREHENSIVE METABOLIC PANEL 12/11/2024 COMPREHENSIVE METABOLIC PANEL 08/08/2024 COMPREHENSIVE METABOLIC PANEL 05/02/2024 COMPREHENSIVE METABOLIC PANEL 04/10/2022 COMPREHENSIVE METABOLIC PANEL 01/09/2023 MAGNESIUM 06/04/2025 ALT 02/16/2021 CBC (INCLUDES DIFF/PLT) 01/09/2023 CBC (INCLUDES DIFF/PLT) 06/04/2025 CBC (INCLUDES DIFF/PLT) 03/12/2025 CBC (INCLUDES DIFF/PLT) 05/02/2024 CBC (INCLUDES DIFF/PLT) 12/11/2024 CBC (INCLUDES DIFF/PLT) 06/14/2023 CBC (INCLUDES DIFF/PLT) 01/17/2022 URINALYSIS, COMPLETE 06/14/2023 URINALYSIS, COMPLETE 03/12/2025 URINALYSIS, COMPLETE 01/09/2023 HEMOGLOBIN A1c 01/09/2023 HEMOGLOBIN A1c 05/02/2024 HEMOGLOBIN A1c 04/10/2022 HEMOGLOBIN A1c 12/11/2024 HEMOGLOBIN A1c 06/14/2023 HEMOGLOBIN A1c 01/17/2022 VITAMIN B12 03/12/2025 TSH 06/14/2023 VITAMIN D,25-OH,TOTAL,IA 06/14/2023 VITAMIN D,25-OH,TOTAL,IA 01/17/2022 VITAMIN D,25-OH,TOTAL,IA 03/12/2025 CT Brain WO 09/26/2024 TSH+T3+Free T4+T3 Free 03/12/2025 Next Appt Details Provider Name:ROSS ARIAS, 08/04/2025 08:00:00 AM, [address], [place], [address], Provider Name:ROSS ARIAS, 08/11/2025 08:00:00 AM, [address], [place], [address], Insurance Providers Payer Name Payer Address Payer Phone Subscriber Number Group Number Insured Name Patient Relationship to Insured Coverage Start Date Coverage End Date [facility] [address] [place] [address] [id number] COURTNEY HILARIO Self - patient is the insured Medications Administered Medication Instructions Date of Administration Dosage Notes [facility] B12 INJECTION 07/11/2021 lot # [id number] Semaglutide 04/15/2024 1 Medical (General) History Medical History History ICD Code Essential (primary) hypertension I10 Hyperlipidemia, unspecified E78.5 Prediabetes R73.03 Vitamin D deficiency E55.9 Depression, unspecified F32.A Obesity (BMI 30-39.9) E66.9 Aortic valve disease I35.9 CRYSTAL (obstructive sleep apnea) G47.33 Aortic stenosis, moderate I35.0 Surgical History Surgery Date(Month/Year) section L knee meniscus surgery 09/26/2022
--- OUTSIDE RECORDS SUMMARY | 2025-06-26 11:11 | XMS_ITS | Clinical Summary ---
Author Organization [facility] [employer] [facility] Address [address] [place] [address] Phone Care Team Providers Care Refrigeration Engineer Name Role Phone Belkys Armando MD Primary Care Provider [phone] Allergies Active Allergy Reactions Criticality Noted Date [...] (one) time each day. 9 Active omega 7-rre-utm-fish oil (Fish OiL) 1,200 (144-216) mg capsule [...] 10:30 AM EDT Office Visit Pulmonolgy - [place] [address] [place] [id number] Robbie Joyce MD Obstructive sleep apnea (Primary Dx); Obesity (BMI 30.0-34.9); Gastroesophageal reflux disease without esophagitis 06/03/2025 6:50 PM EDT - 06/03/2025 8:19 PM EDT Emergency [facility] Emergency [address] [place] [address] Osmel Kebede MD Dizziness (Primary Dx); Hypotension, unspecified hypotension type; Medication side effect; Hyponatremia; Hypokalemia; Hypomagnesemia; Dehydration Discharge Disposition: Home or Self Care from Last 3 Months Immunizations Name Administration Dates Next Due Tdap Tetanus diptheria acell ular pertussis (Boostrix; Adacel) 7yo and older 05/13/2010 Surgical History Surgery Date Site/Laterality Comments OTHER SURGICAL HISTORY PROCEDURE: HISTORICAL D&C OTHER SURGICAL HISTORY PROCEDURE: IA PUNCTURE ASPIRATION CYST OF BREAST OTHER SURGICAL HISTORY PROCEDURE: IA ENDOMETRIAL BX W/WO ENDOCERVIX BX W/O DILAT SPX SECTION PROCEDURE: HISTORICAL DELIVERY KNEE ARTHROSCOPY Left PROCEDURE: IA ARTHROSCOPY AID TX SPINE&/FX KNEE W/O FIXJ; [...] 9:45 AM EDT Office Visit Pulmonolgy - [place] [address] [phone] Robbie Joyce MD [address] [address] Health Maintenance Due Date Last Done Comments [...] LAB HEMETOLOGY METHOD 06/03/2025 8:[address] [facility] RBC 5.24 4.20 - 5.40 M/mcL LAB HEMETOLOGY METHOD 06/03/2025 8:[address] [facility] Hemoglobin 15.0 12.5 - 16.0 g/dL LAB HEMETOLOGY METHOD 06/03/2025 8:[address] [facility] Hematocrit 44.5 37.0 - 47.0 % LAB HEMETOLOGY METHOD 06/03/2025 8:[address] [facility] MCV 84.9 78.0 - 100.0 FL LAB HEMETOLOGY METHOD 06/03/2025 8:[address] [facility] MCH 28.6 25.0 - 33.0 pcg LAB HEMETOLOGY METHOD 06/03/2025 8:[address] [facility] MCHC 33.7 32.0 - 36.0 g/dL LAB HEMETOLOGY METHOD 06/03/2025 8:[address] [facility] RDW 14.3 12.1 - 16.2 % LAB HEMETOLOGY METHOD 06/03/2025 8:[address] [facility] Platelets 235 150 - 450 K/mcL LAB HEMETOLOGY METHOD 06/03/2025 8:[address] [facility] MPV 11.5(H) 7.4 - 11.4 FL LAB HEMETOLOGY METHOD 06/03/2025 8:[address] [facility] Blood Venous blood specimen / Unknown Venipuncture / Unknown 06/03/2025 8:15 PM EDT 06/03/2025 8:26 PM EDT Osmel Kebede MD LAB BLOOD ORDERABLES Final Res ult [facility] [address] [place] [address], [place] [phone] * (ABNORMAL) Magnesium (06/03/2025 8:15 PM EDT) Magnesium 1.5(L) 1.7 - 2.8 mg/dL LAB CHEMISTRY METHOD 06/03/2025 8:[address] [facility] Blood Venous blood specimen / Unknown Venipuncture / Unknown 06/03/2025 8:15 PM EDT 06/03/2025 8:26 PM EDT Osmel Kebede MD LAB BLOOD ORDERABLES Final Res ult [facility] [address] [place] [address], [place] [phone] * (ABNORMAL) Comprehensive Metabolic Panel (CMP) (06/03/2025 8:15 PM EDT) [facility] Signature Sodium 134(L) 135 - 145 mmol/L LAB CHEMISTRY METHOD 06/03/2025 8:46 PM [facility] Potassium 3.3(L) 3.5 - 5.1 mmol/L LAB CHEMISTRY [facility] Chloride 98 98 - 107 mmol/L LAB CHEMISTRY METHOD 06/03/2025 8:46 PM [facility] CO2 27 24 - 32 mmol/L LAB CHEMISTRY METHOD 06/03/2025 8:46 PM [facility] Anion Gap 9 5 - 14 LAB CHEMISTRY METHOD 06/03/2025 8:46 PM [facility] Glucose 121 70 - 199 mg/dL LAB CHEMISTRY METHOD 06/03/2025 8:46 PM [facility] BUN 36(H) 7 - 17 mg/dL LAB CHEMISTRY METHOD 06/03/2025 8:46 PM [facility] Creatinine 1.44(H) 0.50 - 1.00 mg/dL LAB CHEMISTRY METHOD 06/03/2025 8:46 PM [facility] eGFR 41(L) >=60 mL/min/1. 73m2 LAB CHEMISTRY METHOD 06/03/2025 8:46 PM [facility] Comment:Calculation based on the Chronic Kidney Disease Epidemiology Collaboration (CKD-EPI) equation refit without adjustment for race. BUN/Creatinine Ratio 25.0(H) 12.0 - 20.0 LAB CHEMISTRY METHOD 06/03/2025 8:46 PM [facility] Calcium 11.1(H) 8.4 - 10.2 mg/dL LAB CHEMISTRY METHOD 06/03/2025 8:[address] [facility] AST (SGOT) 24 5 - 40 unit/L LAB CHEMISTRY METHOD 06/03/2025 8:[address] [facility] ALT (SGPT) 31 7 - 52 unit/L LAB CHEMISTRY METHOD 06/03/2025 8:[address] [facility] Alkaline Phosphatase 77 34 - 104 unit/L LAB CHEMISTRY METHOD 06/03/2025 8:[address] [facility] Total Protein 7.6 6.4 - 8.5 g/dL LAB CHEMISTRY METHOD 06/03/2025 8:[address] [facility] Albumin 5.0 3.5 - 5.0 g/dL LAB CHEMISTRY METHOD 06/03/2025 8:[address] [facility] Total Bilirubin 0.6 0.3 - 1.0 mg/dL LAB CHEMISTRY METHOD 06/03/2025 8:[address] [facility] Blood Venous blood specimen / Unknown Venipuncture / Unknown 06/03/2025 8:15 PM EDT 06/03/2025 8:26 PM EDT us Osmel Kebede MD LAB BLOOD ORDERABLES Final Res ult [facility] [address] [place] [address], * (ABNORMAL) Lipid panel (04/27/2025 7:41 AM [...] 1:06 AM EDT Performed at: - [facility] [address] [id number] Binder Cutter: Kyung Butcher MD, Phone: [phone] Federica Saez NP LAB BLOOD ORDERABLES Final Res ult [facility] 1 * Hemoglobin A1c (05/05/2019) Hemoglobin A1C 6.0 <=6.5 % Blood Venous blood specimen / Unknown Result [facility] Historical Provider LAB BLOOD ORDERABLES Lu l Result * Pap Smear (02/06/2017) Pap smear abstracted, no interpretation Historical Provider HEALTH MAINTENANCE Final Result * Colonoscopy (05/14/2013) Colonoscopy abstracted, no interpretation Anatomical Region Laterality Modality Other Historical Provider HEALTH MAINTENANCE Final Result from Last 3 Months or Most Recently Relevant to Health Maintenance Insurance [employer] Care Teams Refrigeration Engineer Relationship Specialty Start Date End Date Belkys Armando MD [address] [place] [address] PCP - General Internal Medicine 12/02/24
[2025-06-26] MEDS: Lactated Ringers 1,000 ML 999 ML IV (11:36)
[2025-06-26] MEDS: Aprepitant 32 MG/4.4 ML VIAL IVPUSH (11:36)
--- NOTE | 2025-06-26 11:58 | PHA.MEDREC ---
Addendum entered by Martin Pierre PharmD 06/26/25 15:11: confirmed the last dose of Ozempic was 06/19/25 Original Note: Pharmacy Consult ? Medication Reconciliation Pharmacy has completed the medication reconciliation. Reviewed med rec done by nursing, matches claims.
--- NOTE | 2025-06-26 12:24 | MHC.SHP ---
Pre-Procedural Eval Section A - 24 Hr Update-Section A only Date of Service: 06/26/25 The patient is an INPATIENT: Yes The patient has been examined within 24 hours of the surgical procedure. The History & Physical has been completed within 30 days and I have reviewed it.: Yes Section B - Complete if H&P > 30 days Chief Complaint: Obesity Relevant Family History (Specify if Yes): No Relevant Social History: None Present Medications: None Medical History: No relevant PMH History of Previous Operations: No relevant previous surgery Allergies: Allergies Allergy/AdvReac Type Severity Reaction Status Date / Time No Known Allergies Allergy Verified 06/23/25 21:32 Review of Systems Sugical H&P ROS: Negative: Constitution, Cardiovascular, Respiratory, Neurological, Psychiatric, Hem-Onc, Allergic/Immunologic, Gastrointestinal, Genitourinary, Musculoskeletal, Integumentary, Endocrine and Eyes/Ears/Nose/Throat Exam Surgical H&P Exam: Normal: HEENT, Normal: Heart, Normal: Lungs, Normal: Extremities, Normal: Abdomen, Normal: Skin and Normal: Neurological Plan Diagnosis/Plan: Unchanged I have reviewed the history and physical and performed a pertinent physical examination on my patient. No changes have occurred unless specified. Time Spent With Patient Time: Total time managing care of this patient today ____ minutes.
--- NOTE | 2025-06-26 12:25 | PM.OP ---
Brief Operative Note Date of Service: 06/26/25 Pre-op diagnosis: Severe obesity with comorbidities (see below) Post-op diagnosis: same (& congenital abdominal adhesions) Procedure: INITIAL PATIENT BMI ON PRESENTATION AT OUR OFFICE: 38.2 kg/m2 LAST BMI BEFORE SURGERY: 34.5 kg/m2 COMORBIDITIES: sleep apnea on CPAP, hypertension, hyperlipidemia, non-insulin dependent diabetes, GERD,liver steatosis ?The patient presented to the Weight Management Program with significant obesity that was negatively impacting the patient's comorbidities as listed above.? The program is a phased program with a special focus on preoperative medical weight management to promote substantial weight loss and prepare the patients for the second phase of the program: bariatric surgery. The patient participated in an intensive weekly lifestyle ?intervention and exercise program during which the patient ?has lost between the initial office visit and the last preoperative visit 21.4 lbs, or 9.9% of initial actual body weight. It was deemed appropriate for the patient to now have bariatric surgery. In light of the current Covid-19 pandemic and the well documented strong association of obesity and increased risk of worse outcomes if infected with Covid-19 (REFERENCES:https://pubmed.ncbi.nlm.nih.gov/43733233/,?https://pubmed.ncbi.nlm.nih.gov/98436331/), any delay in undergoing bariatric surgery may lead to the patient's worsening health condition and increased?risk of more severe Covid-19 disease if infected. In addition a recent?study from [facility] published in [facility] [employer] on 11/14/2021 ([email or web address]) found that, among patients with obesity, substantial weight loss achieved with surgery was associated with improved outcomes of COVID-19 infection. The findings suggest that obesity can be a modifiable risk factor for the severity of COVID-19 infection. In addition, the patient met the BMI-criteria for bariatric surgery based on the BMI on initial presentation. The patient should not be penalized for achieving such weight loss because ?it is not sustainable long-term without surgical intervention and it was achieved in preparation for bariatric surgery ?under my direction and based on my published research ([email or web address]).[email or web address] and?https://www.soard.org/article/[email or web address](87)10438-X/pdf) ?that a 10% preoperative weight loss improves long-term weight loss after surgery and reduces perioperative complications.? Insurance carriers such as [facility] have endorsed my recommendations ?and have included in their policies criteria to include a 10% preoperative weight loss requirement. PROCEDURE: Esophago-gastroscopy, laparoscopic lysis of adhesions, laparoscopic sleeve gastrectomy and laparoscopic gastropexy INDICATIONS: This is a 64 year-old female who was electively scheduled for laparoscopic, possibly open sleeve gastrectomy. The risks and complications of the procedure were discussed with the patient in advance, particularly the possibility of ; pulmonary embolism; staple line leak; bleeding; GERD; cardiac, pulmonary, or renal complications; as well as long-term problems such as insufficient weight loss, vitamin deficiency, strictures, or ulcers. The patient understood all the risks, and was in agreement to proceed with surgery. DESCRIPTION OF PROCEDURE: After informed consent was obtained from the patient, the patient was given preoperative antibiotics, and was transferred to the operating room. After successful induction of general anesthesia, pneumatic compression devices were placed on both lower extremities. An upper endoscopy was performed next. The oropharynx and esophagus appeared to be within normal limits. There was no diaphragmatic hernia present. The stomach was entered. Then after all fluid and air were suctioned and the stomach was fully decompressed, the scope was withdrawn and secured in the mid esophagus. The patient was then prepped and draped in the usual sterile manner, and abdominal access was established at the right upper quadrant with the Alicia technique. A 12 mm blunt port was inserted, and the abdomen was insufflated with CO2 to a pressure of 15 mmHg. Under direct visualization, additional ports were placed, specifically two 5 mm Versi-step ports to the left upper quadrant, and a 5 mm Versi-Step port to the right upper quadrant. 1% lidocaine plain was used to infiltrate all port sites as well as all fascia defects. Following that, the patient was placed in a steep reverse Trendelenburg position. An additional 5 mm port was placed to the right flank for the Mediflex retractor that was used to retract the left lobe of the liver. The gastro-esophageal fat pad was opened with the ultrasonic device (underbeat, Olympus) and the anterior esophagus and hiatus were exposed. The angle of His was opened with the ultrasonic device the fundus of the stomach from any diaphragmatic and splenic attachments. I then opened the gastrocolic ligament between the transverse colon and the greater curvature of the stomach with the ultrasonic device to enter the lesser sac and facilitate the ligation of the short gastric vessels. I started at a mid-point along the greater curvature and using the Thunderbeat, all short gastric vessels were divided all the way to the angle of His until the left ward was completely dissected at its entirety. I then divided the gastro-colic ligament distally to a distance of about 3-4 cm proximal to the pylorus. There were extensive congenital adhesions between the pancreas and posterior gastric wall. Those were lysed completely with the ultrasonic device. Adhesiolysis took approximately 45 min to complete. The stomach was then divided transversely with two Endo DESTINY-45 purple and three DESTINY-6s0 articulating purple loads using the [employer] DigitalIA stapler and loads. Every effort was made that the gastric sleeve had a tubular shape and an even caliber throughout. Once the sleeve resection was completed, the staple line of the gastric sleeve was reinforced with Hemoclips. The resected stomach was retrieved without difficulty from the Alicia port. A gastropexy was then performed in order to prevent postoperative GERD and partial gastric volvulus. Several interrupted 2.0 Surgidac sutures were placed between the sleeve's staple line and the previously divided greater omentum and gastro-colic ligament using the Endo-Stitch device. ?An upper endoscopy was performed. There was no narrowing at the GE junction. The scope was easily advanced all the way to the pylorus which was clearly visualized. There was no narrowing anywhere and the sleeve's caliber was even throughout. The sleeve's staple line was inspected and there was no evidence of ischemia, bleeding or dehiscence. At that point the gastroscope was withdrawn from the patient?s mouth while we were decompressing the bowel and the stomach from any remaining air. I looked into the lesser sac to see how the sleeve was situating and it was situating well. There was no bleeding from the staple line, spleen, or short gastric vessels. The Mediflex retractor was removed, and the undersurface of the liver was inspected and there was no bleeding. The patient was placed in supine position. I closed the fascial defect of the 12 mm port site with a figure of eight #1 Polysorb suture. Then 30cc Ropivacaine plain with 10 mg of Dexamethasone were used to infiltrate the fascial closure as well as all skin incisions. At this point, the abdomen was deflated, all ports were removed under direct vision, and no bleeding was noted from any of the port sites. The skin incisions were irrigated with saline and were closed with 4-0 absorbable monofilament sutures. Steri-Strips and OpSites were used to cover all incisions. The patient was extubated and was transferred in stable condition to the recovery room for further care. I was present and performed all díaz parts of the procedure. Mr. Euceda was the first dyer. There were no residents to assist with this case. Carlos Dewitt MD, PhD, FACS Surgeon: Melquiades Dewitt MD Anesthesia: local and other (TAP block) Was an Tilt Wall Supervisor used for this Procedure?: No Tilt Wall Supervisor: Flakito Euceda Estimated blood loss (mL): 10 IV fluids (mL): 2,100 Urine output (mL): 0 (No Silva to record output) Pathology: other (1) Stomach, 2) Gastro-esophageal fat pad) Condition: stable Disposition: PACU
--- NOTE | 2025-06-26 12:29 | P.PNGS_ITS ---
Subjective Subjective Date of Service: 06/27/25 Interval history: Feels well. Mild incisional pain. She is tolerating phase 1 bariatric diet Physical Exam 2 Vital Signs: Vital Signs: Last Vital Signs Temp 98.6 F 06/26/25 11:27 Pulse 82 06/26/25 11:27 Resp 16 06/26/25 11:27 BP 124/66 06/26/25 11:27 Pulse Ox 95 06/26/25 11:27 O2 Del Method Room Air 06/26/25 11:27 BMI result Body Mass Index 33.6 GI: Inspection: Yes normal to inspection, Yes incision (clean, dry and intact) and Yes obesity Palpation (GI): Soft to palpation Extrem: Right lower extremity: normal to inspection (no calf tenderness) L eft lower extremity: normal to inspection (no calf tenderness) Objective Data Active Medications Lactated Ringer's (Lr) 1,000 mls @ 100 mls/hr IVCONT .Q10H [facility] Stop: 06/26/25 15:14 Lactated Ringer's (Lr) 1,000 mls @ 999 mls/hr IV .Q1H1M [facility] Stop: 06/26/25 13:15 Last Admin: 06/26/25 11:36 Dose: 999 mls/hr Documented By: [facility] 06/27/25 05:55 06/27/25 05:55 Procedures Date of Service Date of Service: 06/27/25 Progress Note: A&P Assessment and plan (1) Obesity: Status: Acute Assessment and Plan: s/p laparoscopic sleeve gastrectomy, lysis of adhesions and gastropexy Doing well Will check am labs and if OK the patient will be discharged home (2) BMI 34.0-34.9,adult: Status: Acute (3) Hypertension: Status: Acute (4) Hyperlipidemia: Status: Acute (5) Non-insulin dependent type 2 diabetes mellitus: Status: Acute (6) GERD (gastroesophageal reflux disease): Status: Acute (7) DJD (degenerative joint disease): Status: Acute (8) Sleep apnea treated with continuous positive airway pressure (CPAP): Status: Acute (9) Steatosis, liver: Status: Acute (10) Congenital intra-abdominal adhesions: Status: Acute (11) S/P laparoscopic sleeve gastrectomy: Status: Acute Time Spent With Patient Time: Total time managing care of this patient today ____ minutes. Quality Stroke Does the patient have a stroke diagnosis?: No VTE Prior VTE?: No VTE Risk Level:: Surgical - moderate VTE Device Contraindication: N/A - Device Ordered VTE Drug Contraindication: Treatment Not Indicated
--- NOTE | 2025-06-26 14:46 | P.DS_ITS ---
DS: Providers Provider Date of Service: 06/27/25 Date of admission: 06/26/25 11:05 Date of discharge: 06/27/25 Primary care physician: Federica Jackson PA-C DS: Diagnosis Discharge Diagnosis (1) Obesity: Status: Acute (2) BMI 34.0-34.9,adult: Status: Acute (3) Hypertension: Status: Acute (4) Hyperlipidemia: Status: Acute (5) Non-insulin dependent type 2 diabetes mellitus: Status: Acute (6) GERD (gastroesophageal reflux disease): Status: Acute (7) DJD (degenerative joint disease): Status: Acute (8) Sleep apnea treated with continuous positive airway pressure (CPAP): Status: Acute (9) Steatosis, liver: Status: Acute (10) Congenital intra-abdominal adhesions: Status: Acute (11) S/P laparoscopic sleeve gastrectomy: Status: Acute DS: Summary Hospital Course Hospital Course: ADMITTING DIAGNOSIS: obesity, allyssa, htn ? DISCHARGE DIAGNOSIS: same, s/p laparoscopic sleeve gastrectomy ? PAST SURGICAL HISTORY: cesarian section, left and right lateral meniscus repair ? PROCEDURE: upper endoscopy, laparoscopic sleeve gastrectomy ? DISCHARGE SUMMARY: ? History of Present Illness: ? The patient is a?64 year-old woman with a BMI of?38.3 kg/m2 and associated co- morbidities as described above. The patient had extensive work-up,lost?24.6 lbs preoperatively and was electively scheduled for laparoscopic, possible open sleeve gastrectomy and gastropexy. Risks and complications of the surgery were discussed with the patient in advance, particularly the possibility of , pulmonary embolism, anastomotic leak, bleeding, bowel injury, GERD, cardiac, renal or pulmonary complications. The patient understood all the risks and was in agreement with the surgical plan. ? Hospital Course: ? The patient underwent an uneventful laparoscopic sleeve gastrectomy with gastropexy on the day of admission. Postoperatively, the patient was transferred to the surgical floor. The patient received IV Acetaminophen and IV dilaudid for pain control. Patient was started on bariatric phase 1 diet POD #0. On posto perative day one, the patient was feeling well without nausea, vomiting, fevers, or tachycardia. The patient had some mild incisional pain and the abdomen was soft. ? On the morning of postoperative day one, the patient was continued on 1 ounce of water or ice every half hour. During the day, the patient did fairly well, having some incisional pain, but able to ambulate adequately and to tolerate liquids well. ? Since the patient is doing well, we decided that the patient was ready to be discharged. The patient was given instructions to follow-up with me next week and to call my office for any fever over 101, persistent abdominal pain, nausea, vomiting, GERD, symptoms of DVT such as calf tenderness, or leg swelling, or pulmonary embolism such as chest pain or shortness of breath. The patient was also instructed to drink 40-60 ounces of liquids per day using the 1-ounce cups. The patient had been given prescriptions for Tylenol for pain, Zofran prn for nausea, and pantoprazole and carafate previously. The patient was encouraged to ambulate and use the incentive spirometer. The patient was allowed to shower, but no baths, and encouraged to stay active at home. All of these ins tructions were given to the patient personally. All questions were answered and the patient understood all instructions, the instructions were also given to the patient in print. Time Attestation Total time managing care of this patient today: 25 mintues. Discharge Coordination Time (in mins): 25 Quality: Safe Use of Opioids Does Pt have an Active Cancer Diagnosis on the Problem List?: No Quality: Stroke Does the patient have a stroke diagnosis?: No Physical Exam Vital Signs: Vital Signs: Last Vital Signs Temp 98.6 F 06/26/25 11:27 Pulse 82 06/26/25 11:27 Resp 16 06/26/25 11:27 BP 124/66 06/26/25 11:27 Pulse Ox 95 06/26/25 11:27 O2 Del Method Room Air 06/26/25 11:27 BMI result Body Mass Index 33.6 DS: Data Data Completed and Pending Pending studies at discharge: Pending at discharge 06/26/25 14:30 Surgical [PTH] Routine Discharge Plan Discharge Anticipated Discharge Date/Time: 06/27/25 10:00 Patient Disposition: Home, Self-Care Discharge Diagnosis: s/p laparoscopic sleeve gastrectomy Referrals: Federica Jackson PA-C [Primary Care Provider, Primary Care] - 1 Week Discharge Medications: Continued sucralfate 100 mg/mL suspension 10 ml PO BID Qty: 600 2RF ondansetron 4 mg tablet,disintegrating 4 mg PO Q12H Qty: 20 0RF Rx Instructions: Only take one every 12 hours as needed if you have nausea pantoprazole 40 mg tablet,delayed release (DR/EC) 40 mg PO DAILY pravastatin 80 mg tablet 80 mg PO DAILY metoprolol tartrate 50 mg tablet 50 mg PO BID Discontinued pantoprazole 40 mg tablet,delayed release (DR/EC) 40 mg PO DAILY Qty: 90 0RF polyethylene glycol 3350 17 gram/dose powder 17 g PO DAILY Qty: 238 0RF Rx Instructions: Mix each measuring cup with 8oz of water, Crystal light, or Gatorade zero, or Propel and do 7 measuring cups on 06/24/25 and another 7 measuring cups on 06/25/25 Ozempic 1 mg/dose (4 mg/3 mL) pen injector 1 mg subcut QWEEK aspirin 81 mg tablet,delayed release (DR/EC) 81 mg PO DAILY metformin 1,000 mg tablet 1,000 mg PO DAILY Discharge Orders: Discharge Order (Routine); Ordered 06/27/25 Ordered By: Melquiades Dewitt Activity on Discharge: No heavy lifting Stand Alone Forms: Patient Portal Discharge page Print Language: Kazakh Care Plan Goals: weight loss Health Concerns: obesity Plan of Treatment: No tub baths, sex or returning to work until discussed at first post op appointment. No exercise, alcohol, tobacco or illegal drug use. Continue to use incentive spirometer hourly while awake. Walk in home for 5- 10 minutes every 2 hours during the first week. Follow all instructions in the bariatric handbook and call with any questions.Discharge Instructions 1. Please call your doctor or come back to the emergency room should any new symptoms arise. 2. You will receive a courtesy call from [facility] 24-48 hours after discharge. 3. Activity: abstain from alcohol, practice limited stair climbing, no bending, no driving, no exercise, no illicit substances, no lifting, no sex, no tub bath, no work. 4. Diet: continue as discussed with Dr. Dewitt. 5. Dressing Change/Wound Care: Your incision is covered by clear bandages and guaze underneath. If the area is tender, you may apply an ice pack for short intervals (no more than 20 minutes on, followed by at least 20 minutes off). Do not apply heat. Do not use creams, lotions, or topical antibiotics unless instructed to do so by your surgeon. These can cause infection or allergic reaction. 6. Call your doctor if: - Your temperature exceeds 101.5 F - You experience excessive pain or swelling - You have an unexpected reaction to medication - You have excessive bleeding - You experience continued vomiting/nausea - Your incision begins to separate - Your incision shows signs of infection such as increased redness, swelling, excessive pain, heat, or drainage (light blood or clear fluid is normal) 7. General instructions: No lifting greater than 5 lbs for 1 week and not more than 20lbs the next 3?weeks. No driving until seen at the office in 5-7 days after surgery. If you do not move your bowels in the next 2 days, please tell?Dr. Dewitt. Please walk around your home every hour or two to prevent blood clots from forming in your legs. You do not need to wake from sleeping to walk. Please sleep in a bed or couch to prevent kinking at the hips and knees. Please take your incentive spirometer (your lung process development technician) home with you and use it for the next few days to prevent pneumonia. You may shower, no hot tubs, baths or swimming pools.?Please follow the post op diet instructions you are?given by Dr Dewitt? and text me daily at 5-6pm for an update.?If you have any issues or concerns or questions please communicate this to him via text.? The Celebrate shakes have all of the bariatric vitamins you need if you consume these shakes. If you are drinking other protein shakes, you will need to purchase the Celebrate multivitamins and calcium that are available in the hospital gift shop on the first floor of the [facility].??Do not take anything without first discussing with Dr Dewitt. Please make sure you are consuming at least 40 ounces of fluids per day starting the?day AFTER your discharge from the hospital. Always drink 1-2 ml per minute using the 5ml?syringe. If you drink faster you may experience?bloating,?gas pain, burping, nausea or heartburn. In that case please slow down your pace and use the syringe to?understand better the?proper?pace and volume of drinking. Do not hesitate to contact the office with any questions at . The patient's medical history has been reviewed and they are considered low risk for post op DVT and therefore DVT prophylaxis is not considered necessary. Travel after surgery was reviewed. The patient has not disclosed any travel plans during the first 30 days after surgery and they have been advised that within the first 30 days after surgery any bus, plane, train or car travel over 2 hours in duration is contraindicated due to the possibility of developing blood clots from immobility. Any travel, needs to include periods of ambulation of 10 minutes in duration every 2 hours.? The patient was instructed to discuss any plans for travel during this period with their bariatric surgeon. Assessment: stable s/p laparoscopic sleeve gastrectomy Discharge Date/Time: 06/27/25 11:07
[2025-06-26 15:13] LABS: Hematocrit 42.7 % (37.0-47.0); Hemoglobin 14.1 g/dl (12.0-16.0)
[2025-06-26 15:28] LABS: Anion Gap 16 (12-20); Blood Urea Nitrogen 15 mg/dL (9-16); Calcium 9.8 mg/dL (8.4-10.2); Carbon Dioxide 23 mmol/L (22-29); Chloride 107 mmol/L (96-108); Creatinine Clr Calc Pharmacy 76.4; Estimated Glomerular Filt Rate > 60; Potassium 3.9 mmol/L (3.3-5.1); Sodium 142 mmol/L (135-145)
[2025-06-26] MEDS: Lactated Ringers 1,000 ML 100 ML IVCONT (17:22)
[2025-06-27] MEDS: Lactated Ringers 1,000 ML 100 ML IVCONT (03:02)
[2025-06-27 03:26] VITALS: BP 146/83; PULSE 73; RESP 18; TEMP 36.7; O2SAT 95
[2025-06-27 06:12] LABS: MANUAL DIFF FLAG NO
[2025-06-27 06:17] LABS: Hematocrit 41.3 % (37.0-47.0); Hemoglobin 13.5 g/dl (12.0-16.0); Imm Gran Abs Auto 0.03 X10*3/uL (0.00-0.03); Imm Gran Pct Auto 0.3 % (0.0-0.4); Lymphocytes Absolute Auto 1.1 X10*3/uL (1.2-4.9); Mean Corpuscular HGB Conc 32.7 g/dl (31.0-35.0); Mean Corpuscular Hemoglobin 28.3 pg (27.0-33.0); Mean Corpuscular Volume 86.6 fL (80.0-98.0); NRBC Abs Auto 0.000 X10*3/uL (0.0-0.012); NRBC Pct Auto 0.0 /100WBC (0.0-0.2); Platelet Count 203 X10*3/uL (160-400); Red Blood Count 4.77 X10*6/uL (4.20-5.50); White Blood Count 10.6 X10*3/uL (4.8-10.8)
[2025-06-27 06:36] LABS: Anion Gap 14 (12-20); Blood Urea Nitrogen 12 mg/dL (9-16); Calcium 9.9 mg/dL (8.4-10.2); Carbon Dioxide 25 mmol/L (22-29); Chloride 107 mmol/L (96-108); Creatinine Clr Calc Pharmacy 89.3; Estimated Glomerular Filt Rate > 60; Potassium 4.6 mmol/L (3.3-5.1); Sodium 141 mmol/L (135-145)
[2025-06-27 07:10] VITALS: BP 159/73; PULSE 86; RESP 14; TEMP 36.7; O2SAT 94
[2025-06-27 08:30] VITALS: BP 137/71; PULSE 75
--- NOTE | 2025-06-27 10:02 | MHC.CM.PN ---
pt dcd home self care prior to being seen by cm
[2025-06-27 10:44] VITALS: BP 158/77; PULSE 74; RESP 16; TEMP 36.3; O2SAT 95
--- NOTE | 2025-06-27 15:38 | HO.POSTANES ---
Post Anesthesia Evaluation Post Anesthesia Evaluation Date of Service: 06/27/25 Vital Signs: Vital Signs Temp Pulse Resp BP Pulse Ox O2 Del Method 06/27/25 10:44 97.3 F 74 16 158/77 H 95 Room Air 06/27/25 08:30 75 137/71 06/27/25 07:10 98.0 F 86 14 159/73 H 94 Room Air Anesthesia: General Endotracheal-GETA Mental Status: Awake Pain Control: Satisfactory Nausea/Vomiting: None Hydration: Adequate Anesthesia-Related Issues: No Anes. Related Issues
== END 2025-06-27 11:07 | disposition home or self-care (01) | DRG 403 ==
LOC: HO.SSSA 14:48 → HO.S3 15:32
PROVIDERS: Physician Assistant Surgical; Admitting Provider Surgery; PCP Physician Assistant Medical; Visit Provider Surgery
PROC: 0DB64Z3 Excision of Stomach, Percutaneous Endoscopic Approach, Vertical (ICD-10-PCS; CPT 43845; principal; 2025-06-26 12:40)
DX: E66.01 Morbid (severe) obesity due to excess calories (principal); K76.0 Fatty (change of) liver, not elsewhere classified; Q43.3 Congenital malformations of intestinal fixation; E11.9 Type 2 diabetes mellitus without complications; E78.5 Hyperlipidemia, unspecified; I10 Essential (primary) hypertension; G47.33 Obstructive sleep apnea (adult) (pediatric); Z68.34 Body mass index [BMI] 34.0-34.9, adult; Z79.899 Other long term (current) drug therapy
CPT/HCPCS: 36415; 80048; 85014; 85018; 85025; 86850; 86900; 86901; 88304; 88305; 88307; 88342; A4649; C9145; J0131; J0690; J1100; J1171; J2003; J2250; J2405; J2470; J2704; J2795; J3010; J7120

== ENCOUNTER → 2025-06-26 11:05 | Outpatient (BNV) | payer BC, SELFPAY | PROVIDERS: Admitting Provider Surgery; PCP Physician Assistant Medical; Visit Provider Surgery | DX: E66.812 Obesity, class 2 (principal); E66.01 Morbid (severe) obesity due to excess calories; Z68.38 Body mass index [BMI] 38.0-38.9, adult; Z68.34 Body mass index [BMI] 34.0-34.9, adult; I10 Essential (primary) hypertension; E78.5 Hyperlipidemia, unspecified; E11.9 Type 2 diabetes mellitus without complications; K21.9 Gastro-esophageal reflux disease without esophagitis; M19.90 Unspecified osteoarthritis, unspecified site; G47.30 Sleep apnea, unspecified; K76.0 Fatty (change of) liver, not elsewhere classified; Q43.3 Congenital malformations of intestinal fixation; Z98.84 Bariatric surgery status | CPT/HCPCS: 43659; 43775; 99024; 99499 ==

== ENCOUNTER 2025-07-01 12:14 | Outpatient (AMB) | payer BC, SELFPAY ==
--- NOTE | 2025-07-01 12:00 | MHC.WMTHER ---
Intake Intake Visit Reasons: TV PO LSG 06/26/25 Allergies No Known Allergies Allergy (Verified 06/23/25 21:32) PFSH Medical History Non-insulin dependent type 2 diabetes mellitus DJD (degenerative joint disease) GERD (gastroesophageal reflux disease) Hyperlipidemia Sleep apnea treated with continuous positive airway pressure (CPAP) Hypertension BMI 30.0-30.9,adult Obesity Surgical History History of esophagogastroduodenoscopy (EGD) Hx of section History of lateral meniscus repair of right knee History of lateral meniscus repair of left knee Hx of colonoscopy Family History Mother Breast cancer Diabetes Heart problem Hypertension Father Heart problem Melanoma Diabetes Hypertension Son Gout Daughter No problems noted. Daughter Thyroid condition Social History Household Members: None [facility] Are you a primary urgent care physician to a significant other at home: No Do you presently have visiting nurse or other home services: No Alcohol intake: current Alcohol intake frequency: does not drink Patient Tobacco Use Status: Never used Tobacco Behavioral Health Assessment Weight Management Therapy Therapy Notes Details Subjective: The patient underwent weight loss surgery on June 26, 2025, with a recorded weight of 191.6 lbs on the day of surgery. She reports feeling sore and experiencing some gas, which she recognizes as typical post-operative symptoms. The patient notes mild stress related to returning to work next week but feels generally prepared. She identifies her daughter and a few friends as her primary support system. She reports experiencing some hunger sensations and states that she feels comfortable and positive about recognizing those feelings. Objective: The patient completed a behavioral health post-op follow-up via telehealth. A guided emotional check-in was conducted to assess recovery, mood, and overall functioning. Psychoeducation was provided on common emotional adjustments after bariatric surgery, including the difference between hunger, cravings, and food thoughts. Strategies to support mindset, mindfulness, and adherence to physical and emotional needs were discussed. The importance of following the [facility] team?s guidance was reinforced while the patient was supported in developing a plan for returning to work next week, with a focus on maintaining hydration and adhering to post-op drinking guidelines despite the pace and demands of her job, in order to prevent potential complications. Long-term success tips and program resources were shared, and the patient was encouraged to join the Facebook group for ongoing support and updates. Assessment/Response: Mental status: WNL Risk reported/identified: None Assessment & Plan Assessment & Plan (1) Depression, unspecified: Code(s): F32.A - Depression, unspecified (2) Status post bariatric surgery: Code(s): Z98.84 - Bariatric surgery status Plan No safety concerns or issues were identified that would necessitate behavioral health monitoring. The patient declined further visits but is aware of the available behavioral health support if needed in the future. Telehealth Telehealth [facility] Location of provider rendering services: practice address Location of patient: address on file Patient Identification confirmed using: Name, : Yes Telehealth method: video Patient verbally consented to treatment: Yes Patient verbally consented to billing insurance company: Yes Patient informed of any privacy concerns related to visit: Yes Minutes spent on Phone/Video with Pt.: 30 Coding Level of Care Code Established Pt Tele Psytx 30 mins ([id number]) Patient Type Established Diagnoses Depression, unspecified F32.A Status post bariatric surgery Z98.84 Time Spent (min) 30
--- OUTSIDE RECORDS SUMMARY | 2025-07-01 12:55 | XMS_ITS | Patient Health Record ---
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 Metabolic Panel (14)-3 74424 Reviewed date:06/10/2025 10:36:47 AM Interpretation: Performing Lab:[facility], [address] [place] [address], [place], Phone - [phone], Director - Adam Notes/Report: Glucose 87 70-99 [...] (SGPT) 32 0-32 IU/L CBC With Differential/Platel et-[id number] Reviewed date:06/10/2025 05:17:38 PM Interpretation: Performing Lab:[facility], [address] [place] [address], Phone - [phone], Director - Adam Notes/Report: WBC 5.9 3.4-10.8 [...] % Immature Grans (Abs) 0.0 0.0-0.1 x10E3/uL Magnesium-[id number] Reviewed date:06/10/2025 10:36:52 AM Interpretation: Performing Lab:[facility] [place], [address] [place] [address], Phone - [phone], Director - Jeny Notes/Report: Magnesium 1.6 1.6-2.3 mg/dL Comp. Metabolic Panel (14)-3 Reviewed date:01/27/2025 08:03:11 AM Interpretation: Performing Lab:[facility], [address] [place] [address], Phone - [phone], Director - Jeny Notes/Report: Glucose 108 70-99 mg/dL BUN 14 [...] (SGPT) 30 0-32 IU/L CBC With Differential/Platel et-[id number] Reviewed date:01/27/2025 08:03:11 AM Interpretation: Performing Lab:[facility], [address], [place], Phone - [phone], Director - Adam Notes/Report: WBC 6.3 3.4-10.8 [...] Immature Grans (Abs) 0.0 0.0-0.1 x10E3/uL Hemoglobin D3o-[id number] Reviewed date:01/27/2025 08:01:53 AM Interpretation: Performing Lab:[facility], Phone - [phone], Director - MDJodry Notes/Report: Hemoglobin A1c 6.2 4.8-5.6 % . Prediabetes: 5.7 - 6.4 Diabetes: >6.4 Glycemic control for adults with diabetes: <7.0 Comp. Metabolic Panel (14)-3 Reviewed date:09/19/2024 08:00:14 AM Interpretation: Performing Lab:[facility] [address] [place] [address], Phone - [phone], Director - MDIselay Notes/Report: Glucose 106 70-99 [...] 0-32 IU/L Comp. Metabolic Panel (14)-3 Reviewed date:08/04/2024 07:54:35 AM Interpretation: Performing Lab:[facility], [place], Phone - [phone], Director - MDy Notes/Report: Glucose 115 70-99 mg/dL BUN 21 [...] (SGPT) 28 0-32 IU/L CBC With Differential/Platel et-[id number] Reviewed date:08/04/2024 07:54:35 AM Interpretation: Performing Lab:[facility], [address] [place] [address], [place], Phone - [phone], Director - Adam Notes/Report: WBC 6.4 3.4-10.8 [...] Immature Grans (Abs) 0.0 0.0-0.1 x10E3/uL Hemoglobin N6p-[id number] Reviewed date:08/04/2024 07:54:35 AM Interpretation: Performing Lab:[facility] [place], [address] [place] [address], Phone - [phone], [facility] Notes/Report: Hemoglobin A1c 6.2 4.8-5.6 % . Prediabetes: 5.7 - 6.4 Diabetes: >6.4 Glycemic control for adults with diabetes: <7.0 TSH+T3+Free T4+T3 Free Reviewed date:05/11/2025 08:05:49 AM Interpretation: Performing Lab:[facility] [place], [address] [place] [address], Phone - [phone], Director - Jeny Notes/Report: TSH-ICMA 2.9 Reference Range: Non- Adult 0.450-4.500 First Trimester 0.100-4.000 Second Trimester 0.200-4.000 Third Trimester 0.300-4.500 Triiodothyronine (T-3), Serum 97 Reference Range: Adults: 55 - 170 Free T-3 3.3 Reference Range: >=20y: 2.0 - 4.4 Free T4 by Dialysis/Surgical Garment Assembler 1.2 This test was developed and its performance characteristics determined by [facility]. It has not been cleared or approved by the Food and Drug Administration. Reference Range: Pubertal Children and Adults: 0.8 - 1.7 Comp. Metabolic Panel (14)-3 50560 Reviewed date:05/11/2025 08:05:49 AM Interpretation: Performing Lab:[facility], [address] [place] [address], Phone - [phone], Director - Adam Notes/Report: Glucose 105 70-99 [...] IU/L ALT (SGPT) 44 0-32 IU/L Lipid Panel-[id number] Reviewed date:05/11/2025 08:05:44 AM Interpretation: Performing Lab:[facility] [place], [address] [place] [address], Phone - [phone], Director - Adam Notes/Report: Cholesterol, Total 178 100-199 mg/dL Triglycerides 172 0-149 mg/dL HDL Cholesterol 63 >39 mg/dL VLDL Cholesterol Trino 29 5-40 mg/dL LDL Chol Calc (NIH) 86 0-99 mg/dL Vitamin D, 51-Nvlzoqu-332200 Reviewed date:05/11/2025 08:05:49 AM Interpretation: Performing Lab:[facility] [place], [address] [place] [address], Phone - [phone], Director - Adam Notes/Report: Vitamin D, 25-Hydroxy 38.1 30.0-100.0 ng/mL Vitamin D deficiency has been defined by the [place] of [employer] and an Endocrine Society practice guideline as a level of serum 25-OH vitamin D less than 20 ng/mL (1,2). The Endocrine Society went on to further define vitamin D insufficiency as a level between 21 and 29 ng/mL (2). 1. IOM ([place] of [employer]). 2010. Dietary reference intakes for calcium and D. [place]: The National Academies Press. 2. Les MF, Romeo [place], Aranza FALLON, et al. Evaluation, treatment, and prevention of vitamin D deficiency: an Endocrine Society clinical practice guideline. JCEM. 2010; 96(7):1911-30. CBC With Differential/Platel et-[id number] Reviewed date:05/11/2025 08:05:49 AM Interpretation: Performing Lab:[facility] [place], [address] [place] [address], [place], Phone - [phone], Director - Adam Notes/Report: WBC 5.3 3.4-10.8 [...] Immature Grans (Abs) 0.0 0.0-0.1 x10E3/uL Urinalysis, Complete-[id number] Reviewed date:05/11/2025 08:05:49 AM Interpretation: Performing Lab:[facility], [address] [facility], Phone - [phone], Director - MDJodry Notes/Report: Specific [place] 1.028 1.005-1.030 pH 5.5 5.0-7.5 Urine-Color Yellow [...] /lpf Bacteria None seen None seen/Few Vitamin [id number] Reviewed date:05/11/2025 08:05:49 AM Interpretation: Performing Lab:[facility], [facility], [place], Phone - [phone], Director - MDJodry Notes/Report: Vitamin B12 424 578-6312 pg/mL Reason For Referral Diagnosis 1 Hypercalcemia (E83.5 2) Referral Organization [facility] [address] Referring Provider First Name ROSS Referring Provider Last Name JUANA Referring Provider Speciality Internal edicine Referred Provider Specialty Endocrinolog y General Notes Leann Ortega 2023 08:53:41 AM > filled out form and sent to referral to [facility] end[facility], Jose Uribe 12/01/2024 04:12:27 PM > The patient was seen on 10/27/2024 Referral Priority Routine Reason partial tear in glut eus and rt hamstring and left hip labral tear Diagnosis 1 Hip pain, left (M25. 552) Diagnosis 2 Gluteal tendinitis, left hip (M76.02) Referral Organization [facility] Referring Provider First Name ROSS Referring Provider Last Name JUANA Referring Provider [facility]ity [facility] Referred Provider Specialty Orthopedic S urgery Clinical Notes damon navarro 1 12/28/2023 09:59:37 AM >faxed mri's and paper to Alecia francis Earl Adam 10/28/2024 11:12:41 AM > [facility] [phone]. Refaxedmelanie krystal 11/04/2024 03:03:46 PM >seen 10/29/24 marco antonio tarango -notes scanned in Referral Priority Routine Reason evaluate and treat rafto polus Diagnosis [address] at (Z98.84) Referral Organization [facility] Referring Provider First Name ROSS Referring Provider Last Name JUANA Referring Provider Speciality [facility] Referred Provider Specialty General Surg sharri General Notes Morales Kenny 03/12 10:50:25 AM > referral sent to [facility], p. [phone], f. 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 Tob: 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 Tob: nonsmoker 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 irrigation teacher Tob: 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 Tob: nonsmoker 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 irrigation teacher irrigation teacher Tob: 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 Tob: nonsmoker 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 irrigation teacher irrigation teacher irrigation teacher Tob: 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 Tob: nonsmoker 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 Problems Problem Type SNOMED Code ICD Code Onset Dates Problem Status W/U Status Risk Notes Problem Hypothyroidism (75434926) Hypothyroidism, unspecified (E03.9) Active confirmed Problem Vitamin D deficiency (06409483) Vitamin D deficiency, unspecified (E55.9) Active confirmed Problem Hyperlipidemia (39014454) Hyperlipidemia, unspecified (E78.5) Active confirmed Problem Hypomagnesemia (353043972) Hypomagnesemia (E83.42) Active confirmed Problem Hypercalcemia (28276133) Hypercalcemia (E83.52) Active confirmed Problem Nystagmus (313958) Other forms of nystagmus (H55.09) Active confirmed Problem Essential hypertension (76587076) Essential (primary) hypertension (I10) Active confirmed Problem Abnormal blood pressure (19912700) Encounter for examination of blood pressure with abnormal findings (Z01.31) Active confirmed Problem Screening for malignant neoplasm of breast (117833814) Encounter for screening mammogram for malignant neoplasm of breast (Z12.31) Active confirmed Problem Screening for osteoporosis (212734517) Encounter for screening for osteoporosis (Z13.820) Active confirmed Problem History of bariatric surgical procedure (426535305) Bariatric surgery status (Z98.84) Active confirmed Problem Prediabetes (902753429) Prediabetes (R73.03) Active confirmed Problem Essential hypertension (40654118) Essential hypertension (I10) Active confirmed Problem Morbid obesity (541605652) Morbid obesity (E66.01) Active confirmed Problem Acquired hypothyroidism (738768299) Acquired hypothyroidism (E03.9) Active confirmed Problem Depressive disorder (disorder) (26695628) Depression, unspecified depression type (F32.9) Active confirmed Problem Annual health maintenance examination (46125751) Annual physical exam (Z00.00) Active confirmed Problem Vitamin D deficiency (53764181) Vitamin D deficiency (E55.9) Active confirmed Problem Body mass index 40+ - morbidly obese (947766269) Body mass index (BMI) 50.0-59.9, adult (Z68.43) Active confirmed Problem Hypertension (89120821) Uncontrolled hypertension (I10) Active confirmed Problem Type II diabetes mellitus without complication (712218790) Type 2 diabetes mellitus without complication, unspecified whether jail insulin use (E11.9) Active confirmed Problem Vitamin B>12< deficiency anaemia (87793339) Anemia due to vitamin B12 deficiency, 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) Active confirmed Problem Essential hypertension (46430142) Elevated blood pressure reading in office with white coat syndrome, with diagnosis of hypertension (I10) Active confirmed Problem Frequent headache (finding) (559712613) Frequent headaches (R51.9) Active confirmed Problem Double vision (31048682) Double vision (H53.2) Active confirmed Problem Hyperlipidemia (99211603) 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) Active confirmed Problem Abnormal metabolic state due to diabetes mellitus (299275919) Abnormal metabolic state due to diabetes mellitus (E11.9) Active confirmed Problem Arthralgia of the pelvic region and thigh (446726823) Hip pain, unspecified laterality (M25.559) Active confirmed Problem Protein malnutrition (73401819) Protein malnutrition (E46) Active confirmed Vital Signs Heart Rate 81 /min 06/15/2025 Oximetry 94 % 06/15/2025 Blood pressure diastolic 84 mm Hg 06/15/2025 Height 52 in 06/15/2025 Blood pressure systolic 118 mm Hg 06/15/2025 Weight 196.8 lbs 06/15/2025 BMI 51.17 kg/m2 06/15/2025 Encounters Encounter Location Date Provider Diagnosis [address] [address] 08/08/2024 ROSS ARIAS Morbid obesity E66.0 1 ; Type 2 diabetes mellitus without complication, unspecified whether remote computer terminal operator insulin use E11.9 ; Body mass index (BMI) 50.0-59.9, adult Z68.43 ; Essential (primary) hypertension I10 and Hypercalcemia E83.[address] [address] 09/11/2024 ROSS ARIAS Type 2 diabetes claudette itus without complication, unspecified whether jail insulin use E11.9 ; COVID-19 U07.1 ; Uncontrolled hypertension I10 ; Morbid obesity E66.01 ; Body mass index (BMI) 50.0-59.9, adult Z68.43 and Hypercalcemia E83.[address] [address] 09/26/2024 ROSS ARIAS Type 2 diabetes claudette itus without complication, unspecified whether jail insulin use E11.9 ; Hypercalcemia E83.52 ; Uncontrolled hypertension I10 ; Morbid obesity E66.01 ; Body mass index (BMI) 50.0-59.9, adult Z68.43 ; Right hip pain M25.551 ; Frequent headaches R51.9 and Other forms of nystagmus H55.[address] [place] [address] 10/13/2024 ROSS ARIAS Hip pain, left M25.5 52 ; Hip pain, right M25.551 ; Hypercalcemia E83.52 ; Type 2 diabetes mellitus without complication, unspecified whether jail insulin use E11.9 ; Morbid obesity E66.01 ; Body mass index (BMI) 50.0-59.9, adult Z68.43 ; Essential (primary) hypertension I10 and Cough R05.[address] [place] [address] 12/11/2024 ROSS AIRAS Type 2 diabetes claudette itus without complication, unspecified whether jail insulin use E11.9 ; Hypercalcemia E83.52 ; Uncontrolled hypertension I10 ; Morbid obesity E66.01 ; Body mass index (BMI) 50.0-59.9, adult Z68.43 ; Right hip pain M25.551 ; Frequent headaches R51.9 and Other forms of nystagmus H55.[address] [place] [address] 03/12/2025 ROSS ARIAS Type 2 diabetes claudette itus without complication, unspecified whether remote computer terminal operator insulin use E11.9 ; Hypercalcemia E83.52 ; Uncontrolled hypertension I10 ; Morbid obesity E66.01 ; Body mass index (BMI) 50.0-59.9, adult Z68.43 ; Right hip pain M25.551 ; Frequent headaches R51.9 and Other forms of nystagmus H55.09 [facility] [address] [place] [address] 05/04/2025 ROSS ARIAS Prediabetes R73.03 ; Annual physical exam Z00.00 ; Morbid obesity E66.01 ; Body mass index (BMI) 50.0-59.9, adult Z68.43 ; Essential (primary) hypertension I10 ; Type 2 diabetes mellitus without complication, unspecified whether jail insulin use E11.9 and Hypercalcemia E83.52 [facility] [address] [place] [address] 06/04/2025 ROSS ARIAS SHEILA (acute kidney in [place]) N17.9 ; Volume depletion, unspecified E86.9 ; Hypomagnesemia E83.42 ; Hypokalemia E87.6 ; Acute hyponatremia E87.1 ; Protein malnutrition E46 ; Abnormal weight loss R63.4 ; Encounter for examination of blood pressure with abnormal findings Z01.31 and Nausea R11.[address] [place] [address] 06/15/2025 ROSS JUANA Volume depletion, unspecified E86.9 ; Hypercalcemia E83.52 ; Protein malnutrition E46 ; Abnormal weight loss R63.4 ; Encounter for examination of blood pressure with abnormal findings Z01.31 and Essential hypertension I10 [facility] [address] [place] [address] 07/03/2024 ROSS JUANA [facility] [address] [place] [address] 09/08/2024 ROSS JUANA [facility] [address] [place], [place] 09/11/2024 ROSS JUANA [facility] [address] [place] [address] 09/11/2024 ROSS JUANA [facility] [address] [place], [place] 09/15/2024 ROSS JUANA [facility] [address] [place] [address] 10/03/2024 ROSS JUANA [facility] [address] [place] [address] 10/13/2024 ROSS JUANA Hip pain, unspecifie d laterality M25.559 [facility] [address] [place], [place] 10/24/2024 ROSS JUANA [facility] [address] [place], [place] 10/27/2024 ROSS JUANA [facility] [address] [place], [place] 10/27/2024 ROSS JUANA [facility] [address] [place] [address] 10/27/2024 ROSS JUANA [facility] [address] [place], [place] 23/2025 ROSS JUANA [facility] [address] [place] [address] 02/20/2025 ROSS JUANA [facility] [address] [place] [address] 05/04/2025 ROSS JUANA [facility] [address] [place] [address] 05/27/2025 ROSS JUANA [facility] [address] [place] [address] 06/03/2025 ROSS JUANA [facility] [address] [place] [address] 06/03/2025 ROSS JUANA [facility] [address] [place] [address] 07/24/2024 ROSS JUANA [facility] [address] [place] [address] 08/09/2024 ROSS JUANA [facility] [address] [place] [address] 09/02/2024 ROSS JUANA [facility] [address] [place] [address] 06/27/2025 ROSS JUANA Assessments Encounter Date Diagnosis (ICD Code) Assessment Notes Treatment Notes Treatment Clinical Notes Section Notes 08/08/2024 Morbid obesity (ICD-10 - E66.01) 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 # HTN: [...] 150 pounds. 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 #COVID [...] PTH Case discussed with collaborating physician Gaye Armadno who reviewed the assessment and plan. Chart, medications, labs, vital signs reviewed. 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 # HTN: Currently on Irbesartan 300 mg (max dose Was started on Amlodipine last visit, and increased from 5 to 10 mg. BP readings improved with SBP in 130's. Pt reports ankle edema. Will continue Irbesartan 300 mg po daily, Amloidpine 5 mg po daily. #Morbid obesity:Currently going through [facility] for weight loss medication. Patient is also undergoing bariatric surgery evaluation through [facility] # Hypercalcemia Followed by endocrinology Patient [...] log exercise and discussed fitness Apps like [employer] which can help keep log off calories [...] Dictation was accomplished with the use of [employer] voice recognition software, prone to medical misidentifications [...] Dictation was accomplished with the use of [employer] voice recognition software, prone to medical misidentifications [...] Dictation was accomplished with the use of [employer] voice recognition software, prone to medical misidentifications [...] Dictation was accomplished with the use of [employer] voice recognition software, prone to medical misidentifications [...] Dictation was accomplished with the use of [employer] voice recognition software, prone to medical misidentifications [...] E66.01) 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 # HTN: [...] Dictation was accomplished with the use of [employer] voice recognition software, prone to medical misidentifications [...] 50% being face to face counselling. 06/04/2025 Hypomagnesemia (ICD-10 - E83.42) Courtney is [...] Dictation was accomplished with the use of [employer] voice recognition software, prone to medical misidentifications [...] Dictation was accomplished with the use of [employer] voice recognition software, prone to medical misidentifications and grammatical errors. This is unintentional and the practitioner does try to identify and correct these, but some could still be present. Please do not hesitate to contact practitioner for clarification. All questions answered to patients satisfaction. Patient verbalized understanding of diagnosis and treatments explained. To call sooner prior to next visit it any questions/concerns arise. 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 #COVID positive. 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 # HTN: [...] Dictation was accomplished with the use of [employer] voice recognition software, prone to medical misidentifications [...] Dictation was accomplished with the use of [employer] voice recognition software, prone to medical misidentifications [...] next visit it any questions/concerns arise. 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 # HTN: Currently on Irbesartan 300 mg (max dose Was started on Amlodipine last visit, and increased from 5 to 10 mg. BP readings improved with SBP in 130's. Pt reports ankle edema. Will continue Irbesartan 300 mg po daily, Amloidpine 5 mg po daily. #Morbid obesity:Currently going through [facility] for weight loss medication. Patient is also undergoing bariatric surgery evaluation through [facility] # Hypercalcemia Followed by endocrinology Patient [...] log exercise and discussed fitness Apps like [employer] which can help keep log off calories [...] Dictation was accomplished with the use of [employer] voice recognition software, prone to medical misidentifications [...] Dictation was accomplished with the use of [employer] voice recognition software, prone to medical misidentifications [...] Dictation was accomplished with the use of [employer] voice recognition software, prone to medical misidentifications [...] I10) 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 # HTN: Currently on Irbesartan 300 mg (max dose Was started on Amlodipine last visit, and increased from 5 to 10 mg. BP readings improved with SBP in 130's. Pt reports ankle edema. Will continue Irbesartan 300 mg po daily, Amloidpine 5 mg po daily. #Morbid obesity:Currently going through [facility] for weight loss medication. Patient is also undergoing bariatric surgery evaluation through [facility] # Hypercalcemia Followed by endocrinology Patient [...] log exercise and discussed fitness Apps like [employer] which can help keep log off calories [...] Dictation was accomplished with the use of [employer] voice recognition software, prone to medical misidentifications [...] Dictation was accomplished with the use of [employer] voice recognition software, prone to medical misidentifications and grammatical errors. This is unintentional and the practitioner does try to identify and correct these, but some could still be present. Please do not hesitate to contact practitioner for clarification. All questions answered to patients satisfaction. Patient verbalized understanding of diagnosis and treatments explained. To call sooner prior to next visit it any questions/concerns arise. 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 #COVID positive. 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 # HTN: Currently on Irbesartan 300 mg (max dose Was started on Amlodipine last visit, and increased from 5 to 10 mg. BP readings improved with SBP in 130's. Pt reports ankle edema. Will continue Irbesartan 300 mg po daily, Amloidpine 5 mg po daily. #Morbid obesity:Currently going through [facility] for weight loss medication. Patient is also undergoing bariatric surgery evaluation through [facility] # Hypercalcemia Followed by endocrinology Patient [...] log exercise and discussed fitness Apps like [employer] which can help keep log off calories [...] Dictation was accomplished with the use of [employer] voice recognition software, prone to medical misidentifications [...] Dictation was accomplished with the use of [employer] voice recognition software, prone to medical misidentifications [...] next visit it any questions/concerns arise. 06/04/2025 Protein malnutrition (ICD-10 - E46) Courtney [...] Dictation was accomplished with the use of [employer] voice recognition software, prone to medical misidentifications [...] Dictation was accomplished with the use of [employer] voice recognition software, prone to medical misidentifications and grammatical errors. This is unintentional and the practitioner does try to identify and correct these, but some could still be present. Please do not hesitate to contact practitioner for clarification. All questions answered to patients satisfaction. Patient verbalized understanding of diagnosis and treatments explained. To call sooner prior to next visit it any questions/concerns arise. 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 # HTN: Currently on Irbesartan 300 mg (max dose), HCTZ 37.55 mg po daily. Continue Amlodipine 5 mg po daily. # Hypercalcemia:Folowed by endocrinology. Doing 24 hour urine test #Morbid obesity: Highest weight 230 pounds, lose weight 130 pounds, goal weight for now is 150 pounds. - Will request for Mounamninderro # Nystagmus: Brain CT w/o contrast w/o intracranial pathology # R hip pain. Followed by [facility] #Hyperglycemia: Metformin will be increased to 1000mg Qhs. Case discussed with collaborating physician Bharati Armando who reviewed the assessment and plan. Chart, medications, labs, vital signs reviewed. 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 # [...] Dictation was accomplished with the use of [employer] voice recognition software, prone to medical misidentifications [...] Dictation was accomplished with the use of [employer] voice recognition software, prone to medical misidentifications [...] Dictation was accomplished with the use of [employer] voice recognition software, prone to medical misidentifications [...] LIPID PANEL, STANDARD 04/10/2022 LIPID PANEL, STANDARD 06/14/2023 LIPID PANEL, STANDARD 03/12/2025 LIPID PANEL, STANDARD 01/17/2022 COMPREHENSIVE METABOLIC PANEL 06/14/2023 COMPREHENSIVE METABOLIC PANEL 03/12/2025 COMPREHENSIVE METABOLIC PANEL 04/10/2022 COMPREHENSIVE METABOLIC PANEL 01/09/2023 COMPREHENSIVE METABOLIC PANEL 12/11/2024 COMPREHENSIVE METABOLIC PANEL 08/08/2024 COMPREHENSIVE METABOLIC PANEL 05/02/2024 COMPREHENSIVE METABOLIC PANEL 06/04/2025 COMPREHENSIVE METABOLIC PANEL 01/17/2022 MAGNESIUM 06/04/2025 ALT 02/16/2021 CBC (INCLUDES DIFF/PLT) 01/09/2023 CBC (INCLUDES DIFF/PLT) 01/17/2022 CBC (INCLUDES DIFF/PLT) 06/04/2025 CBC (INCLUDES DIFF/PLT) 05/02/2024 CBC (INCLUDES DIFF/PLT) [...] ARIAS, 08/04/2025 08:00:00 AM, [address], [place], [address], Provider Name:ROSS ARIAS, 08/11/2025 08:00:00 AM, [address], [place], [address], Insurance Providers Payer Name Payer Address Payer Phone Subscriber Number Group Number Insured Name Patient Relationship to Insured Coverage Start Date Coverage End Date [facility] [address] [place] [address] [phone] [id number] COURTNEY HILARIO Self - patient is the insured Medications Administered Medication Instructions Date of Administration Dosage Notes [facility] B12 INJECTION 07/11/2021 lot # [id number] Semaglutide 04/15/2024 1 Medical (General) History Medical History History ICD Code Essential (primary) hypertension I10 Hyperlipidemia, unspecified E78.5 Prediabetes R73.03 Vitamin D deficiency E55.9 Depression, unspecified F32.A Obesity (BMI 30-39.9) E66.9 Aortic valve disease I35.9 CRYSTAL (obstructive sleep apnea) G47.33 Aortic stenosis, moderate I35.0 Surgical History Surgery Date(Month/Year) section L knee meniscus surgery 09/26/2022
--- OUTSIDE RECORDS SUMMARY | 2025-07-01 12:55 | XMS_ITS | Clinical Summary ---
Author Organization [facility] [employer] [facility] Address [address] [place] [address] Phone Care Team Providers Care Airport Ramp Agent Name Role Phone Belkys Armando MD Primary Care Provider [phone] Allergies Active Allergy Reactions Criticality Noted Date [...] (one) time each day. 9 Active omega 7-jgf-oxd-fish oil (Fish OiL) 1,200 (144-216) mg capsule [...] 10:30 AM EDT Office Visit Pulmonolgy - [place] [address] [facility] [place] [phone] Robbie Joyce MD Obstructive sleep apnea (Primary Dx); Obesity (BMI 30.0-34.9); Gastroesophageal reflux disease without esophagitis 06/03/2025 6:50 PM EDT - 06/03/2025 8:19 PM EDT Emergency [facility] [address] [place] [address] Osmel Kebede MD Dizziness (Primary Dx); Hypotension, unspecified hypotension type; Medication side effect; Hyponatremia; Hypokalemia; Hypomagnesemia; Dehydration Discharge Disposition: Home or Self Care from Last 3 Months Immunizations Name Administration Dates Next Due Tdap Tetanus diptheria acell ular pertussis (Boostrix; Adacel) 7yo and older 05/13/2010 Surgical History Surgery Date Site/Laterality Comments OTHER SURGICAL HISTORY PROCEDURE: HISTORICAL D&C OTHER SURGICAL HISTORY PROCEDURE: MS PUNCTURE ASPIRATION CYST OF BREAST OTHER SURGICAL HISTORY PROCEDURE: MS ENDOMETRIAL BX W/WO ENDOCERVIX BX W/O DILAT SPX SECTION PROCEDURE: HISTORICAL DELIVERY KNEE ARTHROSCOPY Left PROCEDURE: MS ARTHROSCOPY AID TX SPINE&/FX KNEE W/O FIXJ; [...] 9:45 AM EDT Office Visit Pulmonolgy - [place] [address] [phone] Robbie Joyce MD [address] [address] Health Maintenance Due Date Last Done Comments [...] LAB HEMETOLOGY METHOD 06/03/2025 8:29 PM EDT [facility] RBC 5.24 4.20 - 5.40 M/mcL LAB HEMETOLOGY METHOD 06/03/2025 8:29 PM EDT [facility] Hemoglobin 15.0 12.5 - 16.0 g/dL LAB HEMETOLOGY METHOD 06/03/2025 8:29 PM EDT [facility] Hematocrit 44.5 37.0 - 47.0 % LAB HEMETOLOGY METHOD 06/03/2025 8:29 PM EDT [facility] MCV 84.9 78.0 - 100.0 FL LAB HEMETOLOGY METHOD 06/03/2025 8:29 PM EDT [facility] MCH 28.6 25.0 - 33.0 pcg LAB HEMETOLOGY METHOD 06/03/2025 8:29 PM EDT [facility] MCHC 33.7 32.0 - 36.0 g/dL LAB HEMETOLOGY METHOD 06/03/2025 8:29 PM EDT [facility] RDW 14.3 12.1 - 16.2 % LAB HEMETOLOGY METHOD 06/03/2025 8:29 PM EDT [facility] Platelets 235 150 - 450 K/mcL LAB HEMETOLOGY METHOD 06/03/2025 8:29 PM EDT [facility] MPV 11.5(H) 7.4 - 11.4 FL LAB HEMETOLOGY METHOD 06/03/2025 8:29 PM EDT [facility] Blood Venous blood specimen / Unknown Venipuncture / Unknown 06/03/2025 8:15 PM EDT 06/03/2025 8:26 PM EDT Osmel Kebede MD LAB BLOOD ORDERABLES Final Res ult [facility] [address] [place] [address], [place] [phone] * (ABNORMAL) Magnesium (06/03/2025 8:15 PM EDT) Magnesium 1.5(L) 1.7 - 2.8 mg/dL LAB CHEMISTRY METHOD 06/03/2025 8:46 PM EDT [facility] Blood Venous blood specimen / Unknown Venipuncture / Unknown 06/03/2025 8:15 PM EDT 06/03/2025 8:26 PM EDT Osmel Kebede MD LAB BLOOD ORDERABLES Final Res ult [facility] [address] [place] [address], [place] [phone] * (ABNORMAL) Comprehensive Metabolic Panel (CMP) (06/03/2025 8:15 PM EDT) [facility] Signature Sodium 134(L) 135 - 145 mmol/L LAB CHEMISTRY METHOD 06/03/2025 8:46 PM [facility] Potassium 3.3(L) 3.5 - 5.1 mmol/L LAB CHEMISTRY METHOD [facility]25 [facility] Chloride 98 98 - 107 mmol/L LAB CHEMISTRY METHOD 06/03/2025 8:46 PM [facility] CO2 27 24 - 32 mmol/L LAB CHEMISTRY METHOD 06/03/2025 8:46 PM [facility] Anion Gap 9 5 - 14 LAB CHEMISTRY METHOD 06/03/2025 8:46 PM [facility] Glucose 121 70 - 199 mg/dL LAB CHEMISTRY METHOD 06/03/2025 8:46 PM [facility] BUN 36(H) 7 - 17 mg/dL LAB CHEMISTRY METHOD 06/03/2025 8:46 PM [facility] Creatinine 1.44(H) 0.50 - 1.00 mg/dL LAB CHEMISTRY METHOD 06/03/2025 8:46 PM [facility] eGFR 41(L) >=60 mL/min/1. 73m2 LAB CHEMISTRY METHOD 06/03/2025 8:46 PM [facility] Comment:Calculation based on the Chronic Kidney Disease Epidemiology Collaboration (CKD-EPI) equation refit without adjustment for race. BUN/Creatinine Ratio 25.0(H) 12.0 - 20.0 LAB CHEMISTRY METHOD 06/03/2025 8:46 PM [facility] Calcium 11.1(H) 8.4 - 10.2 mg/dL LAB CHEMISTRY METHOD 06/03/2025 8:46 PM EDT [facility] AST (SGOT) 24 5 - 40 unit/L LAB CHEMISTRY METHOD 06/03/2025 8:46 PM EDT [facility] ALT (SGPT) 31 7 - 52 unit/L LAB CHEMISTRY METHOD 06/03/2025 8:46 PM EDT [facility] Alkaline Phosphatase 77 34 - 104 unit/L LAB CHEMISTRY METHOD 06/03/2025 8:46 PM EDT [facility] Total Protein 7.6 6.4 - 8.5 g/dL LAB CHEMISTRY METHOD 06/03/2025 8:46 PM EDT [facility] Albumin 5.0 3.5 - 5.0 g/dL LAB CHEMISTRY METHOD 06/03/2025 8:46 PM EDT [facility] Total Bilirubin 0.6 0.3 - 1.0 mg/dL LAB CHEMISTRY METHOD 06/03/2025 8:46 PM EDT [facility] Blood Venous blood specimen / Unknown Venipuncture / Unknown 06/03/2025 8:15 PM EDT 06/03/2025 8:26 PM EDT us Osmel Kebede MD LAB BLOOD ORDERABLES Final Res ult [facility] [address] [place] [address], * (ABNORMAL) Lipid panel (04/27/2025 7:41 AM [...] 1:06 AM EDT Performed at: - [facility] [address] [id number] Currency Machine Operator: Kyung Butcher MD, Phone: [phone] Federica Saez NP LAB BLOOD ORDERABLES Final Res ult [facility] 1 * Hemoglobin A1c (05/05/2019) Hemoglobin A1C 6.0 <=6.5 % Blood Venous blood specimen / Unknown Result [facility] Historical Provider LAB BLOOD ORDERABLES Lu l Result * Pap Smear (02/06/2017) Pap smear abstracted, no interpretation Historical Provider HEALTH MAINTENANCE Final Result * Colonoscopy (05/14/2013) Colonoscopy abstracted, no interpretation Anatomical Region Laterality Modality Other Historical Provider HEALTH MAINTENANCE Final Result from Last 3 Months or Most Recently Relevant to Health Maintenance Insurance [facility] Care Teams Airport Ramp Agent Relationship Specialty Start Date End Date Belkys Armando MD [address] [place] [address] PCP - General Internal Medicine 12/02/24
--- OUTSIDE RECORDS SUMMARY | 2025-07-01 12:55 | XMS_ITS | Clinical Summary ---
Author Organization [facility] Address [address] [place] [address] Care Team Providers Care Semi Truck Driver Name Role Phone Unavailable Primary Care Provider [...]
--- OUTSIDE RECORDS SUMMARY | 2025-07-01 12:55 | XMS_ITS | Patient Health Record ---
Author Organization [facility] Address [address] [facility] [address] [place] [address] Care Team Providers Care Horseradish Grinder Name Role Phone Belkys Armando Primary Care [...] Status Risk Notes Problem Acquired hallux valgus (96706403) Hallux valgus (acquired), left foot (M20.12) Active confirmed Plan Of Treatment Pending Test Test Name Order Date X ray : Foot, left 3v 06/28/2021 Insurance Providers Payer Name Payer Address Payer Phone Subscriber Number Group Number Insured Name Patient Relationship to Insured Coverage Start Date Coverage End Date [employer] [facility] [address] [place] [address] [phone] [id number] Lina Lynch Self - patient is the insured Medical (General) History Medical History History ICD Code Hyperlipidemia Hypertension Pre diabetes Vitamin D deficiency Morbid obesity Hyperlipidemia Essential (primary) hypertension Depression, unspecified depression type Abnormal LFT's Parasthesia Surgical History Surgery Date(Month/Year) Section meniscus repair (Left)
== END 2025-07-01 12:39 | disposition home or self-care (01) ==
LOC: HO.HBST 12:14
PROVIDERS: PCP Physician Assistant Medical; Visit Provider Counselor Mental Health
DX: F32.A Depression, unspecified (principal); Z98.84 Bariatric surgery status
CPT/HCPCS: 90832

== ENCOUNTER 2025-07-03 08:38 | Outpatient (AMB) | payer BC, SELFPAY ==
--- NOTE | 2025-07-03 08:41 | A.OFFVIS_ITS ---
VS Expanded 07/03/25 08:53 BP 139/74 Blood Pressure Location Rt brachial Blood Pressure Position Sitting Pulse 70 Pulse Source Pulse Oximeter Temp 97.1 F Temperature Source Temporal Artery Scan Pulse Oximetry 96 Oxygen Delivery Method Room Air Height 5 ft 3 in Weight 187 lb 3.2 oz BMI 33.2 Body Fat % 43.9 Body Fat Mass 82.2 Fat Free Mass 105.0 Visceral Fat Rating 12.0 Body Water % 39.7 Body Water Mass 74.2 Muscle Mass/Score 99.6 Basal Metabolic Rate/Score 1,461 Intake Visit Reasons: (OV) PO LSG 06/26/25 Allergies No Known Allergies Allergy (Verified 07/03/25 08:55) HPI Comments Details: Patient is a pleasant 64-year-old female who returns to the office for follow- up. She is 1 week post sleeve gastrectomy performed on 06/26/2025. Weight today is 187.2 lb with a BMI of 33.2. She is tolerating 3 celebrate rebuild shakes with 1 scoop each at 10-12, 2 4 and 6-8. She has moved her bowels, denies any pain. [facility] Medical History (Updated 07/01/25 @ 00:01 by Kelle Bunch) Non-insulin dependent type 2 diabetes mellitus DJD (degenerative joint disease) GERD (gastroesophageal reflux disease) Hyperlipidemia Sleep apnea treated with continuous positive airway pressure (CPAP) Hypertension BMI 30.0-30.9,adult Obesity Surgical History (Updated 07/03/25 @ 08:56 by Skylar Diallo CMA) S/P gastric sleeve procedure History of esophagogastroduodenoscopy (EGD) Hx of section History of lateral meniscus repair of right knee History of lateral meniscus repair of left knee Hx of colonoscopy Family History Mother Breast cancer Diabetes Heart problem Hypertension Father Heart problem Melanoma Diabetes Hypertension Son Gout Daughter No problems noted. Daughter Thyroid condition Social History Household Members: None Housing: Condominium Are you a primary acute care nurse to a significant other at home: No Do you presently have visiting nurse or other home services: No Alcohol intake: current Alcohol intake frequency: does not drink Patient Tobacco Use Status: Never used Tobacco Physical Exam GI Inspection: Yes incision (Clean, dry, intact. Through ecchymosis midline and right lateral port) Assessment & Plan Assessment & Plan (1) S/P laparoscopic sleeve gastrectomy: Code(s): Z98.84 - Bariatric surgery status Category: Surgical Plan: POD 7 s/p LSG on 06/26/[address] Dewitt Weight loss prior to surgery was 24.6 pounds or 11.3 % TBWL. Original weight on 04/22/2025 was 216 pounds and op weight was 191.4 pounds. Be sure to text Dr Dewitt exactly 1 week after surgery your weight from your home scale so he can adjust your meal plan. Continue meal plan until f/u w Isabel in 2 weeks May shower, no submersion in bath for another week Continue abdominal binder with activity and exercise for the next 2 weeks. Exercise prior to surgery was walking outside and stationary bike and may resume, encouraged to track calories while walking using [employer]. No abdominal exercises for 6 weeks post operatively Will be emailed link to post op video for review Reminded of the pace of drinking, 2 mL per minute, 1 oz/15 min.
[2025-07-03 08:53] VITALS: BP 139/74; PULSE 70; TEMP 36.2; O2SAT 96; BMI 33.2
--- OUTSIDE RECORDS SUMMARY | 2025-07-03 08:53 | XMS_ITS | Clinical Summary ---
Author Organization [facility] Address [address] [place] [address] Care Team Providers Care Wood Patternmaker Apprentice Name Role Phone Unavailable Primary Care Provider [...]
--- OUTSIDE RECORDS SUMMARY | 2025-07-03 08:53 | XMS_ITS | Clinical Summary ---
Author Organization [facility] Address [address] [place] [address] Phone Care Team Providers Care Mail Caller Name Role Phone Belkys Armando MD Primary Care Provider [phone] Allergies Active Allergy Reactions Criticality Noted Date [...] (one) time each day. 9 Active omega 1-acl-btx-fish oil (Fish OiL) 1,200 (144-216) mg capsule [...] 10:30 AM EDT Office Visit Pulmonolgy - [facility] [address] [facility] [address] [place] [phone] Robbie Joyce MD Obstructive sleep apnea (Primary Dx); Obesity (BMI 30.0-34.9); Gastroesophageal reflux disease without esophagitis 06/03/2025 6:50 PM EDT - 06/03/2025 8:19 PM EDT Emergency [facility] Emergency [address] [place] [address] Osmel Kebede MD Dizziness (Primary Dx); Hypotension, unspecified hypotension type; Medication side effect; Hyponatremia; Hypokalemia; Hypomagnesemia; Dehydration Discharge Disposition: Home or Self Care from Last 3 Months Immunizations Name Administration Dates Next Due Tdap Tetanus diptheria acell ular pertussis (Boostrix; Adacel) 7yo and older 05/13/2010 Surgical History Surgery Date Site/Laterality Comments OTHER SURGICAL HISTORY PROCEDURE: HISTORICAL D&C OTHER SURGICAL HISTORY PROCEDURE: ND PUNCTURE ASPIRATION CYST OF BREAST OTHER SURGICAL HISTORY PROCEDURE: ND ENDOMETRIAL BX W/WO ENDOCERVIX BX W/O DILAT SPX SECTION PROCEDURE: HISTORICAL DELIVERY KNEE ARTHROSCOPY Left PROCEDURE: ND ARTHROSCOPY AID TX SPINE&/FX KNEE W/O FIXJ; [...] 9:45 AM EDT Office Visit Pulmonolgy - [facility] [address] [phone] Robbie Joyce MD [address] [address] Health Maintenance Due Date Last Done Comments [...] LAB HEMETOLOGY METHOD 06/03/2025 8:29 PM EDT [facility] RBC 5.24 4.20 - 5.40 M/mcL LAB HEMETOLOGY METHOD 06/03/2025 8:29 PM EDT [facility] Hemoglobin 15.0 12.5 - 16.0 g/dL LAB HEMETOLOGY METHOD 06/03/2025 8:29 PM EDT [facility] Hematocrit 44.5 37.0 - 47.0 % LAB HEMETOLOGY METHOD 06/03/2025 8:29 PM EDT [facility] MCV 84.9 78.0 - 100.0 FL LAB HEMETOLOGY METHOD 06/03/2025 8:29 PM EDT [facility] MCH 28.6 25.0 - 33.0 pcg LAB HEMETOLOGY METHOD 06/03/2025 8:29 PM EDT [facility] MCHC 33.7 32.0 - 36.0 g/dL LAB HEMETOLOGY METHOD 06/03/2025 8:29 PM EDT [facility] RDW 14.3 12.1 - 16.2 % LAB HEMETOLOGY METHOD 06/03/2025 8:29 PM EDT [facility] Platelets 235 150 - 450 K/mcL LAB HEMETOLOGY METHOD 06/03/2025 8:29 PM EDT [facility] MPV 11.5(H) 7.4 - 11.4 FL LAB HEMETOLOGY METHOD 06/03/2025 8:29 PM EDT [facility] Blood Venous blood specimen / Unknown Venipuncture / Unknown 06/03/2025 8:15 PM EDT 06/03/2025 8:26 PM EDT Osmel Kebede MD LAB BLOOD ORDERABLES Final Res ult [facility] [address] [place] [address], [place] [phone] * (ABNORMAL) Magnesium (06/03/2025 8:15 PM EDT) Magnesium 1.5(L) 1.7 - 2.8 mg/dL LAB CHEMISTRY METHOD 06/03/2025 8:46 PM EDT [facility] Blood Venous blood specimen / Unknown Venipuncture / Unknown 06/03/2025 8:15 PM EDT 06/03/2025 8:26 PM EDT Osmel Kebede MD LAB BLOOD ORDERABLES Final Res ult [facility] [address] [place] [address], [place] [phone] * (ABNORMAL) Comprehensive Metabolic Panel (CMP) (06/03/2025 8:15 PM EDT) [facility] Signature Sodium 134(L) 135 - 145 mmol/L LAB CHEMISTRY METHOD 06/03/2025 8:46 PM [facility] Potassium 3.3(L) 3.5 - 5.1 mmol/L LAB CHEMISTR[facility]25 [facility] Chloride 98 98 - 107 mmol/L LAB CHEMISTRY METHOD 06/03/2025 8:46 PM [facility] CO2 27 24 - 32 mmol/L LAB CHEMISTRY METHOD 06/03/2025 8:46 PM [facility] Anion Gap 9 5 - 14 LAB CHEMISTRY METHOD 06/03/2025 8:46 PM [facility] Glucose 121 70 - 199 mg/dL LAB CHEMISTRY METHOD 06/03/2025 8:46 PM [facility] BUN 36(H) 7 - 17 mg/dL LAB CHEMISTRY METHOD 06/03/2025 8:46 PM [facility] Creatinine 1.44(H) 0.50 - 1.00 mg/dL LAB CHEMISTRY METHOD 06/03/2025 8:46 PM [facility] eGFR 41(L) >=60 mL/min/1. 73m2 LAB CHEMISTRY METHOD 06/03/2025 8:46 PM [facility] Comment:Calculation based on the Chronic Kidney Disease Epidemiology Collaboration (CKD-EPI) equation refit without adjustment for race. BUN/Creatinine Ratio 25.0(H) 12.0 - 20.0 LAB CHEMISTRY METHOD 06/03/2025 8:46 PM [facility] Calcium 11.1(H) 8.4 - 10.2 mg/dL LAB CHEMISTRY METHOD 06/03/2025 8:46 PM EDT [facility] AST (SGOT) 24 5 - 40 unit/L LAB CHEMISTRY METHOD 06/03/2025 8:46 PM EDT [facility] ALT (SGPT) 31 7 - 52 unit/L LAB CHEMISTRY METHOD 06/03/2025 8:46 PM EDT [facility] Alkaline Phosphatase 77 34 - 104 unit/L LAB CHEMISTRY METHOD 06/03/2025 8:46 PM EDT [facility] Total Protein 7.6 6.4 - 8.5 g/dL LAB CHEMISTRY METHOD 06/03/2025 8:46 PM EDT [facility] Albumin 5.0 3.5 - 5.0 g/dL LAB CHEMISTRY METHOD 06/03/2025 8:46 PM EDT [facility] Total Bilirubin 0.6 0.3 - 1.0 mg/dL LAB CHEMISTRY METHOD 06/03/2025 8:46 PM EDT [facility] Blood Venous blood specimen / Unknown Venipuncture / Unknown 06/03/2025 8:15 PM EDT 06/03/2025 8:26 PM EDT us Osmel Kebede MD LAB BLOOD ORDERABLES Final Res ult [facility] [address] [place] [address], * (ABNORMAL) Lipid panel (04/27/2025 7:41 AM [...] 1:06 AM EDT Performed at: - [facility] [address] [id number] Crime Scene Evidence Technician: Kyung Butcher MD, Phone: [phone] Federica Saez NP LAB BLOOD ORDERABLES Final Res ult [facility] 1 * Hemoglobin A1c (05/05/2019) Hemoglobin A1C 6.0 <=6.5 % Blood Venous blood specimen / Unknown Result [facility] Historical Provider LAB BLOOD ORDERABLES Lu l Result * Pap Smear (02/06/2017) Pap smear abstracted, no interpretation Historical Provider HEALTH MAINTENANCE Final Result * Colonoscopy (05/14/2013) Colonoscopy abstracted, no interpretation Anatomical Region Laterality Modality Other Historical Provider HEALTH MAINTENANCE Final Result from Last 3 Months or Most Recently Relevant to Health Maintenance Insurance [facility] Care Teams Mail Caller Relationship Specialty Start Date End Date Belkys Armando MD [address] [place] [address] PCP - General Internal Medicine 12/02/24
--- OUTSIDE RECORDS SUMMARY | 2025-07-03 08:53 | XMS_ITS | Patient Health Record ---
Author Organization [facility] Address [address] [facility] [address] [place] [address] Care Team Providers Care Coffee Shop Aide Name Role Phone Belkys Armando Primary Care [...] Status Risk Notes Problem Acquired hallux valgus ([id number]) Hallux valgus (acquired), left foot (M20.12) Active confirmed Plan Of Treatment Pending Test Test Name Order Date X ray : Foot, left 3v 06/28/2021 Insurance Providers Payer Name Payer Address Payer Phone Subscriber Number Group Number Insured Name Patient Relationship to Insured Coverage Start Date Coverage End Date [employer] [facility] [address] [place] [phone] [id number] Lina Lynch Self - patient is the insured Medical (General) History Medical History History ICD Code Hyperlipidemia Hypertension Pre diabetes Vitamin D deficiency Morbid obesity Hyperlipidemia Essential (primary) hypertension Depression, unspecified depression type Abnormal LFT's Parasthesia Surgical History Surgery Date(Month/Year) Section meniscus repair (Left)
--- OUTSIDE RECORDS SUMMARY | 2025-07-03 08:54 | XMS_ITS | Patient Health Record ---
Author Organization [facility] [address] [address] Address [address] [place] [address] Care Team Providers Care Voip Engineer Name Role Phone ROSS ARIAS Unavailable [phone] Allergies Allergen (clinical drug ingredient) Drug/Non Drug Allergy documented on EMR Reaction Allergy Type Onset Date Status crab allergenic extract crab (uncoded) Hypercalcemia Allergy Active hydrochlorothiazide Hydrochlorothiazide stomach upset Drug Allergy Active Results Component Value Reference Range Notes TSH+T3+Free T4+T3 Free Reviewed date:05/11/2025 08:05:49 AM Interpretation: Performing Lab:[facility], [employer] [facility], [place], Phone - [phone], Director - Adam Notes/Report: TSH-ICMA 2.9 Reference Range: Non- Adult 0.450-4.500 First Trimester 0.100-4.000 Second Trimester 0.200-4.000 Third Trimester 0.300-4.500 Triiodothyronine (T-3), Serum 97 Reference Range: Adults: 55 - 170 Free T-3 3.3 Reference Range: >=20y: 2.0 - 4.4 Free T4 by Dialysis/Development Coach 1.2 This test was developed and its performance characteristics determined by [facility]. It has not been cleared or approved by the Food and Drug Administration. Reference Range: Pubertal Children and Adults: 0.8 - 1.7 Comp. Metabolic Panel (14)-3 46405 Reviewed date:08/04/2024 07:54:35 AM Interpretation: Performing Lab:[facility], [address] [facility], Phone - [phone], Director - [facility] Notes/Report: Glucose 115 70-99 mg/dL BUN 21 [...] 0-40 IU/L ALT (SGPT) 28 0-32 IU/L Comp. Metabolic Panel (14)-3 14772 Reviewed date:05/11/2025 08:05:49 AM Interpretation: Performing Lab:[facility], [address] [facility], Phone - [phone], Director - Adam Notes/Report: Glucose 105 70-99 [...] IU/L ALT (SGPT) 44 0-32 IU/L Lipid Panel-[id number] Reviewed date:05/11/2025 08:05:44 AM Interpretation: Performing Lab:[facility], [address] [facility], Phone - [phone], Director - Adam Notes/Report: Cholesterol, Total 178 100-199 mg/dL Triglycerides 172 0-149 mg/dL HDL Cholesterol 63 >39 mg/dL VLDL Cholesterol Trino 29 5-40 mg/dL LDL Chol Calc (NIH) 86 0-99 mg/dL Vitamin D, 92-Alrimeq-[id number] Reviewed date:05/11/2025 08:05:49 AM Interpretation: Performing Lab:[facility], [address] [facility], Phone - [phone], Director - Adam Notes/Report: Vitamin D, 25-Hydroxy 38.1 30.0-100.0 ng/mL Vitamin D deficiency has been defined by the [place] of [employer] and an Endocrine Society practice guideline as a level of serum 25-OH vitamin D less than 20 ng/mL (1,2). The Endocrine Society went on to further define vitamin D insufficiency as a level between 21 and 29 ng/mL (2). 1. IOM ([place] of Medicine). 2010. Dietary reference intakes for calcium and D. [place]: The National Academies Press. 2. Les MF, Romeo [place], Alejo-Lavon FALLON, et al. Evaluation, treatment, and prevention of vitamin D deficiency: an Endocrine Society clinical practice guideline. JCEM. 2010; 96(7):1911-30. CBC With Differential/Platel et-[id number] Reviewed date:08/04/2024 07:54:35 AM Interpretation: Performing Lab:[facility], [address] [facility], Phone - [phone], Director - Adam Notes/Report: WBC 6.4 3.4-10.8 [...] % Immature Grans (Abs) 0.0 0.0-0.1 x10E3/uL CBC With Differential/Platel et-[id number] Reviewed date:05/11/2025 08:05:49 AM Interpretation: Performing Lab:[facility], [address] [place] [address], [place], Phone - [phone], [facility] Notes/Report: WBC 5.3 3.4-10.8 x10E3/uL RBC 5.19 [...] Immature Grans (Abs) 0.0 0.0-0.1 x10E3/uL Urinalysis, Complete-[id number] Reviewed date:05/11/2025 08:05:49 AM Interpretation: Performing Lab:[facility] [address] [place] [address], Phone - [phone], Director - Jeny Notes/Report: Specific Savage 1.028 1.005-1.030 pH 5.5 5.0-7.5 Urine-Color Yellow [...] /lpf Bacteria None seen None seen/Few Vitamin [id number] Reviewed date:05/11/2025 08:05:49 AM Interpretation: Performing Lab:[facility] [place], [address] [place] [address], Phone - [phone], Director - Adam Notes/Report: Vitamin B12 894 010-9171 pg/mL Hemoglobin M2a-522501 Reviewed date:08/04/2024 07:54:35 AM Interpretation: Performing Lab:[facility] [address] [place] [address], Phone - [phone], Director - Jeny Notes/Report: Hemoglobin A1c 6.2 4.8-5.6 % . Prediabetes: 5.7 - 6.4 Diabetes: >6.4 Glycemic control for adults with diabetes: <7.0 Comp. Metabolic Panel (14)-3 82309 Reviewed date:01/27/2025 08:03:11 AM Interpretation: Performing Lab:[facility] [address] [place] [address], Phone - [phone], Director - Jodry Notes/Report: Glucose 108 70-99 mg/dL BUN 14 [...] (SGPT) 30 0-32 IU/L CBC With Differential/Platel et-[id number] Reviewed date:01/27/2025 08:03:11 AM Interpretation: Performing Lab:[facility], [address] [facility], [place], Phone - [phone], Director - MDIselay Notes/Report: WBC 6.3 3.4-10.8 x10E3/uL RBC 4.89 [...] Immature Grans (Abs) 0.0 0.0-0.1 x10E3/uL Hemoglobin Q4i-[id number] Reviewed date:01/27/2025 08:01:53 AM Interpretation: Performing Lab:[facility], [address] [facility], [place], Phone - [phone], Director - MDJodry Notes/Report: Hemoglobin A1c 6.2 4.8-5.6 % . Prediabetes: 5.7 - 6.4 Diabetes: >6.4 Glycemic control for adults with diabetes: <7.0 Comp. Metabolic Panel (14)-3 Reviewed date:09/19/2024 08:00:14 AM Interpretation: Performing Lab:[facility], [address] [facility], Phone - [phone], Director - Adam Notes/Report: Glucose 106 70-99 [...] 0-32 IU/L Comp. Metabolic Panel (14)-3 Reviewed date:06/10/2025 10:36:47 AM Interpretation: Performing Lab:[facility], [address] [facility], Phone - [phone], [facility] Notes/Report: Glucose 87 70-99 mg/dL BUN 16 [...] (SGPT) 32 0-32 IU/L CBC With Differential/Platel et-[id number] Reviewed date:06/10/2025 05:17:38 PM Interpretation: Performing Lab:[facility], [address] [facility], Phone - [phone], Director - MDJodry Notes/Report: WBC 5.9 3.4-10.8 x10E3/uL RBC 4.99 [...] % Immature Grans (Abs) 0.0 0.0-0.1 x10E3/uL Magnesium-[id number] Reviewed date:06/10/2025 10:36:52 AM Interpretation: Performing Lab:[facility], [address] [facility], [place], Phone - [phone], Director - Adam Notes/Report: Magnesium 1.6 1.6-2.3 mg/dL Reason For Referral Diagnosis 1 Hypercalcemia (E83.5 2) Referral Organization [facility] [address] Referring Provider First Name ROSS Referring Provider Last Name JUANA Referring Provider Speciality Internal edicine Referred Provider Specialty Endocrinolog y General Notes Leann Ortega 2023 08:53:41 AM > filled out form and sent to referral to the [facility], Jose Uribe 12/01/2024 04:12:27 PM > The patient was seen on 10/27/2024 Referral Priority Routine Reason partial tear in glut eus and rt hamstring and left hip labral tear Diagnosis 1 Hip pain, left (M25. 552) Diagnosis 2 Gluteal tendinitis, left hip (M76.02) Referral Organization [facility] Referring Provider First Name ROSS Referring Provider Last Name JUANA Ref[facility] Referred Provider Specialty Orthopedic S urgery Clinical Notes damon navarro 1 12/28/2023 09:59:37 AM >faxed mri's and paper to Alecia francis Earl Adam 10/28/2024 11:12:41 AM > [facility] [phone]. Refaxedmelanie krystal 11/04/2024 03:03:46 PM >seen 10/29/24 marco antonio tarango -notes scanned in Referral Priority Routine Reason evaluate and treat rafto polus Diagnosis [address] at (Z98.84) Referral Organization [facility] Referring Provider First Name ROSS Referring Provider Last Name JUANA Referring Provider [facility]ity [facility] Referred Provider Specialty General Surg sharri General Notes Morales Kenny 03/12 10:50:25 AM > referral sent to [facility], p. [phone], f. 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 Tob: nonsmoker ETOH: Social/rare medical pathology teacher Tob: nonsmoker ETOH: Social/rare medical pathology teacher Tob: nonsmoker ETOH: Social/rare medical pathology teacher medical pathology teacher Tob: nonsmoker ETOH: Social/rare medical pathology teacher Tob: nonsmoker ETOH: Social/rare medical pathology teacher Tob: nonsmoker ETOH: Social/rare medical pathology teacher Tob: nonsmoker ETOH: Social/rare medical pathology teacher medical pathology teacher Tob: nonsmoker ETOH: Social/rare medical pathology teacher Tob: nonsmoker ETOH: Social/rare medical pathology teacher Tob: nonsmoker ETOH: Social/rare medical pathology teacher Tob: nonsmoker ETOH: Social/rare medical pathology teacher Tob: nonsmoker ETOH: Social/rare medical pathology teacher medical pathology teacher medical pathology teacher Tob: nonsmoker ETOH: Social/rare medical pathology teacher medical pathology teacher medical pathology teacher medical pathology teacher Tob: nonsmoker ETOH: Social/rare medical pathology teacher Tob: nonsmoker 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: Social/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 medical pathology teacher Problems Problem Type SNOMED Code ICD Code Onset Dates Problem Status W/U Status Risk Notes Problem Hypothyroidism (58171054) Hypothyroidism, unspecified (E03.9) Active confirmed Problem Vitamin D deficiency (18006463) Vitamin D deficiency, unspecified (E55.9) Active confirmed Problem Hyperlipidemia (52358931) Hyperlipidemia, unspecified (E78.5) Active confirmed Problem Hypomagnesemia (884033582) Hypomagnesemia (E83.42) Active confirmed Problem Hypercalcemia (34883237) Hypercalcemia (E83.52) Active confirmed Problem Nystagmus (399298) Other forms of nystagmus (H55.09) Active confirmed Problem Essential hypertension (07417487) Essential (primary) hypertension (I10) Active confirmed Problem Abnormal blood pressure (25696655) Encounter for examination of blood pressure with abnormal findings (Z01.31) Active confirmed Problem Screening for malignant neoplasm of breast (412885673) Encounter for screening mammogram for malignant neoplasm of breast (Z12.31) Active confirmed Problem Screening for osteoporosis (007337498) Encounter for screening for osteoporosis (Z13.820) Active confirmed Problem History of bariatric surgical procedure (054047439) Bariatric surgery status (Z98.84) Active confirmed Problem Prediabetes (922092306) Prediabetes (R73.03) Active confirmed Problem Essential hypertension (99598906) Essential hypertension (I10) Active confirmed Problem Morbid obesity (285087314) Morbid obesity (E66.01) Active confirmed Problem Acquired hypothyroidism (733072683) Acquired hypothyroidism (E03.9) Active confirmed Problem Depressive disorder (disorder) (24021729) Depression, unspecified depression type (F32.9) Active confirmed Problem Annual health maintenance examination (66825439) Annual physical exam (Z00.00) Active confirmed Problem Vitamin D deficiency (39510428) Vitamin D deficiency (E55.9) Active confirmed Problem Body mass index 40+ - morbidly obese (592371451) Body mass index (BMI) 50.0-59.9, adult (Z68.43) Active confirmed Problem Hypertension (20662010) Uncontrolled hypertension (I10) Active confirmed Problem Type II diabetes mellitus without complication (493117586) Type 2 diabetes mellitus without complication, unspecified whether usp insulin use (E11.9) Active confirmed Problem Vitamin B>12< deficiency anaemia (09324978) Anemia due to vitamin B12 deficiency, 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) Active confirmed Problem Essential hypertension (88156933) Elevated blood pressure reading in office with white coat syndrome, with diagnosis of hypertension (I10) Active confirmed Problem Frequent headache (finding) (554916123) Frequent headaches (R51.9) Active confirmed Problem Double vision (62698144) Double vision (H53.2) Active confirmed Problem Hyperlipidemia (83531890) 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) Active confirmed Problem Abnormal metabolic state due to diabetes mellitus (074826331) Abnormal metabolic state due to diabetes mellitus (E11.9) Active confirmed Problem Arthralgia of the pelvic region and thigh (577240641) Hip pain, unspecified laterality (M25.559) Active confirmed Problem Protein malnutrition (91757795) Protein malnutrition (E46) Active confirmed Vital Signs Heart Rate 81 /min 06/15/2025 Oximetry 94 % 06/15/2025 Blood pressure diastolic 84 mm Hg 06/15/2025 Height 52 in 06/15/2025 Blood pressure systolic 118 mm Hg 06/15/2025 Weight 196.8 lbs 06/15/2025 BMI 51.17 kg/m2 06/15/2025 Encounters Encounter Location Date Provider Diagnosis [address] [address] 08/08/2024 ROSS ARIAS Morbid obesity E66.0 1 ; Type 2 diabetes mellitus without complication, unspecified whether rodent exterminator insulin use E11.9 ; Body mass index (BMI) 50.0-59.9, adult Z68.43 ; Essential (primary) hypertension I10 and Hypercalcemia E83.[address] [address] 09/11/2024 ROSS ARIAS Type 2 diabetes claudette itus without complication, unspecified whether usp insulin use E11.9 ; COVID-19 U07.1 ; Uncontrolled hypertension I10 ; Morbid obesity E66.01 ; Body mass index (BMI) 50.0-59.9, adult Z68.43 and Hypercalcemia E83.[address] [address] 09/26/2024 ROSS ARIAS Type 2 diabetes claudette itus without complication, unspecified whether usp insulin use E11.9 ; Hypercalcemia E83.52 ; Uncontrolled hypertension I10 ; Morbid obesity E66.01 ; Body mass index (BMI) 50.0-59.9, adult Z68.43 ; Right hip pain M25.551 ; Frequent headaches R51.9 and Other forms of nystagmus H55.[address] [place] [address] 10/13/2024 ROSS ARIAS Hip pain, left M25.5 52 ; Hip pain, right M25.551 ; Hypercalcemia E83.52 ; Type 2 diabetes mellitus without complication, unspecified whether usp insulin use E11.9 ; Morbid obesity E66.01 ; Body mass index (BMI) 50.0-59.9, adult Z68.43 ; Essential (primary) hypertension I10 and Cough R05.[address] [place] [address] 12/11/2024 ROSS ARIAS Type 2 diabetes claudette itus without complication, unspecified whether usp insulin use E11.9 ; Hypercalcemia E83.52 ; Uncontrolled hypertension I10 ; Morbid obesity E66.01 ; Body mass index (BMI) 50.0-59.9, adult Z68.43 ; Right hip pain M25.551 ; Frequent headaches R51.9 and Other forms of nystagmus H55.[address] [place] [address] 03/12/2025 ROSS ARIAS Type 2 diabetes claudette itus without complication, unspecified whether rodent exterminator insulin use E11.9 ; Hypercalcemia E83.52 ; Uncontrolled hypertension I10 ; Morbid obesity E66.01 ; Body mass index (BMI) 50.0-59.9, adult Z68.43 ; Right hip pain M25.551 ; Frequent headaches R51.9 and Other forms of nystagmus H55.09 [facility] [address] [place] [address] 05/04/2025 ROSS ARIAS Prediabetes R73.03 ; Annual physical exam Z00.00 ; Morbid obesity E66.01 ; Body mass index (BMI) 50.0-59.9, adult Z68.43 ; Essential (primary) hypertension I10 ; Type 2 diabetes mellitus without complication, unspecified whether usp insulin use E11.9 and Hypercalcemia E83.52 [facility] [address] [place] [address] 06/04/2025 ROSS ARIAS SHEILA (acute kidney in jury) N17.9 ; Volume depletion, unspecified E86.9 ; Hypomagnesemia E83.42 ; Hypokalemia E87.6 ; Acute hyponatremia E87.1 ; Protein malnutrition E46 ; Abnormal weight loss R63.4 ; Encounter for examination of blood pressure with abnormal findings Z01.31 and Nausea R11.[address] [facility] [address] [place] [address] 06/15/2025 ROSS JUANA Volume depletion, unspecified E86.9 ; Hypercalcemia E83.52 ; Protein malnutrition E46 ; Abnormal weight loss R63.4 ; Encounter for examination of blood pressure with abnormal findings Z01.31 and Essential hypertension I10 [facility] [address] [place] [address] 07/03/[address] ROSS JUANA [facility] [address] [place] [address] 09/08/2024 ROSS JUANA [facility] [address] [place], [place] 09/11/[address] ROSS JUANA [facility] [address] [place] [address] 09/11/2024 ROSS JUANA [facility] [address] [place], [place] 09/15/2024 ROSS JUANA [facility] [address] [place] [address] 10/03/2024 ROSS JUANA [facility] [address] [place] [address] 10/13/2024 ROSS JUANA Hip pain, unspecifie d laterality M25.559 [facility] [address] [place], [place] 10/24/2024 ROSS JUANA [facility] [address] [place], [place] 10/27/2024 ROSS JUANA [facility] [address] [place], [place] 10/27/2024 ROSS JUANA [facility] [address] [place] [address] 10/27/2024 ROSS JUANA [facility] [address] [place], [place] 23/2025 ROSS JUANA [facility] [address] [place] [address] 02/20/2025 ROSS JUANA [facility] [address] [place] [address] 05/04/2025 ROSS JUANA [facility] [address] [place] [address] 05/27/2025 ROSS JUANA [facility] [address] [place] [address] 06/03/2025 ROSS JUANA [facility] [address] [place] [address] 06/03/[address] ROSS JUANA [facility] [address] [place] [address] 07/24/2024 ROSS JUANA [facility] [address] [place] [address] 08/09/2024 ROSS JUANA [facility] [address] [place] [address] 09/02/2024 ROSS JUANA [facility] [address] [place] [address] 06/27/2025 ROSS JUANA Assessments Encounter Date Diagnosis (ICD Code) Assessment Notes Treatment Notes Treatment Clinical Notes Section Notes 08/08/2024 Morbid obesity (ICD-10 - E66.01) 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 # HTN: Currently on Irbesartan 300 mg (max dose Was started on Amlodipine last visit, and increased from 5 to 10 mg. BP readings improved with SBP in 130's. Pt reports ankle edema. Will continue Irbesartan 300 mg po daily, Amloidpine 5 mg po daily. #Morbid obesity:Currently going through [facility] for weight loss medication. Patient is also undergoing bariatric surgery evaluation through [facility] # Hypercalcemia Followed by endocrinology Patient [...] log exercise and discussed fitness Apps like [employer] which can help keep log off calories [...] Dictation was accomplished with the use of [employer] voice recognition software, prone to medical misidentifications [...] Dictation was accomplished with the use of [employer] voice recognition software, prone to medical misidentifications [...] Dictation was accomplished with the use of [employer] voice recognition software, prone to medical misidentifications [...] Dictation was accomplished with the use of [employer] voice recognition software, prone to medical misidentifications [...] Dictation was accomplished with the use of [employer] voice recognition software, prone to medical misidentifications [...] Dictation was accomplished with the use of [employer] voice recognition software, prone to medical misidentifications [...] E66.01) 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 [...] is also [facility] [facility] # Hypercalcemia Followed by endocrinology Patient [...] log exercise and discussed fitness Apps like [employer] which can help keep log off calories [...] Dictation was accomplished with the use of [employer] voice recognition software, prone to medical misidentifications [...] 50% being face to face counselling. 06/15/2025 Protein malnutrition (ICD-10 - E46) Courtney [...] Dictation was accomplished with the use of [employer] voice recognition software, prone to medical misidentifications [...] next visit it any questions/concerns arise. 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 # HTN: Currently on Irbesartan 300 mg (max dose Was started on Amlodipine last visit, and increased from 5 to 10 mg. BP readings improved with SBP in 130's. Pt reports ankle edema. Will continue Irbesartan 300 mg po daily, Amloidpine 5 mg po daily. #Morbid obesity:Currently going through [facility] for weight loss medication. Patient is also undergoing bariatric surgery evaluation through [facility] # Hypercalcemia Followed by endocrinology Patient [...] log exercise and discussed fitness Apps like [employer] which can help keep log off calories [...] Dictation was accomplished with the use of [employer] voice recognition software, prone to medical misidentifications [...] Dictation was accomplished with the use of [employer] voice recognition software, prone to medical misidentifications [...] Dictation was accomplished with the use of [employer] voice recognition software, prone to medical misidentifications [...] Dictation was accomplished with the use of [employer] voice recognition software, prone to medical misidentifications [...] I10) 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 # HTN: Currently on Irbesartan 300 mg (max dose Was started on Amlodipine last visit, and increased from 5 to 10 mg. BP readings improved with SBP in 130's. Pt reports ankle edema. Will continue Irbesartan 300 mg po daily, Amloidpine 5 mg po daily. #Morbid obesity:Currently going through [facility] for weight loss medication. 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 #COVID positive. 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 # HTN: Currently on Irbesartan 300 mg (max dose Was started on Amlodipine last visit, and increased from 5 to 10 mg. BP readings improved with SBP in 130's. Pt reports ankle edema. Will continue Irbesartan 300 mg po daily, Amloidpine 5 mg po daily. #Morbid obesity:Currently going through [facility] for weight loss medication. Patient is also undergoing bariatric surgery evaluation through [facility] # Hypercalcemia Followed by endocrinology Patient [...] log exercise and discussed fitness Apps like [employer] which can help keep log off calories [...] Dictation was accomplished with the use of [employer] voice recognition software, prone to medical misidentifications [...] Dictation was accomplished with the use of [employer] voice recognition software, prone to medical misidentifications [...] Dictation was accomplished with the use of [employer] voice recognition software, prone to medical misidentifications 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 [...] Dictation was accomplished with the use of [employer] voice recognition software, prone to medical misidentifications [...] Dictation was accomplished with the use of [employer] voice recognition software, prone to medical misidentifications [...] Dictation was accomplished with the use of [employer] voice recognition software, prone to medical misidentifications [...] COMPREHENSIVE METABOLIC PANEL 03/12/2025 COMPREHENSIVE METABOLIC PANEL 08/08/2024 COMPREHENSIVE METABOLIC PANEL 12/11/2024 COMPREHENSIVE METABOLIC PANEL 05/02/2024 COMPREHENSIVE METABOLIC PANEL 04/10/2022 COMPREHENSIVE METABOLIC PANEL 01/09/2023 MAGNESIUM 06/04/2025 ALT 02/16/2021 CBC (INCLUDES DIFF/PLT) 01/09/2023 CBC (INCLUDES DIFF/PLT) 05/02/2024 CBC (INCLUDES DIFF/PLT) 06/04/2025 CBC (INCLUDES DIFF/PLT) 12/11/2024 CBC (INCLUDES DIFF/PLT) 03/12/2025 CBC (INCLUDES DIFF/PLT) 06/14/2023 CBC (INCLUDES DIFF/PLT) 01/17/2022 URINALYSIS, COMPLETE 06/14/2023 URINALYSIS, COMPLETE 03/12/2025 URINALYSIS, COMPLETE 01/09/2023 HEMOGLOBIN A1c 05/02/2024 HEMOGLOBIN A1c 01/09/2023 HEMOGLOBIN A1c 04/10/2022 HEMOGLOBIN A1c 12/11/2024 HEMOGLOBIN A1c 06/14/2023 HEMOGLOBIN A1c 01/17/2022 VITAMIN B12 03/12/2025 TSH 06/14/2023 VITAMIN D,25-OH,TOTAL,IA 06/14/2023 VITAMIN D,25-OH,TOTAL,IA 01/17/2022 VITAMIN D,25-OH,TOTAL,IA 03/12/2025 CT Brain WO 09/26/2024 TSH+T3+Free T4+T3 Free 03/12/2025 Next Appt Details Provider Name:ROSS ARIAS, 08/04/2025 08:00:00 AM, [address], [place], [address], Provider Name:ROSS ARIAS, 08/11/2025 08:00:00 AM, [address], [place], [address], Insurance Providers Payer Name Payer Address Payer Phone Subscriber Number Group Number Insured Name Patient Relationship to Insured Coverage Start Date Coverage End Date [employer] [facility] [address] [place] [address] [id number] COURTNEY HILARIO Self - patient is the insured Medications Administered Medication Instructions Date of Administration Dosage Notes [facility] B12 INJECTION 07/11/2021 lot # [id number] Semaglutide 04/15/2024 1 Medical (General) History Medical History History ICD Code Essential (primary) hypertension I10 Hyperlipidemia, unspecified E78.5 Prediabetes R73.03 Vitamin D deficiency E55.9 Depression, unspecified F32.A Obesity (BMI 30-39.9) E66.9 Aortic valve disease I35.9 CRYSTAL (obstructive sleep apnea) G47.33 Aortic stenosis, moderate I35.0 Surgical History Surgery Date(Month/Year) section L knee meniscus surgery 09/26/2022
== END 2025-07-03 09:53 | disposition home or self-care (01) ==
LOC: HO.HBS 08:38
PROVIDERS: Visit Provider Physician Assistant Surgical
DX: Z98.84 Bariatric surgery status (principal)
CPT/HCPCS: 99024

== ENCOUNTER 2025-09-21 12:34 | Outpatient (AMB) | payer BC, SELFPAY ==
--- OUTSIDE RECORDS SUMMARY | 2025-08-11 03:00 | XMS_ITS ---
Author Organization [facility] [address] Address [address] [facility] [place] [address] Care Team Providers Care Parts Finisher Name Role Phone ROSS ARIAS Unavailable [phone] Encounters Encounter Location Date Provider Diagnosis [facility] [address] [place] [address] 08/11/2025 ROSS ARIAS Plan Of Treatment Next Appt Details Provider Name:ROSS ARIAS, 09/28/2025 02:00:00 PM, [address], [place], [address], Progress Notes * COURTNEY HILARIO EDOB:[birth year] (64 yo F)Acc No.[id number]:08/11/2025 Progress Notes Patient: Quynh LUTZ COURTNEY Ziegler Provider: Chicho ARIAS PA-C :1960 A ge:64 Y S ex:Female Date:08/11/2025 Address:[address] [place], [place] [address] [place], [id number] Subjective: * Chief Complaints: * * Medical History: Objective: * Vitals: Assessment: Plan: * Treatment: * Images: Billing Information: * Visit Code: * Procedure Codes: Care Plan Details* * Electronic signature of MAGGIE ARIAS PA-C on 09/21/2025 at 03:55 PM EST Sign off status: Pending * Provider: Chicho ARIAS PA-C Date: 0 08/11/2025 Generated for Meron mendes/Alesia/Todd on: 1 11/21/2024 03:55 PM EST
[2025-09-21 12:51] VITALS: BP 141/83; PULSE 55; TEMP 36.9; O2SAT 95; BMI 28.2
--- NOTE | 2025-09-21 12:51 | MHC.OFFVISWM ---
VS Expanded 09/21/25 12:51 BP 141/83 H Blood Pressure Location Lt brachial Blood Pressure Position Sitting Pulse 55 Pulse Source Pulse Oximeter Temp 98.4 F Temperature Source Temporal Artery Scan Pulse Oximetry 95 Oxygen Delivery Method Room Air Height 5 ft 3 in Weight 159 lb 3.2 oz BMI 28.2 Body Fat % 33.8 Body Fat Mass 53.8 Fat Free Mass 105.4 Visceral Fat Rating 9.0 Body Water % 46.7 Body Water Mass 74.2 Muscle Mass/Score 100.0 Basal Metabolic Rate/Score 1,418 Intake Visit Reasons: (OV) PO LSG 06/26/25 Allergies No Known Allergies Allergy (Verified 09/21/25 12:54) Medication List - Last Reconciled 09/21/25 by Dimitri Edwards RN metoprolol tartrate 50 mg PO BID pantoprazole 40 mg PO DAILY [potassium 20 meq po x 10 days orally; ] pravastatin 80 mg PO DAILY HPI Comments Details: This?is a?64?yo F who is s/p LSG 06/26/2025. Presents for 3mo post op visit. Weight loss of 27lb since last OV at 1w postop. No complaints of nausea, emesis, abdominal pain or reflux, or constipation. Has completed carafate and wondering if she still needs to take pantoprazole. She was taking BP every day, but felt very stressed by this. She saw her PCP about this and is now on metoprolol BID only. Remains off metformin, had A1C checked recently and was ok. Present meal plan includes: MF shake at 7am protein bar at 10am shake at 1pm protein bar at 4pm dinner at 7pm Exercise routine includes: nothing the past 2 weeks usually stationary bike 60-90min, resistance bands, hand weights sometimes will go outside for walk [facility] Medical History (Updated 09/21/25 @ 12:53 by JOAN Baldwin) Non-insulin dependent type 2 diabetes mellitus DJD (degenerative joint disease) GERD (gastroesophageal reflux disease) Hyperlipidemia Sleep apnea treated with continuous positive airway pressure (CPAP) Hypertension BMI 30.0-30.9,adult Obesity Surgical History (Updated 07/03/25 @ 08:56 by Skylar Diallo CMA) S/P gastric sleeve procedure History of esophagogastroduodenoscopy (EGD) Hx of section History of lateral meniscus repair of right knee History of lateral meniscus repair of left knee Hx of colonoscopy Family History Mother Breast cancer Diabetes Heart problem Hypertension Father Heart problem Melanoma Diabetes Hypertension Son Gout Daughter No problems noted. Daughter Thyroid condition Social History Household Members: None Housing: Condominium Are you a primary adult live in caregiver to a significant other at home: No Do you presently have visiting nurse or other home services: No Alcohol intake: current Alcohol intake frequency: does not drink Patient Tobacco Use Status: Never used Tobacco Assessment & Plan Assessment & Plan (1) Overweight: Code(s): E66.3 - Overweight Category: Medical (2) S/P laparoscopic sleeve gastrectomy: Code(s): Z98.84 - Bariatric surgery status Category: Surgical Plan Pt will communicate with her PCP regarding BP. She may want to have labs done at outside facility, will let me know. Will continue to communicate with Dr Clarke via text. Will work on increasing exercise again to goal. May want to see a devops architect in the future, can discuss at 6mo visit. RTC 3mo.
--- OUTSIDE RECORDS SUMMARY | 2025-09-21 15:55 | XMS_ITS | Clinical Summary ---
Author Organization [facility] Address [address] [place] [address] Care Team Providers Care Peanut Sorter Name Role Phone Unavailable Primary Care Provider [...]
--- OUTSIDE RECORDS SUMMARY | 2025-09-21 15:55 | XMS_ITS | Patient Health Record ---
Author Organization [facility] Address [address] [facility] [address] [place] [address] Care Team Providers Care Space Control Agent Name Role Phone Belkys Armando Primary Care [...] Status Risk Notes Problem Acquired hallux valgus ([id number]) Hallux valgus (acquired), left foot (M20.12) Active confirmed Plan Of Treatment Pending Test Test Name Order Date X ray : Foot, left 3v 06/28/2021 Insurance Providers Payer Name Payer Address Payer Phone Subscriber Number Group Number Insured Name Patient Relationship to Insured Coverage Start Date Coverage End Date [employer] [facility] [address] [place] [address] [phone] [id number] Lina Lynch Self - patient is the insured Medical (General) History Medical History History ICD Code Hyperlipidemia Hypertension Pre diabetes Vitamin D deficiency Morbid obesity Hyperlipidemia Essential (primary) hypertension Depression, unspecified depression type Abnormal LFT's Parasthesia Surgical History Surgery Date(Month/Year) Section meniscus repair (Left)
--- OUTSIDE RECORDS SUMMARY | 2025-09-21 15:56 | XMS_ITS | Patient Health Record ---
[facility] Address [address] [place] [address] Care Team Providers Care Oral Health Therapist Name Role Phone ROSS ARIAS Unavailable [phone] Allergies Allergen (clinical drug ingredient) Drug/Non Drug Allergy documented on EMR Reaction Allergy Type Onset Date Status crab allergenic extract crab (uncoded) Hypercalcemia Allergy Active hydrochlorothiazide Hydrochlorothiazide stomach upset Drug Allergy Active Results Component Value Reference Range Notes VAS US DUPLEX LOWER EXT VENO US RIGHT Reviewed date:08/06/2025 08:14:25 AM Interpretation: Performing Lab: Notes/Report: Note See Note [facility], a member of [facility] Patient Name: COURTNEY HILARIO Date of : 1960 Reason for Exam: right leg swelling Exam Date: 08/04/2025 [id number] EST Report Status: Final Ordering Provider: ROSS ARIAS PCP: BOB ARMANDO PROCEDURE: VAS US DUPLEX LOWER EXT VENOUS RIGHT INDICATION: Swelling TECHNIQUE: 2-D and color Doppler imaging of the right lower extremity venous vasculature with compression and augmentation maneuvers. COMPARISON: No prior s available. FINDINGS: There is normal flow , compression, and augmentation from the common femoral through the popliteal vein. Visualized calf veins are patent. IMPRESSION: NO RIGHT LOWER EXTREMITY DEEP VENOUS THROMBOSIS. -------- FINAL REPOR T -------- Dictated By: FAMILIA MOLINA Dictated Date: 08/04/2025 18:10 ET Assigned Physician: FAMILIA MOLINA Reviewed and Electronically Signed By: FAMILIA MOLINA Signed Date: 08/04/2025 18:10 ET Workstation ID: [id number] Transcribed By: Self Edit Transcribed Date: 08/04/2025 18:10 ET Hemoglobin A1c Reviewed date:08/14/2025 03:57:56 PM Interpretation: Performing Lab:[facility] Mendez, [address] [place] [address], Phone - [phone], Director - Adam Notes/Report: Hemoglobin A1c 5.4 Reference Range: [place] Diabetes Association (ADA) Guidelines: <5.7: Decreased risk for diabetes 5.7 - 6.4: Increased risk for diabetes >6.4: Ongoing Hyperglycemia of any cause <7.0: Glycemic control for adults with diabetes Estimated Average Glucose 108 Comp. Metabolic Panel (14)-3 Reviewed date:08/14/2025 03:57:18 PM Interpretation: Performing Lab:[facility], [address] [place] [address], Phone - [phone], Director - Adam Notes/Report: Glucose 89 70-99 mg/dL BUN 17 8-27 mg/dL Creatinine 0.67 0.57-1.00 mg/dL eGFR 98 >59 mL/min/1.73 BUN/Creatinine Ratio 25 12-28 Sodium 145 134-144 mmol/L Potassium 3.2 3.5-5.2 mmol/L Chloride 103 96-106 mmol/L Carbon Dioxide, Total 23 20-29 mmol/L Calcium 10.1 8.7-10.3 mg/dL Protein, Total 6.4 6.0-8.5 g/dL Albumin 4.1 3.9-4.9 g/dL Globulin, Total 2.3 1.5-4.5 g/dL Bilirubin, Total 0.7 0.0-1.2 mg/dL Alkaline Phosphatase 89 49-135 IU/L Pleas e note reference interval change AST (SGOT) 19 0-40 IU/L ALT (SGPT) 24 0-32 IU/L Vitamin D, 55-[id number] Reviewed date:08/14/2025 03:57:56 PM Interpretation: Performing Lab:[facility], [address] [place] [address], [place], Phone - [phone], Director - Adam Notes/Report: Vitamin D, 25-Hydroxy 53.5 30.0-100.0 ng/mL Vitamin D deficiency has been defined by the [place] of [employer] and an Endocrine Society practice guideline as a level of serum 25-OH vitamin D less than 20 ng/mL (1,2). The Endocrine Society went on to further define vitamin D insufficiency as a level between 21 and 29 ng/mL (2). 1. IOM ([place] of [employer]). 2010. Dietary reference intakes for calcium and D. [place]: The National Academies Press. 2. Les MF, Romeo [place], Aranza FALLON, et al. Evaluation, treatment, and prevention of vitamin D deficiency: an Endocrine Society clinical practice guideline. JCEM. 2010; 96(7):1911-30. CBC With Differential/Platel et-[id number] Reviewed date:08/14/2025 03:57:56 PM Interpretation: Performing Lab:[facility], [address] [place] [address], Phone - [phone], Director - Adam Notes/Report: WBC 4.9 3.4-10.8 x10E3/uL RBC 4.68 3.77-5.28 x10E6/uL Hemoglobin 13.7 11.1-15.9 g/dL Hematocrit 43.4 34.0-46.6 % MCV 93 79-97 fL MCH 29.3 26.6-33.0 pg MCHC 31.6 31.5-35.7 g/dL RDW 15.3 11.7-15.4 % Platelets 197 150-450 x10E3/uL Neutrophils 54 Not Estab. % Lymphs 31 Not Estab. % Monocytes 11 Not Estab. % Eos 3 Not Estab. % Basos 1 Not Estab. % Neutrophils (Absolute) 2.6 1.4-7.0 x10E3/uL Lymphs (Absolute) 1.5 0.7-3.1 x10E3/uL Monocytes(Absolute) 0.6 0.1-0.9 x10E3/uL Eos (Absolute) 0.1 0.0-0.4 x10E3/uL Baso (Absolute) 0.1 0.0-0.2 x10E3/uL Immature Granulocytes 0 Not Estab. % Immature Grans (Abs) 0.0 0.0-0.1 x10E3/uL Urinalysis, Complete-[id number] Reviewed date:08/14/2025 03:57:56 PM Interpretation: Performing Lab:[facility] [address] [place] [address], Phone - [phone], Director - Adam Notes/Report: Specific [place] >=1.030 1.005-1.030 pH 6.0 5.0-7.5 Urine-Color Yellow Yellow Appearance Clear Clear WBC Esterase 2+ Negative Protein 1+ Negative/Trace Glucose Negative Negative Ketones 1+ Negative Occult Blood Negative Negative Bilirubin Negative Negative Urobilinogen,Semi-Qn 1.0 0.2-1.0 mg/dL Nitrite, Urine Negative Negative Microscopic Examination See below: Micr oscopic was indicated and was performed. WBC >30 0 - 5 /hpf RBC None seen 0 - 2 /hpf Epithelial Cells (non renal) 0-10 0 - 10 /hpf Casts None seen None seen /lpf Crystals Present N/A Crystal Type Calcium Oxalate N/A Bacteria None seen None seen/Few Vitamin [id number] Reviewed date:08/14/2025 03:57:56 PM Interpretation: Performing Lab:[facility], [address] [place] [address], Phone - [phone], Director - Adam Notes/Report: Vitamin B12 185 927-4710 pg/mL Comp. Metabolic Panel (14)-3 [id number] Reviewed date:06/10/2025 10:36:47 AM Interpretation: Performing Lab:[facility], [address] [place] [address], Phone - [phone], Director - Adam Notes/Report: Glucose 87 70-99 [...] (SGPT) 32 0-32 IU/L CBC With Differential/Platel et-[id number] Reviewed date:06/10/2025 05:17:38 PM Interpretation: Performing Lab:[facility] [place], [address] [facility], Phone - [phone], Director - Adam Notes/Report: WBC 5.9 3.4-10.8 [...] % Immature Grans (Abs) 0.0 0.0-0.1 x10E3/uL Magnesium-[id number] Reviewed date:06/10/2025 10:36:52 AM Interpretation: Performing Lab:[facility] [place], [address] [facility], Phone - [phone], Director - Adam Notes/Report: Magnesium 1.6 1.6-2.3 mg/dL Comp. Metabolic Panel (14)-3 Reviewed date:01/27/2025 08:03:11 AM Interpretation: Performing Lab:[facility] [place], [address] [facility], Phone - [phone], Director - Jeny Notes/Report: Glucose 108 70-99 [...] (SGPT) 30 0-32 IU/L CBC With Differential/Platel et-[id number] Reviewed date:01/27/2025 08:03:11 AM Interpretation: Performing Lab:[facility], [address] [place] [address], [place], Phone - [phone], Director - Adam Notes/Report: WBC 6.3 3.4-10.8 [...] Immature Grans (Abs) 0.0 0.0-0.1 x10E3/uL Hemoglobin [id number] Reviewed date:01/27/2025 08:01:53 AM Interpretation: Performing Lab:[facility], [facility], Phone - [phone], Director - Jeny Notes/Report: Hemoglobin A1c 6.2 4.8-5.6 % . Prediabetes: 5.7 - 6.4 Diabetes: >6.4 Glycemic control for adults with diabetes: <7.0 TSH+T3+Free T4+T3 Free Reviewed date:05/11/2025 08:05:49 AM Interpretation: Performing Lab:[facility] [address] [place] [address], Phone - [phone], Director - Adam Notes/Report: TSH-ICMA 2.9 Reference Range: Non- Adult 0.450-4.500 First Trimester 0.100-4.000 Second Trimester 0.200-4.000 Third Trimester 0.300-4.500 Triiodothyronine (T-3), Serum 97 Reference Range: Adults: 55 - 170 Free T-3 3.3 Reference Range: >=20y: 2.0 - 4.4 Free T4 by Dialysis/Hasher Operator 1.2 This test was developed and its performance characteristics determined by [facility]. It has not been cleared or approved by the Food and Drug Administration. Reference Range: Pubertal Children and Adults: 0.8 - 1.7 Comp. Metabolic Panel (14)-3 [id number] Reviewed date:05/11/2025 08:05:49 AM Interpretation: Performing Lab:[facility] [address] [place] [address], [place], Phone - [phone], Director - MDIselay Notes/Report: Glucose 105 70-99 mg/dL BUN 17 [...] IU/L ALT (SGPT) 44 0-32 IU/L Lipid Panel-[id number] Reviewed date:05/11/2025 08:05:44 AM Interpretation: Performing Lab:[facility], [address] [facility], Phone - [phone], Director - Adam Notes/Report: Cholesterol, Total 178 100-199 mg/dL Triglycerides 172 0-149 mg/dL HDL Cholesterol 63 >39 mg/dL VLDL Cholesterol Trino 29 5-40 mg/dL LDL Chol Calc (NIH) 86 0-99 mg/dL Vitamin D, 82-Pwdsscb-[id number] Reviewed date:05/11/2025 08:05:49 AM Interpretation: Performing Lab:[facility], [address] [facility], Phone - [phone], Director - Adam Notes/Report: Vitamin D, 25-Hydroxy 38.1 30.0-100.0 ng/mL Vitamin D deficiency has been defined by the [place] of [employer] and an Endocrine Society practice guideline as a level of serum 25-OH vitamin D less than 20 ng/mL (1,2). The Endocrine Society went on to further define vitamin D insufficiency as a level between 21 and 29 ng/mL (2). 1. IOM ([place] of [employer]). 2010. Dietary reference intakes for calcium and D. [place]: The National Academies Press. 2. Les MF, Romeo [place], Aranza F[place], et al. Evaluation, treatment, and prevention of vitamin D deficiency: an Endocrine Society clinical practice guideline. JCEM. 2010; 96(7):1911-30. CBC With Differential/Platel et-[id number] Reviewed date:05/11/2025 08:05:49 AM Interpretation: Performing Lab:[facility], [address] [facility], Phone - [phone], Director - Adam Notes/Report: WBC 5.3 3.4-10.8 [...] Immature Grans (Abs) 0.0 0.0-0.1 x10E3/uL Urinalysis, Complete-[id number] Reviewed date:05/11/2025 08:05:49 AM Interpretation: Performing Lab:[facility] Mendez, [address] [place] [address], Phone - [phone], Director - Adam Notes/Report: Specific [place] 1.028 1.005-1.030 pH 5.5 5.0-7.5 Urine-Color Yellow [...] /lpf Bacteria None seen None seen/Few Vitamin [id number] Reviewed date:05/11/2025 08:05:49 AM Interpretation: Performing Lab:[facility] Mendez, [address] [place] [address], Phone - [phone], Director - Adam Notes/Report: Vitamin B12 663 833-5262 pg/mL Reason For Referral Diagnosis 1 Hypercalcemia (E83.5 2) [facility] [facility] Referring Provider First Name ROSS Referring Provider Last Name JUANA Referring Provider Speciality Internal edicine Referred Provider Specialty Endocrinolog y General Notes Leann Ortega 2023 08:53:41 AM > filled out form and [facility] Redena 12/01/2024 04:12:27 PM > The patient was seen on 10/27/2024 Referral Priority Routine Reason partial tear in glut eus and rt hamstring and left hip labral tear Diagnosis 1 Hip pain, left (M25. 552) Diagnosis 2 Gluteal tendinitis, left hip (M76.02) Referral Organization [facility]ET LUZ Referring Provider First Name ROSS Referring Provider Last Name JUANA [facility] Referred Provider Specialty Orthopedic S karenery Clinical Notes damon navarro 1 12/28/2023 09:59:37 AM >faxed mri's and paper to Alecia francis Earl Adam 10/28/2024 11:12:41 AM > [facility] [phone]. Refaxedmelanie krystal 11/04/2024 03:03:46 PM >seen 10/29/24 marco antonio tarango -notes scanned in Referral Priority Routine Reason evaluate and treat rafto polus Diagnosis [address] at (Z98.84) [facility] [address] Referring Provider First Name ROSS Referring Provider Last Name JUANA [facility]erred Provider Specialty General Surg sharri General Notes Morales Kenny 03/12 10:50:25 AM > referral sent to [facility], p. [phone], f. [phone] Clinical Notes Jose Uribe 12/2024 04:06:20 PM > [phone] Redena 04/20/2025 04:06:24 PM > Scheduled for 04/22 at 1 pm. Pt aware Referral Priority Routine Medications Medication SIG (Take, Route, Frequency, Duration) Notes Start Date End Date Status Potassium Chloride 20 MEQ 1 packet with food Orally Once a day; Duration: 10 days 08/20/2025 Active Multivitamin Active Pravastatin Sodium 80 MG 1 tablet Orally Once a day Active Albuterol Sulfate HFA 108 (90 Base) MCG/ACT 2 puff as needed Inhalation every 6 hrs; Duration: 30 days Active Potassium Chloride Nova ER 20 MEQ 1 tablet with food Orally Once a day; Duration: 30 day(s) 09/18/2025 Active Pantoprazole Sodium 40 MG TAKE 1 TABLET 1/2 TO 1 HOUR BEFORE MORNING MEAL ORALLY ONCE A DAY 30 DAYS; Duration: 90 Active Metoprolol Tartrate 50 MG Oral; Duration: 90 Days Active Immunizations Vaccine Route Administration Date Status Comme nts DTaP IM Intramuscular 04/10/2022 Administered Moderna Covid-19 Vaccine Unknown 09/16/2021 Administere d Zoster Unknown 06/07/2024 Administered Social History Tobacco Use: Social History Observation Description Date Details (start date - stop date) Never Smoker NA - NA Tobacco Use/Smoking Question Answer Notes Are you a 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 Tob: 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 Tob: 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 Problems Problem Type SNOMED Code ICD Code Onset Dates Problem Status W/U Status Risk Notes Problem Vitamin B>12< deficiency anaemia (63604264) Vitamin B12 deficiency anemia, unspecified (D51.9) Active confirmed Problem Hypothyroidism (52334241) Hypothyroidism, unspecified (E03.9) Active confirmed Problem Vitamin D deficiency (08982567) Vitamin D deficiency, unspecified (E55.9) Active confirmed Problem Hyperlipidemia (08254402) Hyperlipidemia, unspecified (E78.5) Active confirmed Problem Hypomagnesemia (742071849) Hypomagnesemia (E83.42) Active confirmed Problem Hypercalcemia (79373483) Hypercalcemia (E83.52) Active confirmed Problem Nystagmus (454600) Other forms of nystagmus (H55.09) Active confirmed Problem Essential hypertension (26382365) Essential (primary) hypertension (I10) Active confirmed Problem Abnormal blood pressure (29255626) Encounter for examination of blood pressure with abnormal findings (Z01.31) Active confirmed Problem Screening for malignant neoplasm of breast (128850090) Encounter for screening mammogram for malignant neoplasm of breast (Z12.31) Active confirmed Problem Screening for osteoporosis (469946795) Encounter for screening for osteoporosis (Z13.820) Active confirmed Problem History of bariatric surgical procedure (879846654) Bariatric surgery status (Z98.84) Active confirmed Problem Prediabetes (251094578) Prediabetes (R73.03) Active confirmed Problem Essential hypertension (52207628) Essential hypertension (I10) Active confirmed Problem Morbid obesity (236958077) Morbid obesity (E66.01) Active confirmed Problem Acquired hypothyroidism (348807905) Acquired hypothyroidism (E03.9) Active confirmed Problem Depressive disorder (disorder) (60728913) Depression, unspecified depression type (F32.9) Active confirmed Problem Annual health maintenance examination (24017930) Annual physical exam (Z00.00) Active confirmed Problem Vitamin D deficiency (81878631) Vitamin D deficiency (E55.9) Active confirmed Problem Body mass index 40+ - morbidly obese (874554047) Body mass index (BMI) 50.0-59.9, adult (Z68.43) Active confirmed Problem Hypertension (86495913) Uncontrolled hypertension (I10) Active confirmed Problem Type II diabetes mellitus without complication (480760759) Type 2 diabetes mellitus without complication, unspecified whether medical terminologist insulin use (E11.9) Active confirmed Problem Vitamin B>12< deficiency anaemia (67604946) Anemia due to vitamin B12 deficiency, 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) Active confirmed Problem Essential hypertension (92243469) Elevated blood pressure reading in office with white coat syndrome, with diagnosis of hypertension (I10) Active confirmed Problem Frequent headache (finding) (107035420) Frequent headaches (R51.9) Active confirmed Problem Double vision (71415583) Double vision (H53.2) Active confirmed Problem Hyperlipidemia (81437425) 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) Active confirmed Problem Abnormal metabolic state due to diabetes mellitus (406241999) Abnormal metabolic state due to diabetes mellitus (E11.9) Active confirmed Problem S/P gastric sleeve procedure (Z90.3) Active confirmed Problem Arthralgia of the pelvic region and thigh (818491831) Hip pain, unspecified laterality (M25.559) Active confirmed Problem Protein malnutrition (41099236) Protein malnutrition (E46) Active confirmed Vital Signs Heart Rate 59 /min 08/20/2025 Oximetry 97 % 08/20/2025 Blood pressure diastolic 92 mm Hg 08/20/2025 Height 52 in 08/20/2025 Blood pressure systolic 138 mm Hg 08/20/2025 Weight 175.6 lbs 08/20/2025 BMI 45.65 kg/m2 08/20/2025 Encounters Encounter Location Date Provider Diagnosis [facility] [address] [place] [address] 09/26/2024 ROSS ARIAS Type 2 diabetes claudette itus without complication, unspecified whether medical terminologist insulin use E11.9 ; Hypercalcemia E83.52 ; Uncontrolled hypertension I10 ; Morbid obesity E66.01 ; Body mass index (BMI) 50.0-59.9, adult Z68.43 ; Right hip pain M25.551 ; Frequent headaches R51.9 and Other forms of nystagmus H55.[address] [address] [place] [address] 10/13/2024 ROSS ARIAS Hip pain, left M25.5 52 ; Hip pain, right M25.551 ; Hypercalcemia E83.52 ; Type 2 diabetes mellitus without complication, unspecified whether penitentiary insulin use E11.9 ; Morbid obesity E66.01 ; Body mass index (BMI) 50.0-59.9, adult Z68.43 ; Essential (primary) hypertension I10 and Cough R05.[address] [place] [address] 12/11/2024 ROSS ARIAS Type 2 diabetes claudette itus without complication, unspecified whether medical terminologist insulin use E11.9 ; Hypercalcemia E83.52 ; Uncontrolled hypertension I10 ; Morbid obesity E66.01 ; Body mass index (BMI) 50.0-59.9, adult Z68.43 ; Right hip pain M25.551 ; Frequent headaches R51.9 and Other forms of nystagmus H55.[address] [place] [address] 03/12/2025 ROSS ARIAS Type 2 diabetes claudette itus without complication, unspecified whether penitentiary insulin use E11.9 ; Hypercalcemia E83.52 ; Uncontrolled hypertension I10 ; Morbid obesity E66.01 ; Body mass index (BMI) 50.0-59.9, adult Z68.43 ; Right hip pain M25.551 ; Frequent headaches R51.9 and Other forms of nystagmus H55.[address] [place] [address] 05/04/2025 ROSS ARIAS Prediabetes R73.03 ; Annual physical exam Z00.00 ; Morbid obesity E66.01 ; Body mass index (BMI) 50.0-59.9, adult Z68.43 ; Essential (primary) hypertension I10 ; Type 2 diabetes mellitus without complication, unspecified whether penitentiary insulin use E11.9 and Hypercalcemia E83.[address] [place] [address] 06/04/2025 ROSS ARIAS SHEILA (acute kidney in jury) N17.9 ; Volume depletion, unspecified E86.9 ; Hypomagnesemia E83.42 ; Hypokalemia E87.6 ; Acute hyponatremia E87.1 ; Protein malnutrition E46 ; Abnormal weight loss R63.4 ; Encounter for examination of blood pressure with abnormal findings Z01.31 and Nausea R11.[address] [place] [address] 06/15/2025 ROSS ARIAS Volume depletion, unspecified E86.9 ; Hypercalcemia E83.52 ; Protein malnutrition E46 ; Abnormal weight loss R63.4 ; Encounter for examination of blood pressure with abnormal findings Z01.31 and Essential hypertension I10 [facility] [address] [place] [address] 08/04/2025 ROSS JUANA S/P gastric sleeve procedure Z90.3 ; Lower extremity edema R60.0 ; Hypercalcemia E83.52 ; Essential hypertension I10 and Encounter for examination of blood pressure with abnormal findings Z01.[address] [place] [address] 08/20/2025 ROSS FLORESA Lower extremity king a R60.0 ; S/P gastric sleeve procedure Z90.3 ; Hypercalcemia E83.52 ; Essential hypertension I10 and Encounter for examination of blood pressure with abnormal findings Z01.[address] [place] [address] 10/03/2024 ROSS JUANA [facility] [address] [place] [address] 10/13/2024 ROSS JUANA Hip pain, unspecifie d laterality M25.559 [facility] [address] [place] [address] 10/24/2024 ROSS JUANA [facility] [address] [place], [place] 10/27/2024 ROSS JUANA [facility] [address] [place], [place] 10/27/2024 ROSS JUANA [facility] [address] [place] [address] 10/27/2024 ROSS JUANA [facility] [address] [place], [place] 12/11/2024 ROSS JUANA [facility] [address] [place] [address] 02/20/2025 ROSS JUANA [facility] [address] [place] [address] 05/04/2025 RSOS JUANA [facility] [address] [place] [address] 05/27/2025 ROSS JUANA [facility] [address] [facility] [address] [place] [address] 06/03/2025 ROSS JUANA [facility] [address] [place] [address] 06/03/2025 ROSS JUANA [facility] [address] [place] [address] 08/04/2025 ROSS JUANA [facility] [address] [place] [address] 09/18/2025 ROSS JUANA [facility] [address] [place] [address] 06/27/2025 ROSS JUANA [facility] [address] [place], [place] 08/04/2025 ROSS RAIAS Assessments Encounter Date Diagnosis (ICD Code) Assessment Notes Treatment Notes Treatment Clinical Notes Section Notes 09/26/2024 Hypercalcemia (ICD-10 - E83.52) 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, lives independently, has 3 children. # HTN: Currently on Irbesartan 300 mg (max dose Was started on Amlodipine last visit, and increased from 5 to 10 mg. BP readings improved with SBP in 130's. Pt reports ankle edema. Will continue Irbesartan 300 mg po daily, Amloidpine 5 mg po daily. #Morbid obesity:Currently going through [facility] for weight loss medication. Patient is also undergoing bariatric surgery evaluation through [facility] # Hypercalcemia Followed by endocrinology Patient [...] log exercise and discussed fitness Apps like [employer] which can help keep log off calories [...] Dictation was accomplished with the use of [employer] voice recognition software, prone to medical misidentifications [...] Dictation was accomplished with the use of [employer] voice recognition software, prone to medical misidentifications [...] Dictation was accomplished with the use of [employer] voice recognition software, prone to medical misidentifications [...] Dictation was accomplished with the use of [employer] voice recognition software, prone to medical misidentifications [...] to next visit it any questions/concerns arise. 08/04/2025 Lower extremity edema (ICD-10 - R60.0) Courtney is a pleasant 64 year old female who presents today for follow up # Hypercalcemia: Followed by endocrine. #Hypertension. Overall well-controlled on metoprolol only. We will continue to hold amlodipine and irbesartan. Of note- BP taken 3 times, with different readings. # Obesity. Had gastric sleeve thru [facility] 06/26. Lost 12 lbs # RLE Swelling. Fullness noted on exam on R calf. Case discussed with collaborating physician \Bharati Armando who reviewed the assessment and plan. Chart, medications, labs, vital signs reviewed. Dictation was accomplished with the use of [employer] voice recognition software, prone to medical misidentifications and grammatical errors. This is unintentional and the practitioner does try to identify and correct these, but some could still be present. Please do not hesitate to contact practitioner for clarification. All questions answered to patients satisfaction. Patient verbalized understanding of diagnosis and treatments explained. To call sooner prior to next visit it any questions/concerns arise. 08/04/2025 S/P gastric sleeve procedure (ICD-10 - Z90.3) Courtney is a pleasant 64 year old female who presents today for follow up # Hypercalcemia: Followed by endocrine. #Hypertension. Overall well-controlled on metoprolol only. We will continue to hold amlodipine and irbesartan. Of note- BP taken 3 times, with different readings. # Obesity. Had gastric sleeve thru [facility] 06/26. Lost 12 lbs # RLE Swelling. Fullness noted on exam on R calf. Case discussed with collaborating physician \Bharati Armando who reviewed the assessment and plan. Chart, medications, labs, vital signs reviewed. Dictation was accomplished with the use of [employer] voice recognition software, prone to medical misidentifications and grammatical errors. This is unintentional and the practitioner does try to identify and correct these, but some could still be present. Please do not hesitate to contact practitioner for clarification. All questions answered to patients satisfaction. Patient verbalized understanding of diagnosis and treatments explained. To call sooner prior to next visit it any questions/concerns arise. 08/20/2025 Lower extremity edema (ICD-10 - R60.0) Courtney is a pleasant 64 year old female who presents today for follow up #Hypokalemia: We will give potassium chloride 20 mEq packets 1 packet p.o. daily x 10 days # Hypercalcemia: Followed by endocrine. #Hypertension. Overall well-controlled on metoprolol only. We will continue to hold amlodipine and irbesartanRecommend continuing metoprolol 50 mg p.o. twice daily. # [facility] Case discussed with collaborating physician \Bharati Armando who reviewed the assessment and plan. Chart, medications, labs, vital signs reviewed. Dictation was accomplished with the use of [employer] voice recognition software, prone to medical misidentifications and grammatical errors. This is unintentional and the practitioner does try to identify and correct these, but some could still be present. Please do not hesitate to contact practitioner for clarification. All questions answered to patients satisfaction. Patient verbalized understanding of diagnosis and treatments explained. To call sooner prior to next visit it any questions/concerns arise. 08/20/2025 S/P gastric sleeve procedure (ICD-10 - Z90.3) Courtney is a pleasant 64 year old female who presents today for follow up #Hypokalemia: We will give potassium chloride 20 mEq packets 1 packet p.o. daily x 10 days # Hypercalcemia: Followed by endocrine. #Hypertension. Overall well-controlled on metoprolol only. We will continue to hold amlodipine and irbesartanRecommend continuing metoprolol 50 mg p.o. twice daily. # [facility]. [facility] Case discussed with collaborating physician \Bharati Armando who reviewed the assessment and plan. Chart, medications, labs, vital signs reviewed. Dictation was accomplished with the use of [employer] voice recognition software, prone to medical misidentifications and grammatical errors. This is unintentional and the practitioner does try to identify and correct these, but some could still be present. Please do not hesitate to contact practitioner for clarification. All questions answered to patients satisfaction. Patient verbalized understanding of diagnosis and treatments explained. To call sooner prior to next visit it any questions/concerns arise. 08/20/2025 Hypercalcemia (ICD-10 - E83.52) Courtney is a pleasant 64 year old female who presents today for follow up #Hypokalemia: We will give potassium chloride 20 mEq packets 1 packet p.o. daily x 10 days # Hypercalcemia: Followed by endocrine. #Hypertension. Overall well-controlled on metoprolol only. We will continue to hold amlodipine and irbesartanRecommend continuing metoprolol 50 mg p.o. twice daily. # Obesity. Had gastric sleeve thru [facility] 06/26. Lost 18 lbs Case discussed with collaborating physician Shahrzad Armando who reviewed the assessment and plan. Chart, medications, labs, vital signs reviewed. Dictation was accomplished with the use of [employer] voice recognition software, prone to medical misidentifications [...] Dictation was accomplished with the use of [employer] voice recognition software, prone to medical misidentifications [...] Dictation was accomplished with the use of [employer] voice recognition software, prone to medical misidentifications and grammatical errors. This is unintentional and the practitioner does try to identify and correct these, but some could still be present. Please do not hesitate to contact practitioner for clarification. All questions answered to patients satisfaction. Patient verbalized understanding of diagnosis and treatments explained. To call sooner prior to next visit it any questions/concerns arise. 08/04/2025 Hypercalcemia (ICD-10 - E83.52) Courtney is a pleasant 64 year old female who presents today for follow up # Hypercalcemia: Followed by endocrine. #Hypertension. Overall well-controlled on metoprolol only. We will continue to hold amlodipine and irbesartan. Of note- BP taken 3 times, with different readings. # Obesity. Had gastric sleeve thru [facility] 06/26. Lost 12 lbs # RLE Swelling. Fullness noted on exam on R calf. Case discussed with collaborating physician \Bharati Armando who reviewed the assessment and plan. Chart, medications, labs, vital signs reviewed. 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 # HTN: Currently on Irbesartan 300 mg (max dose Was started on Amlodipine last visit, and increased from 5 to 10 mg. BP readings improved with SBP in 130's. Pt reports ankle edema. Will continue Irbesartan 300 mg po daily, Amloidpine 5 mg po daily. #Morbid obesity:Currently going through [facility] for weight loss medication. 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 [facility], lives independently, has 3 children. 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, lives independently, has 3 children. 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 [facility], lives independently, has 3 children. 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 [facility], lives independently, has 3 children. 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 [facility], lives independently, has 3 children. 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 [facility], lives independently, has 3 children. # HTN: Currently on Irbesartan 300 mg (max dose Was started on Amlodipine last visit, and increased from 5 to 10 mg. BP readings improved with SBP in 130's. Pt reports ankle edema. Will continue Irbesartan 300 mg po daily, Amloidpine 5 mg po daily. #Morbid obesity:Currently going through [facility] for weight loss medication. Patient is also undergoing bariatric surgery evaluation through [facility] # Hypercalcemia Followed by endocrinology Patient [...] log exercise and discussed fitness Apps like [employer] which can help keep log off calories [...] Dictation was accomplished with the use of [employer] voice recognition software, prone to medical misidentifications [...] Dictation was accomplished with the use of [employer] voice recognition software, prone to medical misidentifications and grammatical errors. This is unintentional and the practitioner does try to identify and correct these, but some could still be present. Please do not hesitate to contact practitioner for clarification. All questions answered to patients satisfaction. Patient verbalized understanding of diagnosis and treatments explained. To call sooner prior to next visit it any questions/concerns arise. 08/04/2025 Essential hypertension (ICD-10 - I10) Courtney is a pleasant 64 year old female who presents today for follow up # Hypercalcemia: Followed by endocrine. #Hypertension. Overall well-controlled on metoprolol only. We will continue to hold amlodipine and irbesartan. Of note- BP taken 3 times, with different readings. # Obesity. Had gastric sleeve thru [facility] 06/26. Lost 12 lbs # RLE Swelling. Fullness noted on exam on R calf. Case discussed with collaborating physician \Bharati Armando who reviewed the assessment and plan. Chart, medications, labs, vital signs reviewed. Dictation was accomplished with the use of [employer] voice recognition software, prone to medical misidentifications and grammatical errors. This is unintentional and the practitioner does try to identify and correct these, but some could still be present. Please do not hesitate to contact practitioner for clarification. All questions answered to patients satisfaction. Patient verbalized understanding of diagnosis and treatments explained. To call sooner prior to next visit it any questions/concerns arise. 08/20/2025 Essential hypertension (ICD-10 - I10) Courtney is a pleasant 64 year old female who presents today for follow up #Hypokalemia: We will give potassium chloride 20 mEq packets 1 packet p.o. daily x 10 days # Hypercalcemia: Followed by endocrine. #Hypertension. Overall well-controlled on metoprolol only. We will continue to hold amlodipine and irbesartanRecommend continuing metoprolol 50 mg p.o. twice daily. # Obesity. Had gastric sleeve thru [facility] 06/26. Lost 18 lbs Case discussed with collaborating physician \Bharati Armando who reviewed the assessment and plan. Chart, medications, labs, vital signs reviewed. Dictation was accomplished with the use of [employer] voice recognition software, prone to medical misidentifications and grammatical errors. This is unintentional and the practitioner does try to identify and correct these, but some could still be present. Please do not hesitate to contact practitioner for clarification. All questions answered to patients satisfaction. Patient verbalized understanding of diagnosis and treatments explained. To call sooner prior to next visit it any questions/concerns arise. 08/04/2025 Encounter for examination of blood pressure with abnormal findings (ICD-10 - Z01.31) Courtney is a pleasant 64 year old female who presents today for follow up # Hypercalcemia: Followed by endocrine. #Hypertension. Overall well-controlled on metoprolol only. We will continue to hold amlodipine and irbesartan. Of note- BP taken 3 times, with different readings. # Obesity. Had gastric sleeve thru [facility] 06/26. Lost 12 lbs # RLE Swelling. Fullness noted on exam on R calf. Case discussed with collaborating physician \Bharati Armando who reviewed the assessment and plan. Chart, medications, labs, vital signs reviewed. Dictation was accomplished with the use of [employer] voice recognition software, prone to medical misidentifications [...] Dictation was accomplished with the use of [employer] voice recognition software, prone to medical misidentifications and grammatical errors. This is unintentional and the practitioner does try to identify and correct these, but some could still be present. Please do not hesitate to contact practitioner for clarification. All questions answered to patients satisfaction. Patient verbalized understanding of diagnosis and treatments explained. To call sooner prior to next visit it any questions/concerns arise. 08/20/2025 Encounter for examination of blood pressure with abnormal findings (ICD-10 - Z01.31) Courtney is a pleasant 64 year old female who presents today for follow up #Hypokalemia: We will give potassium chloride 20 mEq packets 1 packet p.o. daily x 10 days # Hypercalcemia: Followed by endocrine. #Hypertension. Overall well-controlled on metoprolol only. We will continue to hold amlodipine and irbesartanRecommend continuing metoprolol 50 mg p.o. twice daily. # Obesity. Had gastric sleeve thru [facility] 06/26. Lost 18 lbs Case discussed with collaborating physician Shahrzad Armando who reviewed the assessment and plan. Chart, medications, labs, vital signs reviewed. 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 # HTN: Currently on Irbesartan 300 mg (max dose Was started on Amlodipine last visit, and increased from 5 to 10 mg. BP readings improved with SBP in 130's. Pt reports ankle edema. Will continue Irbesartan 300 mg po daily, Amloidpine 5 mg po daily. #Morbid obesity:Currently going through [facility] for weight loss medication. 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 [facility], lives independently, has 3 children. 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 [facility], lives independently, has 3 children. 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 [facility], lives independently, has 3 children. # HTN: [...] 150 pounds. 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 [facility], lives independently, has 3 children. 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 # [...] 1000mg Qhs. Case discussed with collaborating physician Bahrati Armando who reviewed the assessment and plan. Chart, medications, labs, vital signs reviewed. 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, lives independently, has 3 children. # HTN: [...] is also undergoing bariatric surgery evaluation through [facility] # Hypercalcemia Followed by endocrinology Patient [...] log exercise and discussed fitness Apps like [employer] which can help keep log off calories [...] Dictation was accomplished with the use of [employer] voice recognition software, prone to medical misidentifications [...] Dictation was accomplished with the use of [employer] voice recognition software, prone to medical misidentifications [...] Dictation was accomplished with the use of [employer] voice recognition software, prone to medical misidentifications [...] Dictation was accomplished with the use of [employer] voice recognition software, prone to medical misidentifications [...] R51.9) 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, lives independently, has 3 children. # HTN: [...] Dictation was accomplished with the use of [employer] App voice recognition software, prone to medical misidentifications [...] Dictation was accomplished with the use of [employer] voice recognition software, prone to medical misidentifications [...] Dictation was accomplished with the use of [employer] voice recognition software, prone to medical misidentifications [...] 05/04/2023 Bone Density 05/04/2023 Bone Density 05/24/2023 Ultrasound : Lower Extremity, right 07/20 EKG 11/01/2022 25OH VITAMIN D 09/14/2022 CBC [...] COMPREHENSIVE METABOLIC PANEL 01/17/2022 COMPREHENSIVE METABOLIC PANEL 08/04/2025 COMPREHENSIVE METABOLIC PANEL 06/04/2025 COMPREHENSIVE METABOLIC PANEL 06/14/2023 COMPREHENSIVE METABOLIC PANEL 03/12/2025 COMPREHENSIVE METABOLIC PANEL 12/11/2024 COMPREHENSIVE METABOLIC PANEL 08/08/2024 COMPREHENSIVE METABOLIC PANEL 05/02/2024 COMPREHENSIVE METABOLIC PANEL 04/10/2022 COMPREHENSIVE METABOLIC PANEL 01/09/2023 MAGNESIUM 06/04/2025 ALT 02/16/2021 CBC (INCLUDES DIFF/PLT) 01/09/2023 CBC (INCLUDES DIFF/PLT) 03/12/2025 CBC (INCLUDES DIFF/PLT) 05/02/2024 CBC (INCLUDES DIFF/PLT) 12/11/2024 CBC (INCLUDES DIFF/PLT) 06/14/2023 CBC (INCLUDES DIFF/PLT) 06/04/2025 CBC (INCLUDES DIFF/PLT) 08/04/2025 CBC (INCLUDES DIFF/PLT) 01/17/2022 URINALYSIS, COMPLETE 08/04/2025 URINALYSIS, COMPLETE 06/14/2023 URINALYSIS, COMPLETE 03/12/2025 URINALYSIS, COMPLETE 01/09/2023 HEMOGLOBIN A1c 01/09/2023 HEMOGLOBIN A1c 05/02/2024 HEMOGLOBIN A1c 04/10/2022 HEMOGLOBIN A1c 12/11/2024 HEMOGLOBIN A1c 06/14/2023 HEMOGLOBIN A1c 01/17/2022 HEMOGLOBIN A1c 08/04/2025 VITAMIN B12 08/04/2025 VITAMIN B12 03/12/2025 TSH 06/14/2023 VITAMIN D,25-OH,TOTAL,IA 06/14/2023 VITAMIN D,25-OH,TOTAL,IA 01/17/2022 VITAMIN D,25-OH,TOTAL,IA 08/04/2025 VITAMIN D,25-OH,TOTAL,IA 03/12/2025 CT Brain WO 09/26/2024 TSH+T3+Free T4+T3 Free 03/12/2025 Next Appt Details Provider Name:ROSS ARIAS, 09/28/2025 02:00:00 PM, [address], [place], [address], Insurance Providers Payer Name Payer Address Payer Phone Subscriber Number Group Number Insured Name Patient Relationship to Insured Coverage Start Date Coverage End Date [facility] [address] [place] [address] [id number] COURTNEY HILARIO Self - patient is the insured Medications Administered Medication Instructions Date of Administration Dosage Notes MICC B12 INJECTION 07/11/2021 lot # [id number] Semaglutide 04/15/2024 1 Medical (General) History Medical History History ICD Code Essential (primary) hypertension I10 Hyperlipidemia, unspecified E78.5 Prediabetes R73.03 Vitamin D deficiency E55.9 Depression, unspecified F32.A Obesity (BMI 30-39.9) E66.9 Aortic valve disease I35.9 CRYSTAL (obstructive sleep apnea) G47.33 Aortic stenosis, moderate I35.0 Surgical History Surgery Date(Month/Year) section L knee meniscus surgery 09/26/2022 Gastric Sleeve 06/26/25
== END 2025-09-21 13:19 | disposition home or self-care (01) ==
LOC: HO.HBS 12:35
PROVIDERS: Visit Provider Physician Assistant Surgical
DX: E66.3 Overweight (principal); Z68.28 Body mass index [BMI] 28.0-28.9, adult; Z90.3 Acquired absence of stomach [part of]; Z98.84 Bariatric surgery status
CPT/HCPCS: 99024